=== PATIENT | male | born 1955 | race African-American/Black ===

== ENCOUNTER 2020-07-01 10:30 | Emergency (ER) | payer OTHER ==
--- OUTSIDE RECORDS SUMMARY | 2020-07-01 10:32 | XMS REPORT | Continuity of Care Document ---
:1955 Author Organization [employer] [place] Care Team Providers Name Role Phone [facility] Information [employer] Unavailable Un available Problems Problem Status Onset Classification Date Comments Sourc e Date Reported CHRONIC Active [facility] MYELOID 0 [place] LEUKEMIA CHRONIC Active [facility] MYELOID [place] LEUKEMIA, BCR/ABL-POSI TI Medications Medication Details Route Status Patient Ordering Order Source Instructions Provider Date ramipril 10 mg 10 mg = 1 Active [facility] oral capsule cap, PO, 020 [facility] BID, 0 Refill(s) Metformin 1,000 mg = Active [facility] hydrochloride 1 tab, PO, 020 [place] d 1000 MG Oral BID-Meals, Tablet # 30 tab, 0 Refill(s) 3 ML Insulin 70 units, Active [facility] Glargine 100 SUB-Q, 020 [facility] UNT/ML Pen Daily, 0 Injector Refill(s) [Basaglar] Allergies, Adverse Reactions, Alerts No Known Medication Allergies Immunizations No Data Provided for This Section Results Order Name Results Value Reference Date Interpretation Comments L[facility] HEMATOLOGY Retic Auto 2.4 0.5 - 1.5 05/22 [facility] HEMATOLOGY WBC 335.7 3.7 - 10.4 05/22 Result Comment: [facility] Critical Result(s) called to bre emmanuel at 0 11:17 by gp_. Read back OK. HEMATOLOGY RBC 2.80 4.70 - 05/22 [facility] 6.10 [facility] HEMATOLOGY Hgb 8.2 14.0 - 05/22 MH 18.0 [facility] HEMATOLOGY Hct 26.5 42.0 - 05/22 MH 54.0 [facility] HEMATOLOGY MCV 94.8 80.0 - 05/22 MH 94.0 [facility] HEMATOLOGY MCH 29.2 27.0 - 05/22 MH 31.0 [facility] HEMATOLOGY MCHC 30.8 32.0 - 05/22 MH 36.0 [facility] HEMATOLOGY RDW 15.6 11.5 - 05/22 MH 14.5 [facility] HEMATOLOGY Platelet 162 133 - 450 05/22 [facility] HEMATOLOGY MPV 11.6 7.4 - 10.4 05/22 [facility] HEMATOLOGY Neutrophils # 221.6 1.5 - 8.1 05/22 [facility] HEMATOLOGY Lymphocytes # 10.1 1.0 - 5.5 05/22 [facility] HEMATOLOGY Monocytes # 33.6 0.0 - 0.8 05/22 [facility] HEMATOLOGY Eosinophils # 13.4 0.0 - 0.5 05/22 [facility] HEMATOLOGY Basophils # 6.7 0.0 - 0.2 05/22 [facility] HEMATOLOGY Segs 52.0 45.0 - 05/22 MH 75.0 [facility] HEMATOLOGY Bands 14.0 0.0 - 11.0 05/22 [facility] HEMATOLOGY Lymphocytes 3.0 20.0 - 05/22 MH 40.0 [facility] HEMATOLOGY Monocytes 10.0 2.0 - 12.0 05/22 [facility] HEMATOLOGY Eosinophils 4.0 0.0 - 4.0 05/22 [facility] HEMATOLOGY Basophils 2.0 0.0 - 1.0 05/22 [facility] HEMATOLOGY Metamyelocytes 7.0 0.0 - 1.0 05/22 [facility] HEMATOLOGY Myelocytes 7.0 <=0.0 % 05/22 [facility] HEMATOLOGY Blasts 1.0 <=0.0 % 05/22 [facility] HEMATOLOGY Atypical Lymphs 0.0 <=0.0 % 05/22 [facility] HEMATOLOGY RBC Morph Normal Normal 05/22 (05/22/20 10:52 AM) [facility] HEMATOLOGY Plt Morph Normal Normal 05/22 (05/22/20 10:52 AM) [facility] IMMUNOLOGY Coronavirus Not Detected Not 05/22 (COVID-19) ROBBIE (05/22/20 9:08 AM) [facility] Pathology Reports No Data Provided for This Section Diagnostic Reports Report Value Date Source Bone Marrow Bio/Aspr PROCEDURE INFORMATION: 05/22/2020 Marciano KENDALL Exam: IR Diagnostic Bone Marrow Biopsies And Asp irations Exam date and time: 05/22/2020 12:38 PM Age: 64 years old Clinical indication: Chronic myeloid leukemia, b cr/abl-positive, in relapse; Additional info: /cml TECHNIQUE: Imaging protocol: Diagnostic bone marrow biopsie s and aspirations. The interpreting physician was present and supervise d the procedure. CT guidance was provided. Radiation optimization: All CT scans at this facility use at least one of these dose optimization techniques: automated exposure control; mA and/or kV adjustment per patient size (includes targeted e xams where dose is matched to clinical indication); or iterative reconstructio n. Guidance contrast: CT contrast route: Intra-veno us; COMPARISON: No relevant prior studies available. RADIATION DOSE METRICS: Total DLP (mGy-cm): 192.80 FINDINGS: Advanced practice providers: None CONSENT AND SEDATION INFO: Consent: The procedure, risks, benefits and alternatives of the procedure were discussed. Informed consent was obtained. Time out: Timeout was performed prior to the pro cedure. Level of sedation: I administered modera te sedation throughout this procedure. The patient was monitored and observed by a hosp ital nurse, an independent trained observer. The nurse pushed medications a t my direction and monitored the patient's level of consciousness and physiol ogical status throughout. Moderate sedation record is permanently stored i n the hospital information system. Medications for sedation: 3 mg of IV Versed and 200 mcg of IV Fentanyl. Total intra-service sedation time (minutes): 27 minutes. Procedure summary: The patient was placed in the prone position. 1% lidocaine was used for local anesthesia. Using CT guidance, 11-gauge needle was advanced into the posterior left and right iliac bones. CT imaging confirmed proper positioning of the needle with the tip in the medullary bon e. No liquid marrow could be aspirated from the left iliac bone. Packed marrow suspecte d. Left iliac of marrow space core bone biopsy specimen was however obtained. Again with CT guidance the 1 1 gauge needle was advanced into the contralateral, right posterior iliac crest marrow space. Only s cant liquid bone marrow could be aspirated. Initially a approximately 1 cc was aspirated and given to histotechnologist supervisor who confirmed good spicul es. Only 3-4 cc of additional liquid marrow could be aspir ated , and was given to pathology. 1 cm core biopsy sample of bone marrow was obtained utili zing the guide needle. The core biopsy sample was placed in formali n container and appeared grossly adequate. Pressure was applied at the puncture site with adequate h emostasis. Procedural imaging: CT guidance for procedure, as described above. Complications: No immediate complications. Patient tolerated th e procedure well. IMPRESSION: Unsuccessful aspiration of liquid ma rrow from the left iliac bone marrow space. Likely secondary to packed marrow state. Successful bone marrow aspiration from right elida ac bone marrow space, however only small volume 4 cc of liquid marrow could be recovered. Successful core bone biopsy. Teo Skaggs MD On 05/22/2020 14:03:01; [id number] Consultation Notes No Data Provided for This Section Discharge Summaries No Data Provided for This Section History and Physicals No Data Provided for This Section Vital Signs Vital Sign Value Date Comments Source Height 170.18 cm 05/22/2020 [facility] Weight 66.818 05/22/2020 [facility] BMI Calculated 23.07 05/22/2020 [facility] Height 170.18 cm 05/22/2020 [facility] Weight 66.364 05/22/2020 [facility] BMI Calculated 22.91 05/22/2020 [facility] Encounters Location Location Encounter Encounter Reason Attending ADM NH Stat us Source Details Type Number For Provider Date Date Visit [facility] [id number] Ratna 05/22 [facility] Procedures No Data Provided for This Section Assessment and Plan No Data Provided for This Section Plan of Care No Data Provided for This Section Social History Social History Date Source Social History TypeResponse 05/22/2020 [facility] Smoking Status Never smoker; Exposure to Tobacco Smoke None; Cigarette Smoking Last 365 Days No; Reg Smoking Cessation Counseling Yes entered on: 05/22/20 Family History No Data Provided for This Section Advance Directives No Data Provided for This Section Functional Status No Data Provided for This Section
--- OUTSIDE RECORDS SUMMARY | 2020-07-01 10:32 | XMS REPORT | Summary of Care ---
:1955 Author Organization [facility] spital Address [id number] [place] [id number]- Encounter HQ Kinjal(VIJAY) [id number] Date(s): 05/22/20 [facility] [address] [place] [phone] Attending Physician: Ratna Trevino MD Referring Physician: Ratna Trevino MD Vital Signs Most recent to oldest [Reference Range]: 1 2 Height 170.18 cm 170.18 cm (05/22/20 10:49 AM) (05/22/20 9:19 AM) Weight 66.818 kg 66.364 kg (05/22/20 10:49 AM) (05/22/20 9:19 AM) Body Mass Index 23.07 m2 22.91 m2 (05/22/20 10:49 AM) (05/22/20 9:19 AM) Problem List No data available for this section Allergies, Adverse Reactions, Alerts No Known Allergies Medications Basaglar KwikPen 100 units/mL subcutaneous solution 70 units, SUB-Q, Daily, 0 Refill(s) Start Date: 05/22/20 Status: OrderedmetFORMIN 1000 mg oral tablet 1,000 mg = 1 tab, PO, BID-Meals, # 30 tab, 0 Refill(s) Start Date: 05/22/20 Status: Orderedramipril 10 mg oral capsule 10 mg = 1 cap, PO, BID, 0 Refill(s) Start Date: 05/22/20 Status: Ordered Results Most recent to oldest [Reference Range]: 1 Neutrophils # [1.5-8.1 K/CMM] 221.6 K/CMM *HI* (05/22/20 10:52 AM) Lymphocytes # [1.0-5.5 K/CMM] 10.1 K/CMM *HI* (05/22/20 10:52 AM) Monocytes # [0.0-0.8 K/CMM] 33.6 K/CMM *HI* (05/22/20 10:52 AM) Eosinophils # [0.0-0.5 K/CMM] 13.4 K/CMM *HI* (05/22/20 10:52 AM) Basophils # [0.0-0.2 K/CMM] 6.7 K/CMM *HI* (05/22/20 10:52 AM) Plt Morph [Normal] Normal (05/22/20 10:52 AM) Bands [0.0-11.0 %] 14.0 % *HI* (05/22/20 10:52 AM) Basophils [0.0-1.0 %] 2.0 % *HI* (05/22/20 10:52 AM) Blasts [<=0.0 %] 1.0 % *HI* (05/22/20 10:52 AM) Eosinophils [0.0-4.0 %] 4.0 % (05/22/20 10:52 AM) Hct [42.0-54.0 %] 26.5 % *LOW* (05/22/20 10:52 AM) Hgb [14.0-18.0 g/dL] 8.2 g/dL *LOW* (05/22/20 10:52 AM) Atypical Lymphs [<=0.0 %] 0.0 % (05/22/20 10:52 AM) Lymphocytes [20.0-40.0 %] 3.0 % *LOW* (05/22/20 10:52 AM) MCH [27.0-31.0 pg] 29.2 pg (05/22/20 10:52 AM) MCHC [32.0-36.0 g/dL] 30.8 g/dL *LOW* (05/22/20 10:52 AM) MCV [80.0-94.0 fL] 94.8 fL *HI* (05/22/20 10:52 AM) Metamyelocytes [0.0-1.0 %] 7.0 % *HI* (05/22/20 10:52 AM) Monocytes [2.0-12.0 %] 10.0 % (05/22/20 10:52 AM) MPV [7.4-10.4 fL] 11.6 fL *HI* (05/22/20 10:52 AM) Myelocytes [<=0.0 %] 7.0 % *HI* (05/22/20 10:52 AM) Platelet [133-450 K/CMM] 162 K/CMM (05/22/20 10:52 AM) Segs [45.0-75.0 %] 52.0 % (05/22/20 10:52 AM) Coronavirus (COVID-19) ROBBIE [Not Detected] Not Detected (05/22/20 9:08 AM) RBC [4.70-6.10 M/CMM] 2.80 M/CMM *LOW* (05/22/20 10:52 AM) RBC Morph [Normal] Normal (05/22/20 10:52 AM) RDW [11.5-14.5 %] 15.6 % *HI* (05/22/20 10:52 AM) Retic Auto [0.5-1.5 %] 2.4 % *HI* (05/22/20 10:52 AM) WBC [3.7-10.4 K/CMM] 335.7 K/CMM 1 *CRIT* (05/22/20 10:52 AM) 1Result Comment: Critical Result(s) called to bre emmanuel at 05/22/2020 11:17 by gp_. Read back OK. Immunizations No data available for this section Procedures No data available for this section Social History Social History Type Response Smoking Status Never smoker; Exposure to To bacco Smoke None; Cigarette Smoking Last 365 Days No; Reg Smoking Cessation Counseling Yes entered on: 05/22/20 Assessment and Plan No data available for this section
--- OUTSIDE RECORDS SUMMARY | 2020-07-01 10:35 | XMS REPORT | Continuity of Care Document ---
:1955 Author Organization [facility] t Address [address] [place] [address] Care Team Providers Name Role Phone Jessica Trevino Attending Clinician Payers Payer Name Policy Type Policy Number Effective Date Expiration Date S ource Problems Condition Condition Condition Status Onset Resolution Last Treating Co mments Source Name Details Category Date Date Treatment Clinician Date CHRONIC Diagnosis Active 2019-052020-06-20 Me moria MYELOID -28 07:50:00 l LEUKEMIA CHRONIC 00:00: Radha nn MYELOID 00 LEUKEMIA Active 05/21/2020 [facility] CHRONIC Diagnosis Active 2020-06-20 Me moria MYELOID 07:50:00 l LEUKEMIA, CHRONIC Herm jessie BCR/ABL-PO MYELOID SITI LEUKEMIA, BCR/ABL-PO SITI Active [facility] Allergies, Adverse Reactions, Alerts Allergy Allergy Status Severity Reaction(s) Onset Inactive Treating Comm ents Source Name Type Date Date Clinician No Known DA Active [facility] [place] [facility] Social History Smoking Status Start Date Stop Date Source Social History [facility] Medications Ordered Filled Start Stop Current Ordering Indication Dosage Frequency Signature Comments Components Source Medication Medication Date Date Medication? Clinician (SIG) Name Name ramipril 10 2019-05 Yes 10 mg = 1 M emoria mg oral 2-29 cap, PO, l capsule 17:13: BID, 0 [address] 00 Refill(s) Metformin 2019-05 Yes 1,000 mg = Me moria hydrochlori 1 tab, PO, l de 1000 MG 17:13: BID-Meals, H ermann Oral Tablet 00 # 30 tab, 0 Refill(s) 3 ML 2019-05 Yes 70 units, Memoria Insulin SUB-Q, l Glargine 17:13: Daily, 0 Radha nn 100 UNT/ML 00 Refill(s) Pen Injector [Basaglar] Vital Signs Vital Name Observation Time Observation Value Comments Source Height 2020-05-22 16:49:00 170.18 cm [facility] Weight 2020-05-22 16:49:00 [facility] BMI Calculated 2020-05-22 16:49:00 Katherine al [place] Height 2020-05-22 15:19:00 170.18 cm [facility] Weight 2020-05-22 15:19:00 [facility] BMI Calculated 2020-05-22 15:19:00 Katherine grossman [address] Procedures This patient has no known procedures. Encounters Start End Encounter Admission Attending Care Care Encounter Source Date/Time Date/Time Type Type Clinicians Facility Department ID 2020-05-22 2020-05-22 Outpatient Pant, [facility] [id number] 275 10:00:00 10:00:00 Ratna 00 Jessica 2020-05-22 2020-05-22 Outpatient [facility] 09:01:00 09:01:00 Results Test Description Test Time Test Comments Results Result Comments Source GLUCOSE BEDSIDE TESTING 2020-06-28 12:11:00 Test Item Value Reference Range Interpretation Comme nts GLUCOSE BEDSIDE TESTING (test code = GLUBED) 214 MG/DL 70-119 H GLUCOSE BEDSIDE [id number] 21:49:00 Test Item Value Reference Range Interpretation Comments GLUCOSE BEDSIDE TESTING (test code 195 MG/DL 70-119 H = GLUBED) GLUCOSE BEDSIDE [id number] 15:38:00 Test Item Value Reference Range Interpretation Comments GLUCOSE BEDSIDE TESTING (test code 251 MG/DL 70-119 H = GLUBED) GLUCOSE BEDSIDE [id number] 11:48:00 Test Item Value Reference Range Interpretation Comments GLUCOSE BEDSIDE TESTING (test code 212 MG/DL 70-119 H = GLUBED) GLUCOSE BEDSIDE [id number] 06:03:00 Test Item Value Reference Range Interpretation Comments GLUCOSE BEDSIDE TESTING (test code 139 MG/DL 70-119 H = GLUBED) CBC W/MANUAL [id number] 23:26:00 Test Item Value Reference Range Interpretation Comments WHITE BLOOD CELL 259.8 K/mm3 4.1-12.1 HH Critical va lues (test code = WBC) after the first occurrence are excluded fromca ll documentation requirements fo r this analyte du e to thepatient diagnosis or therapy protoco ls. RED BLOOD CELL 2.56 M/mm3 3.8-5.5 L (test code = RBC) HEMOGLOBIN (test 8.2 G/DL 10.6-15.8 L code = HGB) HEMATOCRIT (test 25.4 % 31.8-47.4 L code = HCT) MEAN CELL VOLUME 99.2 fL 80.1-101.1 N (test code = MCV) MEAN CELL HGB (test 32.0 pg 25.3-35.3 N code = MCH) MEAN CELL HGB 32.3 G/DL 32.7-35.1 L CONCETRATION (test code = MCHC) RED CELL 16.0 % 12.2-16.4 N DISTRIBUTION WIDTH (test code = RDW) RED CELL 58.0 fL 35.1-43.9 H DISTRIBUTION WIDTH (test code = RDW-SD) PLATELET COUNT 183 K/mm3 155-337 N (test code = PLT) MEAN PLATELET TEST NOT 7.6-10.4 Value unavaila ble VOLUME (test code = PERFORMED fL due to MPV) interference. GRANULOCYTE % (test 69.6 % 37.8-82.6 N code = GR%) IMMATURE 22.2 % 0.0-2.0 H GRANULOCYTE % (test code = IG%) LYMPHOCYTE % (test 1.9 % 14.1-45.4 L code = LY%) MONOCYTE % (test 3.7 % 2.5-11.7 N code = MO%) EOSINOPHIL % (test 0.6 % 0.0-6.2 N code = EO%) BASOPHIL % (test 2.0 % 0.0-2.6 N code = BA%) NUCLEATED RBC % 0.1 /100WBC% 0.0-1.0 N (test code = NRBC%) GRANULOCYTE # (test 180.84 k/mm3 2.0-13.7 H code = GR#) IMMATURE 57.75 K/mm3 0.00-0.03 H GRANULOCYTE # (test code = IG#) LYMPHOCYTE # (test 4.87 K/mm3 0.6-3.8 H code = LY#) MONOCYTE # (test 9.74 K/mm3 0.11-0.59 H code = MO#) EOSINOPHIL # (test 1.47 K/mm3 0.0-0.4 H code = EO#) BASOPHIL # (test 5.17 K/mm3 0.0-0.1 H code = BA#) NUCLEATED RBC # 0.20 K/mm3 0.00-0.05 H (test code = NRBC#) MANUAL DIFF MAN DIFF CRITERIA REQUIRED (test code INDICATED = MDIFF) DIFF/SCN WBC [id number] 23:26:00 Test Item Value Reference Range Interpretation Comments TOTAL CELLS COUNTED (test 100 #CELLS >100 code = TCC) SEGMENTED NEUTROPHILS (test 83 % 40-75 H code = SEG) LYMPHOCYTE (test code = 1 % 12.6-43.5 L LYMPH) MONOCYTE (test code = MON) 4 % 4.2-12.7 L METAMYELOCYTE (test code = 3 % 0-2 H META) MYELOCYTE (test code = 9 % 0-1 H MYELO) HYPOCHROMIA (test code = SLIGHT ON SCAN NONE HYPO) PLATELET ESTIMATE (test ADEQ ON SCAN ADEQUATE code = PLTEST) PLATELET MORPHOLOGY (test LARGE MOD ON SCAN NORMAL PLTS A code = PLTMORPH) PLATELET MORPHOLOGY (test GIANT FEW ON SCAN NORMAL PLTS code = [id number]) COMPREHENSIVE METABOLIC [id number] 22:28:00 Test Item Value Reference Range Interpretation Comments SODIUM (test code = 132.0 mmol/L 133-144 L NA) POTASSIUM (test code 4.0 mmol/L 3.5-5.1 N = K) CHLORIDE (test code 100 mmol/L 95-105 N = CL) CARBON DIOXIDE (test 24 mmol/L 21-32 N code = CO2) ANION GAP (test code 8.0 GAP calc 4.0-15.0 N = GAP) GLUCOSE (test code = 346 MG/DL 70-110 H GLU) BLOOD UREA NITROGEN 49 MG/DL 7-18 H (test code = BUN) GLOMERULAR 45 estGFR >60 L The estimated FILTRATION RATE glomerular (test code = GFR) filtration rate is computed usingpatient ra ce, age, sex, and s justine creatinine. If any of theneeded da ta elements are mi ssing the Laboratory can notcompute an estimation of t he glomerular filtration rate .The GFR value units = ml/min/1.73 met er squared. EstimatedGFR va lues above 60 should be interpreted as >60, not anexact number.--- DRUG DOSAGE ALERT -- - Drug dosage adjustments uti lize different calculationpara meter s. CREATININE (test 1.57 MG/DL 0.55-1.30 H Results may be code = CREAT) depressed if p atient is takingN-Acetylc ystei ne (NAC) and Metamizole (Dipyrone). TOTAL PROTEIN (test 7.3 G/DL 6.4-8.2 N code = PROT) ALBUMIN (test code = 3.1 G/DL 3.4-5.0 L ALB) ALBUMIN/GLOBULIN 0.7 RATIO 1.2-2.2 L RATIO (test code = A/G) CALCIUM (test code = 9.2 MG/DL 8.5-10.1 N CA) BILIRUBIN TOTAL 0.68 MG/DL 0.00-1.00 N (test code = BILT) BILIRUBIN DIRECT 0.43 MG/DL 0.00-0.30 H (test code = BILD) BILIRUBIN INDIRECT 0.25 MG/DL 0.2-1.3 N (test code = BILIND) SGOT/AST (test code 22 Unit/L 15-37 N = AST) SGPT/ALT (test code 66 Unit/L 12-78 N = ALT) ALKALINE PHOSPHATASE 248 Unit/L 45-117 H TOTAL (test code = ALKP) INDEX HEMOLYSIS 1 NORMAL <10 1 NORMAL (test code = MG Index/DL HEMINDEX) INDEX ICTERIC (test 1 NORMAL <2 MG 1 NORMAL code = ICTINDEX) Index/DL INDEX LIPEMIA (test 1 NORMAL <50 1 NORMAL code = LIPINDEX) MG Index/DL [id number] 22:28:00 Test Item Value Reference Range Interpretation Comments PHOSPHOROUS (test code = PHOS) 3.7 MG/DL 2.5-4.9 N URIC [id number] 22:28:00 Test Item Value Reference Range Interpretation Comments URIC ACID (test code 8.7 MG/DL 3.5-7.2 H Results maybe depressed = URIC) if patient is t aking Metamizole(Dipy josé miguel). LACTIC DEHYDROGENASE(LDH)2020-06-26 22:28:00 Test Item Value Reference Range Interpretation Comments LACTIC DEHYDROGENASE(LDH) (test 669 Unit/L 84-246 H code = LDH) [id number] 22:28:00 Test Item Value Reference Range Interpretation Comments MAGNESIUM (test code = MAG) 2.8 MG/DL 1.6-2.6 H CBC W/MANUAL [id number] 22:06:00 Test Item Value Reference Range Interpretation Comments WHITE BLOOD CELL 259.8 K/mm3 4.1-12.1 HH Critical va lues (test code = WBC) after the first occurrence are excluded fromca ll documentation requirements fo r this analyte du e to thepatient diagnosis or therapy protoco ls. RED BLOOD CELL 2.56 M/mm3 3.8-5.5 L (test code = RBC) HEMOGLOBIN (test 8.2 G/DL 10.6-15.8 L code = HGB) HEMATOCRIT (test 25.4 % 31.8-47.4 L code = HCT) MEAN CELL VOLUME 99.2 fL 80.1-101.1 N (test code = MCV) MEAN CELL HGB (test 32.0 pg 25.3-35.3 N code = MCH) MEAN CELL HGB 32.3 G/DL 32.7-35.1 L CONCETRATION (test code = MCHC) RED CELL 16.0 % 12.2-16.4 N DISTRIBUTION WIDTH (test code = RDW) RED CELL 58.0 fL 35.1-43.9 H DISTRIBUTION WIDTH (test code = RDW-SD) PLATELET COUNT 183 K/mm3 155-337 N (test code = PLT) MEAN PLATELET TEST NOT 7.6-10.4 Value unavaila ble VOLUME (test code = PERFORMED fL due to MPV) interference. GRANULOCYTE % (test 69.6 % 37.8-82.6 N code = GR%) IMMATURE 22.2 % 0.0-2.0 H GRANULOCYTE % (test code = IG%) LYMPHOCYTE % (test 1.9 % 14.1-45.4 L code = LY%) MONOCYTE % (test 3.7 % 2.5-11.7 N code = MO%) EOSINOPHIL % (test 0.6 % 0.0-6.2 N code = EO%) BASOPHIL % (test 2.0 % 0.0-2.6 N code = BA%) NUCLEATED RBC % 0.1 /100WBC% 0.0-1.0 N (test code = NRBC%) GRANULOCYTE # (test 180.84 k/mm3 2.0-13.7 H code = GR#) IMMATURE 57.75 K/mm3 0.00-0.03 H GRANULOCYTE # (test code = IG#) LYMPHOCYTE # (test 4.87 K/mm3 0.6-3.8 H code = LY#) MONOCYTE # (test 9.74 K/mm3 0.11-0.59 H code = MO#) EOSINOPHIL # (test 1.47 K/mm3 0.0-0.4 H code = EO#) BASOPHIL # (test 5.17 K/mm3 0.0-0.1 H code = BA#) NUCLEATED RBC # 0.20 K/mm3 0.00-0.05 H (test code = NRBC#) MANUAL DIFF MAN DIFF CRITERIA REQUIRED (test code INDICATED = MDIFF) DIFF/SCN WBC [id number] 22:06:00 Test Item Value Reference Range Interpretation Comments TOTAL CELLS COUNTED (test code = #CELLS >100 TCC) SEGMENTED NEUTROPHILS (test code = % 40-75 SEG) LYMPHOCYTE (test code = LYMPH) % 12.6-43.5 MORPHOLOGY COMMENT (test code = MOC) ON SCAN NORMAL RBCS PLATELET ESTIMATE (test code = ON SCAN ADEQUATE PLTEST) CBC W/MANUAL [id number] 22:06:00 Test Item Value Reference Range Interpretation Comments WHITE BLOOD CELL 259.8 K/mm3 4.1-12.1 HH Critical va lues (test code = WBC) after the first occurrence are excluded fromca ll documentation requirements fo r this analyte du e to thepatient diagnosis or therapy protoco ls. RED BLOOD CELL 2.56 M/mm3 3.8-5.5 L (test code = RBC) HEMOGLOBIN (test 8.2 G/DL 10.6-15.8 L code = HGB) HEMATOCRIT (test 25.4 % 31.8-47.4 L code = HCT) MEAN CELL VOLUME 99.2 fL 80.1-101.1 N (test code = MCV) MEAN CELL HGB (test 32.0 pg 25.3-35.3 N code = MCH) MEAN CELL HGB 32.3 G/DL 32.7-35.1 L CONCETRATION (test code = MCHC) RED CELL 16.0 % 12.2-16.4 N DISTRIBUTION WIDTH (test code = RDW) RED CELL 58.0 fL 35.1-43.9 H DISTRIBUTION WIDTH (test code = RDW-SD) PLATELET COUNT 183 K/mm3 155-337 N (test code = PLT) MEAN PLATELET TEST NOT 7.6-10.4 Value unavaila ble VOLUME (test code = PERFORMED fL due to MPV) interference. GRANULOCYTE % (test 69.6 % 37.8-82.6 N code = GR%) IMMATURE 22.2 % 0.0-2.0 H GRANULOCYTE % (test code = IG%) LYMPHOCYTE % (test 1.9 % 14.1-45.4 L code = LY%) MONOCYTE % (test 3.7 % 2.5-11.7 N code = MO%) EOSINOPHIL % (test 0.6 % 0.0-6.2 N code = EO%) BASOPHIL % (test 2.0 % 0.0-2.6 N code = BA%) NUCLEATED RBC % 0.1 /100WBC% 0.0-1.0 N (test code = NRBC%) GRANULOCYTE # (test 180.84 k/mm3 2.0-13.7 H code = GR#) IMMATURE 57.75 K/mm3 0.00-0.03 H GRANULOCYTE # (test code = IG#) LYMPHOCYTE # (test 4.87 K/mm3 0.6-3.8 H code = LY#) MONOCYTE # (test 9.74 K/mm3 0.11-0.59 H code = MO#) EOSINOPHIL # (test 1.47 K/mm3 0.0-0.4 H code = EO#) BASOPHIL # (test 5.17 K/mm3 0.0-0.1 H code = BA#) NUCLEATED RBC # 0.20 K/mm3 0.00-0.05 H (test code = NRBC#) MANUAL DIFF MAN DIFF CRITERIA REQUIRED (test code INDICATED = MDIFF) DIFF/SCN WBC [id number] 22:06:00 Test Item Value Reference Range Interpretation Comments TOTAL CELLS COUNTED (test code = #CELLS >100 TCC) SEGMENTED NEUTROPHILS (test code = % 40-75 SEG) LYMPHOCYTE (test code = LYMPH) % 12.6-43.5 MORPHOLOGY COMMENT (test code = MOC) ON SCAN NORMAL RBCS PLATELET ESTIMATE (test code = ON SCAN ADEQUATE PLTEST) GLUCOSE BEDSIDE [id number] 21:21:00 Test Item Value Reference Range Interpretation Comments GLUCOSE BEDSIDE TESTING (test code 353 MG/DL 70-119 H = GLUBED) GLUCOSE BEDSIDE [id number] 16:54:00 Test Item Value Reference Range Interpretation Comments GLUCOSE BEDSIDE TESTING (test code 294 MG/DL 70-119 H = GLUBED) GLUCOSE BEDSIDE [id number] 12:27:00 Test Item Value Reference Range Interpretation Comments GLUCOSE BEDSIDE TESTING (test code 324 MG/DL 70-119 H = GLUBED) - XR CHEST 1 [id number] 07:53:00 [facility] SCOTT [facility] : 1955 Sex: M FAX: Jake Sanchez MD [phone] [place]: C St: [facility] FAX: Jose Duong NP [phone] FAX: Forrest Wu MD [phone] Patient Name: SCOTTTRENTON Unit No: [id number] EXAMS: CPT CODE: [id number] XR CHEST 1 V 40819 INDICATION: COVID LOCATION: T18 COMPARISON STUDY: Chest radiograph dated June 22, 2020. FINDINGS: Single view of the chest. Decreased lung volumes . Similar bilateral interstitialopacities. There is no pneumothorax or pleural fluid. The heart size is enlarged. There is similar mild pulmonary vasculature engorgement. Osseous structures are stable. IMPR ESSION: 1. Cardiomegaly with similar mild pulmonary vascular engorgement suggestive of CHF/volume overload. 2. Similar bilateral interstitial opacities which may represent atelectasis/pulmonary edema or pneumonia. at 0753 Reported and signed by: Ascencion Grigsby MD CC: Jake Escobar MD; Jose Carrillo QUALITY ASSURANCE MONITOR; Forrest Gomezated Date/Time: 06/26/2020 (0753)Technologist: Kendall Gutierrez Transcribed Date/Time: 06/26/2020 (0753) By: [email or web address] Orig Print D/T: S: 06/26/2020(0756) [facility] NAME[facility] PHYS: LISA - Jose Carrillo NP [address] [place] [address] BLVD : 1955 AGE: 64 SEX: AFSHAN FUNES [id number] LOC: B.340 W PHONE #: [phone] EXAM DATE: 06/26/2020 STATUS: ADM IN FAX #: [phone] RAD NO: DC Dt: PAGE 1 Signed ReportCBC W/MANUAL [id number] 06:38:00 Test Item Value Reference Range Interpretation Comments WHITE BLOOD CELL 267.5 K/mm3 4.1-12.1 HH Critical va lues are (test code = WBC) excluded f rom call documentation d ue tothe patient diagnosis or therapy protoco ls. RED BLOOD CELL 2.54 M/mm3 3.8-5.5 L (test code = RBC) HEMOGLOBIN (test 8.0 G/DL 10.6-15.8 L code = HGB) HEMATOCRIT (test 25.1 % 31.8-47.4 L code = HCT) MEAN CELL VOLUME 98.8 fL 80.1-101.1 N (test code = MCV) MEAN CELL HGB (test 31.5 pg 25.3-35.3 N code = MCH) MEAN CELL HGB 31.9 G/DL 32.7-35.1 L CONCETRATION (test code = MCHC) RED CELL 16.3 % 12.2-16.4 N DISTRIBUTION WIDTH (test code = RDW) RED CELL 56.9 fL 35.1-43.9 H DISTRIBUTION WIDTH (test code = RDW-SD) PLATELET COUNT 174 K/mm3 155-337 N (test code = PLT) MEAN PLATELET TEST NOT 7.6-10.4 VOLUME (test code = PERFORMED fL MPV) GRANULOCYTE % (test 67.2 % 37.8-82.6 N code = GR%) IMMATURE 23.5 % 0.0-2.0 H GRANULOCYTE % (test code = IG%) LYMPHOCYTE % (test 2.4 % 14.1-45.4 L code = LY%) MONOCYTE % (test 4.1 % 2.5-11.7 N code = MO%) EOSINOPHIL % (test 0.9 % 0.0-6.2 N code = EO%) BASOPHIL % (test 1.9 % 0.0-2.6 N code = BA%) NUCLEATED RBC % 0.1 /100WBC% 0.0-1.0 N (test code = NRBC%) GRANULOCYTE # (test 179.70 k/mm3 2.0-13.7 H code = GR#) IMMATURE 62.88 K/mm3 0.00-0.03 H GRANULOCYTE # (test code = IG#) LYMPHOCYTE # (test 6.47 K/mm3 0.6-3.8 H code = LY#) MONOCYTE # (test 10.94 K/mm3 0.11-0.59 H code = MO#) EOSINOPHIL # (test 2.47 K/mm3 0.0-0.4 H code = EO#) BASOPHIL # (test 5.01 K/mm3 0.0-0.1 H code = BA#) NUCLEATED RBC # 0.16 K/mm3 0.00-0.05 H (test code = NRBC#) MANUAL DIFF MAN DIFF CRITERIA REQUIRED (test code INDICATED = MDIFF) DIFF/SCN WBC [id number] 06:38:00 Test Item Value Reference Range Interpretation Comments TOTAL CELLS COUNTED (test 100 #CELLS >100 code = TCC) SEGMENTED NEUTROPHILS (test 88 % 40-75 H code = SEG) LYMPHOCYTE (test code = 2 % 12.6-43.5 L LYMPH) MONOCYTE (test code = MON) 3 % 4.2-12.7 L BASOPHIL (test code = BASO) 3 % 0-2.6 H MYELOCYTE (test code = 4 % 0-1 H MYELO) HYPOCHROMIA (test code = SLIGHT ON SCAN NONE HYPO) PLATELET ESTIMATE (test ADEQ ON SCAN ADEQUATE code = PLTEST) PLATELET MORPHOLOGY (test LARGE FEW ON SCAN NORMAL PLTS code = PLTMORPH) CBC W/MANUAL [id number] 06:16:00 Test Item Value Reference Range Interpretation Comments WHITE BLOOD CELL 267.5 K/mm3 4.1-12.1 HH Critical va lues are (test code = WBC) excluded f rom call documentation d ue tothe patient diagnosis or therapy protoco ls. RED BLOOD CELL 2.54 M/mm3 3.8-5.5 L (test code = RBC) HEMOGLOBIN (test 8.0 G/DL 10.6-15.8 L code = HGB) HEMATOCRIT (test 25.1 % 31.8-47.4 L code = HCT) MEAN CELL VOLUME 98.8 fL 80.1-101.1 N (test code = MCV) MEAN CELL HGB (test 31.5 pg 25.3-35.3 N code = MCH) MEAN CELL HGB 31.9 G/DL 32.7-35.1 L CONCETRATION (test code = MCHC) RED CELL 16.3 % 12.2-16.4 N DISTRIBUTION WIDTH (test code = RDW) RED CELL 56.9 fL 35.1-43.9 H DISTRIBUTION WIDTH (test code = RDW-SD) PLATELET COUNT 174 K/mm3 155-337 N (test code = PLT) MEAN PLATELET TEST NOT 7.6-10.4 VOLUME (test code = PERFORMED fL MPV) GRANULOCYTE % (test 67.2 % 37.8-82.6 N code = GR%) IMMATURE 23.5 % 0.0-2.0 H GRANULOCYTE % (test code = IG%) LYMPHOCYTE % (test 2.4 % 14.1-45.4 L code = LY%) MONOCYTE % (test 4.1 % 2.5-11.7 N code = MO%) EOSINOPHIL % (test 0.9 % 0.0-6.2 N code = EO%) BASOPHIL % (test 1.9 % 0.0-2.6 N code = BA%) NUCLEATED RBC % 0.1 /100WBC% 0.0-1.0 N (test code = NRBC%) GRANULOCYTE # (test 179.70 k/mm3 2.0-13.7 H code = GR#) IMMATURE 62.88 K/mm3 0.00-0.03 H GRANULOCYTE # (test code = IG#) LYMPHOCYTE # (test 6.47 K/mm3 0.6-3.8 H code = LY#) MONOCYTE # (test 10.94 K/mm3 0.11-0.59 H code = MO#) EOSINOPHIL # (test 2.47 K/mm3 0.0-0.4 H code = EO#) BASOPHIL # (test 5.01 K/mm3 0.0-0.1 H code = BA#) NUCLEATED RBC # 0.16 K/mm3 0.00-0.05 H (test code = NRBC#) MANUAL DIFF MAN DIFF CRITERIA REQUIRED (test code INDICATED = MDIFF) DIFF/SCN WBC [id number] 06:16:00 Test Item Value Reference Range Interpretation Comments TOTAL CELLS COUNTED (test 100 #CELLS >100 code = TCC) SEGMENTED NEUTROPHILS (test 88 % 40-75 H code = SEG) LYMPHOCYTE (test code = 2 % 12.6-43.5 L LYMPH) MONOCYTE (test code = MON) 3 % 4.2-12.7 L BASOPHIL (test code = BASO) 3 % 0-2.6 H MYELOCYTE (test code = 4 % 0-1 H MYELO) HYPOCHROMIA (test code = SLIGHT ON SCAN NONE HYPO) PLATELET ESTIMATE (test ON SCAN ADEQUATE code = PLTEST) PLATELET MORPHOLOGY (test LARGE FEW ON SCAN NORMAL PLTS code = PLTMORPH) GLUCOSE BEDSIDE [id number] 06:09:00 Test Item Value Reference Range Interpretation Comments GLUCOSE BEDSIDE TESTING (test code 146 MG/DL 70-119 H = GLUBED) COMPREHENSIVE METABOLIC [id number] 05:58:00 Test Item Value Reference Range Interpretation Comments SODIUM (test code = 134.0 mmol/L 133-144 N NA) POTASSIUM (test code 3.8 mmol/L 3.5-5.1 N = K) CHLORIDE (test code 104 mmol/L 95-105 N = CL) CARBON DIOXIDE (test 26 mmol/L 21-32 N code = CO2) ANION GAP (test code 4.0 GAP calc 4.0-15.0 N = GAP) GLUCOSE (test code = 140 MG/DL 70-110 H GLU) BLOOD UREA NITROGEN 49 MG/DL 7-18 H (test code = BUN) GLOMERULAR 45 estGFR >60 L The estimated FILTRATION RATE glomerular (test code = GFR) filtration rate is computed usingpatient ra ce, age, sex, and s justine creatinine. If any of theneeded da ta elements are mi ssing the Laboratory can notcompute an estimation of t he glomerular filtration rate .The GFR value units = ml/min/1.73 met er squared. EstimatedGFR va lues above 60 should be interpreted as >60, not anexact number.--- DRUG DOSAGE ALERT -- - Drug dosage adjustments uti lize different calculationpara meter s. CREATININE (test 1.55 MG/DL 0.55-1.30 H Results may be code = CREAT) depressed if p atient is takingN-Acetylc ystei ne (NAC) and Metamizole (Dipyrone). TOTAL PROTEIN (test 7.7 G/DL 6.4-8.2 N code = PROT) ALBUMIN (test code = 3.1 G/DL 3.4-5.0 L ALB) ALBUMIN/GLOBULIN 0.7 RATIO 1.2-2.2 L RATIO (test code = A/G) CALCIUM (test code = 8.7 MG/DL 8.5-10.1 N CA) BILIRUBIN TOTAL 0.76 MG/DL 0.00-1.00 N (test code = BILT) BILIRUBIN DIRECT 0.57 MG/DL 0.00-0.30 H (test code = BILD) BILIRUBIN INDIRECT 0.19 MG/DL 0.2-1.3 L (test code = BILIND) SGOT/AST (test code 40 Unit/L 15-37 H = AST) SGPT/ALT (test code 77 Unit/L 12-78 N = ALT) ALKALINE PHOSPHATASE 258 Unit/L 45-117 H TOTAL (test code = ALKP) INDEX HEMOLYSIS 1 NORMAL <10 1 NORMAL (test code = MG Index/DL HEMINDEX) INDEX ICTERIC (test 1 NORMAL <2 MG 1 NORMAL code = ICTINDEX) Index/DL INDEX LIPEMIA (test 1 NORMAL <50 1 NORMAL code = LIPINDEX) MG Index/DL CBC W/MANUAL [id number] 05:01:00 Test Item Value Reference Range Interpretation Comments WHITE BLOOD CELL 267.5 K/mm3 4.1-12.1 HH Critical va lues are (test code = WBC) excluded f rom call documentation d ue tothe patient diagnosis or therapy protoco ls. RED BLOOD CELL 2.54 M/mm3 3.8-5.5 L (test code = RBC) HEMOGLOBIN (test 8.0 G/DL 10.6-15.8 L code = HGB) HEMATOCRIT (test 25.1 % 31.8-47.4 L code = HCT) MEAN CELL VOLUME 98.8 fL 80.1-101.1 N (test code = MCV) MEAN CELL HGB (test 31.5 pg 25.3-35.3 N code = MCH) MEAN CELL HGB 31.9 G/DL 32.7-35.1 L CONCETRATION (test code = MCHC) RED CELL 16.3 % 12.2-16.4 N DISTRIBUTION WIDTH (test code = RDW) RED CELL 56.9 fL 35.1-43.9 H DISTRIBUTION WIDTH (test code = RDW-SD) PLATELET COUNT 174 K/mm3 155-337 N (test code = PLT) MEAN PLATELET TEST NOT 7.6-10.4 VOLUME (test code = PERFORMED fL MPV) GRANULOCYTE % (test 67.2 % 37.8-82.6 N code = GR%) IMMATURE 23.5 % 0.0-2.0 H GRANULOCYTE % (test code = IG%) LYMPHOCYTE % (test 2.4 % 14.1-45.4 L code = LY%) MONOCYTE % (test 4.1 % 2.5-11.7 N code = MO%) EOSINOPHIL % (test 0.9 % 0.0-6.2 N code = EO%) BASOPHIL % (test 1.9 % 0.0-2.6 N code = BA%) NUCLEATED RBC % 0.1 /100WBC% 0.0-1.0 N (test code = NRBC%) GRANULOCYTE # (test 179.70 k/mm3 2.0-13.7 H code = GR#) IMMATURE 62.88 K/mm3 0.00-0.03 H GRANULOCYTE # (test code = IG#) LYMPHOCYTE # (test 6.47 K/mm3 0.6-3.8 H code = LY#) MONOCYTE # (test 10.94 K/mm3 0.11-0.59 H code = MO#) EOSINOPHIL # (test 2.47 K/mm3 0.0-0.4 H code = EO#) BASOPHIL # (test 5.01 K/mm3 0.0-0.1 H code = BA#) NUCLEATED RBC # 0.16 K/mm3 0.00-0.05 H (test code = NRBC#) MANUAL DIFF MAN DIFF CRITERIA REQUIRED (test code INDICATED = MDIFF) DIFF/SCN WBC [id number] 05:01:00 Test Item Value Reference Range Interpretation Comments TOTAL CELLS COUNTED (test code = #CELLS >100 TCC) SEGMENTED NEUTROPHILS (test code = % 40-75 SEG) LYMPHOCYTE (test code = LYMPH) % 12.6-43.5 MORPHOLOGY COMMENT (test code = MOC) ON SCAN NORMAL RBCS PLATELET ESTIMATE (test code = ON SCAN ADEQUATE PLTEST) CBC W/MANUAL [id number] 05:01:00 Test Item Value Reference Range Interpretation Comments WHITE BLOOD CELL 267.5 K/mm3 4.1-12.1 HH Critical va lues are (test code = WBC) excluded f rom call documentation d ue tothe patient diagnosis or therapy protoco ls. RED BLOOD CELL 2.54 M/mm3 3.8-5.5 L (test code = RBC) HEMOGLOBIN (test 8.0 G/DL 10.6-15.8 L code = HGB) HEMATOCRIT (test 25.1 % 31.8-47.4 L code = HCT) MEAN CELL VOLUME 98.8 fL 80.1-101.1 N (test code = MCV) MEAN CELL HGB (test 31.5 pg 25.3-35.3 N code = MCH) MEAN CELL HGB 31.9 G/DL 32.7-35.1 L CONCETRATION (test code = MCHC) RED CELL 16.3 % 12.2-16.4 N DISTRIBUTION WIDTH (test code = RDW) RED CELL 56.9 fL 35.1-43.9 H DISTRIBUTION WIDTH (test code = RDW-SD) PLATELET COUNT 174 K/mm3 155-337 N (test code = PLT) MEAN PLATELET TEST NOT 7.6-10.4 VOLUME (test code = PERFORMED fL MPV) GRANULOCYTE % (test 67.2 % 37.8-82.6 N code = GR%) IMMATURE 23.5 % 0.0-2.0 H GRANULOCYTE % (test code = IG%) LYMPHOCYTE % (test 2.4 % 14.1-45.4 L code = LY%) MONOCYTE % (test 4.1 % 2.5-11.7 N code = MO%) EOSINOPHIL % (test 0.9 % 0.0-6.2 N code = EO%) BASOPHIL % (test 1.9 % 0.0-2.6 N code = BA%) NUCLEATED RBC % 0.1 /100WBC% 0.0-1.0 N (test code = NRBC%) GRANULOCYTE # (test 179.70 k/mm3 2.0-13.7 H code = GR#) IMMATURE 62.88 K/mm3 0.00-0.03 H GRANULOCYTE # (test code = IG#) LYMPHOCYTE # (test 6.47 K/mm3 0.6-3.8 H code = LY#) MONOCYTE # (test 10.94 K/mm3 0.11-0.59 H code = MO#) EOSINOPHIL # (test 2.47 K/mm3 0.0-0.4 H code = EO#) BASOPHIL # (test 5.01 K/mm3 0.0-0.1 H code = BA#) NUCLEATED RBC # 0.16 K/mm3 0.00-0.05 H (test code = NRBC#) MANUAL DIFF MAN DIFF CRITERIA REQUIRED (test code INDICATED = MDIFF) DIFF/SCN WBC [id number] 05:01:00 Test Item Value Reference Range Interpretation Comments TOTAL CELLS COUNTED (test code = #CELLS >100 TCC) SEGMENTED NEUTROPHILS (test code = % 40-75 SEG) LYMPHOCYTE (test code = LYMPH) % 12.6-43.5 MORPHOLOGY COMMENT (test code = MOC) ON SCAN NORMAL RBCS PLATELET ESTIMATE (test code = ON SCAN ADEQUATE PLTEST) GLUCOSE BEDSIDE [id number] 21:09:00 Test Item Value Reference Range Interpretation Comments GLUCOSE BEDSIDE TESTING (test code 256 MG/DL 70-119 H = GLUBED) GLUCOSE BEDSIDE [id number] 17:21:00 Test Item Value Reference Range Interpretation Comments GLUCOSE BEDSIDE TESTING (test code 196 MG/DL 70-119 H = GLUBED) GLUCOSE BEDSIDE [id number] 12:58:00 Test Item Value Reference Range Interpretation Comments GLUCOSE BEDSIDE TESTING (test code 165 MG/DL 70-119 H = GLUBED) CBC W/MANUAL [id number] 08:27:00 Test Item Value Reference Range Interpretation Comments WHITE BLOOD CELL 366.2 K/mm3 4.1-12.1 HH ON 06/23/20 AT (test code = WBC) 0031, B.AYANA WatersMEB CALLED TO JAZ NAGEL. The report was confirmed by re ad back protocols Y,N: N. RED BLOOD CELL (test 2.43 M/mm3 3.8-5.5 L code = RBC) HEMOGLOBIN (test 8.1 G/DL 10.6-15.8 L code = HGB) HEMATOCRIT (test 23.8 % 31.8-47.4 L code = HCT) MEAN CELL VOLUME 97.9 fL 80.1-101.1 N (test code = MCV) MEAN CELL HGB (test 33.3 pg 25.3-35.3 N code = MCH) MEAN CELL HGB 34.0 G/DL 32.7-35.1 N CONCETRATION (test code = MCHC) RED CELL 16.0 % 12.2-16.4 N DISTRIBUTION WIDTH (test code = RDW) RED CELL 56.3 fL 35.1-43.9 H DISTRIBUTION WIDTH (test code = RDW-SD) PLATELET COUNT (test 175 K/mm3 155-337 N code = PLT) MEAN PLATELET VOLUME TEST NOT 7.6-10.4 Value u navailable (test code = MPV) PERFORMED fL due to interference. GRANULOCYTE % (test 57.0 % 37.8-82.6 N code = GR%) IMMATURE GRANULOCYTE 32.5 % 0.0-2.0 H % (test code = IG%) LYMPHOCYTE % (test 2.6 % 14.1-45.4 L code = LY%) MONOCYTE % (test 5.4 % 2.5-11.7 N code = MO%) EOSINOPHIL % (test 0.4 % 0.0-6.2 N code = EO%) BASOPHIL % (test 2.1 % 0.0-2.6 N code = BA%) NUCLEATED RBC % 0.5 /100WBC% 0.0-1.0 N (test code = NRBC%) GRANULOCYTE # (test 209.17 k/mm3 2.0-13.7 H code = GR#) IMMATURE GRANULOCYTE 118.85 K/mm3 0.00-0.03 H # (test code = IG#) LYMPHOCYTE # (test 9.59 K/mm3 0.6-3.8 H code = LY#) MONOCYTE # (test 19.69 K/mm3 0.11-0.59 H code = MO#) EOSINOPHIL # (test 1.41 K/mm3 0.0-0.4 H code = EO#) BASOPHIL # (test 7.51 K/mm3 0.0-0.1 H code = BA#) NUCLEATED RBC # 1.80 K/mm3 0.00-0.05 H (test code = NRBC#) MANUAL DIFF REQUIRED MAN DIFF CRITERIA (test code = MDIFF) INDICATED DIFF/SCN PATHOLOGIST'S [id number] 08:27:00 Test Item Value Reference Range Interpretation Comments PATHOLOGIST'S SEE COMMENT COMMENTS COMMENTS:LEUKO CYTOSIS FINDINGS (test EXTERNAL WITH NEUTROPH ILS IN code = PATH) ALL STAGES OFMATURATION AN D EOSINOPHILIA AN D BASOPHILIA, CON SISTENT WITHPERSISTENT CHRONIC MYELOGENOUS LEUKEMIA(CML)DEMETRIUS RAMIREZ ST: YAN ARTHUR MDEntered by: ANDREA, on 06/25/20826. WBC [id number] 08:27:00 Test Item Value Reference Range Interpretation Comments TOTAL CELLS COUNTED (test 100 #CELLS >100 code = TCC) SEGMENTED NEUTROPHILS (test 67 % 40-75 N code = SEG) LYMPHOCYTE (test code = 1 % 12.6-43.5 L LYMPH) ATYPICAL LYMPH (test code = 3 % 0-0 H ALYMPH) MONOCYTE (test code = MON) 3 % 4.2-12.7 L BASOPHIL (test code = BASO) 2 % 0-2.6 N METAMYELOCYTE (test code = 7 % 0-2 H META) MYELOCYTE (test code = 17 % 0-1 H MYELO) NUCLEATED RED BLOOD CELL 1.00 #/100WBC 0-0.5 H (test code = NRBC) POLYCHROMASIA (test code = SLIGHT ON SCAN NONE POLC) ANISOCYTOSIS (test code = SLIGHT ON SCAN NONE ANISO) PLATELET ESTIMATE (test ADEQ ON SCAN ADEQUATE code = PLTEST) PLATELET MORPHOLOGY (test LARGE FEW ON SCAN NORMAL PLTS code = PLTMORPH) PLATELET MORPHOLOGY (test GIANT FEW ON SCAN NORMAL PLTS code = [id number]) CBC W/MANUAL [id number] 07:23:00 Test Item Value Reference Range Interpretation Comments WHITE BLOOD CELL 271.8 K/mm3 4.1-12.1 HH Critical va lues (test code = WBC) after the first occurrence are excluded fromca ll documentation requirements fo r this analyte du e to thepatient diagnosis or therapy protoco ls. RED BLOOD CELL 2.45 M/mm3 3.8-5.5 L (test code = RBC) HEMOGLOBIN (test 7.8 G/DL 10.6-15.8 L code = HGB) HEMATOCRIT (test 24.9 % 31.8-47.4 L code = HCT) MEAN CELL VOLUME 101.6 fL 80.1-101.1 H (test code = MCV) MEAN CELL HGB (test 31.8 pg 25.3-35.3 N code = MCH) MEAN CELL HGB 31.3 G/DL 32.7-35.1 L CONCETRATION (test code = MCHC) RED CELL 16.1 % 12.2-16.4 N DISTRIBUTION WIDTH (test code = RDW) RED CELL 57.9 fL 35.1-43.9 H DISTRIBUTION WIDTH (test code = RDW-SD) PLATELET COUNT 162 K/mm3 155-337 N (test code = PLT) MEAN PLATELET TEST NOT 7.6-10.4 Value unavaila ble VOLUME (test code = PERFORMED fL due to MPV) interference. GRANULOCYTE % (test 62.2 % 37.8-82.6 N code = GR%) IMMATURE 27.6 % 0.0-2.0 H GRANULOCYTE % (test code = IG%) LYMPHOCYTE % (test 2.1 % 14.1-45.4 L code = LY%) MONOCYTE % (test 5.3 % 2.5-11.7 N code = MO%) EOSINOPHIL % (test 1.0 % 0.0-6.2 N code = EO%) BASOPHIL % (test 1.8 % 0.0-2.6 N code = BA%) NUCLEATED RBC % 0.1 /100WBC% 0.0-1.0 N (test code = NRBC%) GRANULOCYTE # (test 169.17 k/mm3 2.0-13.7 H code = GR#) IMMATURE 74.99 K/mm3 0.00-0.03 H GRANULOCYTE # (test code = IG#) LYMPHOCYTE # (test 5.82 K/mm3 0.6-3.8 H code = LY#) MONOCYTE # (test 14.33 K/mm3 0.11-0.59 H code = MO#) EOSINOPHIL # (test 2.67 K/mm3 0.0-0.4 H code = EO#) BASOPHIL # (test 4.82 K/mm3 0.0-0.1 H code = BA#) NUCLEATED RBC # 0.40 K/mm3 0.00-0.05 H (test code = NRBC#) MANUAL DIFF MAN DIFF CRITERIA REQUIRED (test code INDICATED = MDIFF) DIFF/SCN WBC [id number] 07:23:00 Test Item Value Reference Range Interpretation Comments TOTAL CELLS COUNTED (test 100 #CELLS >100 code = TCC) SEGMENTED NEUTROPHILS (test 68 % 40-75 N code = SEG) LYMPHOCYTE (test code = 3 % 12.6-43.5 L LYMPH) ATYPICAL LYMPH (test code = 2 % 0-0 H ALYMPH) MONOCYTE (test code = MON) 5 % 4.2-12.7 N BASOPHIL (test code = BASO) 1 % 0-2.6 N METAMYELOCYTE (test code = 7 % 0-2 H META) MYELOCYTE (test code = 14 % 0-1 H MYELO) POLYCHROMASIA (test code = SLIGHT ON SCAN NONE POLC) HYPOCHROMIA (test code = SLIGHT ON SCAN NONE HYPO) ANISOCYTOSIS (test code = SLIGHT ON SCAN NONE ANISO) PLATELET ESTIMATE (test ADEQ ON SCAN ADEQUATE code = PLTEST) PLATELET MORPHOLOGY (test LARGE FEW ON SCAN NORMAL PLTS code = PLTMORPH) PLATELET MORPHOLOGY (test GIANT FEW ON SCAN NORMAL PLTS code = [id number]) GLUCOSE BEDSIDE [id number] 06:28:00 Test Item Value Reference Range Interpretation Comments GLUCOSE BEDSIDE TESTING (test code = 71 MG/DL 70-119 N GLUBED) COMPREHENSIVE METABOLIC [id number] 06:20:00 Test Item Value Reference Range Interpretation Comments SODIUM (test code = 138.0 mmol/L 133-144 N NA) POTASSIUM (test code 4.1 mmol/L 3.5-5.1 N = K) CHLORIDE (test code 106 mmol/L 95-105 H = CL) CARBON DIOXIDE (test 24 mmol/L 21-32 N code = CO2) ANION GAP (test code 8.0 GAP calc 4.0-15.0 N = GAP) GLUCOSE (test code = 62 MG/DL 70-110 L GLU) BLOOD UREA NITROGEN 51 MG/DL 7-18 H (test code = BUN) GLOMERULAR 44 estGFR >60 L The estimated FILTRATION RATE glomerular (test code = GFR) filtration rate is computed usingpatient ra ce, age, sex, and s justine creatinine. If any of theneeded da ta elements are mi ssing the Laboratory can notcompute an estimation of t he glomerular filtration rate .The GFR value units = ml/min/1.73 met er squared. EstimatedGFR va lues above 60 should be interpreted as >60, not anexact number.--- DRUG DOSAGE ALERT -- - Drug dosage adjustments uti lize different calculationpara meter s. CREATININE (test 1.60 MG/DL 0.55-1.30 H Results may be code = CREAT) depressed if p atient is takingN-Acetylc ystei ne (NAC) and Metamizole (Dipyrone). TOTAL PROTEIN (test 6.8 G/DL 6.4-8.2 N code = PROT) ALBUMIN (test code = 2.9 G/DL 3.4-5.0 L ALB) ALBUMIN/GLOBULIN 0.7 RATIO 1.2-2.2 L RATIO (test code = A/G) CALCIUM (test code = 8.9 MG/DL 8.5-10.1 N CA) BILIRUBIN TOTAL 0.68 MG/DL 0.00-1.00 N (test code = BILT) BILIRUBIN DIRECT 0.49 MG/DL 0.00-0.30 H (test code = BILD) BILIRUBIN INDIRECT 0.19 MG/DL 0.2-1.3 L (test code = BILIND) SGOT/AST (test code 47 Unit/L 15-37 H = AST) SGPT/ALT (test code 85 Unit/L 12-78 H = ALT) ALKALINE PHOSPHATASE 255 Unit/L 45-117 H TOTAL (test code = ALKP) INDEX HEMOLYSIS 1 NORMAL <10 1 NORMAL (test code = MG Index/DL HEMINDEX) INDEX ICTERIC (test 1 NORMAL <2 MG 1 NORMAL code = ICTINDEX) Index/DL INDEX LIPEMIA (test 1 NORMAL <50 1 NORMAL code = LIPINDEX) MG Index/DL COMPREHENSIVE METABOLIC [id number] 06:16:00 Test Item Value Reference Range Interpretation Comments SODIUM (test code = NA) 138.0 mmol/L 133-144 N POTASSIUM (test code = K) 4.1 mmol/L 3.5-5.1 N CHLORIDE (test code = CL) 106 mmol/L 95-105 H CARBON DIOXIDE (test code 24 mmol/L 21-32 N = CO2) ANION GAP (test code = 8.0 GAP calc 4.0-15.0 N GAP) GLUCOSE (test code = GLU) 62 MG/DL 70-110 L BLOOD UREA NITROGEN (test MG/DL 7-18 code = BUN) CREATININE (test code = MG/DL 0.55-1.30 CREAT) TOTAL PROTEIN (test code G/DL 6.4-8.2 = PROT) ALBUMIN (test code = ALB) G/DL 3.4-5.0 ALBUMIN/GLOBULIN RATIO RATIO 1.2-2.2 (test code = A/G) CALCIUM (test code = CA) MG/DL 8.5-10.1 BILIRUBIN TOTAL (test MG/DL 0.00-1.00 code = BILT) BILIRUBIN DIRECT (test MG/DL 0.00-0.30 code = BILD) BILIRUBIN INDIRECT (test MG/DL 0.2-1.3 code = BILIND) SGOT/AST (test code = Unit/L 15-37 AST) SGPT/ALT (test code = Unit/L 12-78 ALT) ALKALINE PHOSPHATASE Unit/L 45-117 TOTAL (test code = ALKP) INDEX HEMOLYSIS (test 1 NORMAL <10 MG 1 NORMAL code = HEMINDEX) Index/DL INDEX ICTERIC (test code 1 NORMAL <2 MG 1 NORMAL = ICTINDEX) Index/DL INDEX LIPEMIA (test code 1 NORMAL <50 MG 1 NORMAL = LIPINDEX) Index/DL CBC W/MANUAL [id number] 06:08:00 Test Item Value Reference Range Interpretation Comments WHITE BLOOD CELL 271.8 K/mm3 4.1-12.1 HH Critical va lues (test code = WBC) after the first occurrence are excluded fromca ll documentation requirements fo r this analyte du e to thepatient diagnosis or therapy protoco ls. RED BLOOD CELL 2.45 M/mm3 3.8-5.5 L (test code = RBC) HEMOGLOBIN (test 7.8 G/DL 10.6-15.8 L code = HGB) HEMATOCRIT (test 24.9 % 31.8-47.4 L code = HCT) MEAN CELL VOLUME 101.6 fL 80.1-101.1 H (test code = MCV) MEAN CELL HGB (test 31.8 pg 25.3-35.3 N code = MCH) MEAN CELL HGB 31.3 G/DL 32.7-35.1 L CONCETRATION (test code = MCHC) RED CELL 16.1 % 12.2-16.4 N DISTRIBUTION WIDTH (test code = RDW) RED CELL 57.9 fL 35.1-43.9 H DISTRIBUTION WIDTH (test code = RDW-SD) PLATELET COUNT 162 K/mm3 155-337 N (test code = PLT) MEAN PLATELET TEST NOT 7.6-10.4 Value unavaila ble VOLUME (test code = PERFORMED fL due to MPV) interference. GRANULOCYTE % (test 62.2 % 37.8-82.6 N code = GR%) IMMATURE 27.6 % 0.0-2.0 H GRANULOCYTE % (test code = IG%) LYMPHOCYTE % (test 2.1 % 14.1-45.4 L code = LY%) MONOCYTE % (test 5.3 % 2.5-11.7 N code = MO%) EOSINOPHIL % (test 1.0 % 0.0-6.2 N code = EO%) BASOPHIL % (test 1.8 % 0.0-2.6 N code = BA%) NUCLEATED RBC % 0.1 /100WBC% 0.0-1.0 N (test code = NRBC%) GRANULOCYTE # (test 169.17 k/mm3 2.0-13.7 H code = GR#) IMMATURE 74.99 K/mm3 0.00-0.03 H GRANULOCYTE # (test code = IG#) LYMPHOCYTE # (test 5.82 K/mm3 0.6-3.8 H code = LY#) MONOCYTE # (test 14.33 K/mm3 0.11-0.59 H code = MO#) EOSINOPHIL # (test 2.67 K/mm3 0.0-0.4 H code = EO#) BASOPHIL # (test 4.82 K/mm3 0.0-0.1 H code = BA#) NUCLEATED RBC # 0.40 K/mm3 0.00-0.05 H (test code = NRBC#) MANUAL DIFF MAN DIFF CRITERIA REQUIRED (test code INDICATED = MDIFF) DIFF/SCN WBC [id number] 06:08:00 Test Item Value Reference Range Interpretation Comments TOTAL CELLS COUNTED (test code = #CELLS >100 TCC) SEGMENTED NEUTROPHILS (test code = % 40-75 SEG) LYMPHOCYTE (test code = LYMPH) % 12.6-43.5 MORPHOLOGY COMMENT (test code = MOC) ON SCAN NORMAL RBCS PLATELET ESTIMATE (test code = ON SCAN ADEQUATE PLTEST) CBC W/MANUAL [id number] 06:08:00 Test Item Value Reference Range Interpretation Comments WHITE BLOOD CELL 271.8 K/mm3 4.1-12.1 HH Critical va lues (test code = WBC) after the first occurrence are excluded fromca ll documentation requirements fo r this analyte du e to thepatient diagnosis or therapy protoco ls. RED BLOOD CELL 2.45 M/mm3 3.8-5.5 L (test code = RBC) HEMOGLOBIN (test 7.8 G/DL 10.6-15.8 L code = HGB) HEMATOCRIT (test 24.9 % 31.8-47.4 L code = HCT) MEAN CELL VOLUME 101.6 fL 80.1-101.1 H (test code = MCV) MEAN CELL HGB (test 31.8 pg 25.3-35.3 N code = MCH) MEAN CELL HGB 31.3 G/DL 32.7-35.1 L CONCETRATION (test code = MCHC) RED CELL 16.1 % 12.2-16.4 N DISTRIBUTION WIDTH (test code = RDW) RED CELL 57.9 fL 35.1-43.9 H DISTRIBUTION WIDTH (test code = RDW-SD) PLATELET COUNT 162 K/mm3 155-337 N (test code = PLT) MEAN PLATELET TEST NOT 7.6-10.4 Value unavaila ble VOLUME (test code = PERFORMED fL due to MPV) interference. GRANULOCYTE % (test 62.2 % 37.8-82.6 N code = GR%) IMMATURE 27.6 % 0.0-2.0 H GRANULOCYTE % (test code = IG%) LYMPHOCYTE % (test 2.1 % 14.1-45.4 L code = LY%) MONOCYTE % (test 5.3 % 2.5-11.7 N code = MO%) EOSINOPHIL % (test 1.0 % 0.0-6.2 N code = EO%) BASOPHIL % (test 1.8 % 0.0-2.6 N code = BA%) NUCLEATED RBC % 0.1 /100WBC% 0.0-1.0 N (test code = NRBC%) GRANULOCYTE # (test 169.17 k/mm3 2.0-13.7 H code = GR#) IMMATURE 74.99 K/mm3 0.00-0.03 H GRANULOCYTE # (test code = IG#) LYMPHOCYTE # (test 5.82 K/mm3 0.6-3.8 H code = LY#) MONOCYTE # (test 14.33 K/mm3 0.11-0.59 H code = MO#) EOSINOPHIL # (test 2.67 K/mm3 0.0-0.4 H code = EO#) BASOPHIL # (test 4.82 K/mm3 0.0-0.1 H code = BA#) NUCLEATED RBC # 0.40 K/mm3 0.00-0.05 H (test code = NRBC#) MANUAL DIFF MAN DIFF CRITERIA REQUIRED (test code INDICATED = MDIFF) DIFF/SCN WBC [id number] 06:08:00 Test Item Value Reference Range Interpretation Comments TOTAL CELLS COUNTED (test code = #CELLS >100 TCC) SEGMENTED NEUTROPHILS (test code = % 40-75 SEG) LYMPHOCYTE (test code = LYMPH) % 12.6-43.5 MORPHOLOGY COMMENT (test code = MOC) ON SCAN NORMAL RBCS PLATELET ESTIMATE (test code = ON SCAN ADEQUATE PLTEST) GLUCOSE BEDSIDE [id number] 21:32:00 Test Item Value Reference Range Interpretation Comments GLUCOSE BEDSIDE TESTING (test code 206 MG/DL 70-119 H = GLUBED) GLUCOSE BEDSIDE [id number] 16:57:00 Test Item Value Reference Range Interpretation Comments GLUCOSE BEDSIDE TESTING (test code 140 MG/DL 70-119 H = GLUBED) Covid 19 InHouse [id number] 13:44:00 Test Item Value Reference Range Interpretation Comments Covid 19 Negative Negative A negative resu lt does not InHouse NTX preclude the SA RS-COV-2 (test code = viralinfection and should not be [id number]) used as the so le basis forpatient angel gement decisions. Negative result s must becombined with clinical o bservations, patient history , andepidemiologi wayne information. Viral levels in clinicalsamples below the detec tion limit of the assay could jarrett d tonegative results. This t est was performed using the [employer] SmartTM COVID-19 PCRassay. This test was developed and i ts performancechar acteristics were determined by [facility]. Thi s test has notbeen FDA deuce ared or approved. This test is au thorized by theFDA under Em ergency Use Authorization(E UA). The EUA willremain in e ffect unless it is terminated o r revoked by FDA . Testing humberto eters have not been validated for screeningasympt omatic patients. This test was v alidated according to e FDA's guidancedocumen t "Policy for Diagnostics vilma ting in LaboratoriesCer tified to Perform High Complexity Testing under CLIA". First test? NoEmployed in Healthcare? NoSymptomatic as defined by CDC? YesDate of Symptom Onset: [id number] due to COVID? NoIn ICU due to COVID? NoResident in a congregate care setting? No? NoAge at collection: Y GLUCOSE BEDSIDE [id number] 12:11:00 Test Item Value Reference Range Interpretation Comments GLUCOSE BEDSIDE TESTING (test code 268 MG/DL 70-119 H = GLUBED) URIC [id number] 11:26:00 Test Item Value Reference Range Interpretation Comments URIC ACID (test 11.6 MG/DL 3.5-7.2 H Results mayb e depressed code = URIC) if patient is t aking Metamizole(Dipy josé miguel). LACTIC DEHYDROGENASE(LDH)2020-06-24 11:26:00 Test Item Value Reference Range Interpretation Comments LACTIC DEHYDROGENASE(LDH) (test 802 Unit/L 84-246 H code = LDH) URIC [id number] 11:25:00 Test Item Value Reference Range Interpretation Comments URIC ACID (test code = URIC) MG/DL 3.5-7.2 LACTIC DEHYDROGENASE(LDH)2020-06-24 11:25:00 Test Item Value Reference Range Interpretation Comments LACTIC DEHYDROGENASE(LDH) (test 802 Unit/L 84-246 H code = LDH) CBC W/MANUAL [id number] 10:10:00 Test Item Value Reference Range Interpretation Comments WHITE BLOOD CELL 319.1 K/mm3 4.1-12.1 HH Critical va lues (test code = WBC) after the first occurrence are excluded fromca ll documentation requirements fo r this analyte du e to thepatient diagnosis or therapy protoco ls. RED BLOOD CELL 2.34 M/mm3 3.8-5.5 L (test code = RBC) HEMOGLOBIN (test 7.7 G/DL 10.6-15.8 L code = HGB) HEMATOCRIT (test 23.1 % 31.8-47.4 L code = HCT) MEAN CELL VOLUME 98.7 fL 80.1-101.1 N (test code = MCV) MEAN CELL HGB (test 32.9 pg 25.3-35.3 N code = MCH) MEAN CELL HGB 33.3 G/DL 32.7-35.1 N CONCETRATION (test code = MCHC) RED CELL 16.0 % 12.2-16.4 N DISTRIBUTION WIDTH (test code = RDW) RED CELL 55.8 fL 35.1-43.9 H DISTRIBUTION WIDTH (test code = RDW-SD) PLATELET COUNT 174 K/mm3 155-337 N (test code = PLT) MEAN PLATELET TEST NOT 7.6-10.4 Value unavaila ble VOLUME (test code = PERFORMED fL due to MPV) interference. GRANULOCYTE % (test 61.7 % 37.8-82.6 N code = GR%) IMMATURE 29.2 % 0.0-2.0 H GRANULOCYTE % (test code = IG%) LYMPHOCYTE % (test 1.8 % 14.1-45.4 L code = LY%) MONOCYTE % (test 5.0 % 2.5-11.7 N code = MO%) EOSINOPHIL % (test 0.4 % 0.0-6.2 N code = EO%) BASOPHIL % (test 1.9 % 0.0-2.6 N code = BA%) NUCLEATED RBC % 0.2 /100WBC% 0.0-1.0 N (test code = NRBC%) GRANULOCYTE # (test 196.83 k/mm3 2.0-13.7 H code = GR#) IMMATURE 93.30 K/mm3 0.00-0.03 H GRANULOCYTE # (test code = IG#) LYMPHOCYTE # (test 5.60 K/mm3 0.6-3.8 H code = LY#) MONOCYTE # (test 16.02 K/mm3 0.11-0.59 H code = MO#) EOSINOPHIL # (test 1.41 K/mm3 0.0-0.4 H code = EO#) BASOPHIL # (test 5.98 K/mm3 0.0-0.1 H code = BA#) NUCLEATED RBC # 0.50 K/mm3 0.00-0.05 H (test code = NRBC#) MANUAL DIFF MAN DIFF CRITERIA REQUIRED (test code INDICATED = MDIFF) DIFF/SCN WBC [id number] 10:10:00 Test Item Value Reference Range Interpretation Comments TOTAL CELLS COUNTED (test 100 #CELLS >100 code = TCC) SEGMENTED NEUTROPHILS 62 % 40-75 N (test code = SEG) LYMPHOCYTE (test code = 3 % 12.6-43.5 L LYMPH) ATYPICAL LYMPH (test code 3 % 0-0 H = ALYMPH) MONOCYTE (test code = MON) 3 % 4.2-12.7 L EOSINOPHIL (test code = 2 % 0.0-5.2 N EOS) BASOPHIL (test code = 2 % 0-2.6 N BASO) METAMYELOCYTE (test code = 9 % 0-2 H META) MYELOCYTE (test code = 16 % 0-1 H MYELO) OTHER CELL TYPE (test code IMMAT.MONONUCs FEW WBC/DIF COM = OCT) ON SCAN OTHER CELL TYPE (test code COUNTED WBC/DIF COM = OCT48) ATYP.LYMP ON SCAN POLYCHROMASIA (test code = SLIGHT ON SCAN NONE POLC) ANISOCYTOSIS (test code = SLIGHT ON SCAN NONE ANISO) PLATELET ESTIMATE (test ADEQ ON SCAN ADEQUATE code = PLTEST) PLATELET MORPHOLOGY (test GIANT RARE ON SCAN NORMAL PLTS code = PLTMORPH) PLATELET MORPHOLOGY (test LARGE FEW ON SCAN NORMAL PLTS code = [id number]) BASIC METABOLIC [id number] 07:31:00 Test Item Value Reference Range Interpretation Comments SODIUM (test code = 136.0 mmol/L 133-144 N NA) POTASSIUM (test code 4.1 mmol/L 3.5-5.1 N = K) CHLORIDE (test code 105 mmol/L 95-105 N = CL) CARBON DIOXIDE (test 25 mmol/L 21-32 N code = CO2) ANION GAP (test code 6.0 GAP calc 4.0-15.0 N = GAP) GLUCOSE (test code = 207 MG/DL 70-110 H GLU) BLOOD UREA NITROGEN 44 MG/DL 7-18 H (test code = BUN) CREATININE (test 1.55 MG/DL 0.55-1.30 H Results may be code = CREAT) depressed if patient is takingN-Acetylc yste ine (NAC) and Metamizole (Dipyrone). CALCIUM (test code = 9.1 MG/DL 8.5-10.1 N CA) INDEX HEMOLYSIS 1 NORMAL <10 MG 1 NORMAL (test code = Index/DL HEMINDEX) INDEX ICTERIC (test 1 NORMAL <2 MG 1 NORMAL code = ICTINDEX) Index/DL INDEX LIPEMIA (test 1 NORMAL <50 MG 1 NORMAL code = LIPINDEX) Index/DL [id number] 07:31:00 Test Item Value Reference Range Interpretation Comments PHOSPHOROUS (test code = PHOS) 4.7 MG/DL 2.5-4.9 N [id number] 07:31:00 Test Item Value Reference Range Interpretation Comments MAGNESIUM (test code = MAG) 2.9 MG/DL 1.6-2.6 H COMPREHENSIVE METABOLIC [id number] 07:03:00 Test Item Value Reference Range Interpretation Comments SODIUM (test code = 137.0 mmol/L 133-144 N NA) POTASSIUM (test code 4.1 mmol/L 3.5-5.1 N = K) CHLORIDE (test code 106 mmol/L 95-105 H = CL) CARBON DIOXIDE (test 24 mmol/L 21-32 N code = CO2) ANION GAP (test code 7.0 GAP calc 4.0-15.0 N = GAP) GLUCOSE (test code = 207 MG/DL 70-110 H GLU) BLOOD UREA NITROGEN 44 MG/DL 7-18 H (test code = BUN) GLOMERULAR 45 estGFR >60 L The estimated FILTRATION RATE glomerular (test code = GFR) filtration rate is computed usingpatient ra ce, age, sex, and s justine creatinine. If any of theneeded da ta elements are mi ssing the Laboratory can notcompute an estimation of t he glomerular filtration rate .The GFR value units = ml/min/1.73 met er squared. EstimatedGFR va lues above 60 should be interpreted as >60, not anexact number.--- DRUG DOSAGE ALERT -- - Drug dosage adjustments uti lize different calculationpara meter s. CREATININE (test 1.57 MG/DL 0.55-1.30 H Results may be code = CREAT) depressed if p atient is takingN-Acetylc ystei ne (NAC) and Metamizole (Dipyrone). TOTAL PROTEIN (test 6.7 G/DL 6.4-8.2 N code = PROT) ALBUMIN (test code = 2.9 G/DL 3.4-5.0 L ALB) ALBUMIN/GLOBULIN 0.8 RATIO 1.2-2.2 L RATIO (test code = A/G) CALCIUM (test code = 8.9 MG/DL 8.5-10.1 N CA) BILIRUBIN TOTAL 1.00 MG/DL 0.00-1.00 N (test code = BILT) BILIRUBIN DIRECT 0.67 MG/DL 0.00-0.30 H (test code = BILD) BILIRUBIN INDIRECT 0.33 MG/DL 0.2-1.3 N (test code = BILIND) SGOT/AST (test code 58 Unit/L 15-37 H = AST) SGPT/ALT (test code 91 Unit/L 12-78 H = ALT) ALKALINE PHOSPHATASE 253 Unit/L 45-117 H TOTAL (test code = ALKP) INDEX HEMOLYSIS 1 NORMAL <10 1 NORMAL (test code = MG Index/DL HEMINDEX) INDEX ICTERIC (test 1 NORMAL <2 MG 1 NORMAL code = ICTINDEX) Index/DL INDEX LIPEMIA (test 1 NORMAL <50 1 NORMAL code = LIPINDEX) MG Index/DL CBC W/MANUAL [id number] 06:57:00 Test Item Value Reference Range Interpretation Comments WHITE BLOOD CELL 319.1 K/mm3 4.1-12.1 HH Critical va lues (test code = WBC) after the first occurrence are excluded fromca ll documentation requirements fo r this analyte du e to thepatient diagnosis or therapy protoco ls. RED BLOOD CELL 2.34 M/mm3 3.8-5.5 L (test code = RBC) HEMOGLOBIN (test 7.7 G/DL 10.6-15.8 L code = HGB) HEMATOCRIT (test 23.1 % 31.8-47.4 L code = HCT) MEAN CELL VOLUME 98.7 fL 80.1-101.1 N (test code = MCV) MEAN CELL HGB (test 32.9 pg 25.3-35.3 N code = MCH) MEAN CELL HGB 33.3 G/DL 32.7-35.1 N CONCETRATION (test code = MCHC) RED CELL 16.0 % 12.2-16.4 N DISTRIBUTION WIDTH (test code = RDW) RED CELL 55.8 fL 35.1-43.9 H DISTRIBUTION WIDTH (test code = RDW-SD) PLATELET COUNT 174 K/mm3 155-337 N (test code = PLT) MEAN PLATELET TEST NOT 7.6-10.4 Value unavaila ble VOLUME (test code = PERFORMED fL due to MPV) interference. GRANULOCYTE % (test 61.7 % 37.8-82.6 N code = GR%) IMMATURE 29.2 % 0.0-2.0 H GRANULOCYTE % (test code = IG%) LYMPHOCYTE % (test 1.8 % 14.1-45.4 L code = LY%) MONOCYTE % (test 5.0 % 2.5-11.7 N code = MO%) EOSINOPHIL % (test 0.4 % 0.0-6.2 N code = EO%) BASOPHIL % (test 1.9 % 0.0-2.6 N code = BA%) NUCLEATED RBC % 0.2 /100WBC% 0.0-1.0 N (test code = NRBC%) GRANULOCYTE # (test 196.83 k/mm3 2.0-13.7 H code = GR#) IMMATURE 93.30 K/mm3 0.00-0.03 H GRANULOCYTE # (test code = IG#) LYMPHOCYTE # (test 5.60 K/mm3 0.6-3.8 H code = LY#) MONOCYTE # (test 16.02 K/mm3 0.11-0.59 H code = MO#) EOSINOPHIL # (test 1.41 K/mm3 0.0-0.4 H code = EO#) BASOPHIL # (test 5.98 K/mm3 0.0-0.1 H code = BA#) NUCLEATED RBC # 0.50 K/mm3 0.00-0.05 H (test code = NRBC#) MANUAL DIFF MAN DIFF CRITERIA REQUIRED (test code INDICATED = MDIFF) DIFF/SCN WBC [id number] 06:57:00 Test Item Value Reference Range Interpretation Comments TOTAL CELLS COUNTED (test code = #CELLS >100 TCC) SEGMENTED NEUTROPHILS (test code = % 40-75 SEG) LYMPHOCYTE (test code = LYMPH) % 12.6-43.5 MORPHOLOGY COMMENT (test code = MOC) ON SCAN NORMAL RBCS PLATELET ESTIMATE (test code = ON SCAN ADEQUATE PLTEST) CBC W/MANUAL [id number] 06:57:00 Test Item Value Reference Range Interpretation Comments WHITE BLOOD CELL 319.1 K/mm3 4.1-12.1 HH Critical va lues (test code = WBC) after the first occurrence are excluded fromca ll documentation requirements fo r this analyte du e to thepatient diagnosis or therapy protoco ls. RED BLOOD CELL 2.34 M/mm3 3.8-5.5 L (test code = RBC) HEMOGLOBIN (test 7.7 G/DL 10.6-15.8 L code = HGB) HEMATOCRIT (test 23.1 % 31.8-47.4 L code = HCT) MEAN CELL VOLUME 98.7 fL 80.1-101.1 N (test code = MCV) MEAN CELL HGB (test 32.9 pg 25.3-35.3 N code = MCH) MEAN CELL HGB 33.3 G/DL 32.7-35.1 N CONCETRATION (test code = MCHC) RED CELL 16.0 % 12.2-16.4 N DISTRIBUTION WIDTH (test code = RDW) RED CELL 55.8 fL 35.1-43.9 H DISTRIBUTION WIDTH (test code = RDW-SD) PLATELET COUNT 174 K/mm3 155-337 N (test code = PLT) MEAN PLATELET TEST NOT 7.6-10.4 Value unavaila ble VOLUME (test code = PERFORMED fL due to MPV) interference. GRANULOCYTE % (test 61.7 % 37.8-82.6 N code = GR%) IMMATURE 29.2 % 0.0-2.0 H GRANULOCYTE % (test code = IG%) LYMPHOCYTE % (test 1.8 % 14.1-45.4 L code = LY%) MONOCYTE % (test 5.0 % 2.5-11.7 N code = MO%) EOSINOPHIL % (test 0.4 % 0.0-6.2 N code = EO%) BASOPHIL % (test 1.9 % 0.0-2.6 N code = BA%) NUCLEATED RBC % 0.2 /100WBC% 0.0-1.0 N (test code = NRBC%) GRANULOCYTE # (test 196.83 k/mm3 2.0-13.7 H code = GR#) IMMATURE 93.30 K/mm3 0.00-0.03 H GRANULOCYTE # (test code = IG#) LYMPHOCYTE # (test 5.60 K/mm3 0.6-3.8 H code = LY#) MONOCYTE # (test 16.02 K/mm3 0.11-0.59 H code = MO#) EOSINOPHIL # (test 1.41 K/mm3 0.0-0.4 H code = EO#) BASOPHIL # (test 5.98 K/mm3 0.0-0.1 H code = BA#) NUCLEATED RBC # 0.50 K/mm3 0.00-0.05 H (test code = NRBC#) MANUAL DIFF MAN DIFF CRITERIA REQUIRED (test code INDICATED = MDIFF) DIFF/SCN WBC [id number] 06:57:00 Test Item Value Reference Range Interpretation Comments TOTAL CELLS COUNTED (test code = #CELLS >100 TCC) SEGMENTED NEUTROPHILS (test code = % 40-75 SEG) LYMPHOCYTE (test code = LYMPH) % 12.6-43.5 MORPHOLOGY COMMENT (test code = MOC) ON SCAN NORMAL RBCS PLATELET ESTIMATE (test code = ON SCAN ADEQUATE PLTEST) COMPREHENSIVE METABOLIC [id number] 06:56:00 Test Item Value Reference Range Interpretation Comments SODIUM (test code = NA) 137.0 mmol/L 133-144 N POTASSIUM (test code = K) 4.1 mmol/L 3.5-5.1 N CHLORIDE (test code = CL) 106 mmol/L 95-105 H CARBON DIOXIDE (test code mmol/L 21-32 = CO2) ANION GAP (test code = GAP calc 4.0-15.0 GAP) GLUCOSE (test code = GLU) MG/DL 70-110 BLOOD UREA NITROGEN (test MG/DL 7-18 code = BUN) CREATININE (test code = MG/DL 0.55-1.30 CREAT) TOTAL PROTEIN (test code G/DL 6.4-8.2 = PROT) ALBUMIN (test code = ALB) G/DL 3.4-5.0 ALBUMIN/GLOBULIN RATIO RATIO 1.2-2.2 (test code = A/G) CALCIUM (test code = CA) MG/DL 8.5-10.1 BILIRUBIN TOTAL (test MG/DL 0.00-1.00 code = BILT) BILIRUBIN DIRECT (test MG/DL 0.00-0.30 code = BILD) BILIRUBIN INDIRECT (test MG/DL 0.2-1.3 code = BILIND) SGOT/AST (test code = Unit/L 15-37 AST) SGPT/ALT (test code = Unit/L 12-78 ALT) ALKALINE PHOSPHATASE Unit/L 45-117 TOTAL (test code = ALKP) INDEX HEMOLYSIS (test 1 NORMAL <10 MG 1 NORMAL code = HEMINDEX) Index/DL INDEX ICTERIC (test code 1 NORMAL <2 MG 1 NORMAL = ICTINDEX) Index/DL INDEX LIPEMIA (test code 1 NORMAL <50 MG 1 NORMAL = LIPINDEX) Index/DL GLUCOSE BEDSIDE [id number] 21:50:00 Test Item Value Reference Range Interpretation Comments GLUCOSE BEDSIDE TESTING (test code 254 MG/DL 70-119 H = GLUBED) CBC W/MANUAL [id number] 20:59:00 Test Item Value Reference Range Interpretation Comments WHITE BLOOD CELL 323.5 K/mm3 4.1-12.1 HH Critical va lues (test code = WBC) after the first occurrence are excluded fromca ll documentation requirements fo r this analyte du e to thepatient diagnosis or therapy protoco ls. RED BLOOD CELL 2.36 M/mm3 3.8-5.5 L (test code = RBC) HEMOGLOBIN (test 7.7 G/DL 10.6-15.8 L code = HGB) HEMATOCRIT (test 23.3 % 31.8-47.4 L code = HCT) MEAN CELL VOLUME 98.7 fL 80.1-101.1 N (test code = MCV) MEAN CELL HGB (test 32.6 pg 25.3-35.3 N code = MCH) MEAN CELL HGB 33.0 G/DL 32.7-35.1 N CONCETRATION (test code = MCHC) RED CELL 16.1 % 12.2-16.4 N DISTRIBUTION WIDTH (test code = RDW) RED CELL 56.8 fL 35.1-43.9 H DISTRIBUTION WIDTH (test code = RDW-SD) PLATELET COUNT 172 K/mm3 155-337 N (test code = PLT) GRANULOCYTE % (test 60.9 % 37.8-82.6 N code = GR%) IMMATURE 29.8 % 0.0-2.0 H GRANULOCYTE % (test code = IG%) LYMPHOCYTE % (test 1.9 % 14.1-45.4 L code = LY%) MONOCYTE % (test 5.1 % 2.5-11.7 N code = MO%) EOSINOPHIL % (test 0.5 % 0.0-6.2 N code = EO%) BASOPHIL % (test 1.8 % 0.0-2.6 N code = BA%) NUCLEATED RBC % 0.4 /100WBC% 0.0-1.0 N (test code = NRBC%) GRANULOCYTE # (test 197.58 k/mm3 2.0-13.7 H code = GR#) IMMATURE 96.26 K/mm3 0.00-0.03 H GRANULOCYTE # (test code = IG#) LYMPHOCYTE # (test 6.18 K/mm3 0.6-3.8 H code = LY#) MONOCYTE # (test 16.35 K/mm3 0.11-0.59 H code = MO#) EOSINOPHIL # (test 1.49 K/mm3 0.0-0.4 H code = EO#) BASOPHIL # (test 5.68 K/mm3 0.0-0.1 H code = BA#) NUCLEATED RBC # 1.15 K/mm3 0.00-0.05 H (test code = NRBC#) MANUAL DIFF MAN DIFF CRITERIA REQUIRED (test code INDICATED = MDIFF) DIFF/SCN WBC [id number] 20:59:00 Test Item Value Reference Range Interpretation Comments TOTAL CELLS COUNTED (test 100 #CELLS >100 code = TCC) SEGMENTED NEUTROPHILS 64 % 40-75 N (test code = SEG) LYMPHOCYTE (test code = 4 % 12.6-43.5 L LYMPH) ATYPICAL LYMPH (test code 1 % 0-0 H = ALYMPH) MONOCYTE (test code = MON) 1 % 4.2-12.7 L EOSINOPHIL (test code = 1 % 0.0-5.2 N EOS) BASOPHIL (test code = 2 % 0-2.6 N BASO) METAMYELOCYTE (test code = 6 % 0-2 H META) MYELOCYTE (test code = 21 % 0-1 H MYELO) NUCLEATED RED BLOOD CELL 1.00 #/100WBC 0-0.5 H (test code = NRBC) POLYCHROMASIA (test code = SLIGHT ON SCAN NONE POLC) ANISOCYTOSIS (test code = SLIGHT ON SCAN NONE ANISO) PLATELET ESTIMATE (test ADEQ ON SCAN ADEQUATE code = PLTEST) PLATELET MORPHOLOGY (test LARGE FEW ON SCAN NORMAL PLTS code = PLTMORPH) PLATELET MORPHOLOGY (test GIANT RARE ON SCAN NORMAL PLTS code = [id number]) BASIC METABOLIC [id number] 20:48:00 Test Item Value Reference Range Interpretation Comments SODIUM (test code = 136.0 mmol/L 133-144 N NA) POTASSIUM (test code 4.0 mmol/L 3.5-5.1 N = K) CHLORIDE (test code 103 mmol/L 95-105 N = CL) CARBON DIOXIDE (test 28 mmol/L 21-32 code = CO2) ANION GAP (test code 5.0 GAP calc 4.0-15.0 N = GAP) GLUCOSE (test code = 230 MG/DL 70-110 H GLU) BLOOD UREA NITROGEN 47 MG/DL 7-18 H (test code = BUN) CREATININE (test 2.00 MG/DL 0.55-1.30 H Results may be code = CREAT) depressed if patient is takingN-Acetylc yste ine (NAC) and Metamizole (Dipyrone). CALCIUM (test code = 8.7 MG/DL 8.5-10.1 N CA) INDEX HEMOLYSIS 1 NORMAL <10 MG 1 NORMAL (test code = Index/DL HEMINDEX) INDEX ICTERIC (test 1 NORMAL <2 MG 1 NORMAL code = ICTINDEX) Index/DL INDEX LIPEMIA (test 1 NORMAL <50 MG 1 NORMAL code = LIPINDEX) Index/DL [id number] 20:48:00 Test Item Value Reference Range Interpretation Comments MAGNESIUM (test code = MAG) 2.8 MG/DL 1.6-2.6 H CBC W/MANUAL [id number] 20:38:00 Test Item Value Reference Range Interpretation Comments WHITE BLOOD CELL 323.5 K/mm3 4.1-12.1 HH Critical va lues (test code = WBC) after the first occurrence are excluded fromca ll documentation requirements fo r this analyte du e to thepatient diagnosis or therapy protoco ls. RED BLOOD CELL 2.36 M/mm3 3.8-5.5 L (test code = RBC) HEMOGLOBIN (test 7.7 G/DL 10.6-15.8 L code = HGB) HEMATOCRIT (test 23.3 % 31.8-47.4 L code = HCT) MEAN CELL VOLUME 98.7 fL 80.1-101.1 N (test code = MCV) MEAN CELL HGB (test 32.6 pg 25.3-35.3 N code = MCH) MEAN CELL HGB 33.0 G/DL 32.7-35.1 N CONCETRATION (test code = MCHC) RED CELL 16.1 % 12.2-16.4 N DISTRIBUTION WIDTH (test code = RDW) RED CELL 56.8 fL 35.1-43.9 H DISTRIBUTION WIDTH (test code = RDW-SD) PLATELET COUNT 172 K/mm3 155-337 N (test code = PLT) GRANULOCYTE % (test 60.9 % 37.8-82.6 N code = GR%) IMMATURE 29.8 % 0.0-2.0 H GRANULOCYTE % (test code = IG%) LYMPHOCYTE % (test 1.9 % 14.1-45.4 L code = LY%) MONOCYTE % (test 5.1 % 2.5-11.7 N code = MO%) EOSINOPHIL % (test 0.5 % 0.0-6.2 N code = EO%) BASOPHIL % (test 1.8 % 0.0-2.6 N code = BA%) NUCLEATED RBC % 0.4 /100WBC% 0.0-1.0 N (test code = NRBC%) GRANULOCYTE # (test 197.58 k/mm3 2.0-13.7 H code = GR#) IMMATURE 96.26 K/mm3 0.00-0.03 H GRANULOCYTE # (test code = IG#) LYMPHOCYTE # (test 6.18 K/mm3 0.6-3.8 H code = LY#) MONOCYTE # (test 16.35 K/mm3 0.11-0.59 H code = MO#) EOSINOPHIL # (test 1.49 K/mm3 0.0-0.4 H code = EO#) BASOPHIL # (test 5.68 K/mm3 0.0-0.1 H code = BA#) NUCLEATED RBC # 1.15 K/mm3 0.00-0.05 H (test code = NRBC#) MANUAL DIFF MAN DIFF CRITERIA REQUIRED (test code INDICATED = MDIFF) DIFF/SCN WBC [id number] 20:38:00 Test Item Value Reference Range Interpretation Comments TOTAL CELLS COUNTED (test code = #CELLS >100 TCC) SEGMENTED NEUTROPHILS (test code = % 40-75 SEG) LYMPHOCYTE (test code = LYMPH) % 12.6-43.5 MORPHOLOGY COMMENT (test code = MOC) ON SCAN NORMAL RBCS PLATELET ESTIMATE (test code = ON SCAN ADEQUATE PLTEST) CBC W/MANUAL [id number] 20:38:00 Test Item Value Reference Range Interpretation Comments WHITE BLOOD CELL 323.5 K/mm3 4.1-12.1 HH Critical va lues (test code = WBC) after the first occurrence are excluded fromca ll documentation requirements fo r this analyte du e to thepatient diagnosis or therapy protoco ls. RED BLOOD CELL 2.36 M/mm3 3.8-5.5 L (test code = RBC) HEMOGLOBIN (test 7.7 G/DL 10.6-15.8 L code = HGB) HEMATOCRIT (test 23.3 % 31.8-47.4 L code = HCT) MEAN CELL VOLUME 98.7 fL 80.1-101.1 N (test code = MCV) MEAN CELL HGB (test 32.6 pg 25.3-35.3 N code = MCH) MEAN CELL HGB 33.0 G/DL 32.7-35.1 N CONCETRATION (test code = MCHC) RED CELL 16.1 % 12.2-16.4 N DISTRIBUTION WIDTH (test code = RDW) RED CELL 56.8 fL 35.1-43.9 H DISTRIBUTION WIDTH (test code = RDW-SD) PLATELET COUNT 172 K/mm3 155-337 N (test code = PLT) GRANULOCYTE % (test 60.9 % 37.8-82.6 N code = GR%) IMMATURE 29.8 % 0.0-2.0 H GRANULOCYTE % (test code = IG%) LYMPHOCYTE % (test 1.9 % 14.1-45.4 L code = LY%) MONOCYTE % (test 5.1 % 2.5-11.7 N code = MO%) EOSINOPHIL % (test 0.5 % 0.0-6.2 N code = EO%) BASOPHIL % (test 1.8 % 0.0-2.6 N code = BA%) NUCLEATED RBC % 0.4 /100WBC% 0.0-1.0 N (test code = NRBC%) GRANULOCYTE # (test 197.58 k/mm3 2.0-13.7 H code = GR#) IMMATURE 96.26 K/mm3 0.00-0.03 H GRANULOCYTE # (test code = IG#) LYMPHOCYTE # (test 6.18 K/mm3 0.6-3.8 H code = LY#) MONOCYTE # (test 16.35 K/mm3 0.11-0.59 H code = MO#) EOSINOPHIL # (test 1.49 K/mm3 0.0-0.4 H code = EO#) BASOPHIL # (test 5.68 K/mm3 0.0-0.1 H code = BA#) NUCLEATED RBC # 1.15 K/mm3 0.00-0.05 H (test code = NRBC#) MANUAL DIFF MAN DIFF CRITERIA REQUIRED (test code INDICATED = MDIFF) DIFF/SCN WBC [id number] 20:38:00 Test Item Value Reference Range Interpretation Comments TOTAL CELLS COUNTED (test code = #CELLS >100 TCC) SEGMENTED NEUTROPHILS (test code = % 40-75 SEG) LYMPHOCYTE (test code = LYMPH) % 12.6-43.5 MORPHOLOGY COMMENT (test code = MOC) ON SCAN NORMAL RBCS PLATELET ESTIMATE (test code = ON SCAN ADEQUATE PLTEST) GLUCOSE BEDSIDE [id number] 17:02:00 Test Item Value Reference Range Interpretation Comments GLUCOSE BEDSIDE TESTING (test code 111 MG/DL 70-119 N = GLUBED) GLUCOSE BEDSIDE [id number] 10:42:00 Test Item Value Reference Range Interpretation Comments GLUCOSE BEDSIDE TESTING (test code = 80 MG/DL 70-119 N GLUBED) [id number] 08:53:00 Test Item Value Reference Range Interpretation Comments CKMB (test code = < 1.0 NG/ML 1.0-3.6 N MONOCLONAL CKMB CKMBT) METHODOLOGY. [id number] 08:53:00 Test Item Value Reference Range Interpretation Comments TROPONIN-I 0.029 NG/ML 0.000-0.045 INTERPRET WITH CAUTION, THIS (test code = VALUE EXCEEDS T HE LOWER TROPI) LIMITOF LINEARI TY VERIFICATION ES TABLISHED BY THE LABORATORY. An elevated troponin value alone is not sufficient todi agnose a myocardial infa rction. Rather, the pat ient'sclinical presentation (h istory, physical exam) and ECGshould be used in conj unction with troponin in the diagnostic evaluation of s uspected myocardial infa rction. Aserial samplin g protocol is recommended to facilitate theidentificati on of temporal changes in trop onin levelscharacter istic of [place]. GLYCOSYLATED HEMOGLOBIN (HA1C)2020-06-23 08:37:00 Test Item Value Reference Range Interpretation Comments GLYCOSYLATED HEMOGLOBIN (HA1C) <4.5 % A1C 4.2-6.3 N (test code = GLYHGB) ESTIMATED AVERAGE [id number] 08:37:00 Test Item Value Reference Range Interpretation Comments ESTIMATED AVERAGE GLUCOSE (test 82 MG/DLest code = EAG) LIPID PROFILE (CORONARY RISK)2020-06-23 07:19:00 Test Item Value Reference Interpretation Comments Range TRIGLYCERIDES (test 158 MG/DL 0-150 H BORDERLI NE HIGH RISK code = TRIG) TRIGLYCERIDE 15 0-199 MG/DLReference intervals provided by The National CholesterolEduc ation Program Adult T reatment Panel III (NCEP -ATP III).Results ma y be depressed if demetrius tejada is takingN-Acetylc ysteine (NAC) and Metam izole (Dipyrone). CHOLESTEROL (test 109 MG/DL 133-200 L code = CHOL) CHOLESTEROL/HDL 7.78 RATIO >0 REFERENCE R SARAH: RATIO (test code = MALE FEMALE CHOLHDL) 1/2 AVG RISK 3.43 3.27 AVG RISK 4.9 7 4.44 2X AV G RISK 9.55 7.05 3X AVG RISK 23.39 11.04 HDL CHOLESTEROL 14 MG/DL 40-59 L Results mayb e depressed (test code = HDL) if patient is taking Metamizole(Dipy josé miguel). NON-HDL CHOLESTEROL 95 mg/dL <130 Patients with CHD or CHD (test code = NHDL) risk LD L: <70 mg/dL nonHDL: <100 mg/dLPatients w ith 2+ risk factors LDL: <130 mg/dL no nHDL: <160 mg/dLPatie nts with 0-1 risk factor s LDL: <160 mg/dL nonHDL: <190 mg/dL LIPOPROTEIN LDL 63 MG/DL 0-129 N (test code = LDL) LDL/HDL (test code 4.50 Ratio 1.48-3.22 Avg H LDL/HDL RISK = LDL/HDL) ASSESSMENT1.47 One-half averag e3.22 Average5.03 Two times average6. [address] rage INDEX HEMOLYSIS 3 SMALL 1 NORMAL (test code = 25-50 MG HEMINDEX) Index/DL INDEX ICTERIC (test 1 NORMAL <2 1 NORMAL code = ICTINDEX) MG Index/DL INDEX LIPEMIA (test 1 NORMAL <50 1 NORMAL code = LIPINDEX) MG Index/DL [id number] 07:17:00 Test Item Value Reference Range Interpretation Comments MAGNESIUM (test code = MAG) 2.9 MG/DL 1.6-2.6 H THYROID STIMULATING [id number] 07:17:00 Test Item Value Reference Range Interpretation Comments THYROID STIMULATING HORMONE 2.150 mc IU/ML 0.340-4.820 N (test code = TSH) LIPID PROFILE (CORONARY RISK)2020-06-23 07:17:00 Test Item Value Reference Interpretation Comments Range TRIGLYCERIDES (test 158 MG/DL 0-150 H BORDERLI NE HIGH RISK code = TRIG) TRIGLYCERIDE 15 0-199 MG/DLReference intervals provided by The National CholesterolEduc ation Program Adult T reatment Panel III (NCEP -ATP III).Results ma y be depressed if demetrius tejada is takingN-Acetylc ysteine (NAC) and Metam izole (Dipyrone). CHOLESTEROL (test MG/DL 133-200 code = CHOL) CHOLESTEROL/HDL RATIO >0 RATIO (test code = CHOLHDL) HDL CHOLESTEROL MG/DL 40-59 (test code = HDL) NON-HDL CHOLESTEROL mg/dL <130 (test code = NHDL) LIPOPROTEIN LDL MG/DL 0-129 (test code = LDL) LDL/HDL (test code Ratio 1.48-3.22 Avg = LDL/HDL) INDEX HEMOLYSIS 3 SMALL 1 NORMAL (test code = 25-50 MG HEMINDEX) Index/DL INDEX ICTERIC (test 1 NORMAL <2 1 NORMAL code = ICTINDEX) MG Index/DL INDEX LIPEMIA (test 1 NORMAL <50 1 NORMAL code = LIPINDEX) MG Index/DL [id number] 07:11:00 Test Item Value Reference Range Interpretation Comments MAGNESIUM (test code = MAG) 2.9 MG/DL 1.6-2.6 H THYROID STIMULATING [id number] 07:11:00 Test Item Value Reference Range Interpretation Comments THYROID STIMULATING HORMONE (test mc IU/ML 0.340-4.820 code = TSH) [id number] 07:03:00 Test Item Value Reference Range Interpretation Comments CKMB (test code = CKMBT) NG/ML 1.0-3.6 [id number] 07:03:00 Test Item Value Reference Range Interpretation Comments TROPONIN-I 0.029 NG/ML 0.000-0.045 INTERPRET WITH CAUTION, THIS (test code = VALUE EXCEEDS T HE LOWER TROPI) LIMITOF LINEARI TY VERIFICATION ES TABLISHED BY THE LABORATORY. An elevated troponin value alone is not sufficient todi agnose a myocardial infa rction. Rather, the pat ient'sclinical presentation (h istory, physical exam) and ECGshould be used in conj unction with troponin in the diagnostic evaluation of s uspected myocardial infa rction. Aserial samplin g protocol is recommended to facilitate theidentificati on of temporal changes in trop onin levelscharacter istic of [place]. CBC W/MANUAL [id number] 03:10:00 Test Item Value Reference Range Interpretation Comments WHITE BLOOD CELL 366.2 K/mm3 4.1-12.1 HH ON 06/23/20 AT (test code = WBC) 0031, B.LA B.MEB CALLED TO JAZ NAGEL. The report was confirmed by re ad back protocols Y,N: N. RED BLOOD CELL (test 2.43 M/mm3 3.8-5.5 L code = RBC) HEMOGLOBIN (test 8.1 G/DL 10.6-15.8 L code = HGB) HEMATOCRIT (test 23.8 % 31.8-47.4 L code = HCT) MEAN CELL VOLUME 97.9 fL 80.1-101.1 N (test code = MCV) MEAN CELL HGB (test 33.3 pg 25.3-35.3 N code = MCH) MEAN CELL HGB 34.0 G/DL 32.7-35.1 N CONCETRATION (test code = MCHC) RED CELL 16.0 % 12.2-16.4 N DISTRIBUTION WIDTH (test code = RDW) RED CELL 56.3 fL 35.1-43.9 H DISTRIBUTION WIDTH (test code = RDW-SD) PLATELET COUNT (test 175 K/mm3 155-337 N code = PLT) MEAN PLATELET VOLUME TEST NOT 7.6-10.4 Value u navailable (test code = MPV) PERFORMED fL due to interference. GRANULOCYTE % (test 57.0 % 37.8-82.6 N code = GR%) IMMATURE GRANULOCYTE 32.5 % 0.0-2.0 H % (test code = IG%) LYMPHOCYTE % (test 2.6 % 14.1-45.4 L code = LY%) MONOCYTE % (test 5.4 % 2.5-11.7 N code = MO%) EOSINOPHIL % (test 0.4 % 0.0-6.2 N code = EO%) BASOPHIL % (test 2.1 % 0.0-2.6 N code = BA%) NUCLEATED RBC % 0.5 /100WBC% 0.0-1.0 N (test code = NRBC%) GRANULOCYTE # (test 209.17 k/mm3 2.0-13.7 H code = GR#) IMMATURE GRANULOCYTE 118.85 K/mm3 0.00-0.03 H # (test code = IG#) LYMPHOCYTE # (test 9.59 K/mm3 0.6-3.8 H code = LY#) MONOCYTE # (test 19.69 K/mm3 0.11-0.59 H code = MO#) EOSINOPHIL # (test 1.41 K/mm3 0.0-0.4 H code = EO#) BASOPHIL # (test 7.51 K/mm3 0.0-0.1 H code = BA#) NUCLEATED RBC # 1.80 K/mm3 0.00-0.05 H (test code = NRBC#) MANUAL DIFF REQUIRED MAN DIFF CRITERIA (test code = MDIFF) INDICATED DIFF/SCN PATHOLOGIST'S [id number] 03:10:00 Test Item Value Reference Range Interpretation Comments PATHOLOGIST'S FINDINGS (test code = EXTERNAL COMMENTS PATH) WBC [id number] 03:10:00 Test Item Value Reference Range Interpretation Comments TOTAL CELLS COUNTED (test 100 #CELLS >100 code = TCC) SEGMENTED NEUTROPHILS (test 67 % 40-75 N code = SEG) LYMPHOCYTE (test code = 1 % 12.6-43.5 L LYMPH) ATYPICAL LYMPH (test code = 3 % 0-0 H ALYMPH) MONOCYTE (test code = MON) 3 % 4.2-12.7 L BASOPHIL (test code = BASO) 2 % 0-2.6 N METAMYELOCYTE (test code = 7 % 0-2 H META) MYELOCYTE (test code = 17 % 0-1 H MYELO) NUCLEATED RED BLOOD CELL 1.00 #/100WBC 0-0.5 H (test code = NRBC) POLYCHROMASIA (test code = SLIGHT ON SCAN NONE POLC) ANISOCYTOSIS (test code = SLIGHT ON SCAN NONE ANISO) PLATELET ESTIMATE (test ADEQ ON SCAN ADEQUATE code = PLTEST) PLATELET MORPHOLOGY (test LARGE FEW ON SCAN NORMAL PLTS code = PLTMORPH) PLATELET MORPHOLOGY (test GIANT FEW ON SCAN NORMAL PLTS code = [id number]) [id number] 02:47:00 Test Item Value Reference Range Interpretation Comments CKMB (test code = < 1.0 NG/ML 1.0-3.6 N MONOCLONAL CKMB CKMBT) METHODOLOGY. [id number] 02:47:00 Test Item Value Reference Range Interpretation Comments TROPONIN-I 0.039 NG/ML 0.000-0.045 N INTERPRET WITH CAUTION, THIS (test code = VALUE EXCEEDS T HE LOWER TROPI) LIMITOF LINEARI TY VERIFICATION ES TABLISHED BY THE LABORATORY. An elevated troponin value alone is not sufficient todi agnose a myocardial infa rction. Rather, the pat ient'sclinical presentation (h istory, physical exam) and ECGshould be used in conj unction with troponin in the diagnostic evaluation of s uspected myocardial infa rction. Aserial samplin g protocol is recommended to facilitate theidentificati on of temporal changes in trop onin levelscharacter istic of [place]. [id number] 02:34:00 Test Item Value Reference Range Interpretation Comments CKMB (test code = CKMBT) NG/ML 1.0-3.6 [id number] 02:34:00 Test Item Value Reference Range Interpretation Comments TROPONIN-I 0.039 NG/ML 0.000-0.045 N INTERPRET WITH CAUTION, THIS (test code = VALUE EXCEEDS T HE LOWER TROPI) LIMITOF LINEARI TY VERIFICATION ES TABLISHED BY THE LABORATORY. An elevated troponin value alone is not sufficient todi agnose a myocardial infa rction. Rather, the pat ient'sclinical presentation (h istory, physical exam) and ECGshould be used in conj unction with troponin in the diagnostic evaluation of s uspected myocardial infa rction. Aserial samplin g protocol is recommended to facilitate theidentificati on of temporal changes in trop onin levelscharacter istic of [place]. - CTA CHEST FOR [id number] 01:10:00 [facility] : 1955 Sex: M Patient Name: TRENTON CHAVEZ Unit No: [id number] EXAMS: CPT CODE: [id number] [place] [id number] Location: H3 Chest CTA , 06/23/20 TECHNIQUE: Chest CTA with and without contrast was performed on a helical scanner. 2D Coronal and sagittal images acquired on the CT workstation system by the angio technologist. Volumetric imaging acquired utilizing maximum intensity protocol. Axial scanning performed from thoracic inlet through diaphragms. 100 mL of Isovue 370 was administered for contrast. Vascular protocol performed . Scanning conducted in the axial plane with 2.5mm contiguous slice thickness. The examination was performed on a updated helical CT scanner utilizing low-dose radiation technique. Automatic exposure time was utilized to reduce radiation dose. CLINICAL HISTORY: Shortness of breath, elevated d-dimer. Comparison exam: Chestx- ray exam of 06/22/20 FINDINGS: No PE or acute aortic syndrome is seen. There is presence of bilateral pleural effusions of small size at least with pulmonary venous engorgement and hazy interstitial density felt to be likely indicative of CHF/fluid overload. Probable mild atelectatic changes in the left lower lobe. Fluid is seen tracking along the major fissures. Patchy groundglass infiltrate in the lingula and in the right lower lobe. Cannot entirely exclude pneumonia accounting for this. No pathological mediastinal or hilar adenopathy is seen. Heart size is prominent to the left atrium. There is presence of coronary artery vascular calcifications. No pericardial effusion.. There is enlargement of the spleen which measures approximately 14.2 cm in AP dimension. Hepatomegaly also noted without definite mass in the liver or spleen. IMPRESSION: No PE CHF with bilateral pleural effusions ofat least small size and with accompanied interstitial edema Hepatosplenomegaly Patchy infiltrates of concern for possible pneumonia. Groundglass [facility] NAME: TRENTON CHAVEZ [address] [place] [address] PHYS: Jake Gallagher [place], [place] [address] : 1955 AGE: [age] SEX: M LOC: ALICE PHONE #:[phone] EXAM DATE: 06/23/2020 STATUS: REG ER FAX #: [phone] RAD #: D/C DT PAGE 1 Signed Report (CONTINUED) Patient Name: TRENTON CHAVEZ Unit No: [id number] EXAMS: CPT CODE: [id number] [place] [id number] <Continued> opacification noted in the right lower lobe and lingula. at 0110 Reported and signed by: Sharifa Lebron M.D. CC: Jake Escobar MD Dictated Date/Time: 06/23/2020 (0110) Technologist: Carleen Wadsworth CTDI: 11.74 DLP: 207.09 Trnscrpt: 06/23/2020 (011) MandeepDAS6 EDUARDO Gallegos NAME: [address] PHYS: [place] [address] : 1955 AGE: 64 SEX: M LOC: B.ERS PHONE #: [phone] EXAM DATE: 06/23/2020 STATUS: REG ER FAX #: [phone] RAD #: D/C DT PAGE 2 Signed Report [facility] Unit No: [id number] EXAMS: CPT CODE: [id number] [place] [address] <Continued> Orig Print D/T: S: 06/23/2020 (0113) EDUARDO Meloroe NAME: [address] PHYS: Jake Golden [place] [address] : 1955 AGE: 64 SEX: M LOC: B.ERS PHONE #: [phone] EXAM DATE: 06/23/2020 STATUS: REG ER FAX #: [phone] RAD #:D/C DT PAGE 3 Signed ReportB-TYPE NATRIURETIC [id number] 01:06:00 Test Item Value Reference Range Interpretation Comments B-TYPE NATRIURETIC PEPTIDE (test 756.05 PG/ML 0.00-100.00 H code = BNP) Coronavirus 2019 nCoV [id number] 01:00:00 Test Item Value Reference Range Interpretation Comments Coronavirus 2019 nCoV Bedside (test Negative Neg code = [id number]) COMPREHENSIVE METABOLIC [id number] 00:55:00 Test Item Value Reference Range Interpretation Comments SODIUM (test code = 134.0 mmol/L 133-144 N NA) POTASSIUM (test code 3.9 mmol/L 3.5-5.1 N = K) CHLORIDE (test code 105 mmol/L 95-105 N = CL) CARBON DIOXIDE (test 23 mmol/L 21-32 N code = CO2) ANION GAP (test code 6.0 GAP calc 4.0-15.0 N = GAP) GLUCOSE (test code = 126 MG/DL 70-110 H GLU) BLOOD UREA NITROGEN 41 MG/DL 7-18 H (test code = BUN) GLOMERULAR 44 estGFR >60 L The estimated FILTRATION RATE glomerular (test code = GFR) filtration rate is computed usingpatient ra ce, age, sex, and s justine creatinine. If any of theneeded da ta elements are mi ssing the Laboratory can notcompute an estimation of t he glomerular filtration rate .The GFR value units = ml/min/1.73 met er squared. EstimatedGFR va lues above 60 should be interpreted as >60, not anexact number.--- DRUG DOSAGE ALERT -- - Drug dosage adjustments uti lize different calculationpara meter s. CREATININE (test 1.59 MG/DL 0.55-1.30 H Results may be code = CREAT) depressed if p atient is takingN-Acetylc ystei ne (NAC) and Metamizole (Dipyrone). TOTAL PROTEIN (test 7.9 G/DL 6.4-8.2 N code = PROT) ALBUMIN (test code = 3.3 G/DL 3.4-5.0 L ALB) ALBUMIN/GLOBULIN 0.7 RATIO 1.2-2.2 L RATIO (test code = A/G) CALCIUM (test code = 8.8 MG/DL 8.5-10.1 N CA) BILIRUBIN TOTAL 1.41 MG/DL 0.00-1.00 H (test code = BILT) BILIRUBIN DIRECT 1.14 MG/DL 0.00-0.30 H (test code = BILD) BILIRUBIN INDIRECT 0.27 MG/DL 0.2-1.3 N (test code = BILIND) SGOT/AST (test code 58 Unit/L 15-37 H = AST) SGPT/ALT (test code 75 Unit/L 12-78 N = ALT) ALKALINE PHOSPHATASE 256 Unit/L 45-117 H TOTAL (test code = ALKP) INDEX HEMOLYSIS 1 NORMAL <10 1 NORMAL (test code = MG Index/DL HEMINDEX) INDEX ICTERIC (test 1 NORMAL <2 MG 1 NORMAL code = ICTINDEX) Index/DL INDEX LIPEMIA (test 1 NORMAL <50 1 NORMAL code = LIPINDEX) MG Index/DL [id number] 00:55:00 Test Item Value Reference Range Interpretation Comments CKMB (test code = < 1.0 NG/ML 1.0-3.6 N MONOCLONAL CKMB CKMBT) METHODOLOGY. [id number] 00:55:00 Test Item Value Reference Range Interpretation Comments TROPONIN-I 0.039 NG/ML 0.000-0.045 N INTERPRET WITH CAUTION, THIS (test code = VALUE EXCEEDS T HE LOWER TROPI) LIMITOF LINEARI TY VERIFICATION ES TABLISHED BY THE LABORATORY. An elevated troponin value alone is not sufficient todi agnose a myocardial infa rction. Rather, the pat ient'sclinical presentation (h istory, physical exam) and ECGshould be used in conj unction with troponin in the diagnostic evaluation of s uspected myocardial infa rction. Aserial samplin g protocol is recommended to facilitate theidentificati on of temporal changes in trop onin levelscharacter istic of [place]. COMPREHENSIVE METABOLIC [id number] 00:42:00 Test Item Value Reference Range Interpretation Comments SODIUM (test code = 134.0 mmol/L 133-144 N NA) POTASSIUM (test code 3.9 mmol/L 3.5-5.1 N = K) CHLORIDE (test code 105 mmol/L 95-105 N = CL) CARBON DIOXIDE (test 23 mmol/L 21-32 N code = CO2) ANION GAP (test code 6.0 GAP calc 4.0-15.0 N = GAP) GLUCOSE (test code = 126 MG/DL 70-110 H GLU) BLOOD UREA NITROGEN 41 MG/DL 7-18 H (test code = BUN) GLOMERULAR 44 estGFR >60 L The estimated FILTRATION RATE glomerular (test code = GFR) filtration rate is computed usingpatient ra ce, age, sex, and s justine creatinine. If any of theneeded da ta elements are mi ssing the Laboratory can notcompute an estimation of t he glomerular filtration rate .The GFR value units = ml/min/1.73 met er squared. EstimatedGFR va lues above 60 should be interpreted as >60, not anexact number.--- DRUG DOSAGE ALERT -- - Drug dosage adjustments uti lize different calculationpara meter s. CREATININE (test 1.59 MG/DL 0.55-1.30 H Results may be code = CREAT) depressed if p atient is takingN-Acetylc ystei ne (NAC) and Metamizole (Dipyrone). TOTAL PROTEIN (test 7.9 G/DL 6.4-8.2 N code = PROT) ALBUMIN (test code = 3.3 G/DL 3.4-5.0 L ALB) ALBUMIN/GLOBULIN 0.7 RATIO 1.2-2.2 L RATIO (test code = A/G) CALCIUM (test code = 8.8 MG/DL 8.5-10.1 N CA) BILIRUBIN TOTAL 1.41 MG/DL 0.00-1.00 H (test code = BILT) BILIRUBIN DIRECT 1.14 MG/DL 0.00-0.30 H (test code = BILD) BILIRUBIN INDIRECT 0.27 MG/DL 0.2-1.3 N (test code = BILIND) SGOT/AST (test code 58 Unit/L 15-37 H = AST) SGPT/ALT (test code 75 Unit/L 12-78 N = ALT) ALKALINE PHOSPHATASE 256 Unit/L 45-117 H TOTAL (test code = ALKP) INDEX HEMOLYSIS 1 NORMAL <10 1 NORMAL (test code = MG Index/DL HEMINDEX) INDEX ICTERIC (test 1 NORMAL <2 MG 1 NORMAL code = ICTINDEX) Index/DL INDEX LIPEMIA (test 1 NORMAL <50 1 NORMAL code = LIPINDEX) MG Index/DL [id number] 00:42:00 Test Item Value Reference Range Interpretation Comments CKMB (test code = CKMBT) NG/ML 1.0-3.6 [id number] 00:42:00 Test Item Value Reference Range Interpretation Comments TROPONIN-I 0.039 NG/ML 0.000-0.045 N INTERPRET WITH CAUTION, THIS (test code = VALUE EXCEEDS T HE LOWER TROPI) LIMITOF LINEARI TY VERIFICATION ES TABLISHED BY THE LABORATORY. An elevated troponin value alone is not sufficient todi agnose a myocardial infa rction. Rather, the pat ient'sclinical presentation (h istory, physical exam) and ECGshould be used in conj unction with troponin in the diagnostic evaluation of s uspected myocardial infa rction. Aserial samplin g protocol is recommended to facilitate theidentificati on of temporal changes in trop onin levelscharacter istic of [place]. LACTIC [id number] 00:42:00 Test Item Value Reference Range Interpretation Comments LACTIC ACID (test code = LACT) 1.1 mmol/L 0.4-2.0 N COMPREHENSIVE METABOLIC [id number] 00:38:00 Test Item Value Reference Range Interpretation Comments SODIUM (test code = 134.0 mmol/L 133-144 N NA) POTASSIUM (test code 3.9 mmol/L 3.5-5.1 N = K) CHLORIDE (test code 105 mmol/L 95-105 N = CL) CARBON DIOXIDE (test 23 mmol/L 21-32 N code = CO2) ANION GAP (test code 6.0 GAP calc 4.0-15.0 N = GAP) GLUCOSE (test code = 126 MG/DL 70-110 H GLU) BLOOD UREA NITROGEN 41 MG/DL 7-18 H (test code = BUN) GLOMERULAR 44 estGFR >60 L The estimated FILTRATION RATE glomerular (test code = GFR) filtration rate is computed usingpatient ra ce, age, sex, and s justine creatinine. If any of theneeded da ta elements are mi ssing the Laboratory can notcompute an estimation of t he glomerular filtration rate .The GFR value units = ml/min/1.73 met er squared. EstimatedGFR va lues above 60 should be interpreted as >60, not anexact number.--- DRUG DOSAGE ALERT -- - Drug dosage adjustments uti lize different calculationpara meter s. CREATININE (test 1.59 MG/DL 0.55-1.30 H Results may be code = CREAT) depressed if p atient is takingN-Acetylc ystei ne (NAC) and Metamizole (Dipyrone). TOTAL PROTEIN (test G/DL 6.4-8.2 code = PROT) ALBUMIN (test code = 3.3 G/DL 3.4-5.0 L ALB) ALBUMIN/GLOBULIN RATIO 1.2-2.2 RATIO (test code = A/G) CALCIUM (test code = 8.8 MG/DL 8.5-10.1 N CA) BILIRUBIN TOTAL MG/DL 0.00-1.00 (test code = BILT) BILIRUBIN DIRECT 1.14 MG/DL 0.00-0.30 H (test code = BILD) BILIRUBIN INDIRECT MG/DL 0.2-1.3 (test code = BILIND) SGOT/AST (test code 58 Unit/L 15-37 H = AST) SGPT/ALT (test code 75 Unit/L 12-78 N = ALT) ALKALINE PHOSPHATASE Unit/L 45-117 TOTAL (test code = ALKP) INDEX HEMOLYSIS 1 NORMAL <10 1 NORMAL (test code = MG Index/DL HEMINDEX) INDEX ICTERIC (test 1 NORMAL <2 MG 1 NORMAL code = ICTINDEX) Index/DL INDEX LIPEMIA (test 1 NORMAL <50 1 NORMAL code = LIPINDEX) MG Index/DL [id number] 00:38:00 Test Item Value Reference Range Interpretation Comments TROPONIN-I (test code = TROPI) NG/ML 0.000-0.045 CBC W/MANUAL [id number] 00:32:00 Test Item Value Reference Range Interpretation Comments WHITE BLOOD CELL 366.2 K/mm3 4.1-12.1 HH ON 06/23/20 AT (test code = WBC) 0031, BSHERIE WatersMEB CALLED TO JAZ NAGEL. The report was confirmed by re ad back protocols Y,N: N. RED BLOOD CELL (test 2.43 M/mm3 3.8-5.5 L code = RBC) HEMOGLOBIN (test 8.1 G/DL 10.6-15.8 L code = HGB) HEMATOCRIT (test 23.8 % 31.8-47.4 L code = HCT) MEAN CELL VOLUME 97.9 fL 80.1-101.1 N (test code = MCV) MEAN CELL HGB (test 33.3 pg 25.3-35.3 N code = MCH) MEAN CELL HGB 34.0 G/DL 32.7-35.1 N CONCETRATION (test code = MCHC) RED CELL 16.0 % 12.2-16.4 N DISTRIBUTION WIDTH (test code = RDW) RED CELL 56.3 fL 35.1-43.9 H DISTRIBUTION WIDTH (test code = RDW-SD) PLATELET COUNT (test 175 K/mm3 155-337 N code = PLT) MEAN PLATELET VOLUME TEST NOT 7.6-10.4 Value u navailable (test code = MPV) PERFORMED fL due to interference. GRANULOCYTE % (test 57.0 % 37.8-82.6 N code = GR%) IMMATURE GRANULOCYTE 32.5 % 0.0-2.0 H % (test code = IG%) LYMPHOCYTE % (test 2.6 % 14.1-45.4 L code = LY%) MONOCYTE % (test 5.4 % 2.5-11.7 N code = MO%) EOSINOPHIL % (test 0.4 % 0.0-6.2 N code = EO%) BASOPHIL % (test 2.1 % 0.0-2.6 N code = BA%) NUCLEATED RBC % 0.5 /100WBC% 0.0-1.0 N (test code = NRBC%) GRANULOCYTE # (test 209.17 k/mm3 2.0-13.7 H code = GR#) IMMATURE GRANULOCYTE 118.85 K/mm3 0.00-0.03 H # (test code = IG#) LYMPHOCYTE # (test 9.59 K/mm3 0.6-3.8 H code = LY#) MONOCYTE # (test 19.69 K/mm3 0.11-0.59 H code = MO#) EOSINOPHIL # (test 1.41 K/mm3 0.0-0.4 H code = EO#) BASOPHIL # (test 7.51 K/mm3 0.0-0.1 H code = BA#) NUCLEATED RBC # 1.80 K/mm3 0.00-0.05 H (test code = NRBC#) MANUAL DIFF REQUIRED MAN DIFF CRITERIA (test code = MDIFF) INDICATED DIFF/SCN PATHOLOGIST'S [id number] 00:32:00 Test Item Value Reference Range Interpretation Comments PATHOLOGIST'S FINDINGS (test code = EXTERNAL COMMENTS PATH) WBC [id number] 00:32:00 Test Item Value Reference Range Interpretation Comments TOTAL CELLS COUNTED (test code = #CELLS >100 TCC) SEGMENTED NEUTROPHILS (test code = % 40-75 SEG) LYMPHOCYTE (test code = LYMPH) % 12.6-43.5 MORPHOLOGY COMMENT (test code = MOC) ON SCAN NORMAL RBCS PLATELET ESTIMATE (test code = ON SCAN ADEQUATE PLTEST) CBC W/MANUAL [id number] 00:32:00 Test Item Value Reference Range Interpretation Comments WHITE BLOOD CELL 366.2 K/mm3 4.1-12.1 HH ON 06/23/20 AT (test code = WBC) 0031, BSHERIE WatersARRajnider CALLED TO JAZ NAGEL. The report was confirmed by re ad back protocols Y,N: N. RED BLOOD CELL (test 2.43 M/mm3 3.8-5.5 L code = RBC) HEMOGLOBIN (test 8.1 G/DL 10.6-15.8 L code = HGB) HEMATOCRIT (test 23.8 % 31.8-47.4 L code = HCT) MEAN CELL VOLUME 97.9 fL 80.1-101.1 N (test code = MCV) MEAN CELL HGB (test 33.3 pg 25.3-35.3 N code = MCH) MEAN CELL HGB 34.0 G/DL 32.7-35.1 N CONCETRATION (test code = MCHC) RED CELL 16.0 % 12.2-16.4 N DISTRIBUTION WIDTH (test code = RDW) RED CELL 56.3 fL 35.1-43.9 H DISTRIBUTION WIDTH (test code = RDW-SD) PLATELET COUNT (test 175 K/mm3 155-337 N code = PLT) MEAN PLATELET VOLUME TEST NOT 7.6-10.4 Value u navailable (test code = MPV) PERFORMED fL due to interference. GRANULOCYTE % (test 57.0 % 37.8-82.6 N code = GR%) IMMATURE GRANULOCYTE 32.5 % 0.0-2.0 H % (test code = IG%) LYMPHOCYTE % (test 2.6 % 14.1-45.4 L code = LY%) MONOCYTE % (test 5.4 % 2.5-11.7 N code = MO%) EOSINOPHIL % (test 0.4 % 0.0-6.2 N code = EO%) BASOPHIL % (test 2.1 % 0.0-2.6 N code = BA%) NUCLEATED RBC % 0.5 /100WBC% 0.0-1.0 N (test code = NRBC%) GRANULOCYTE # (test 209.17 k/mm3 2.0-13.7 H code = GR#) IMMATURE GRANULOCYTE 118.85 K/mm3 0.00-0.03 H # (test code = IG#) LYMPHOCYTE # (test 9.59 K/mm3 0.6-3.8 H code = LY#) MONOCYTE # (test 19.69 K/mm3 0.11-0.59 H code = MO#) EOSINOPHIL # (test 1.41 K/mm3 0.0-0.4 H code = EO#) BASOPHIL # (test 7.51 K/mm3 0.0-0.1 H code = BA#) NUCLEATED RBC # 1.80 K/mm3 0.00-0.05 H (test code = NRBC#) MANUAL DIFF REQUIRED MAN DIFF CRITERIA (test code = MDIFF) INDICATED DIFF/SCN WBC [id number] 00:32:00 Test Item Value Reference Range Interpretation Comments TOTAL CELLS COUNTED (test code = #CELLS >100 TCC) SEGMENTED NEUTROPHILS (test code = % 40-75 SEG) LYMPHOCYTE (test code = LYMPH) % 12.6-43.5 MORPHOLOGY COMMENT (test code = MOC) ON SCAN NORMAL RBCS PLATELET ESTIMATE (test code = ON SCAN ADEQUATE PLTEST) [id number] 16:52:002.4[facility] [id number] 16:52:00 335.7[facility] [id number] 16:52:002.80[facility] 2020-05-22 16:52:008.2[facility] [id number] 16:52:0026.5[facility] YfmzhgrEBWEYPJHOO0315-21-24 16:52:0094.8[facility] [id number] 16:52:00 Test Item Value Reference Range Interpretation Comments MCH (test code = MCH) 29.2 pg 27.0-31.0 [facility] [id number] 16:52:0030.8[facility]ann[facility]MATOLOG[facility] 2020-05-22 16:52:0015.6[facility] [id number] 16:52:98989Gmfxxjzr EolsxmjVLCHWVXAER0021-31-03 16:52:0011.[facility] YalhgwqLYKRTPVCWH2454-13-21 16:52:34007.[facility] BdirolwEBPNYQUSPZ9767-12-13 16:52:0010.1[facility] [place] ABGDLHSEED0412-68-29 16:52:0033.6[facility] NhrntgaKYPDVADDHA0622-87-68 16:52:00 13.4[facility] AlizoarZXHVTYVTND7768-11-26 16:52:006.7[facility]ann[facility]MATOLOG[facility] 2020-05-22 16:52:0052.0[facility] [id number] 16:52:0014.0[facility] ZbizgrcKIRKZDNIIV8689-04-46 16:52:003.0[facility] MmgiurySBVTWVMXTQ7436-34-80 16:52:0010.0[facility] UopslzyMKZJRPZYXG4587-51-31 16:52:004.0[facility] XVMNRAKEPU4218-14-24 16:52:002.0[facility] PnxvzvcGAEFVITOGE1254-94-97 16:52:007.0 [facility] YnbykagFQLJJOSZOG7266-37-88 16:52:007.0[facility]ann[facility]MAT[facility] 2020-05-22 16:52:001.0[facility] MkdkcrzLMKPERDHBG5144-03-45 16:52:000.0[facility] LbmerxzNMPUZXHAIK0205-63-69 16:52:00Normal (05/22/20 10:52 AM)[facility] [id number] 16:52:00Normal (05/22/20 10:52 AM)[facility] [id number] 15:08:00Not Detected (05/22/20 9:08 AM)[facility]
--- NOTE | 2020-07-01 11:07 | EDPHYS ---
Physician Documentation [facility] Name: Mac Hurtado Sr Age: 64 yrs Sex: Male : 1955 Arrival Date: 07/01/2020 Time: 10:33 Bed 4 Private MD: Steve Montes ED Physician Kel Olson HPI: 07/01 10:57 This 64 yrs old Black Male presents to ER via Ambulatory with complaints of Eye rn Swelling, Redness of Eye. 11:01 The patient is experiencing redness, tearing, The patient sustained None. to the right rn eye, caused by an unknown mechanism. 11:01 Onset: The symptoms/episode began/occurred 1 week(s) ago. Duration: the symptoms are rn continuous. Aggravated by rubbing, Alleviated by nothing. Patient does not utilize any form of vision correction. Severity of symptoms: At their worst the symptoms were moderate in the emergency department the symptoms are unchanged. The patient has not experienced similar symptoms in the past. The patient has been recently seen by a physician:. Reports recently admitted at OSH, had eye problems during hospitalization, sent home on cipro eye drops, doesn't seem to be helping, + right eye with clear drainage, mild pain, + swelling around eye. Denies significant change in visual acuity, reports always a little blurred 2/2 cataract. Has also required multiple intraocular injections in past due to diabetic retinopathy and vitreous bleeding. No trauma. No splash or foreign object. . Historical: - Allergies: 10:57 No Known Allergies; iw - Home Meds: 10:57 allopurinol 300 mg Oral tab 1 tab once daily [Active]; aspirin 81 mg Oral TbEC 1 tab iw once daily [Active]; basaglar 75 unit daily [Active]; Bosulif oral 400 mg oral once daily [Active]; carvedilol 6.25 mg oral tab 1 tab 2 times per day [Active]; Ciprofloxacin Opht [Active]; furosemide 40 mg Oral tab 1 tab once daily [Active]; Hydroxyurea 2000 mg Oral once daily [Active]; metformin 1,000 mg Oral tab 1 tab 2 times per day [Active]; ramipril 10 mg Oral cap 1 cap 2 times per day [Active]; - PMHx: 10:57 Diabetes - IDDM; Hypertension; iw - Immunization history:: Adult Immunizations unknown. - Family history:: not pertinent. - Social history:: Smoking status: unknown. - Hospitalizations: : No recent hospitalization is reported. ROS: 11:01 Constitutional: Negative for fever, chills, and weight loss, Eyes: + right eye swelling rn and pain with clear tearing. ENT: Negative for injury, pain, and discharge, Neuro: Negative for headache, weakness, numbness, tingling, and seizure. Exam: 11:01 Constitutional: This is a well developed, well nourished patient who is awake, alert, rn and in no acute distress. Head/Face: Normocephalic, atraumatic. Eyes: + right eye with scleral injection, clear drainage, cornea without lesions or purulence in anterior chamber, no hyphema, + swelling and chemosis of sclera and conjunctiva with injection. Able to move eye in all directions without pain. + mild swelling of lids, no tenderness or erythema around eye/on face. Vital Signs: 10:45 BP 182 / 70; Pulse 64; Resp 17; Pulse Ox 96% ; jl7 10:49 Temp 98.3; iw 11:05 BP 173 / 68; Pulse 57; Resp 15; Pulse Ox 96% ; jl7 MDM: 10:39 Patient medically screened. rn 11:01 Differential diagnosis: scleritis, chemosis, conjunctivitis. Data reviewed: vital rn signs, nurses notes, and as a result, I will discharge patient. Counseling: I had a detailed discussion with the patient and/or guardian regarding: the historical points, exam findings, and any diagnostic results supporting the discharge/admit diagnosis, the need for outpatient follow up, to return to the emergency department if symptoms worsen or persist or if there are any questions or concerns that arise at home. Special discussion: I discussed with the patient/guardian in detail that at this point there is no indication for admission to the hospital. It is understood, however, that if the symptoms persist or worsen the patient needs to return immediately for re-evaluation. Based on the history and exam findings, there is no indication for further emergent testing or inpatient evaluation. I discussed with the patient/guardian the need to see the opthamologist for further evaluation of the symptoms. ED course: Will place on oral abx and vigamox, urged to f/u with his mba intern Dr. Landry tomorrow. Return precautions given and understood.. Administered Medications: No medications were administered Disposition: 07/01/20 11:07 Discharged to Home. Impression: Conjunctivitis, Ocular chemosis. - Condition is Stable. - Discharge Instructions: Chemical Conjunctivitis, Adult, Bacterial Conjunctivitis, Viral Conjunctivitis. - Prescriptions for Keflex 500 mg Oral Capsule - take 1 capsule by ORAL route every 12 hours for 10 days; 20 capsule. Vigamox 0.5 % Ophthalmic Drops - instill 1 drop by OPHTHALMIC route every 8 hours for 7 days; 5 milliliter. Bactrim DS 800- 160 mg Oral Tablet - take 1 tablet by ORAL route every 12 hours for 10 days; 20 tablet. - Medication Reconciliation Form, Thank You Letter, Antibiotic Education, Prescription Opioid Use form. - Follow up: Queta Landry MD; When: Tomorrow; Reason: Recheck today's complaints, Re-evaluation by your physician. - Problem is an ongoing problem. - Symptoms have worsened. Signatures: Annmarie Dimas RN RN iw Nieto, Roman, MD MD rn Leal, Jahala, RN RN jl7 Corrections: (The following items were deleted from the chart) 11:03 11:01 Constitutional: Negative for fever, chills, and weight loss, Eyes: + right eye rn swelling and pain with clear tearing. ENT: Negative for injury, pain, and discharge, rn 11:14 11:07 07/01/2020 11:07 Discharged to Home. Impression: Conjunctivitis; Ocular chemosis. jl7 Condition is Stable. Forms are Medication Reconciliation Form, Thank You Letter, Antibiotic Education, Prescription Opioid Use. Follow up: Queta Landry; When: Tomorrow; Reason: Recheck today's complaints, Re-evaluation by your physician. Problem is an ongoing problem. Symptoms have worsened. rn
--- NOTE | 2020-07-01 11:07 | ER ---
Nurse's Notes [facility] Name: Mac Hurtado Sr Age: 64 yrs Sex: Male : 1955 Arrival Date: 07/01/2020 Time: 10:33 Bed 4 Private MD: Steve Montes Diagnosis: Conjunctivitis;Ocular chemosis Presentation: 07/01 10:49 Chief complaint: Spouse and/or significant other states: was d/c from [facility] on 2-4 iw for fluid in his lungs, started having pain in his right eye while he was there and they put him on cipro eye drops, has had increasing pain and swelling in that eye since then, also has hx of cataract that needed surgery in right eye. Coronavirus screen: At this time, the client does not indicate any symptoms associated with coronavirus-19. Ebola Screen: Patient negative for fever greater than or equal to 101.5 degrees Fahrenheit, and additional compatible Ebola Virus Disease symptoms Patient denies exposure to infectious person. Patient denies travel to an Ebola-affected area in the 21 days before illness onset. No symptoms or risks identified at this time. Initial Sepsis Screen: Does the patient meet any 2 criteria? No. Patient's initial sepsis screen is negative. Does the patient have a suspected source of infection? No. Patient's initial sepsis screen is negative. Risk Assessment: Do you want to hurt yourself or someone else? Patient reports no desire to harm self or others. Onset of symptoms was June 28, 2020. 10:49 Method Of Arrival: Ambulatory iw 10:49 Acuity: ROBERTO 3 iw Historical: - Allergies: 10:57 No Known Allergies; iw - Home Meds: 10:57 allopurinol 300 mg Oral tab 1 tab once daily [Active]; aspirin 81 mg Oral TbEC 1 tab iw once daily [Active]; basaglar 75 unit daily [Active]; Bosulif oral 400 mg oral once daily [Active]; carvedilol 6.25 mg oral tab 1 tab 2 times per day [Active]; Ciprofloxacin Opht [Active]; furosemide 40 mg Oral tab 1 tab once daily [Active]; Hydroxyurea 2000 mg Oral once daily [Active]; metformin 1,000 mg Oral tab 1 tab 2 times per day [Active]; ramipril 10 mg Oral cap 1 cap 2 times per day [Active]; - PMHx: 10:57 Diabetes - IDDM; Hypertension; iw - Immunization history:: Adult Immunizations unknown. - Family history:: not pertinent. - Social history:: Smoking status: unknown. - Hospitalizations: : No recent hospitalization is reported. Screenin:45 Abuse screen: Denies threats or abuse. Denies injuries from another. Nutritional jl7 screening: No deficits noted. Tuberculosis screening: No symptoms or risk factors identified. Fall Risk None identified. Assessment: 10:45 General: Appears in no apparent distress. uncomfortable, Behavior is calm, cooperative, jl7 appropriate for age. Pain: Complains of pain in right eye. Neuro: Level of Consciousness is awake, alert, obeys commands. Cardiovascular: Patient's skin is warm and dry. Respiratory: Airway is patent Respiratory effort is even, unlabored, Respiratory pattern is regular, symmetrical. EENT: Eyes are tearing on right eye Sclera/Cornea are reddened in right eye Lid(s) drooping on right eye. Derm: Skin is pink, warm \T\ dry. Vital Signs: 10:45 BP 182 / 70; Pulse 64; Resp 17; Pulse Ox 96% ; jl7 10:49 Temp 98.3; iw 11:05 BP 173 / 68; Pulse 57; Resp 15; Pulse Ox 96% ; jl7 ED Course: 10:33 Patient arrived in ED. ag5 10:39 Kel Olson MD is Attending Physician. rn 10:41 Steve Montes MD is Private Physician. ag5 10:45 Neyda Danielle, LESIA is Primary Nurse. jl7 10:45 Patient has correct armband on for positive identification. Bed in low position. Call jl7 light in reach. Side rails up X 1. Pulse ox on. NIBP on. 10:51 Triage completed. iw 10:57 Arm band placed on. iw 11:06 Queta Landry MD is Referral Physician. rn 11:13 No provider procedures requiring assistance completed. Patient did not have IV access jl7 during this emergency room visit. Administered Medications: No medications were administered Outcome: 11:07 Discharge ordered by MD. rn 11:13 Discharged to home ambulatory. jl7 11:13 Condition: stable 11:13 Discharge instructions given to patient, Instructed on discharge instructions, follow up and referral plans. medication usage, Demonstrated understanding of instructions, follow-up care, medications, Prescriptions given X 3. 11:14 Patient left the ED. jl7 Signatures: Annmarie Dimas, RN Kel Nicole MD MD rn Leal, Jahala, RN RN [email or web address] Alo Morel5 Corrections: (The following items were deleted from the chart) 11:05 11:04 BP 182 / 70; Pulse 64bpm; Resp 17bpm; Pulse Ox 96%; jose garcia
[2020-07-01 11:23] VITALS: O2SAT 96
[2020-07-01 11:24] VITALS: TEMP 98.3
[2020-07-01 11:25] VITALS: BP 173/68
== END 2020-07-01 11:14 | disposition home or self-care (01) ==
LOC: ER 10:30
DX: H10.9 Unspecified conjunctivitis (principal); H11.421 Conjunctival edema, right eye; I10 Essential (primary) hypertension; E11.9 Type 2 diabetes mellitus without complications; Z79.82 Long term (current) use of aspirin
CPT/HCPCS: 99283

== ENCOUNTER 2020-12-10 10:04 | Emergency (ER) | payer OTHER ==
--- OUTSIDE RECORDS SUMMARY | 2020-12-10 10:10 | XMS REPORT | Continuity of Care Document ---
:1955 Author Organization [facility] t Address [address] [place] [address] Care Team Providers Name Role Phone Jessica Trevino Attending Clinician Payers Payer Name Policy Type Policy Number Effective Date Expiration Date S ource Problems Condition Condition Condition Status Onset Resolution Last Treating Co mments Source Name Details Category Date Date Treatment Clinician Date CHRONIC Diagnosis Active 2019-052020-06-20 Me moria MYELOID 2-28 07:50:00 l LEUKEMIA CHRONIC 00:00: Radha nn MYELOID 00 LEUKEMIA Active 05/21/2020 [facility] CHRONIC Diagnosis Active 2020-06-20 Me moria MYELOID 07:50:00 l LEUKEMIA, CHRONIC Herm jessie BCR/ABL-PO MYELOID SITI LEUKEMIA, BCR/ABL-PO SITI Active [facility] Allergies, Adverse Reactions, Alerts Allergy Allergy Status Severity Reaction(s) Onset Inactive Treating Comm ents Source Name Type Date Date Clinician No Known DA Active [facility]22 [facility] Social History Smoking Status Start Date Stop Date Source Social History [facility] Medications Ordered Filled Start Stop Current Ordering Indication Dosage Frequency Signature Comments Components Source Medication Medication Date Date Medication? Clinician (SIG) Name Name ramipril 10 2019-05 Yes 10 mg = 1 M emoria mg oral 2-29 cap, PO, l capsule 17:13: BID, 0 [address] 00 Refill(s) Metformin 2019-05 Yes 1,000 mg = Me moria hydrochlori 2-29 1 tab, PO, l de 1000 MG 17:13: BID-Meals, H ermann Oral Tablet 00 # 30 tab, 0 Refill(s) 3 ML 2019-05 Yes 70 units, Memoria Insulin SUB-Q, l Glargine 17:13: Daily, 0 Radha nn 100 UNT/ML 00 Refill(s) Pen Injector [Basaglar] Vital Signs Vital Name Observation Time Observation Value Comments Source Height 2020-05-22 16:49:00 170.18 cm [facility] Weight 2020-05-22 16:49:00 [facility] BMI Calculated 2020-05-22 16:49:00 [facility] Height 2020-05-22 15:19:00 170.18 cm [facility] Weight 2020-05-22 15:19:00 [facility] BMI Calculated 2020-05-22 15:19:00 Katherine grossman [place] Procedures This patient has no known procedures. Encounters Start End Encounter Admission Attending Care Care Encounter Source Date/Time Date/Time Type Type Clinicians Facility Department ID 2020-05-22 2020-05-22 Outpatient NERIS TrevinoPL [id number] 10:00:00 10:00:00 Ratna 00 Jessica 2020-05-22 2020-05-22 Outpatient [facility] [address] 09:01:00 09:01:00 Results Test Description Test Time Test Comments Results Result Comments Source GLUCOSE BEDSIDE TESTING 2020-06-28 12:11:00 Test Item Value Reference Range Interpretation Comme nts GLUCOSE BEDSIDE TESTING (test code = GLUBED) 214 MG/DL 70-119 H GLUCOSE BEDSIDE [id number] 21:49:00 Test Item Value Reference Range Interpretation Comments GLUCOSE BEDSIDE TESTING (test code 195 MG/DL 70-119 H = GLUBED) GLUCOSE BEDSIDE [id number] 15:38:00 Test Item Value Reference Range Interpretation Comments GLUCOSE BEDSIDE TESTING (test code 251 MG/DL 70-119 H = GLUBED) GLUCOSE BEDSIDE [id number] 11:48:00 Test Item Value Reference Range Interpretation Comments GLUCOSE BEDSIDE TESTING (test code 212 MG/DL 70-119 H = GLUBED) GLUCOSE BEDSIDE [id number] 06:03:00 Test Item Value Reference Range Interpretation Comments GLUCOSE BEDSIDE TESTING (test code 139 MG/DL 70-119 H = GLUBED) CBC W/MANUAL [id number] 23:26:00 Test Item Value Reference Range Interpretation [...] (test code INDICATED = MDIFF) DIFF/SCN WBC [id number] 23:26:00 Test Item Value Reference Range Interpretation [...] FEW ON SCAN NORMAL PLTS code = [id number]) COMPREHENSIVE METABOLIC [id number] 22:28:00 Test Item Value Reference Range Interpretation [...] 1 NORMAL code = LIPINDEX) MG Index/DL [id number] 22:28:00 Test Item Value Reference Range Interpretation Comments PHOSPHOROUS (test code = PHOS) 3.7 MG/DL 2.5-4.9 N URIC [id number] 22:28:00 Test Item Value Reference Range Interpretation Comments URIC ACID (test code 8.7 MG/DL 3.5-7.2 H Results maybe depressed = URIC) if patient is t aking Metamizole(Dipy josé miguel). LACTIC DEHYDROGENASE(LDH)2020-06-26 22:28:00 Test Item Value Reference Range Interpretation Comments LACTIC DEHYDROGENASE(LDH) (test 669 Unit/L 84-246 H code = LDH) [id number] 22:28:00 Test Item Value Reference Range Interpretation Comments MAGNESIUM (test code = MAG) 2.8 MG/DL 1.6-2.6 H CBC W/MANUAL [id number] 22:06:00 Test Item Value Reference Range Interpretation [...] (test code INDICATED = MDIFF) DIFF/SCN WBC [id number] 22:06:00 Test Item Value Reference Range Interpretation Comments TOTAL CELLS COUNTED (test code = #CELLS >100 TCC) SEGMENTED NEUTROPHILS (test code = % 40-75 SEG) LYMPHOCYTE (test code = LYMPH) % 12.6-43.5 MORPHOLOGY COMMENT (test code = MOC) ON SCAN NORMAL RBCS PLATELET ESTIMATE (test code = ON SCAN ADEQUATE PLTEST) CBC W/MANUAL [id number] 22:06:00 Test Item Value Reference Range Interpretation [...] (test code INDICATED = MDIFF) DIFF/SCN WBC [id number] 22:06:00 Test Item Value Reference Range Interpretation Comments TOTAL CELLS COUNTED (test code = #CELLS >100 TCC) SEGMENTED NEUTROPHILS (test code = % 40-75 SEG) LYMPHOCYTE (test code = LYMPH) % 12.6-43.5 MORPHOLOGY COMMENT (test code = MOC) ON SCAN NORMAL RBCS PLATELET ESTIMATE (test code = ON SCAN ADEQUATE PLTEST) GLUCOSE BEDSIDE [id number] 21:21:00 Test Item Value Reference Range Interpretation Comments GLUCOSE BEDSIDE TESTING (test code 353 MG/DL 70-119 H = GLUBED) GLUCOSE BEDSIDE [id number] 16:54:00 Test Item Value Reference Range Interpretation Comments GLUCOSE BEDSIDE TESTING (test code 294 MG/DL 70-119 H = GLUBED) GLUCOSE BEDSIDE [id number] 12:27:00 Test Item Value Reference Range Interpretation Comments GLUCOSE BEDSIDE TESTING (test code 324 MG/DL 70-119 H = GLUBED) - XR CHEST 1 [id number] 07:53:00 [facility] : 1955 Sex: M FAX: Jake Sanchez MD [phone] [place]: St: [facility] FAX: Jose Duong NP [phone] FAX: Forrest Wu MD [phone] Patient Name: TRENTON CHAVEZ Unit No: [id number] EXAMS: CPT CODE: [id number] XR CHEST 1 V 48515 INDICATION: COVID LOCATION: T18 COMPARISON STUDY: Chest [...] MD CC: Jake Escobar MD; Jose Carrillo DEVELOPMENTAL SERVICES WORKER; Forrest Gomezated Date/Time: 06/26/2020 (0753)Technologist: Kendall Gutierrez Transcribed Date/Time: 06/26/2020 (0753) By: [email or web address] Orig Print D/T: S: 06/26/2020(0756) [facility] [place] [facility] PHYS: SHERLEY.Yuval - Jose Carrillo NP [address] [place] [address] BLVD : 1955 AGE: 64 SEX: Doni LAM, AF[place] [address] LOC: B.340 W PHONE #: [phone] EXAM DATE: 06/26/2020 STATUS: ADM IN FAX #: [phone] RAD NO: DC Dt: PAGE 1 Signed ReportCBC W/MANUAL [id number] 06:38:00 Test Item Value Reference Range Interpretation [...] (test code INDICATED = MDIFF) DIFF/SCN WBC [id number] 06:38:00 Test Item Value Reference Range Interpretation [...] NORMAL PLTS code = PLTMORPH) CBC W/MANUAL [id number] 06:16:00 Test Item Value Reference Range Interpretation [...] (test code INDICATED = MDIFF) DIFF/SCN WBC [id number] 06:16:00 Test Item Value Reference Range Interpretation [...] NORMAL PLTS code = PLTMORPH) GLUCOSE BEDSIDE [id number] 06:09:00 Test Item Value Reference Range Interpretation Comments GLUCOSE BEDSIDE TESTING (test code 146 MG/DL 70-119 H = GLUBED) COMPREHENSIVE METABOLIC [id number] 05:58:00 Test Item Value Reference Range Interpretation [...] code = LIPINDEX) MG Index/DL CBC W/MANUAL [id number] 05:01:00 Test Item Value Reference Range Interpretation [...] (test code INDICATED = MDIFF) DIFF/SCN WBC [id number] 05:01:00 Test Item Value Reference Range Interpretation Comments TOTAL CELLS COUNTED (test code = #CELLS >100 TCC) SEGMENTED NEUTROPHILS (test code = % 40-75 SEG) LYMPHOCYTE (test code = LYMPH) % 12.6-43.5 MORPHOLOGY COMMENT (test code = MOC) ON SCAN NORMAL RBCS PLATELET ESTIMATE (test code = ON SCAN ADEQUATE PLTEST) CBC W/MANUAL [id number] 05:01:00 Test Item Value Reference Range Interpretation [...] (test code INDICATED = MDIFF) DIFF/SCN WBC [id number] 05:01:00 Test Item Value Reference Range Interpretation Comments TOTAL CELLS COUNTED (test code = #CELLS >100 TCC) SEGMENTED NEUTROPHILS (test code = % 40-75 SEG) LYMPHOCYTE (test code = LYMPH) % 12.6-43.5 MORPHOLOGY COMMENT (test code = MOC) ON SCAN NORMAL RBCS PLATELET ESTIMATE (test code = ON SCAN ADEQUATE PLTEST) GLUCOSE BEDSIDE [id number] 21:09:00 Test Item Value Reference Range Interpretation Comments GLUCOSE BEDSIDE TESTING (test code 256 MG/DL 70-119 H = GLUBED) GLUCOSE BEDSIDE [id number] 17:21:00 Test Item Value Reference Range Interpretation Comments GLUCOSE BEDSIDE TESTING (test code 196 MG/DL 70-119 H = GLUBED) GLUCOSE BEDSIDE [id number] 12:58:00 Test Item Value Reference Range Interpretation Comments GLUCOSE BEDSIDE TESTING (test code 165 MG/DL 70-119 H = GLUBED) CBC W/MANUAL [id number] 08:27:00 Test Item Value Reference Range Interpretation [...] (test code = MDIFF) INDICATED DIFF/SCN PATHOLOGIST'S [id number] 08:27:00 Test Item Value Reference Range Interpretation Comments PATHOLOGIST'S SEE COMMENT COMMENTS COMMENTS:LEUKO CYTOSIS FINDINGS (test EXTERNAL WITH NEUTROPH ILS IN code = PATH) ALL STAGES OFMATURATION AN D EOSINOPHILIA AN D BASOPHILIA, CON SISTENT WITHPERSISTENT CHRONIC MYELOGENOUS LEUKEMIA(CML)DEMETRIUS RAMIREZ ST: YAN ARTHUR MDEntered by: ANDREA, on 06/25/20826. WBC [id number] 08:27:00 Test Item Value Reference Range Interpretation [...] FEW ON SCAN NORMAL PLTS code = [id number]) CBC W/MANUAL [id number] 07:23:00 Test Item Value Reference Range Interpretation [...] (test code INDICATED = MDIFF) DIFF/SCN WBC [id number] 07:23:00 Test Item Value Reference Range Interpretation [...] FEW ON SCAN NORMAL PLTS code = [id number]) GLUCOSE BEDSIDE [id number] 06:28:00 Test Item Value Reference Range Interpretation Comments GLUCOSE BEDSIDE TESTING (test code = 71 MG/DL 70-119 N GLUBED) COMPREHENSIVE METABOLIC [id number] 06:20:00 Test Item Value Reference Range Interpretation [...] code = LIPINDEX) MG Index/DL COMPREHENSIVE METABOLIC [id number] 06:16:00 Test Item Value Reference Range Interpretation [...] 1 NORMAL = LIPINDEX) Index/DL CBC W/MANUAL [id number] 06:08:00 Test Item Value Reference Range Interpretation [...] (test code INDICATED = MDIFF) DIFF/SCN WBC [id number] 06:08:00 Test Item Value Reference Range Interpretation Comments TOTAL CELLS COUNTED (test code = #CELLS >100 TCC) SEGMENTED NEUTROPHILS (test code = % 40-75 SEG) LYMPHOCYTE (test code = LYMPH) % 12.6-43.5 MORPHOLOGY COMMENT (test code = MOC) ON SCAN NORMAL RBCS PLATELET ESTIMATE (test code = ON SCAN ADEQUATE PLTEST) CBC W/MANUAL [id number] 06:08:00 Test Item Value Reference Range Interpretation [...] (test code INDICATED = MDIFF) DIFF/SCN WBC [id number] 06:08:00 Test Item Value Reference Range Interpretation Comments TOTAL CELLS COUNTED (test code = #CELLS >100 TCC) SEGMENTED NEUTROPHILS (test code = % 40-75 SEG) LYMPHOCYTE (test code = LYMPH) % 12.6-43.5 MORPHOLOGY COMMENT (test code = MOC) ON SCAN NORMAL RBCS PLATELET ESTIMATE (test code = ON SCAN ADEQUATE PLTEST) GLUCOSE BEDSIDE [id number] 21:32:00 Test Item Value Reference Range Interpretation Comments GLUCOSE BEDSIDE TESTING (test code 206 MG/DL 70-119 H = GLUBED) GLUCOSE BEDSIDE [id number] 16:57:00 Test Item Value Reference Range Interpretation Comments GLUCOSE BEDSIDE TESTING (test code 140 MG/DL 70-119 H = GLUBED) Covid 19 InHouse [id number] 13:44:00 Test Item Value Reference Range Interpretation Comments Covid 19 Negative Negative A negative resu lt does not InHouse NTX preclude the SA RS-COV-2 (test code = viralinfection and should not be [id number]) used as the so le basis forpatient angel gement decisions. Negative result s must becombined with clinical o bservations, patient history , andepidemiologi wayne information. Viral levels in clinicalsamples below the detec tion limit of the assay could jarrett d tonegative results. This t est was performed using the beModel SmartTM COVID-19 PCRassay. This test was developed and i ts performancechar acteristics were determined by [facility]. Thi s test has notbeen FDA deuce ared or approved. This test is au thorized by theFDA under Em ergency Use Authorization(E UA). The EUA willremain in e ffect unless it is terminated o r revoked by FDA . Testing humberto eters have not been validated for screeningasympt omatic patients. This test was v alidated according to th e FDA's guidancedocumen t "Policy for Diagnostics vilma ting in LaboratoriesCer tified to Perform High Complexity Testing under CLIA". First test? NoEmployed in Healthcare? NoSymptomatic as defined by CDC? YesDate of Symptom Onset: [id number] due to COVID? NoIn ICU due to COVID? NoResident in a congregate care setting? No? NoAge at collection: Y GLUCOSE BEDSIDE [id number] 12:11:00 Test Item Value Reference Range Interpretation Comments GLUCOSE BEDSIDE TESTING (test code 268 MG/DL 70-119 H = GLUBED) URIC [id number] 11:26:00 Test Item Value Reference Range Interpretation Comments URIC ACID (test 11.6 MG/DL 3.5-7.2 H Results mayb e depressed code = URIC) if patient is t aking Metamizole(Dipy josé miguel). LACTIC DEHYDROGENASE(LDH)2020-06-24 11:26:00 Test Item Value Reference Range Interpretation Comments LACTIC DEHYDROGENASE(LDH) (test 802 Unit/L 84-246 H code = LDH) URIC [id number] 11:25:00 Test Item Value Reference Range Interpretation Comments URIC ACID (test code = URIC) MG/DL 3.5-7.2 LACTIC DEHYDROGENASE(LDH)2020-06-24 11:25:00 Test Item Value Reference Range Interpretation Comments LACTIC DEHYDROGENASE(LDH) (test 802 Unit/L 84-246 H code = LDH) CBC W/MANUAL [id number] 10:10:00 Test Item Value Reference Range Interpretation [...] (test code INDICATED = MDIFF) DIFF/SCN WBC [id number] 10:10:00 Test Item Value Reference Range Interpretation [...] FEW ON SCAN NORMAL PLTS code = [id number]) BASIC METABOLIC [id number] 07:31:00 Test Item Value Reference Range Interpretation [...] MG 1 NORMAL code = LIPINDEX) Index/DL [id number] 07:31:00 Test Item Value Reference Range Interpretation Comments PHOSPHOROUS (test code = PHOS) 4.7 MG/DL 2.5-4.9 N [id number] 07:31:00 Test Item Value Reference Range Interpretation Comments MAGNESIUM (test code = MAG) 2.9 MG/DL 1.6-2.6 H COMPREHENSIVE METABOLIC [id number] 07:03:00 Test Item Value Reference Range Interpretation [...] code = LIPINDEX) MG Index/DL CBC W/MANUAL [id number] 06:57:00 Test Item Value Reference Range Interpretation [...] (test code INDICATED = MDIFF) DIFF/SCN WBC [id number] 06:57:00 Test Item Value Reference Range Interpretation Comments TOTAL CELLS COUNTED (test code = #CELLS >100 TCC) SEGMENTED NEUTROPHILS (test code = % 40-75 SEG) LYMPHOCYTE (test code = LYMPH) % 12.6-43.5 MORPHOLOGY COMMENT (test code = MOC) ON SCAN NORMAL RBCS PLATELET ESTIMATE (test code = ON SCAN ADEQUATE PLTEST) CBC W/MANUAL [id number] 06:57:00 Test Item Value Reference Range Interpretation [...] (test code INDICATED = MDIFF) DIFF/SCN WBC [id number] 06:57:00 Test Item Value Reference Range Interpretation Comments TOTAL CELLS COUNTED (test code = #CELLS >100 TCC) SEGMENTED NEUTROPHILS (test code = % 40-75 SEG) LYMPHOCYTE (test code = LYMPH) % 12.6-43.5 MORPHOLOGY COMMENT (test code = MOC) ON SCAN NORMAL RBCS PLATELET ESTIMATE (test code = ON SCAN ADEQUATE PLTEST) COMPREHENSIVE METABOLIC [id number] 06:56:00 Test Item Value Reference Range Interpretation [...] 1 NORMAL = LIPINDEX) Index/DL GLUCOSE BEDSIDE [id number] 21:50:00 Test Item Value Reference Range Interpretation Comments GLUCOSE BEDSIDE TESTING (test code 254 MG/DL 70-119 H = GLUBED) CBC W/MANUAL [id number] 20:59:00 Test Item Value Reference Range Interpretation [...] (test code INDICATED = MDIFF) DIFF/SCN WBC [id number] 20:59:00 Test Item Value Reference Range Interpretation [...] RARE ON SCAN NORMAL PLTS code = [id number]) BASIC METABOLIC [id number] 20:48:00 Test Item Value Reference Range Interpretation [...] MG 1 NORMAL code = LIPINDEX) Index/DL [id number] 20:48:00 Test Item Value Reference Range Interpretation Comments MAGNESIUM (test code = MAG) 2.8 MG/DL 1.6-2.6 H CBC W/MANUAL [id number] 20:38:00 Test Item Value Reference Range Interpretation [...] (test code INDICATED = MDIFF) DIFF/SCN WBC [id number] 20:38:00 Test Item Value Reference Range Interpretation Comments TOTAL CELLS COUNTED (test code = #CELLS >100 TCC) SEGMENTED NEUTROPHILS (test code = % 40-75 SEG) LYMPHOCYTE (test code = LYMPH) % 12.6-43.5 MORPHOLOGY COMMENT (test code = MOC) ON SCAN NORMAL RBCS PLATELET ESTIMATE (test code = ON SCAN ADEQUATE PLTEST) CBC W/MANUAL [id number] 20:38:00 Test Item Value Reference Range Interpretation [...] (test code INDICATED = MDIFF) DIFF/SCN WBC [id number] 20:38:00 Test Item Value Reference Range Interpretation Comments TOTAL CELLS COUNTED (test code = #CELLS >100 TCC) SEGMENTED NEUTROPHILS (test code = % 40-75 SEG) LYMPHOCYTE (test code = LYMPH) % 12.6-43.5 MORPHOLOGY COMMENT (test code = MOC) ON SCAN NORMAL RBCS PLATELET ESTIMATE (test code = ON SCAN ADEQUATE PLTEST) GLUCOSE BEDSIDE [id number] 17:02:00 Test Item Value Reference Range Interpretation Comments GLUCOSE BEDSIDE TESTING (test code 111 MG/DL 70-119 N = GLUBED) GLUCOSE BEDSIDE [id number] 10:42:00 Test Item Value Reference Range Interpretation Comments GLUCOSE BEDSIDE TESTING (test code = 80 MG/DL 70-119 N GLUBED) [id number] 08:53:00 Test Item Value Reference Range Interpretation Comments CKMB (test code = < 1.0 NG/ML 1.0-3.6 N MONOCLONAL CKMB CKMBT) METHODOLOGY. [id number] 08:53:00 Test Item Value Reference Range Interpretation [...] changes in trop onin levelscharacter istic of AR. GLYCOSYLATED HEMOGLOBIN (HA1C)2020-06-23 08:37:00 Test Item Value Reference Range Interpretation Comments GLYCOSYLATED HEMOGLOBIN (HA1C) <4.5 % A1C 4.2-6.3 N (test code = GLYHGB) ESTIMATED AVERAGE [id number] 08:37:00 Test Item Value Reference Range Interpretation [...] 1 NORMAL code = LIPINDEX) MG Index/DL [id number] 07:17:00 Test Item Value Reference Range Interpretation Comments MAGNESIUM (test code = MAG) 2.9 MG/DL 1.6-2.6 H THYROID STIMULATING [id number] 07:17:00 Test Item Value Reference Range Interpretation [...] 1 NORMAL code = LIPINDEX) MG Index/DL [id number] 07:11:00 Test Item Value Reference Range Interpretation Comments MAGNESIUM (test code = MAG) 2.9 MG/DL 1.6-2.6 H THYROID STIMULATING [id number] 07:11:00 Test Item Value Reference Range Interpretation Comments THYROID STIMULATING HORMONE (test mc IU/ML 0.340-4.820 code = TSH) [id number] 07:03:00 Test Item Value Reference Range Interpretation Comments CKMB (test code = CKMBT) NG/ML 1.0-3.6 [id number] 07:03:00 Test Item Value Reference Range Interpretation [...] changes in trop onin levelscharacter istic of AR. CBC W/MANUAL [id number] 03:10:00 Test Item Value Reference Range Interpretation [...] (test code = MDIFF) INDICATED DIFF/SCN PATHOLOGIST'S [id number] 03:10:00 Test Item Value Reference Range Interpretation Comments PATHOLOGIST'S FINDINGS (test code = EXTERNAL COMMENTS PATH) WBC [id number] 03:10:00 Test Item Value Reference Range Interpretation [...] FEW ON SCAN NORMAL PLTS code = [id number]) [id number] 02:47:00 Test Item Value Reference Range Interpretation Comments CKMB (test code = < 1.0 NG/ML 1.0-3.6 N MONOCLONAL CKMB CKMBT) METHODOLOGY. [id number] 02:47:00 Test Item Value Reference Range Interpretation [...] changes in trop onin levelscharacter istic of AR. [id number] 02:34:00 Test Item Value Reference Range Interpretation Comments CKMB (test code = CKMBT) NG/ML 1.0-3.6 [id number] 02:34:00 Test Item Value Reference Range Interpretation [...] changes in trop onin levelscharacter istic of AR. - CTA CHEST FOR [id number] 01:10:00 [facility] : 1955 Sex: M Patient Name: TRENTON CHAVEZ Unit No: [id number] EXAMS: CPT CODE: [id number] [place] [id number] Location: H3 Chest CTA , 06/23/20 TECHNIQUE: Chest CTA with and without contrast was performed on a helical scanner. 2D Coronal and sagittal images acquired on the CT workstation system by the medical technologist chief. Volumetric imaging acquired utilizing maximum intensity protocol. [...] infiltrates of concern for possible pneumonia. [facility] NAME: TRENTON CHAVEZ [address] [place] [address] PHYS: Jake Gallagher [place] [address] : 1955 AGE: [age] SEX: M LOC: ALICE PHONE #:[phone] EXAM DATE: 06/23/2020 STATUS: REG ER FAX #: [phone] RAD #: D/C DT PAGE 1 Signed Report (CONTINUED) Patient Name: TRENTON CHAVEZ Unit No: [id number] EXAMS: CPT CODE: [id number] [place] [id number] <Continued> opacification noted in the right lower lobe and lingula. at 0110 Reported and signed by: Sharifa Lebron M.D. CC: Jake Escobar MD Dictated Date/Time: 06/23/2020 (0110) Technologist: Carleen Wadsworth CTDI: 11.74 DLP: 207.09 Trnscrpt: 06/23/2020 (0110) [email or web address] EDUARDO Lam NAME: [address] PHYS: [place] [address] : 1955 AGE: 64 SEX: M LOC: B.ERS PHONE #: [phone] EXAM DATE: 06/23/2020 STATUS: REG ER FAX #: [phone] RAD #: D/C DT PAGE 2 Signed Report [facility] Unit No: [id number] EXAMS: CPT CODE: [id number] [place] [id number] <Continued> Orig Print D/T: S: 06/23/2020 (0113) EDUARDO Lam NAME: [address] PHYS: [place] [address] : 1955 AGE: 64 SEX: M LOC: B.ERS PHONE #: [phone] EXAM DATE: 06/23/2020 STATUS: REG ER FAX #: [phone] RAD #:D/C DT PAGE 3 Signed ReportB-TYPE NATRIURETIC [id number] 01:06:00 Test Item Value Reference Range Interpretation Comments B-TYPE NATRIURETIC PEPTIDE (test 756.05 PG/ML 0.00-100.00 H code = BNP) Coronavirus 2019 nCoV [id number] 01:00:00 Test Item Value Reference Range Interpretation Comments Coronavirus 2019 nCoV Bedside (test Negative Neg code = [id number]) COMPREHENSIVE METABOLIC [id number] 00:55:00 Test Item Value Reference Range Interpretation [...] 1 NORMAL code = LIPINDEX) MG Index/DL [id number] 00:55:00 Test Item Value Reference Range Interpretation Comments CKMB (test code = < 1.0 NG/ML 1.0-3.6 N MONOCLONAL CKMB CKMBT) METHODOLOGY. [id number] 00:55:00 Test Item Value Reference Range Interpretation [...] changes in trop onin levelscharacter istic of AR. COMPREHENSIVE METABOLIC [id number] 00:42:00 Test Item Value Reference Range Interpretation [...] 1 NORMAL code = LIPINDEX) MG Index/DL [id number] 00:42:00 Test Item Value Reference Range Interpretation Comments CKMB (test code = CKMBT) NG/ML 1.0-3.6 [id number] 00:42:00 Test Item Value Reference Range Interpretation [...] changes in trop onin levelscharacter istic of AR. LACTIC [id number] 00:42:00 Test Item Value Reference Range Interpretation Comments LACTIC ACID (test code = LACT) 1.1 mmol/L 0.4-2.0 N COMPREHENSIVE METABOLIC [id number] 00:38:00 Test Item Value Reference Range Interpretation [...] 1 NORMAL code = LIPINDEX) MG Index/DL [id number] 00:38:00 Test Item Value Reference Range Interpretation Comments TROPONIN-I (test code = TROPI) NG/ML 0.000-0.045 CBC W/MANUAL [id number] 00:32:00 Test Item Value Reference Range Interpretation [...] (test code = MDIFF) INDICATED DIFF/SCN PATHOLOGIST'S [id number] 00:32:00 Test Item Value Reference Range Interpretation Comments PATHOLOGIST'S FINDINGS (test code = EXTERNAL COMMENTS PATH) WBC [id number] 00:32:00 Test Item Value Reference Range Interpretation Comments TOTAL CELLS COUNTED (test code = #CELLS >100 TCC) SEGMENTED NEUTROPHILS (test code = % 40-75 SEG) LYMPHOCYTE (test code = LYMPH) % 12.6-43.5 MORPHOLOGY COMMENT (test code = MOC) ON SCAN NORMAL RBCS PLATELET ESTIMATE (test code = ON SCAN ADEQUATE PLTEST) CBC W/MANUAL [id number] 00:32:00 Test Item Value Reference Range Interpretation Comments WHITE BLOOD CELL 366.2 K/mm3 4.1-12.1 HH ON 06/23/20 AT (test code = WBC) 0031, CATIE SANTACRUZ CALLED TO JAZ NAGEL. The report was [...] (test code = MDIFF) INDICATED DIFF/SCN WBC [id number] 00:32:00 Test Item Value Reference Range Interpretation Comments TOTAL CELLS COUNTED (test code = #CELLS >100 TCC) SEGMENTED NEUTROPHILS (test code = % 40-75 SEG) LYMPHOCYTE (test code = LYMPH) % 12.6-43.5 MORPHOLOGY COMMENT (test code = MOC) ON SCAN NORMAL RBCS PLATELET ESTIMATE (test code = ON SCAN ADEQUATE PLTEST) [id number] 16:52:04699.7[facility] [id number] 16:52:00 2.80[facility] FasbsbiZMRKTSYSPC1931-17-24 16:52:008.2[facility] 2020-05-22 16:52:0026.5[facility] HtalfajPEZVAGQUOZ4575-53-04 16:52:0094.8[facility] [id number] 16:52:00 Test Item Value Reference Range Interpretation Comments MCH (test code = MCH) 29.2 pg 27.0-31.0 [facility] [id number] 16:52:0030.8[facility] 2020-05-22 16:52:0015.6[facility] XrnfjonQRFENXDWXJ3354-40-35 16:52:31234Ohsltkpf DgrmkmwQPHUIDRQXG9741-92-12 16:52:0011.[facility] JuzsinqSPVLBONFPG5294-23-37 16:52:02324.[facility] RxzgrmtYOTABZNKSM3476-82-99 16:52:0010.1[facility] MQELBOIWYR8336-27-49 16:52:0033.[facility] ZmboztiQXWNHJMECH0829-80-87 16:52:00 13.4[facility] QelmbiuKFQLQRGOFW8348-08-07 16:52:006.7[facility] 2020-05-22 16:52:0052.0[facility] [id number] 16:52:0014.0[facility] OxdrzbaQGTOQUDIEG7688-02-58 16:52:003.0[facility] WkjonibXQXJXWHIHW1274-15-17 16:52:0010.0[facility] UhmwlymBFCIRVAEBK5956-60-53 16:52:004.0[facility] [id number] 16:52:002.0[facility] WnbcyrgVWUBRJVBUB6817-90-92 16:52:007.0 [facility] QshnameFYNXCOPZKW3969-17-52 16:52:007.0[facility] 2020-05-22 16:52:001.0[facility] RdawqvuLBYBLVJEUI6608-97-57 16:52:000.0[facility] IwcbjxvFGEFKVFHGL3696-68-30 16:52:00Normal (05/22/20 10:52 AM)[facility] [id number] 16:52:00Normal (05/22/20 10:52 AM)[facility] JBSIWJSUFK9462-15-70 16:52:002.4[facility] VccdiowEDRZOLGOSG7686-05-98 15:08:00Not Detected (05/22/20 9:08 AM)[facility]
[2020-12-10 11:50] LABS: Absolute Lymphocytes (CBC) 1.4 K/uL (0.7-4.9); Basophils % 0.1 % (0-1.3); Hematocrit 31.5 % (39.6-49.0); Lymphocytes % 19.3 % (15.3-44.8); MPV 11.2 fL (7.6-11.3); Protime INR 1.08; RBC Red Blood Cell Count 3.09 M/uL (4.33-5.43)
[2020-12-10] MEDS ORDERED: FUROSEMIDE 40 MG TABLET ONE (11:53)
[2020-12-10] MEDS ORDERED: LORAZEPAM 0.5 MG TABLET ONE (11:53)
--- NOTE | 2020-12-10 12:08 | RAD REPORT ---
EXAM DESCRIPTION: RAD - Chest Single View - 12/10/2020 11:32 am CLINICAL HISTORY: SOB COMPARISON: Chest Pa And Lat (2 Views) dated 07/13/2020 FINDINGS: No evidence of edema or pneumonia. Cardiomegaly.No acute osseous abnormality. No significa nt pleural effusions or pneumothorax. IMPRESSION: No acute cardiopulmonary disease.
[2020-12-10 12:09] LABS: ALT/SGPT 51 U/L (12-78); AST/SGOT 25 U/L (15-37); Albumin 3.8 g/dL (3.4-5.0); Alkaline Phosphatase 108 U/L (45-117); BUN Blood Urea Nitrogen 22 mg/dL (7-18); Bicarbonate 29 mmol/L (21-32); Bilirubin Direct 0.3 mg/dL (0-0.2); Bilirubin Total 0.8 mg/dL (0.2-1.0); Glucose Level 108 mg/dL (74-106); Magnesium 2.5 mg/dL (1.8-2.4); NT PRO-BNP 1459 pg/mL (<125); Potassium 3.9 mmol/L (3.5-5.1); Protein, Total 7.2 g/dL (6.4-8.2); Sodium Level 143 mmol/L (136-145); Troponin (Emerg Dept Use Only) < 0.02 ng/mL (0.0-0.045)
[2020-12-10 12:47] LABS: Platelet Estimate DECR
[2020-12-10 12:48] LABS: Anisocytosis 1+; Blood Morphology Comment NOTED (NOT SEEN); Macrocytosis 1+
[2020-12-10] MEDS ORDERED: cloNIDine HCL 0.1 MG TAB ONE (13:11)
--- NOTE | 2020-12-10 16:13 | EDPHYS ---
Physician Documentation [facility] Name: Mac Hurtado Sr Age: 65 yrs Sex: Male : 1955 Arrival Date: 12/10/2020 Time: 10:05 Bed 15 Private MD: Steve Montes ED Physician Clay George HPI: 12/10 17:55 This 65 yrs old Black Male presents to ER via Ambulatory with complaints of High Blood pm1 Pressure. 17:55 The patient has elevated blood pressure and discovered this at a physician's office, pm1 and sent to the emergency department for evaluation. Onset: The symptoms/episode began/occurred today. Modifying factors: The symptoms are aggravated by possibly not taking his lasix today. Associated signs and symptoms: The patient has no apparent associated signs or symptoms, Pertinent negatives: chest pain, dizziness, dyspnea, headache, nausea, visual changes, vomiting, weakness. Severity of symptoms: in the emergency department the blood pressure is unchanged. The patient has been recently seen by a physician: Dr. Rothman. Patient saw Dr. Landry today for contract surgery. However his blood pressure was elevated and he was sent to ER for further management and treatment. Cataract surgery was not performed. Patient was instructed to hold all medication except for ramipril and coreg. Historical: - Allergies: 10:31 No Known Allergies; aa5 - Home Meds: 10:31 allopurinol 300 mg Oral tab 1 tab once daily [Active]; Bosulif 400 mg Oral once daily aa5 [Active]; furosemide 40 mg Oral tab 1 tab once daily [Active]; aspirin 81 mg Oral TbEC 1 tab once daily [Active]; carvedilol 6.25 mg oral tab 2 times per day [Active]; ramipril 10 mg Oral cap 1 cap 2 times per day [Active]; metformin 1,000 mg Oral tab 1 tab 2 times per day [Active]; basaglar 75 unit daily [Active]; - PMHx: 10:31 Diabetes - IDDM; Hypertension; CHF; aa5 - Immunization history:: Client reports receiving the 2nd dose of the Covid vaccine. - Social history:: Smoking status: Patient/guardian denies using tobacco. ROS: 17:55 Constitutional: Negative for fever, chills, and weight loss, Eyes: Negative for injury, pm1 pain, redness, and discharge, ENT: Negative for injury, pain, and discharge, Neck: Negative for injury, pain, and swelling, Cardiovascular: Negative for chest pain, palpitations, and edema, Respiratory: Negative for shortness of breath, cough, wheezing, and pleuritic chest pain, Abdomen/GI: Negative for abdominal pain, nausea, vomiting, diarrhea, and constipation, Back: Negative for injury and pain, MS/Extremity: Negative for injury and deformity, Skin: Negative for injury, rash, and discoloration, Neuro: Negative for headache, weakness, numbness, tingling, and seizure. Exam: 17:55 Constitutional: This is a well developed, well nourished patient who is awake, alert, pm1 and in no acute distress. Head/Face: Normocephalic, atraumatic. 17:55 Back: No spinal tenderness. No costovertebral tenderness. Full range of motion. Skin: Warm, dry with normal turgor. Normal color with no rashes, no lesions, and no evidence of cellulitis. MS/ Extremity: Pulses equal, no cyanosis. Neurovascular intact. Full, normal range of motion. 17:55 Eyes: Exam is negative for acute changes, Extraocular movements: no acute changes, Conjunctiva: no acute changes, no injection. 17:55 ENT: Exam is negative for Mouth: Lips: normal, Oral mucosa: normal, pink and intact, moist. 17:55 Cardiovascular: Exam negative for acute changes, Rate: normal, Rhythm: regular, Pulses: no pulse deficits are appreciated, Heart sounds: normal, normal S1and S2, Edema: is not appreciated. 17:55 Respiratory: Exam negative for acute changes, respiratory distress, shortness of breath, Breath sounds: are clear throughout. 17:55 Abdomen/GI: Inspection: abdomen appears normal, Palpation: abdomen is soft and non-tender, in all quadrants. 17:55 Neuro: Exam negative for acute changes, Orientation: is normal, Mentation: is normal, Motor: moves all fours. Vital Signs: 10:28 BP 234 / 88; Pulse 56; Resp 18 S; Temp 98.1(O); Pulse Ox 97% on R/A; Weight 65.77 kg aa5 (R); Height 5 ft. 7 in. (170.18 cm) (R); Pain 0/10; 11:18 BP 224 / 76; Pulse 75; Resp 18; Pulse Ox 100% on R/A; tr6 12:00 BP 226 / 68; Pulse 70; Resp 18; Pulse Ox 100% on R/A; tr6 12:21 BP 232 / 90; tr6 13:00 BP 210 / 74; tr6 14:00 BP 131 / 51; Pulse Ox 99% on R/A; tr6 15:48 BP 149 / 64 Supine; Pulse 50; Resp 19; Pulse Ox 100% on R/A; tr6 15:48 BP 147 / 66 Sitting; Pulse 50; Resp 18; Pulse Ox 100% on R/A; tr6 15:48 BP 161 / 62 Standing; Pulse 50; Resp 18; Pulse Ox 100% on R/A; tr6 10:28 Body Mass Index 22.71 (65.77 kg, 170.18 cm) aa5 MDM: 10:53 Patient medically screened. pm1 16:11 Data reviewed: vital signs. Data interpreted: Pulse oximetry: on room air is 100 %. pm1 Interpretation: normal. Counseling: I had a detailed discussion with the patient and/or guardian regarding: the historical points, exam findings, and any diagnostic results supporting the discharge/admit diagnosis, lab results, radiology results, the need for outpatient follow up, a family practitioner, to return to the emergency department if symptoms worsen or persist or if there are any questions or concerns that arise at home. 16:11 Special discussion: I have referred the patient to see his PCP for further evaluation pm1 of high blood pressure. 16:26 Physician consultation: Steve Montes MD regarding patient's condition, and will see pm1 patient in the office on or Thursday for further management of blood pressure with blood pressure log. Clonidine 0.1 mg PO BID with administration parameters. 12/10 11:21 Order name: Basic Metabolic Panel; Complete Time: 12:10 pm1 12/10 11:21 Order name: CBC with Diff; Complete Time: 12:56 pm1 12/10 11:21 Order name: LFT's; Complete Time: 12:10 pm1 12/10 11:21 Order name: Magnesium; Complete Time: 12:10 pm1 12/10 11:21 Order name: NT PRO-BNP; Complete Time: 12:10 pm12/10 11:21 Order name: PT-INR; Complete Time: 12:10 pm1 12/10 11:21 Order name: Troponin (emerg Dept Use Only); Complete Time: 12:10 pm1 12/10 11:21 Order name: XRAY Chest (1 view); Complete Time: 12:10 pm1 12/10 11:21 Order name: EKG; Complete Time: 11:22 pm1 12/10 11:21 Order name: Cardiac monitoring; Complete Time: 12:07 pm1 12/10 12:47 Order name: Manual Differential; Complete Time: 12:56 EDMS 12/10 11:21 Order name: EKG - Nurse/Tech; Complete Time: 12:07 pm1 12/10 11:21 Order name: IV Saline Lock; Complete Time: 11:37 pm1 12/10 11:21 Order name: Labs collected and sent; Complete Time: 11:37 pm1 12/10 11:21 Order name: O2 Per Protocol; Complete Time: 11:22 pm1 12/10 11:21 Order name: O2 Sat Monitoring; Complete Time: 11:22 pm1 12/10 14:37 Order name: Orthostatic Blood Pressure; Complete Time: 15:48 pm1 Administered Medications: 11:37 Drug: LaSIX (furosemide) 40 mg Route: PO; tr6 12:06 Follow up: Response: No adverse reaction tr6 11:37 Drug: Ativan (LORazepam) 0.5 mg Route: PO; tr6 12:06 Follow up: Response: No adverse reaction tr6 12:55 Drug: cloNIDine 0.2 mg Route: PO; tr6 14:19 Follow up: Response: Blood pressure is lowered; Other; Order confirmed prior to giving tr6 to pt. Disposition: 18:34 Co-signature as Attending Physician, Clay George MD I agree with the assessment and kdr plan of care. Disposition Summary: 12/10/20 16:12 Discharge Ordered Location: Home pm1 Problem: new pm1 Symptoms: have improved pm1 Condition: Stable pm1 Diagnosis - Essential (primary) hypertension pm1 Followup: pm1 - With: Emergency Department - When: As needed - Reason: Worsening of condition Followup: pm1 - With: Steve Montes MD - When: 2 - 3 days - Reason: Recheck today's complaints, Continuance of care, Re-evaluation by your physician Discharge Instructions: - Discharge Summary Sheet pm1 - Hypertension, Adult pm1 - How to Take Your Blood Pressure, Ghzl-eb-Tdhn pm1 - DASH Eating Plan pm1 - Managing Your Hypertension pm1 Forms: - Medication Reconciliation Form pm1 - Thank You Letter pm1 - Antibiotic Education pm1 - Prescription Opioid Use pm1 Prescriptions: - clonidine HCl 0.1 mg Oral tablet - take 1 tablet by ORAL route every 12 hours PRN systolic pressure greater than pm1 180; 20 tablet; Refills: 0, Product Selection Permitted Signatures: Dispatcher [employer] Clay Rod MD MD [facility] Helen Powers RN RN aa5 Edwin Benton NP JAR FILLER pm1 Nora Tanner RN RN tr6
--- NOTE | 2020-12-10 16:13 | ER ---
Nurse's Notes [facility] Name: Mac Hurtado Sr Age: 65 yrs Sex: Male : 1955 Arrival Date: 12/10/2020 Time: 10:05 Bed 15 Private MD: Steve Montes Diagnosis: Essential (primary) hypertension Presentation: 12/10 10:28 Chief complaint: Pt's states "we were at the [facility] for cataract aa5 surgery but when they checked his blood pressure they said it was really high and to bring him here, it was over 200 (systolic)". Pt denies headache and dizziness. Pt states "also my blood sugar was 70 this morning because I wasn't supposed to eat because of the surgery". Coronavirus screen: At this time, the client does not indicate any symptoms associated with coronavirus-19. Ebola Screen: Patient negative for fever greater than or equal to 101.5 degrees Fahrenheit, and additional compatible Ebola Virus Disease symptoms. Initial Sepsis Screen: Does the patient meet any 2 criteria? No. Patient's initial sepsis screen is negative. Does the patient have a suspected source of infection? No. Patient's initial sepsis screen is negative. Risk Assessment: Do you want to hurt yourself or someone else? Patient reports no desire to harm self or others. Onset of symptoms was November 2020. 10:28 Acuity: ROBERTO 2 aa5 10:28 Method Of Arrival: Ambulatory aa5 Historical: - Allergies: 10:31 No Known Allergies; aa5 - Home Meds: 10:31 allopurinol 300 mg Oral tab 1 tab once daily [Active]; Bosulif 400 mg Oral once daily aa5 [Active]; furosemide 40 mg Oral tab 1 tab once daily [Active]; aspirin 81 mg Oral TbEC 1 tab once daily [Active]; carvedilol 6.25 mg oral tab 2 times per day [Active]; ramipril 10 mg Oral cap 1 cap 2 times per day [Active]; metformin 1,000 mg Oral tab 1 tab 2 times per day [Active]; basaglar 75 unit daily [Active]; - PMHx: 10:31 Diabetes - IDDM; Hypertension; CHF; aa5 - Immunization history:: Client reports receiving the 2nd dose of the Covid vaccine. - Social history:: Smoking status: Patient/guardian denies using tobacco. Screenin:18 Abuse screen: Denies threats or abuse. Denies injuries from another. Nutritional tr6 screening: No deficits noted. Tuberculosis screening: No symptoms or risk factors identified. Fall Risk None identified. Assessment: 10:30 General: Appears Behavior is calm, cooperative, appropriate for age. Pain: Denies pain. tr6 Neuro: No deficits noted. Cardiovascular: No deficits noted. Cardiovascular: Reports since elevated BP. Respiratory: No deficits noted. Vital Signs: 10:28 BP 234 / 88; Pulse 56; Resp 18 S; Temp 98.1(O); Pulse Ox 97% on R/A; Weight 65.77 kg aa5 (R); Height 5 ft. 7 in. (170.18 cm) (R); Pain 0/10; 11:18 BP 224 / 76; Pulse 75; Resp 18; Pulse Ox 100% on R/A; tr6 12:00 BP 226 / 68; Pulse 70; Resp 18; Pulse Ox 100% on R/A; tr6 12:21 BP 232 / 90; tr6 13:00 BP 210 / 74; tr6 14:00 BP 131 / 51; Pulse Ox 99% on R/A; tr6 15:48 BP 149 / 64 Supine; Pulse 50; Resp 19; Pulse Ox 100% on R/A; tr6 15:48 BP 147 / 66 Sitting; Pulse 50; Resp 18; Pulse Ox 100% on R/A; tr6 15:48 BP 161 / 62 Standing; Pulse 50; Resp 18; Pulse Ox 100% on R/A; tr6 10:28 Body Mass Index 22.71 (65.77 kg, 170.18 cm) aa5 ED Course: 10:05 Patient arrived in ED. am2 10:05 Steve Montes MD is Private Physician. am2 10:28 Arm band placed on. aa5 10:31 Triage completed. aa5 10:43 Edwin Benton NP is PHCP. pm1 10:43 Clay George MD is Attending Physician. pm1 11:17 Nora Tanner, LESIA is Primary Nurse. tr6 11:18 Patient has correct armband on for positive identification. Bed in low position. Call tr6 light in reach. Side rails up X 1. Pulse ox on. NIBP on. Door closed. Noise minimized. Visitors limited. Lights dimmed. Moved to private room. 11:18 No provider procedures requiring assistance completed. tr6 11:32 XRAY Chest (1 view) In Process Unspecified. EDMS 11:37 Inserted saline lock: 18 gauge in right antecubital area, using aseptic technique. tr6 Blood collected. 16:12 Steve Montes MD is Referral Physician. pm1 16:44 IV discontinued, intact, bleeding controlled, No redness/swelling at site. ld1 Administered Medications: 11:37 Drug: LaSIX (furosemide) 40 mg Route: PO; tr6 12:06 Follow up: Response: No adverse reaction tr6 11:37 Drug: Ativan (LORazepam) 0.5 mg Route: PO; tr6 12:06 Follow up: Response: No adverse reaction tr6 12:55 Drug: cloNIDine 0.2 mg Route: PO; tr6 14:19 Follow up: Response: Blood pressure is lowered; Other; Order confirmed prior to giving tr6 to pt. Outcome: 16:12 Discharge ordered by . pm1 16:44 Discharged to home ambulatory. ld1 16:44 Condition: stable 16:44 Discharge instructions given to patient, family, Instructed on discharge instructions, follow up and referral plans. medication usage, Demonstrated understanding of instructions, follow-up care, medications. 16:44 Patient left the ED. ld1 Signatures: Dispatcher [employer] [facility] Helen Powers RN RN aa5 Edwin Benton, [employer] pm1 Wanda Quezada am2 Carine Medeiros RN RN ld1 Nora Tanner RN RN tr6
[2020-12-10 17:21] VITALS: TEMP 98.1
[2020-12-10 18:02] VITALS: BP 161/62; O2SAT 100
== END 2020-12-10 16:44 | disposition home or self-care (01) ==
LOC: ER 10:04
DX: I10 Essential (primary) hypertension (principal); E11.9 Type 2 diabetes mellitus without complications; I50.9 Heart failure, unspecified; Z79.82 Long term (current) use of aspirin; Z79.4 Long term (current) use of insulin
CPT/HCPCS: 36415; 71045; 80048; 80076; 83735; 83880; 84484; 85025; 85610; 93005; 99284

== ENCOUNTER 2021-10-16 00:55 | Inpatient (IN) | payer OTHER ==
--- OUTSIDE RECORDS SUMMARY | 2021-10-16 01:00 | XMS REPORT | Continuity of Care Document ---
:1955 Author Organization [facility] t Address [address] [place] [address] Care Team Providers Name Role Phone Aspen Coley Attending Clinician Unavailable ELISE CASSIDY Attending Clinician Unavailable Aspen Coley Admitting Clinician Unavailable Payers Payer Name Policy Type Policy Number Effective Date Expiration Date S ource Problems This patient has no known problems. Allergies, Adverse Reactions, Alerts Allergy Allergy Status Severity Reaction(s) Onset Inactive Treating Comm ents Source Name Type Date Date Clinician No Known DA Active [facility] 00:00: [address] No Known DA Active U [facility] 06-22 [facility] 00:00: [address] Medications This patient has no known medications. Procedures This patient has no known procedures. Encounters Start End Encounter Admission Attending Care Care Encounter Source Date/Time Date/Time Type Type Clinicians Facility Department ID 2020-06-23 Inpatient EUGENIA Holliday [id number] [facility] 01:20:00 Forrest [id number] [facility] 2020-06-22 Inpatient HCAKYLE ADELE [id number] [facility] 23:40:00 [id number] [facility] 2020-05-22 2020-05-22 Outpatient JOHN CASSIDY [address] 09:01:00 23:59:00 MADHURI Results Test Description Test Time Test Comments Results Result Comments Source GLUCOSE BEDSIDE TESTING 2020-06-28 12:11:00 Test Item Value Reference Range Interpretation Comme nts GLUCOSE BEDSIDE TESTING (test code = GLUBED) 214 MG/DL 70-119 H GLUCOSE BEDSIDE [id number] 21:49:00 Test Item Value Reference Range Interpretation Comments GLUCOSE BEDSIDE TESTING (test code 195 MG/DL 70-119 H = GLUBED) GLUCOSE BEDSIDE [id number] 15:38:00 Test Item Value Reference Range Interpretation Comments GLUCOSE BEDSIDE TESTING (test code 251 MG/DL 70-119 H = GLUBED) GLUCOSE BEDSIDE [id number] 11:48:00 Test Item Value Reference Range Interpretation Comments GLUCOSE BEDSIDE TESTING (test code 212 MG/DL 70-119 H = GLUBED) GLUCOSE BEDSIDE [id number] 06:03:00 Test Item Value Reference Range Interpretation Comments GLUCOSE BEDSIDE TESTING (test code 139 MG/DL 70-119 H = GLUBED) CBC W/MANUAL [id number] 23:26:00 Test Item Value Reference Range Interpretation [...] (test code INDICATED = MDIFF) DIFF/SCN WBC [id number] 23:26:00 Test Item Value Reference Range Interpretation [...] FEW ON SCAN NORMAL PLTS code = [id number]) COMPREHENSIVE METABOLIC [id number] 22:28:00 Test Item Value Reference Range Interpretation [...] 1 NORMAL code = LIPINDEX) MG Index/DL [id number] 22:28:00 Test Item Value Reference Range Interpretation Comments PHOSPHOROUS (test code = PHOS) 3.7 MG/DL 2.5-4.9 N URIC [id number] 22:28:00 Test Item Value Reference Range Interpretation Comments URIC ACID (test code 8.7 MG/DL 3.5-7.2 H Results maybe depressed = URIC) if patient is t aking Metamizole(Dipy josé miguel). LACTIC DEHYDROGENASE(LDH)2020-06-26 22:28:00 Test Item Value Reference Range Interpretation Comments LACTIC DEHYDROGENASE(LDH) (test 669 Unit/L 84-246 H code = LDH) [id number] 22:28:00 Test Item Value Reference Range Interpretation Comments MAGNESIUM (test code = MAG) 2.8 MG/DL 1.6-2.6 H CBC W/MANUAL [id number] 22:06:00 Test Item Value Reference Range Interpretation [...] (test code INDICATED = MDIFF) DIFF/SCN WBC [id number] 22:06:00 Test Item Value Reference Range Interpretation Comments TOTAL CELLS COUNTED (test code = #CELLS >100 TCC) SEGMENTED NEUTROPHILS (test code = % 40-75 SEG) LYMPHOCYTE (test code = LYMPH) % 12.6-43.5 MORPHOLOGY COMMENT (test code = MOC) ON SCAN NORMAL RBCS PLATELET ESTIMATE (test code = ON SCAN ADEQUATE PLTEST) CBC W/MANUAL [id number] 22:06:00 Test Item Value Reference Range Interpretation [...] (test code INDICATED = MDIFF) DIFF/SCN WBC [id number] 22:06:00 Test Item Value Reference Range Interpretation Comments TOTAL CELLS COUNTED (test code = #CELLS >100 TCC) SEGMENTED NEUTROPHILS (test code = % 40-75 SEG) LYMPHOCYTE (test code = LYMPH) % 12.6-43.5 MORPHOLOGY COMMENT (test code = MOC) ON SCAN NORMAL RBCS PLATELET ESTIMATE (test code = ON SCAN ADEQUATE PLTEST) GLUCOSE BEDSIDE [id number] 21:21:00 Test Item Value Reference Range Interpretation Comments GLUCOSE BEDSIDE TESTING (test code 353 MG/DL 70-119 H = GLUBED) GLUCOSE BEDSIDE [id number] 16:54:00 Test Item Value Reference Range Interpretation Comments GLUCOSE BEDSIDE TESTING (test code 294 MG/DL 70-119 H = GLUBED) GLUCOSE BEDSIDE [id number] 12:27:00 Test Item Value Reference Range Interpretation Comments GLUCOSE BEDSIDE TESTING (test code 324 MG/DL 70-119 H = GLUBED) - XR CHEST 1 [id number] 07:53:00 [facility] : 1955 Sex: M FAX: Jake Sanchez MD [phone] [place]: St: [facility] FAX: Jose Duong NP [phone] FAX: Forrest Wu MD [phone] Patient Name: TRENTON CHAVEZ Unit No: [id number] EXAMS: CPT CODE: [id number] XR CHEST 1 V 52990 INDICATION: COVID LOCATION: T18 COMPARISON STUDY: Chest radiograph dated June 22, 2020. FINDINGS: Single view of the chest. Decreased lung volumes . Similar bilateral interstitialopacities. There is no pneumothorax or pleural fluid. The heart size is enlarged. There is similar mild pulmonary vasculature engorgement. Osseous structures are stable. IMPRESSION: 1. Cardiomegaly with similar mild pulmonary vascular engorgement suggestive of CHF/volume overload. 2. Similar bilateral interstitial opacities which may represent atelectasis/pulmonary edema or pneumonia. at 0753 Reported and signed by: Ascencion Grigsby MD CC: Jake Escobar MD; Jose Carrillo NP; Forrest Gomezated Date/Time: 06/26/2020 (0753)Technologist: Kendall Gutierrez Transcribed Date/Time: 06/26/2020 (0753) By: [email or web address] Orig Print D/T: S: 06/26/2020(0756) EDUARDO Ransom NAME: TRENTON CHAVEZ [facility] PHYS: SHERLEY.Yuval - Jose Carrillo NP [address] [place] [address] : 1955 AGE: 64 SEX: AFSHAN FUNES [address] LOC: B.340 W PHONE #: [phone] EXAM DATE: 06/26/2020 STATUS: ADM IN FAX #: [phone] RAD NO: DC Dt: PAGE 1 Signed ReportCBC W/MANUAL [id number] 06:38:00 Test Item Value Reference Range Interpretation [...] (test code INDICATED = MDIFF) DIFF/SCN WBC [id number] 06:38:00 Test Item Value Reference Range Interpretation [...] NORMAL PLTS code = PLTMORPH) CBC W/MANUAL [id number] 06:16:00 Test Item Value Reference Range Interpretation Comments WHITE BLOOD CELL 267.5 K/mm3 4.1-12.1 Critical ok lues are (test code = WBC) excluded [...] (test code INDICATED = MDIFF) DIFF/SCN WBC [id number] 06:16:00 Test Item Value Reference Range Interpretation [...] NORMAL PLTS code = PLTMORPH) GLUCOSE BEDSIDE [id number] 06:09:00 Test Item Value Reference Range Interpretation Comments GLUCOSE BEDSIDE TESTING (test code 146 MG/DL 70-119 H = GLUBED) COMPREHENSIVE METABOLIC [id number] 05:58:00 Test Item Value Reference Range Interpretation [...] code = LIPINDEX) MG Index/DL CBC W/MANUAL [id number] 05:01:00 Test Item Value Reference Range Interpretation [...] (test code INDICATED = MDIFF) DIFF/SCN WBC [id number] 05:01:00 Test Item Value Reference Range Interpretation Comments TOTAL CELLS COUNTED (test code = #CELLS >100 TCC) SEGMENTED NEUTROPHILS (test code = % 40-75 SEG) LYMPHOCYTE (test code = LYMPH) % 12.6-43.5 MORPHOLOGY COMMENT (test code = MOC) ON SCAN NORMAL RBCS PLATELET ESTIMATE (test code = ON SCAN ADEQUATE PLTEST) CBC W/MANUAL [id number] 05:01:00 Test Item Value Reference Range Interpretation [...] (test code INDICATED = MDIFF) DIFF/SCN WBC [id number] 05:01:00 Test Item Value Reference Range Interpretation Comments TOTAL CELLS COUNTED (test code = #CELLS >100 TCC) SEGMENTED NEUTROPHILS (test code = % 40-75 SEG) LYMPHOCYTE (test code = LYMPH) % 12.6-43.5 MORPHOLOGY COMMENT (test code = MOC) ON SCAN NORMAL RBCS PLATELET ESTIMATE (test code = ON SCAN ADEQUATE PLTEST) GLUCOSE BEDSIDE [id number] 21:09:00 Test Item Value Reference Range Interpretation Comments GLUCOSE BEDSIDE TESTING (test code 256 MG/DL 70-119 H = GLUBED) GLUCOSE BEDSIDE [id number] 17:21:00 Test Item Value Reference Range Interpretation Comments GLUCOSE BEDSIDE TESTING (test code 196 MG/DL 70-119 H = GLUBED) GLUCOSE BEDSIDE [id number] 12:58:00 Test Item Value Reference Range Interpretation Comments GLUCOSE BEDSIDE TESTING (test code 165 MG/DL 70-119 H = GLUBED) CBC W/MANUAL [id number] 08:27:00 Test Item Value Reference Range Interpretation Comments WHITE BLOOD CELL 366.2 K/mm3 4.1-12.1 HH ON 06/23/20 AT (test code = WBC) 0031, B.LA EvelinNJRajinder CALLED TO JAZ NAGEL. 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 WBC [id number] 08:27:00 Test Item Value Reference Range Interpretation [...] FEW ON SCAN NORMAL PLTS code = [id number]) CBC W/MANUAL [id number] 07:23:00 Test Item Value Reference Range Interpretation [...] (test code INDICATED = MDIFF) DIFF/SCN WBC [id number] 07:23:00 Test Item Value Reference Range Interpretation [...] FEW ON SCAN NORMAL PLTS code = [id number]) GLUCOSE BEDSIDE [id number] 06:28:00 Test Item Value Reference Range Interpretation Comments GLUCOSE BEDSIDE TESTING (test code = 71 MG/DL 70-119 N GLUBED) COMPREHENSIVE METABOLIC [id number] 06:20:00 Test Item Value Reference Range Interpretation [...] code = LIPINDEX) MG Index/DL COMPREHENSIVE METABOLIC [id number] 06:16:00 Test Item Value Reference Range Interpretation [...] 1 NORMAL = LIPINDEX) Index/DL CBC W/MANUAL [id number] 06:08:00 Test Item Value Reference Range Interpretation [...] (test code INDICATED = MDIFF) DIFF/SCN WBC [id number] 06:08:00 Test Item Value Reference Range Interpretation Comments TOTAL CELLS COUNTED (test code = #CELLS >100 TCC) SEGMENTED NEUTROPHILS (test code = % 40-75 SEG) LYMPHOCYTE (test code = LYMPH) % 12.6-43.5 MORPHOLOGY COMMENT (test code = MOC) ON SCAN NORMAL RBCS PLATELET ESTIMATE (test code = ON SCAN ADEQUATE PLTEST) CBC W/MANUAL [id number] 06:08:00 Test Item Value Reference Range Interpretation [...] (test code INDICATED = MDIFF) DIFF/SCN WBC [id number] 06:08:00 Test Item Value Reference Range Interpretation Comments TOTAL CELLS COUNTED (test code = #CELLS >100 TCC) SEGMENTED NEUTROPHILS (test code = % 40-75 SEG) LYMPHOCYTE (test code = LYMPH) % 12.6-43.5 MORPHOLOGY COMMENT (test code = MOC) ON SCAN NORMAL RBCS PLATELET ESTIMATE (test code = ON SCAN ADEQUATE PLTEST) GLUCOSE BEDSIDE [id number] 21:32:00 Test Item Value Reference Range Interpretation Comments GLUCOSE BEDSIDE TESTING (test code 206 MG/DL 70-119 H = GLUBED) GLUCOSE BEDSIDE [id number] 16:57:00 Test Item Value Reference Range Interpretation Comments GLUCOSE BEDSIDE TESTING (test code 140 MG/DL 70-119 H = GLUBED) Covid 19 InHouse [id number] 13:44:00 Test Item Value Reference Range Interpretation Comments Covid 19 Negative Negative A negative resu lt does not InHouse NTX preclude the SA RS-COV-2 (test code = viralinfection and should not be LIHAB41FLLLO) used as the so le basis forpatient angel gement decisions. Negative result s must becombined with clinical o bservations, patient history , andepidemiologi wayne information. Viral levels in clinicalsamples below the detec tion limit of the assay could jarrett d tonegative results. This t est was performed using the [employer] SmartTM COVID-19 PCRassay. This test was developed and i ts performancechar acteristics were determined by Doni har[facility]. Thi s test has notbeen FDA deuce [...] defined by CDC? YesDate of Symptom Onset: [id number] due to COVID? NoIn ICU due to COVID? NoResident in a congregate care setting? No? NoAge at collection: Y GLUCOSE BEDSIDE [id number] 12:11:00 Test Item Value Reference Range Interpretation Comments GLUCOSE BEDSIDE TESTING (test code 268 MG/DL 70-119 H = GLUBED) URIC [id number] 11:26:00 Test Item Value Reference Range Interpretation Comments URIC ACID (test 11.6 MG/DL 3.5-7.2 H Results mayb e depressed code = URIC) if patient is t aking Metamizole(Dipy josé miguel). LACTIC DEHYDROGENASE(LDH)2020-06-24 11:26:00 Test Item Value Reference Range Interpretation Comments LACTIC DEHYDROGENASE(LDH) (test 802 Unit/L 84-246 H code = LDH) URIC [id number] 11:25:00 Test Item Value Reference Range Interpretation Comments URIC ACID (test code = URIC) MG/DL 3.5-7.2 LACTIC DEHYDROGENASE(LDH)2020-06-24 11:25:00 Test Item Value Reference Range Interpretation Comments LACTIC DEHYDROGENASE(LDH) (test 802 Unit/L 84-246 H code = LDH) CBC W/MANUAL [id number] 10:10:00 Test Item Value Reference Range Interpretation [...] (test code INDICATED = MDIFF) DIFF/SCN WBC [id number] 10:10:00 Test Item Value Reference Range Interpretation [...] FEW ON SCAN NORMAL PLTS code = [id number]) BASIC METABOLIC [id number] 07:31:00 Test Item Value Reference Range Interpretation [...] MG 1 NORMAL code = LIPINDEX) Index/DL [id number] 07:31:00 Test Item Value Reference Range Interpretation Comments PHOSPHOROUS (test code = PHOS) 4.7 MG/DL 2.5-4.9 N [id number] 07:31:00 Test Item Value Reference Range Interpretation Comments MAGNESIUM (test code = MAG) 2.9 MG/DL 1.6-2.6 H COMPREHENSIVE METABOLIC [id number] 07:03:00 Test Item Value Reference Range Interpretation [...] code = LIPINDEX) MG Index/DL CBC W/MANUAL [id number] 06:57:00 Test Item Value Reference Range Interpretation [...] (test code INDICATED = MDIFF) DIFF/SCN WBC [id number] 06:57:00 Test Item Value Reference Range Interpretation Comments TOTAL CELLS COUNTED (test code = #CELLS >100 TCC) SEGMENTED NEUTROPHILS (test code = % 40-75 SEG) LYMPHOCYTE (test code = LYMPH) % 12.6-43.5 MORPHOLOGY COMMENT (test code = MOC) ON SCAN NORMAL RBCS PLATELET ESTIMATE (test code = ON SCAN ADEQUATE PLTEST) CBC W/MANUAL [id number] 06:57:00 Test Item Value Reference Range Interpretation [...] (test code INDICATED = MDIFF) DIFF/SCN WBC [id number] 06:57:00 Test Item Value Reference Range Interpretation Comments TOTAL CELLS COUNTED (test code = #CELLS >100 TCC) SEGMENTED NEUTROPHILS (test code = % 40-75 SEG) LYMPHOCYTE (test code = LYMPH) % 12.6-43.5 MORPHOLOGY COMMENT (test code = MOC) ON SCAN NORMAL RBCS PLATELET ESTIMATE (test code = ON SCAN ADEQUATE PLTEST) COMPREHENSIVE METABOLIC [id number] 06:56:00 Test Item Value Reference Range Interpretation [...] 1 NORMAL = LIPINDEX) Index/DL GLUCOSE BEDSIDE [id number] 21:50:00 Test Item Value Reference Range Interpretation Comments GLUCOSE BEDSIDE TESTING (test code 254 MG/DL 70-119 H = GLUBED) CBC W/MANUAL [id number] 20:59:00 Test Item Value Reference Range Interpretation [...] (test code INDICATED = MDIFF) DIFF/SCN WBC [id number] 20:59:00 Test Item Value Reference Range Interpretation [...] RARE ON SCAN NORMAL PLTS code = [id number]) BASIC METABOLIC [id number] 20:48:00 Test Item Value Reference Range Interpretation [...] MG 1 NORMAL code = LIPINDEX) Index/DL [id number] 20:48:00 Test Item Value Reference Range Interpretation Comments MAGNESIUM (test code = MAG) 2.8 MG/DL 1.6-2.6 H CBC W/MANUAL [id number] 20:38:00 Test Item Value Reference Range Interpretation [...] (test code INDICATED = MDIFF) DIFF/SCN WBC [id number] 20:38:00 Test Item Value Reference Range Interpretation Comments TOTAL CELLS COUNTED (test code = #CELLS >100 TCC) SEGMENTED NEUTROPHILS (test code = % 40-75 SEG) LYMPHOCYTE (test code = LYMPH) % 12.6-43.5 MORPHOLOGY COMMENT (test code = MOC) ON SCAN NORMAL RBCS PLATELET ESTIMATE (test code = ON SCAN ADEQUATE PLTEST) CBC W/MANUAL [id number] 20:38:00 Test Item Value Reference Range Interpretation [...] (test code INDICATED = MDIFF) DIFF/SCN WBC [id number] 20:38:00 Test Item Value Reference Range Interpretation Comments TOTAL CELLS COUNTED (test code = #CELLS >100 TCC) SEGMENTED NEUTROPHILS (test code = % 40-75 SEG) LYMPHOCYTE (test code = LYMPH) % 12.6-43.5 MORPHOLOGY COMMENT (test code = MOC) ON SCAN NORMAL RBCS PLATELET ESTIMATE (test code = ON SCAN ADEQUATE PLTEST) GLUCOSE BEDSIDE [id number] 17:02:00 Test Item Value Reference Range Interpretation Comments GLUCOSE BEDSIDE TESTING (test code 111 MG/DL 70-119 N = GLUBED) GLUCOSE BEDSIDE [id number] 10:42:00 Test Item Value Reference Range Interpretation Comments GLUCOSE BEDSIDE TESTING (test code = 80 MG/DL 70-119 N GLUBED) [id number] 08:53:00 Test Item Value Reference Range Interpretation Comments CKMB (test code = < 1.0 NG/ML 1.0-3.6 N MONOCLONAL CKMB CKMBT) METHODOLOGY. [id number] 08:53:00 Test Item Value Reference Range Interpretation [...] changes in trop onin levelscharacter istic of [place]. GLYCOSYLATED HEMOGLOBIN (HA1C)2020-06-23 08:37:00 Test Item Value Reference Range Interpretation Comments GLYCOSYLATED HEMOGLOBIN (HA1C) <4.5 % A1C 4.2-6.3 N (test code = GLYHGB) ESTIMATED AVERAGE [id number] 08:37:00 Test Item Value Reference Range Interpretation [...] -ATP III).Results ma y be depressed if pa terrell is takingN-Acetylc ysteine (NAC) and Metam izole [...] 1 NORMAL code = LIPINDEX) MG Index/DL [id number] 07:17:00 Test Item Value Reference Range Interpretation Comments MAGNESIUM (test code = MAG) 2.9 MG/DL 1.6-2.6 H THYROID STIMULATING [id number] 07:17:00 Test Item Value Reference Range Interpretation [...] 1 NORMAL code = LIPINDEX) MG Index/DL [id number] 07:11:00 Test Item Value Reference Range Interpretation Comments MAGNESIUM (test code = MAG) 2.9 MG/DL 1.6-2.6 H THYROID STIMULATING [id number] 07:11:00 Test Item Value Reference Range Interpretation Comments THYROID STIMULATING HORMONE (test mc IU/ML 0.340-4.820 code = TSH) [id number] 07:03:00 Test Item Value Reference Range Interpretation Comments CKMB (test code = CKMBT) NG/ML 1.0-3.6 [id number] 07:03:00 Test Item Value Reference Range Interpretation [...] changes in trop onin levelscharacter istic of [place]. CBC W/MANUAL [id number] 03:10:00 Test Item Value Reference Range Interpretation [...] (test code = MDIFF) INDICATED DIFF/SCN PATHOLOGIST'S [id number] 03:10:00 Test Item Value Reference Range Interpretation Comments PATHOLOGIST'S FINDINGS (test code = EXTERNAL COMMENTS PATH) WBC [id number] 03:10:00 Test Item Value Reference Range Interpretation [...] FEW ON SCAN NORMAL PLTS code = [id number]) [id number] 02:47:00 Test Item Value Reference Range Interpretation Comments CKMB (test code = < 1.0 NG/ML 1.0-3.6 N MONOCLONAL CKMB CKMBT) METHODOLOGY. [id number] 02:47:00 Test Item Value Reference Range Interpretation [...] changes in trop onin levelscharacter istic of [place]. [id number] 02:34:00 Test Item Value Reference Range Interpretation Comments CKMB (test code = CKMBT) NG/ML 1.0-3.6 [id number] 02:34:00 Test Item Value Reference Range Interpretation [...] changes in trop onin levelscharacter istic of [place]. - CTA CHEST FOR [id number] 01:10:00 [facility] : 1955 Sex: M Patient Name: TRENTON CHAVEZ Unit No: [id number] EXAMS: CPT CODE: [id number] [place] [address] Location: Chest CTA , 06/23/20 TECHNIQUE: Chest CTA with and without contrast was performed on a helical scanner. 2D Coronal and sagittal images acquired on the CT workstation system by the wood technologist. Volumetric imaging acquired utilizing maximum intensity [...] infiltrates of concern for possible pneumonia. [facility] El NAME: TRENTON CHAVEZ [address] [place] [address] Blvd PHYS: Jake Gallagher MD, [place] [address] : 1955 AGE: [age] SEX: M LOC: B.ERS PHONE #:[phone] EXAM DATE: 06/23/2020 STATUS: REG ER FAX #: [phone] RAD #: D/C DT PAGE 1 Signed Report (CONTINUED) Patient Name: TRENTON CHAVEZ Unit No: [id number] EXAMS: CPT CODE: [id number] [place] [address] <Continued> opacification noted in the right lower lobe and lingula. at 0110 Reported and signed by: Sharifa Lebron M.D. CC: Jake Escobar MD Dictated Date/Time: 06/23/2020 (0110) Technologist: Carleen Wadsworth CTDI: 11.74 DLP: 207.09 Trnscrpt: 06/23/2020 (0110) [email or web address] EDUARDO Gallegos NAME: [address] PHYS: Jake Golden MD [place] [address] : 1955 AGE: 64 SEX: M LOC: B.ERS PHONE #: [phone] EXAM DATE: 06/23/2020 STATUS: REG ER FAX #: [phone] RAD #: D/C DT PAGE 2 Signed Report Patient Name: TRENTON CHAVEZ Unit No: [id number] EXAMS: CPT CODE: [id number] [place] [address] <Continued> Orig Print D/T: S: 06/23/2020 (0113) EDUARDO Gallegos NAME: SC[address] PHYS: [place] [address] : 1955 AGE: 64 SEX: M LOC: B.ERS PHONE #: [phone] EXAM DATE: 06/23/2020 STATUS: REG ER FAX #: [phone] RAD #:D/C DT PAGE 3 Signed ReportB-TYPE NATRIURETIC [id number] 01:06:00 Test Item Value Reference Range Interpretation Comments B-TYPE NATRIURETIC PEPTIDE (test 756.05 PG/ML 0.00-100.00 H code = BNP) Coronavirus 2018 nCoV [id number] 01:00:00 Test Item Value Reference Range Interpretation Comments Coronavirus 2019 nCoV Bedside (test Negative Neg code = [id number]) COMPREHENSIVE METABOLIC [id number] 00:55:00 Test Item Value Reference Range Interpretation [...] 1 NORMAL code = LIPINDEX) MG Index/DL [id number] 00:55:00 Test Item Value Reference Range Interpretation Comments CKMB (test code = < 1.0 NG/ML 1.0-3.6 N MONOCLONAL CKMB CKMBT) METHODOLOGY. [id number] 00:55:00 Test Item Value Reference Range Interpretation [...] changes in trop onin levelscharacter istic of [place]. COMPREHENSIVE METABOLIC [id number] 00:42:00 Test Item Value Reference Range Interpretation [...] 1 NORMAL code = LIPINDEX) MG Index/DL [id number] 00:42:00 Test Item Value Reference Range Interpretation Comments CKMB (test code = CKMBT) NG/ML 1.0-3.6 [id number] 00:42:00 Test Item Value Reference Range Interpretation [...] changes in trop onin levelscharacter istic of [place]. LACTIC [id number] 00:42:00 Test Item Value Reference Range Interpretation Comments LACTIC ACID (test code = LACT) 1.1 mmol/L 0.4-2.0 N COMPREHENSIVE METABOLIC [id number] 00:38:00 Test Item Value Reference Range Interpretation [...] 1 NORMAL code = LIPINDEX) MG Index/DL [id number] 00:38:00 Test Item Value Reference Range Interpretation Comments TROPONIN-I (test code = TROPI) NG/ML 0.000-0.045 CBC W/MANUAL [id number] 00:32:00 Test Item Value Reference Range Interpretation Comments WHITE BLOOD CELL 366.2 K/mm3 4.1-12.1 HH ON 06/23/20 AT (test code = WBC) 0031, BSHERIE SANTACRUZ CALLED TO JAZ NAGEL. The report [...] (test code = MDIFF) INDICATED DIFF/SCN PATHOLOGIST'S [id number] 00:32:00 Test Item Value Reference Range Interpretation Comments PATHOLOGIST'S FINDINGS (test code = EXTERNAL COMMENTS PATH) WBC [id number] 00:32:00 Test Item Value Reference Range Interpretation Comments TOTAL CELLS COUNTED (test code = #CELLS >100 TCC) SEGMENTED NEUTROPHILS (test code = % 40-75 SEG) LYMPHOCYTE (test code = LYMPH) % 12.6-43.5 MORPHOLOGY COMMENT (test code = MOC) ON SCAN NORMAL RBCS PLATELET ESTIMATE (test code = ON SCAN ADEQUATE PLTEST) CBC W/MANUAL [id number] 00:32:00 Test Item Value Reference Range Interpretation Comments WHITE BLOOD CELL 366.2 K/mm3 4.1-12.1 HH ON 06/23/20 AT (test code = WBC) 0031, B.LA EvelinNJRajinder CALLED TO JAZ NAGEL. The report was [...] (test code = MDIFF) INDICATED DIFF/SCN WBC [id number] 00:32:00 Test Item Value Reference Range Interpretation Comments TOTAL CELLS COUNTED (test code = #CELLS >100 TCC) SEGMENTED NEUTROPHILS (test code = % 40-75 SEG) LYMPHOCYTE (test code = LYMPH) % 12.6-43.5 MORPHOLOGY COMMENT (test code = MOC) ON SCAN NORMAL RBCS PLATELET ESTIMATE (test code = ON SCAN ADEQUATE PLTEST)
[2021-10-16 02:36] LABS: Absolute Lymphocytes (CBC) 0.8 K/uL (0.7-4.9); Hematocrit 32.6 % (39.6-49.0); Lymphocytes % 9.6 % (15.3-44.8); MPV 11.2 fL (7.6-11.3); RBC Red Blood Cell Count 3.34 M/uL (4.33-5.43)
[2021-10-16 02:46] LABS: Potassium 3.9 mmol/L (3.5-5.1); Troponin High Sensitivity 22.7 pg/mL (<58.9)
[2021-10-16 02:58] LABS: Blood Morphology Comment NOT SEEN (NOT SEEN); Platelet Estimate DECR; White Blood Cell Scan OK (OK)
[2021-10-16] MEDS ORDERED: NA CHLORIDE 0.9% 100 ML ONE (03:49)
[2021-10-16] MEDS ORDERED: AZITHROMYCIN 250 MG TAB ONE (03:49)
[2021-10-16] MEDS ORDERED: CEFTRIAXONE 1000 MG/VIAL ONE ×3 (03:49→20:12)
--- NOTE | 2021-10-16 03:56 | ER ---
Nurse's Notes [facility] Name: Mac Hurtado Age: 66 yrs Sex: Male : 1955 Arrival Date: 10/16/2021 Time: 00:58 Bed 18 Private MD: Diagnosis: Other pneumonia, unspecified organism Presentation: 10/16 01:02 Chief complaint: Patient states: "I'm real short of breath, I fell like I can't catch as6 my breath". Coronavirus screen: At this time, the client does not indicate any symptoms associated with coronavirus-19. Ebola Screen: No symptoms or risks identified at this time. Initial Sepsis Screen: Does the patient meet any 2 criteria? No. Patient's initial sepsis screen is negative. Does the patient have a suspected source of infection? No. Patient's initial sepsis screen is negative. Risk Assessment: Do you want to hurt yourself or someone else? Patient reports no desire to harm self or others. Onset of symptoms was October 15, 2021. 01:02 Method Of Arrival: Ambulatory as6 01:02 Acuity: ROBERTO 2 as6 Triage Assessment: 01:16 General: Appears uncomfortable, slender, Behavior is calm, cooperative. Pain: Complains as6 of pain in chest. Respiratory: Reports shortness of breath cough that is Respiratory effort is even, labored, with retractions, Respiratory pattern is regular, symmetrical, Onset: The symptoms/episode began/occurred this morning, the patient has moderate shortness of breath. Historical: - Allergies: 01:14 No Known Allergies; as6 - Home Meds: 01:14 Bosulif 400 mg Oral once daily [Active]; allopurinol 300 mg Oral tab 1 tab once daily as6 [Active]; furosemide 40 mg Oral tab 1 tab once daily [Active]; aspirin 81 mg Oral chew 1 tab once daily [Active]; carvedilol 6.25 mg Oral tab 2 times per day [Active]; - PMHx: 01:14 CHF; Diabetes - IDDM; Hypertension; Leukemia; as6 - PSHx: 01:14 Appendectomy; as6 - Immunization history:: Adult Immunizations up to date. - Social history:: Smoking status: Patient denies any tobacco usage or history of. Screenin:36 Abuse screen: Denies threats or abuse. Denies injuries from another. Nutritional bina screening: No deficits noted. Tuberculosis screening: No symptoms or risk factors identified. Fall Risk None identified. Assessment: 01:33 Reassessment: The pt is resting in the stretcher, with his family member at bedside. bina The pt was placed on 2L per NC and his O2 sat is now 97% or better. Pt states that his SOB began yesterday. 01:37 Respiratory: Airway is patent. bina 01:38 Respiratory: Breath sounds are clear bilaterally. Breath sounds are diminished in left bina lower lobe and right lower lobe. 02:18 Reassessment: I am waiting on the one EKG machine, so I may complete the orders. It is bina currently being used for another pt with CP. 03:28 Reassessment: is at bedside speaking with the pt and his family member. bina 06:46 Reassessment: The pt ambulated to the bathroom with a steady gait, with me, flanking bina him. When he returned to the bed, his O2 had dropped to 92% on RA, so he was placed on 1 L per NC. The pt is to be admitted to the hospital. All orders have been completed. Awaiting bed assignment. 22:26 Reassessment: I recv'd report on this pt and he will be documented on in [employer], not bina [employer], as he is an ER Hold. 10/17 07:37 Cardiovascular: Rhythm is regular. ll1 Vital Signs: 10/16 01:02 BP 243 / 91; Pulse 70; Resp 20 S; Temp 98.4(O); Pulse Ox 87% on R/A; Weight 68.04 kg as6 (R); Height 5 ft. 7 in. (170.18 cm) (R); Pain 8/10; 01:35 BP 195 / 71; Pulse 60; Resp 26; Temp 98.2; Pulse Ox 99% on 2 lpm NC; bina 01:02 Body Mass Index 23.49 (68.04 kg, 170.18 cm) as6 ED Course: 00:58 Patient arrived in ED. kz 01:14 Triage completed. as6 01:17 Arm band placed on. as6 01:17 Oxygen administration via nasal cannula \\T\\ 3L/min Response to oxygen therapy: symptoms as6 improved. 01:32 Clay George MD is Attending Physician. kdr 01:32 Mikaela Garrison, RN is Primary Nurse. bina 01:38 No provider procedures requiring assistance completed. bina 01:39 Patient has correct armband on for positive identification. Bed in low position. Call bina light in reach. Side rails up X2. Adult w/ patient. monitoring coordinator on. Pulse ox on. NIBP on. 01:56 XRAY Chest (1 view) In Process Unspecified. EDMS 02:17 Basic Metabolic Panel Sent. bina 02:18 CBC with Diff Sent. bina 02:18 Troponin HS Sent. bina 03:55 Steve Montes MD is Hospitalizing Provider. kdr 10/17 07:38 Patient admitted, IV remains in place. ll1 Administered Medications: 10/16 04:23 Drug: Rocephin - (cefTRIAXone) 1 grams Route: IVPB; Infused Over: 30 mins; Site: right bina antecubital; 10/17 07:38 Follow up: Response: No adverse reaction; IV Status: Completed infusion; IV Intake: [id number] 10/16 04:23 Drug: Zithromax (azithromycin) 500 mg Route: PO; bina 10/17 07:38 Follow up: Response: No adverse reaction ll1 Medication: 10/16 01:39 VIS not applicable for this client. bina Intake: 10/17 07:38 IV: 50ml; Total: 50ml. ll1 Outcome: 10/16 01:39 Condition: stable bina 03:55 Decision to Hospitalize by Provider. kdr 10/17 07:37 Admitted to Tele accompanied by tech, via wheelchair, room rm 210, with oxygen, with ll1 chart, Report called to Lori Garcia RN. Condition: stable Instructed on the need for admit. 07:52 Patient left the ED. ll1 Signatures: Dispatcher [employer] EDMS Clay George MD MD kdr Kamille Gramajo RN RN ll1 Joselito Torrez, LESIA RN as6 Mikaela Garrison, LESIA RN Ai Cade Corrections: (The following items were deleted from the chart) 10/16 04:24 04:23 COVID-19/FLU A+B+MOL.LAB.BRZ drawn and sent. bina EDMS
--- NOTE | 2021-10-16 03:56 | EDPHYS ---
Physician Documentation [facility] Name: Mac Hurtado Age: 66 yrs Sex: Male : 1955 Arrival Date: 10/16/2021 Time: 00:58 Bed 18 Private MD: ED Physician Clay George HPI: 10/16 07:50 This 66 yrs old Black Male presents to ER via Ambulatory with complaints of Shortness kdr Of Breath. 07:50 The patient has shortness of breath at rest, with light activity. Onset: The kdr symptoms/episode began/occurred gradually, 2 day(s) ago. Duration: The symptoms are continuous, and are steadily getting worse. The patient's shortness of breath is aggravated by coughing, exertion, light activity. Associated signs and symptoms: The patient has no apparent associated signs or symptoms. Severity of symptoms: At their worst the symptoms were mild in the emergency department the symptoms are unchanged. The patient has not experienced similar symptoms in the past. The patient has been recently seen by a physician: the patient's primary care provider. Historical: - Allergies: 01:14 No Known Allergies; as6 - Home Meds: 01:14 Bosulif 400 mg Oral once daily [Active]; allopurinol 300 mg Oral tab 1 tab once daily as6 [Active]; furosemide 40 mg Oral tab 1 tab once daily [Active]; aspirin 81 mg Oral chew 1 tab once daily [Active]; carvedilol 6.25 mg Oral tab 2 times per day [Active]; - PMHx: 01:14 CHF; Diabetes - IDDM; Hypertension; Leukemia; as6 - PSHx: 01:14 Appendectomy; as6 - Immunization history:: Adult Immunizations up to date. - Social history:: Smoking status: Patient denies any tobacco usage or history of. ROS: 07:53 Constitutional: Negative for fever, chills, and weight loss, Eyes: Negative for injury, kdr pain, redness, and discharge, Neck: Negative for injury, pain, and swelling, Cardiovascular: Negative for chest pain, palpitations, and edema, Abdomen/GI: Negative for abdominal pain, nausea, vomiting, diarrhea, and constipation, Back: Negative for injury and pain, : Negative for injury, bleeding, discharge, and swelling, MS/Extremity: Negative for injury and deformity, Skin: Negative for injury, rash, and discoloration, Neuro: Negative for headache, weakness, numbness, tingling, and seizure activity. Psych: Negative for depression, anxiety, suicide ideation, homicidal ideation, and hallucinations, Allergy/Immunology: Negative for hives, rash, and allergies, Endocrine: Negative for neck swelling, polydipsia, polyuria, polyphagia, and marked weight changes, Hematologic/Lymphatic: Negative for swollen nodes, abnormal bleeding, and unusual bruising. 07:53 Respiratory: Positive for cough, with no reported sputum, shortness of breath, on exertion. Negative for hemoptysis. Exam: 07:53 Constitutional: This is a well developed, well nourished patient who is awake, alert, kdr and in no acute distress. Head/Face: Normocephalic, atraumatic. Eyes: Pupils equal round and reactive to light, extra-ocular motions intact. Lids and lashes normal. Conjunctiva and sclera are non-icteric and not injected. Cornea within normal limits. Periorbital areas with no swelling, redness, or edema. Neck: Trachea midline, no thyromegaly or masses palpated, and no cervical lymphadenopathy. Supple, full range of motion without nuchal rigidity, or vertebral point tenderness. No Meningismus. Chest/axilla: Normal chest wall appearance and motion. Nontender with no deformity. No lesions are appreciated. Cardiovascular: Regular rate and rhythm with a normal S1 and S2. No gallops, murmurs, or rubs. Normal PMI, no JVD. No pulse deficits. Respiratory: Lungs have equal breath sounds bilaterally, clear to auscultation and percussion. No rales, rhonchi or wheezes noted. No increased work of breathing, no retractions or nasal flaring. Abdomen/GI: Soft, non-tender, with normal bowel sounds. No distension or tympany. No guarding or rebound. No evidence of tenderness throughout. Back: No spinal tenderness. No costovertebral tenderness. Full range of motion. Skin: Warm, dry with normal turgor. Normal color with no rashes, no lesions, and no evidence of cellulitis. MS/ Extremity: Pulses equal, no cyanosis. Neurovascular intact. Full, normal range of motion. Neuro: Awake and alert, GCS 15, oriented to person, place, time, and situation. Cranial nerves II-XII grossly intact. Motor strength 5/5 in all extremities. Sensory grossly intact. Cerebellar exam normal. Normal gait. Psych: Awake, alert, with orientation to person, place and time. Behavior, mood, and affect are within normal limits. Vital Signs: 01:02 BP 243 / 91; Pulse 70; Resp 20 S; Temp 98.4(O); Pulse Ox 87% on R/A; Weight 68.04 kg as6 (R); Height 5 ft. 7 in. (170.18 cm) (R); Pain 8/10; 01:35 BP 195 / 71; Pulse 60; Resp 26; Temp 98.2; Pulse Ox 99% on 2 lpm NC; bina 01:02 Body Mass Index 23.49 (68.04 kg, 170.18 cm) as6 MDM: 03:55 Patient medically screened. kdr 07:53 Data reviewed: vital signs, nurses notes, lab test result(s), radiologic studies. kdr Counseling: I had a detailed discussion with the patient and/or guardian regarding: the historical points, exam findings, and any diagnostic results supporting the discharge/admit diagnosis, lab results, radiology results, the need for further work-up and treatment in the hospital. 10/16 01:32 Order name: Basic Metabolic Panel; Complete Time: 03:21 kdr 10/16 01:32 Order name: CBC with Diff; Complete Time: 03:21 [facility] 10/16 01:32 Order name: Troponin HS; Complete Time: 03:21 kdr 10/16 02:39 Order name: CBC Smear Scan; Complete Time: 03:21 [facility] 10/16 02:56 Order name: NT PRO-BNP; Complete Time: 03:06 [facility] 10/16 04:24 Order name: SARS-COV-2 RT PCR; Complete Time: 07:46 [facility] 10/16 04:24 Order name: Influenza Screen (A ; Complete Time: 07:46 [facility] 10/16 08:24 Order name: Basic Metabolic Panel [facility] 10/16 08:24 Order name: Basic Metabolic Panel [facility] 10/16 08:24 Order name: CBC with Automated Diff [facility] 10/16 08:24 Order name: CBC with Automated Diff [facility] 10/16 08:24 Order name: NT PRO-BNP [facility] 10/16 01:32 Order name: XRAY Chest (1 view) kdr 10/16 01:32 Order name: EKG; Complete Time: 01:33 [facility] 10/16 01:32 Order name: Cardiac monitoring; Complete Time: 02: [facility] 10/16 01:32 Order name: EKG - Nurse/Tech; Complete Time: 03:19 [facility] 10/16 01:32 Order name: IV Saline Lock; Complete Time: 02: [facility] 10/16 01:32 Order name: Labs collected and sent; Complete Time: 02: [facility] 10/16 01:32 Order name: O2 Per Protocol; Complete Time: 02: [facility] 10/16 01:32 Order name: O2 Sat Monitoring; Complete Time: 02:17 [facility] 10/16 08:24 Order name: Regular [facility] 10/16 08:24 Order name: NT PRO-BNP [facility] 10/16 08:24 Order name: Chest Single View [facility] 10/16 08:24 Order name: Chest Single View [facility] 10/16 15:08 Order name: Glucose, Ancillary Testing [facility] 10/16 20:44 Order name: Glucose, Ancillary Testing EDPR Administered Medications: 04:23 Drug: Rocephin - (cefTRIAXone) 1 grams Route: IVPB; Infused Over: 30 mins; Site: right bina antecubital; 10/17 07:38 Follow up: Response: No adverse reaction; IV Status: Completed infusion; IV Intake: [id number] 10/16 04:23 Drug: Zithromax (azithromycin) 500 mg Route: PO; bina 10/17 07:38 Follow up: Response: No adverse reaction ll1 Disposition Summary: 10/16/21 03:55 Hospitalization Ordered Hospitalization Status: Inpatient Admission kdr Provider: Steve Montes kdr Condition: Fair kdr Problem: new kdr Symptoms: have improved kdr Bed/Room Type: Standard kdr Location: Telemetry/MedSurg (Inpatient)(10/17/21 07:17) iw Room Assignment: 210(10/17/21 07:17) iw Diagnosis - Other pneumonia, unspecified organism kdr Forms: - Medication Reconciliation Form kdr - SBAR form kdr Signatures: Dispatcher [employer] EDMS Amanda Timmons RN RN mw Rittger, Kevin, MD MD kdr Annmarie Dimas RN RN iw Philip Cannon, TRANSPORTATION COORDINATOR-C TRANSPORTATION COORDINATOR-ClaJoselito Carvajal RN RN as6 Mikaela Garrison, Kamille Cleaning RN, RN ll1 Corrections: (The following items were deleted from the chart) 10/16 02:56 02:40 PROBNP+C.LAB.BRZ ordered. EDMS EDMS 04:24 03:38 COVID-19/FLU A+B+MOL.LAB.BRZ ordered. EDMS EDMS : 03:55 Telemetry/MedSurg (Inpatient) kdr : 03:55 kdr 10/17 07:17 10/16 05:28 [facility] ER HOLD [facility] 10/17 07:17 10/16 05:28 ERHOLD- [facility]
[2021-10-16] MEDS ORDERED: ALBUTEROL 2.5 MG/3 ML NEB SOL NEB PRN (08:20)
[2021-10-16] MEDS ORDERED: IPRATROPIUM BROM 0.5MG/2.5ML NEB PRN (08:20)
[2021-10-16] MEDS ORDERED: ONDANSETRON 4 MG/2 ML VIAL IV PRN (08:20)
[2021-10-16] MEDS ORDERED: ACETAMINOPHEN 500 MG TAB PO PRN (08:20)
[2021-10-16] MEDS ORDERED: AZITHROMYCIN IV 250 MG in NA CHLORIDE 0.9% 250 ML IVPB SCH (09:00)
[2021-10-16 10:28] VITALS: BMI 23.3
--- NOTE | 2021-10-16 12:32 | EKG ---
Test Date: 2021-10-16 Test Time: 03:02:53 [employer] Inspection Machine Tender: GENIA MEASUREMENT RESULTS: Intervals: Rate: 58 ID: [id number] QRSD: 90 QT: 472 QTc: 463 [place]: P: 41 ID: [id number] QRS: 26 T: 21 INTERPRETIVE STATEMENTS: Sinus bradycardia Possible Left atrial enlargement Cannot rule out Anterior infarct, age undetermined Abnormal ECG Compared to ECG 10/16/2021 03:01:40 No significant changes Electronically Signed On 10-16-21 12:31:30 CDT by Davi Mcnair
[2021-10-16] MEDS ORDERED: IPRATROPIUM BROM 0.5MG/2.5ML ONE (16:51)
[2021-10-16] MEDS ORDERED: ALBUTEROL 2.5 MG/3 ML NEB SOL ONE (16:51)
--- NOTE | 2021-10-16 17:54 | RAD REPORT ---
EXAM DESCRIPTION: RAD - Chest Single View - 10/16/2021 1:54 am CLINICAL HISTORY: DYSPNEA COMPARISON: None. TECHNIQUE: XR CHEST 1 VIEW 10/16/2021 1:32 AM CDT FINDINGS: The heart is enlarged. There is a right basilar consolidation. There may be small pleural effusions. There is no pneumothorax. There are no acute osseous findings. IMPRESSION: Right basilar pneumonia. Electronically signed by: Gallo Lopez MD 10/16/2021 2:39 AM CDT Due to temporary technical issues with the PACS/Fluency reporting system, reports are being signed by the in house radiologists without review as a courtesy to insure prompt reporting. The interpreting radiologist is fully responsible for the content of the report.
[2021-10-16] MEDS ORDERED: carvediloL 6.25 MG TAB ONE (20:12)
[2021-10-16] MEDS ORDERED: NA CHLORIDE 0.9% 50 ML ONE (20:12)
[2021-10-16] MEDS ORDERED: cloNIDine HCL 0.1 MG TAB ONE (20:12)
[2021-10-16] MEDS: cloNIDine HCL 0.1 MG TAB PO SCH (20:20)
[2021-10-16] MEDS: CEFTRIAXONE 1,000 MG in NA CHLORIDE 0.9% 50 ML IVPB SCH (20:21)
[2021-10-16] MEDS: carvediloL 12.5 MG TAB PO SCH (20:21)
[2021-10-17 03:28] LABS: Absolute Lymphocytes (CBC) 0.9 K/uL (0.7-4.9); Hematocrit 29.3 % (39.6-49.0); Lymphocytes % 14.2 % (15.3-44.8); MPV 11.9 fL (7.6-11.3); RBC Red Blood Cell Count 2.95 M/uL (4.33-5.43)
[2021-10-17 03:42] LABS: Potassium 3.7 mmol/L (3.5-5.1)
[2021-10-17] MEDS ORDERED: carvediloL 6.25 MG TAB ONE (07:20)
[2021-10-17] MEDS ORDERED: cloNIDine HCL 0.1 MG TAB ONE (07:20)
[2021-10-17] MEDS ORDERED: FUROSEMIDE 40 MG TABLET ONE (07:21)
[2021-10-17] MEDS ORDERED: AMLODIPINE 5 MG TAB ONE (07:21)
[2021-10-17] MEDS ORDERED: CEFTRIAXONE 1000 MG/VIAL ONE (07:21)
[2021-10-17] MEDS ORDERED: NA CHLORIDE 0.9% 50 ML ONE (07:21)
[2021-10-17] MEDS: CEFTRIAXONE 1,000 MG in NA CHLORIDE 0.9% 50 ML IVPB SCH ×2 (08:51→21:11)
[2021-10-17] MEDS: allopurinoL 300 MG TAB PO SCH (08:52)
[2021-10-17] MEDS: AMLODIPINE 5 MG TAB PO SCH (08:52)
[2021-10-17] MEDS: cloNIDine HCL 0.1 MG TAB PO SCH ×3 (08:52→21:12)
[2021-10-17] MEDS: FUROSEMIDE 40 MG TABLET PO SCH (08:53)
[2021-10-17] MEDS: carvediloL 12.5 MG TAB PO SCH ×2 (08:54→21:12)
[2021-10-17] MEDS: ramipriL 5 MG CAP PO SCH (08:55)
[2021-10-17] MEDS: BOSUTINIB 500 MG PO SCH (08:55)
[2021-10-17] MEDS ORDERED: AZITHROMYCIN 250 MG TAB PO SCH (09:00)
[2021-10-17] MEDS: HOME MED 1 EA UNK (Insulin Glargine,Hum.Rec.Anlog [Basaglar Kwikpen U-100] 100 UNIT/ML Ins SQ SCH (09:00)
--- NOTE | 2021-10-17 09:31 | RAD REPORT ---
EXAM DESCRIPTION: RAD - Chest Pa And Lat (2 Views) - 10/17/2021 9:24 am CLINICAL HISTORY: pneumonia Chest pain. COMPARISON: Chest Single View dated 10/16/2021; Chest Single View dated 12/10/2020; Chest Pa And Lat ( 2 Views) dated 07/13/2020 FINDINGS: Moderate improvement is seen in the right lung base infiltrate since yesterday's study. Sm all right pleural effusion persists. The heart is mildly to moderately enlarged. No displaced fractur es. IMPRESSION: Moderate improvement in right lung base pneumonia.
[2021-10-17] MEDS ORDERED: IPRATROPIUM BROM 0.5MG/2.5ML NEB PRN (10:00)
[2021-10-17] MEDS ORDERED: ALBUTEROL 2.5 MG/3 ML NEB SOL NEB PRN (10:00)
[2021-10-17] MEDS ORDERED: GLUCAGON 1 MG/VIAL IM PRN (12:18)
[2021-10-17] MEDS ORDERED: D10W 250 ML BAG IV PRN (12:33)
[2021-10-17] MEDS: INSULIN GLARGINE 100 UNIT/ML SQ SCH (12:37)
[2021-10-17] MEDS: IPRATROPIUM BROM 0.5MG/2.5ML NEB SCH ×2 (14:07→20:00)
[2021-10-17] MEDS: ALBUTEROL 2.5 MG/3 ML NEB SOL NEB SCH ×2 (14:07→20:00)
[2021-10-17] MEDS: INSULIN -REGULAR HUMAN 50 UNIT/0.5 ML ML SQ SCH ×2 (17:30→21:00)
[2021-10-18] MEDS: ALBUTEROL 2.5 MG/3 ML NEB SOL NEB SCH ×4 (01:40→19:45)
[2021-10-18] MEDS: IPRATROPIUM BROM 0.5MG/2.5ML NEB SCH ×4 (01:40→19:45)
[2021-10-18] MEDS: INSULIN -REGULAR HUMAN 50 UNIT/0.5 ML ML SQ SCH ×4 (07:30→20:48)
[2021-10-18] MEDS: HOME MED 1 EA UNK (Insulin Glargine,Hum.Rec.Anlog [Basaglar Kwikpen U-100] 100 UNIT/ML Ins SQ SCH (09:00)
[2021-10-18] MEDS: INSULIN GLARGINE 100 UNIT/ML SQ SCH (09:00)
[2021-10-18] MEDS: BOSUTINIB 500 MG PO SCH (09:00)
--- NOTE | 2021-10-18 09:11 | RAD REPORT ---
EXAM DESCRIPTION: CT - Abdomen Pelvis Wo Contrast - 10/18/2021 8:52 am CLINICAL HISTORY: Abdominal pain COMPARISON: None TECHNIQUE: Computed axial tomography from the diaphragm to the iliac crest was obtained. Oral contra st was given. IV contrast was not requested. All CT scans are performed using dose optimization technique as appropriate and may include automated exposure control or mA/KV adjustment according to patient size. FINDINGS: The evaluation of solid organs and vessels is limited secondary to the lack of IV contrast administration. Moderate right and small left pleural effusions with basilar atelectasis. Small to moderate pericardial effusion Small gallstones. No gallbladder wall thickening. The liver, adrenals, pancreas and kidneys appear grossly normal. Splenic granulomata The prostate gland is moderately enlarged. No evidence of diverticulitis/colitis. Small umbilical hernia IMPRESSION: Moderate right and small left pleural effusions with basilar atelectasis Cholelithiasis without evidence of cholecystitis
[2021-10-18] MEDS: CEFTRIAXONE 1,000 MG in NA CHLORIDE 0.9% 50 ML IVPB SCH ×2 (09:43→20:44)
[2021-10-18] MEDS: AMLODIPINE 5 MG TAB PO SCH (09:43)
[2021-10-18] MEDS: allopurinoL 300 MG TAB PO SCH (09:43)
[2021-10-18] MEDS: FUROSEMIDE 40 MG TABLET PO SCH (09:44)
[2021-10-18] MEDS: ramipriL 5 MG CAP PO SCH (09:44)
[2021-10-18] MEDS: cloNIDine HCL 0.1 MG TAB PO SCH ×3 (09:45→20:43)
[2021-10-18] MEDS: carvediloL 12.5 MG TAB PO SCH ×2 (09:45→20:44)
[2021-10-18] MEDS: cloNIDine HCL 0.1 MG TAB PO PRN (16:30)
--- NOTE | 2021-10-18 22:10 | CON ---
Date of Consultation: 10/18/2021 Reason For Consultation: Shortness of breath. History Of Present Illness: A 66-year-old male who has history of congestive heart failure, diabetes , hypertension, dyslipidemia, presented with shortness of breath, productive cough, low-grade fever, have been going on for some time, found to have pneumonia and is admitted to the hospital. He follow s up with Dr. Mcnair and had a recent echocardiogram done in the office. The patient does not know his ejection fraction. He denies having any orthopnea or lower extremities edema, but he does have s ome chest pain, it feels like he has an elephant sitting on his chest, especially when he gets, gets hard to breathe. Past Medical History: As outlined above in the HPI. Medications: Refer reconciliation sheet for detailed list. Allergies: NO KNOWN DRUG ALLERGIES. Family History: No premature coronary artery disease or cancer. Social History: Does not smoke or drink. Does not use any drugs. Review of Systems: All systems reviewed and they were negative except as mentioned in the HPI. Physical Examination: Vital Signs: Reviewed. His blood pressure is 181/82, heart rate 65, breathing at 16, satting 95% on room air, and temperature is 97.6. General: Pleasant, elderly male, in no apparent distress. Head and Neck: Pupils are equal and reactive to light. Intact eye movements. No JVD. No cervical lymphadenopathy. Neck is supple. Thyroid is not enlarged. Lungs: Clear. There are rhonchi on the both sides of the lungs. No accessory muscle use or muscle retraction. Heart: Regular rate and rhythm. No extra sounds. Abdomen: Soft, nontender. Bowel sounds positive. No organomegaly. No masses or hernia. No rigidi ty or rebound. Extremities: No clubbing or cyanosis. Intact pulses. Skin: No rash. Neurologic: Alert, awake, oriented x3. No acute focal deficits appreciated. Lymph Nodes: No cervical lymphadenopathy. Investigations: Hemoglobin is 10.0, white blood cell count is 6.3, and platelets are 80. His tropon in was negative. NT-proBNP was 1324. Assessment And Recommendations: 1.Shortness of breath and chest pain, definitely impart due to the pneumonia. However, heart failur e is a possibility, but at this point, I recommend treatment with antibiotics and re-evaluate with a chest x-ray in about 1 week. I will review the patient's record in the office and to evaluate his re cent ejection fraction. Also please trend his troponin for 2 more sets and I will follow the patient with you. 2.Chest pain. Do 2 more sets of cardiac enzymes and we will reassess. Thank you for the consult. /JOHNY Voice ID: [id number] Report ID: [id number]
[2021-10-19] MEDS: IPRATROPIUM BROM 0.5MG/2.5ML NEB SCH ×4 (01:30→19:55)
[2021-10-19] MEDS: ALBUTEROL 2.5 MG/3 ML NEB SOL NEB SCH ×4 (01:30→19:55)
--- NOTE | 2021-10-19 02:01 | PN ---
Date of Progress Note: 10/17/2021 Subjective: The patient states he feels somewhat better today. He still requires oxygen, however, h as had period of time when he can breathe without it. States his sputum has become somewhat more pro ductive and feels much better after taking the breathing treatments. Chest x-ray showed marked impro vement. Still some problems in stabilizing his blood sugar. We will cut back on his basal insulin a nd incorporate his sliding scale into the regimen. HR/MODL Voice ID: [id number] Report ID: [id number]
--- NOTE | 2021-10-19 02:07 | PN ---
Date of Progress Note: 10/18/2021 The patient states he noted that he does feel somewhat better, however his productive sputum is no ov er an issue, but his blood sugar obviously was not dropped to the 37 range. We will therefore hold h is basal insulin and institute the sliding scale regimen until the morning. His CT scan did show suzan ateral pleural fusions moderate, compatible with CHF. He is afebrile. He still requires some oxygen , especially with exertion. In view of this, we will consult Cardiology and continue the IV and oral antibiotics for the pneumonitis. HR/MODL Voice ID: [id number] Report ID: [id number]
--- NOTE | 2021-10-19 02:22 | HP ---
Date of Admission: 10/16/2021 Chief Complaint: Shortness of breath. History Of Present Illness: The patient states that for the past few days, he has noticed increased dyspnea, more significant with exertion to the point he had trouble catching his breath and then he p resented to the emergency room. He states the cough is nonproductive for the most part, but occasion ally there will be some yellow-tinged sputum produced. Past Medical History: The patient has no known history of pneumonia. Has had an episode of CHF a co uple of years ago when he was hospitalized in [place] and has seen Cardiology here and states he had an echo couple of months ago, which he was told was okay. Also has a history of IDDM. He has some d ifficulty in controlling over the past few weeks with hypoglycemic episodes intermixed with some hype rglycemia. He has changed his basal insulin doses from 75 down to 70 and then 65 depending on his a. m. readings. He said his appetite has been good and he has been urinating okay. He has a history of hypertension as well and he has had some difficulty in controlling this with various medications inc luding the use of Klonopin on the sliding scale bases. 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 Family History: Noncontributory. Social History: Nonsmoker nondrinker. Physical Examination: General: Patient is an elderly male who is slightly dyspneic with stable vital signs. Head and Neck: Normocephalic. Pupils equal and reactive to light and accommodation. Fundi negative . Trachea midline. Thyroid not palpable. ENT: Negative. Chest: Occasional basilar rales bilaterally. Adequate air entry and movement bilaterally. Cardiovascular: PMI in midclavicular line. Heart: Sounds normal. Peripheral pulses and equal bilaterally. Abdomen: No organomegaly. Bowel sounds present. Extremities: Good tone and movement bilaterally. Reflexes physiologic, hydrated. Normal. Rectal: Deferred. Impression: Dyspnea secondary to pneumonia, coronary artery disease by history, insulin dependent di abetes mellitus with fair control, hypertension with fair control, chronic myelogenous leukemia gene nelson. Plan: Patient will be admitted, placed on IV antibiotics. Breathing treatments and to continue on h is medication for hypertension. Diabetes medication will be controlled according to his blood sugar readings. HR/MODL Voice ID: [id number]
[2021-10-19 05:43] LABS: Hematocrit 26.8 % (39.6-49.0); Lymphocytes % 17.1 % (15.3-44.8); MPV 10.7 fL (7.6-11.3); RBC Red Blood Cell Count 2.69 M/uL (4.33-5.43)
[2021-10-19 05:50] LABS: Potassium 3.7 mmol/L (3.5-5.1)
[2021-10-19] MEDS: INSULIN -REGULAR HUMAN 50 UNIT/0.5 ML ML SQ SCH ×4 (07:30→20:55)
[2021-10-19] MEDS: BOSUTINIB 500 MG PO SCH (09:00)
[2021-10-19] MEDS: HOME MED 1 EA UNK (Insulin Glargine,Hum.Rec.Anlog [Basaglar Kwikpen U-100] 100 UNIT/ML Ins SQ SCH (09:00)
[2021-10-19] MEDS: CEFTRIAXONE 1,000 MG in NA CHLORIDE 0.9% 50 ML IVPB SCH ×2 (10:28→20:55)
[2021-10-19] MEDS: ramipriL 5 MG CAP PO SCH (10:29)
[2021-10-19] MEDS: FUROSEMIDE 40 MG TABLET PO SCH (10:29)
[2021-10-19] MEDS: cloNIDine HCL 0.1 MG TAB PO SCH ×3 (10:29→20:55)
[2021-10-19] MEDS: allopurinoL 300 MG TAB PO SCH (10:29)
[2021-10-19] MEDS: carvediloL 12.5 MG TAB PO SCH ×2 (10:29→20:54)
[2021-10-19] MEDS: AMLODIPINE 5 MG TAB PO SCH (10:29)
--- NOTE | 2021-10-19 12:38 | PN ---
Date of Progress Note: 10/19/2021 Subjective: Seen by bedside. He is doing clinically the better. Still with mild shortness of breat h on exertion. No cough. Has some lower extremity edema. Review of Systems: No chest pain. Minimal shortness of breath and cough. No nausea, vomiting, diarrhea. No abdominal pain. No history of urinary urgency. No skin rash. All other systems reviewed and are negative. Physical Examination: Vital Signs: Reviewed. Head and Neck: Pupils are equal, reactive to light. Intact eye movements. No JVD. No cervical lym phadenopathy. Neck: Supple. Thyroid is not enlarged. Lungs: Clear to auscultation bilaterally. No rhonchi, rales, or crackles. Heart: Regular rate and rhythm. No extra sounds. Abdomen: Soft, nontender. Bowel sounds positive. No organomegaly. No masses or hernia. No rigidi ty or rebound. Extremities: No edema, clubbing, or cyanosis. Intact pulses. Skin: No rash noted. Neurologic: Alert, awake. No acute focal deficits appreciated. Investigations: Labs reviewed. Assessment And Recommendations: 1.Shortness of breath, which is due to pneumonia. He is doing gradually better. Continue current a ntibiotics. 2.Congestive heart failure, appears to be stable and euvolemic. He is on Lasix. Creatinine is slig htly elevated. Re-evaluate with another basic metabolic panel tomorrow morning and adjust the diuretics accordingly. Low-salt diet i s advised. SR/MODL Voice ID: [id number] Report ID: [id number]
[2021-10-19] MEDS ORDERED: FUROSEMIDE 40 MG/4 ML VIAL IV ONE (15:04)
--- NOTE | 2021-10-19 15:32 | PN ---
Date of Progress Note: 10/19/2021 The patient states he feels somewhat better today; however, his oxygen level dropped rather precipito usly yesterday after minimal mobilization. He was seen by Cardiology, felt the continuation of his t reatment would be appropriate both with his pneumonia and CHF. We will reevaluate his oxygen require ment and if above 88, he could be discharged later in the day on oral antibiotics; however, his insul in requirements re-dropped considering a drop down into the 30s with 20 units, which he wa s on a number of years ago and monitor him. At home if in fact his oxygen level drops and difficulty of getting him home O2, he should remain in the hospital at least for another 24 hours. His overall condition has improved considerably as far as the symptoms are concerned with a minimal nonproductiv e cough and some noticeable dyspnea, but not as significant as his admitting scenario. HR/MODL Voice ID: [id number] Report ID: [id number]
--- NOTE | 2021-10-19 16:14 | PN ---
Addendum: Post respiratory treatment, the patient apparently became more than usual dyspneic with mi nimal amount of exertion. On examination at this time, his chest was different and has been with bran e high-pitched rhonchi and few rales bilaterally, although with adequate movement. His oxygen satura tions at rest remained well above normal. In view of the changed clinical and oxygen requirement and it did drop down to mid 80s and was minimal as mentioned above exertion and physical exam, we decide d to give him some Lasix IV watching his creatinine levels as they were slightly elevated. EKG and chest x-ray also were performed and did not change from his admission. The EKG and rapid t roponin will be done. We will discuss the case further with Cardiology once these results are in; ho wever, obviously he will need to stay for another day or so until this has resolved. I think the pro bability of pneumonia was possibly viral sitting off a chain reaction cardiological with CHF has resu lted in his present status. HR/MODL Voice ID: [id number] Report ID: [id number]
--- NOTE | 2021-10-19 16:33 | RAD REPORT ---
EXAM DESCRIPTION: Velma Single View10/19/2021 3:59 pm CLINICAL HISTORY: sob COMPARISON: October 17, 2021 FINDINGS: Moderate right pleural effusion. Progression in right lung opacities. Left lung appears clear of acute infiltrate. Heart remains enlarged. Small left pleural effusion IMPRESSION: Progression in right lung opacities may represent pneumonia Moderate right pleural effusion
[2021-10-19] MEDS: AZITHROMYCIN IV 500 MG in NA CHLORIDE 0.9% 250 ML IVPB SCH (18:18)
[2021-10-19] MEDS ORDERED: ENOXAPARIN 30 MG/0.3 ML SQ ONE (21:00)
[2021-10-20] MEDS: ALBUTEROL 2.5 MG/3 ML NEB SOL NEB SCH ×4 (01:50→19:30)
[2021-10-20] MEDS: IPRATROPIUM BROM 0.5MG/2.5ML NEB SCH ×4 (01:50→19:30)
[2021-10-20] MEDS: INSULIN -REGULAR HUMAN 50 UNIT/0.5 ML ML SQ SCH ×4 (07:30→20:31)
[2021-10-20 08:00] LABS: Absolute Lymphocytes (CBC) 1.1 K/uL (0.7-4.9); Hematocrit 31.9 % (39.6-49.0); Lymphocytes % 16.8 % (15.3-44.8); MPV 10.6 fL (7.6-11.3); RBC Red Blood Cell Count 3.19 M/uL (4.33-5.43)
[2021-10-20 08:10] LABS: Potassium 3.7 mmol/L (3.5-5.1)
[2021-10-20] MEDS: CEFTRIAXONE 1,000 MG in NA CHLORIDE 0.9% 50 ML IVPB SCH ×2 (08:23→20:31)
[2021-10-20] MEDS: AZITHROMYCIN IV 500 MG in NA CHLORIDE 0.9% 250 ML IVPB SCH (08:23)
[2021-10-20] MEDS: allopurinoL 300 MG TAB PO SCH (08:24)
[2021-10-20] MEDS: carvediloL 12.5 MG TAB PO SCH ×2 (08:24→20:30)
[2021-10-20] MEDS: cloNIDine HCL 0.1 MG TAB PO SCH ×3 (08:24→20:30)
[2021-10-20] MEDS: AMLODIPINE 5 MG TAB PO SCH (08:25)
[2021-10-20] MEDS: ramipriL 5 MG CAP PO SCH (08:25)
[2021-10-20] MEDS: BOSUTINIB 500 MG PO SCH (08:26)
[2021-10-20] MEDS: HOME MED 1 EA UNK (Insulin Glargine,Hum.Rec.Anlog [Basaglar Kwikpen U-100] 100 UNIT/ML Ins SQ SCH (08:26)
[2021-10-20] MEDS ORDERED: ENOXAPARIN 30 MG/0.3 ML SQ SCH (09:00)
[2021-10-20] MEDS ORDERED: FUROSEMIDE 40 MG TABLET PO SCH (09:00)
[2021-10-20] MEDS: cloNIDine HCL 0.1 MG TAB PO PRN (13:16)
--- NOTE | 2021-10-20 17:26 | PN ---
Date of Progress Note: 10/20/2021 Subjective: Seen by bedside. He is doing much better after doubling the Lasix, breathing better, an d the lower extremity edema is almost resolved. Review of Systems: No chest pain. Has shortness of breath on exertion. No nausea, vomiting, diarrhea. No abdominal pa in. No dysuria, polyuria, or urgency. All other systems reviewed are negative. Physical Examination: Vital Signs: Reviewed. Head and Neck: Pupils are equal, reactive to light. Intact eye movements. No JVD. No cervical lym phadenopathy. Neck is supple. Thyroid is not enlarged. Lungs: Crackles in both bases. No accessory muscle use or muscle retraction. Heart: Irregular. No extra sounds. Abdomen: Soft, nontender. Bowel sounds positive. No organomegaly. No masses or hernia. No rigidi ty or rebound. Extremities: No edema, clubbing, or cyanosis. Intact pulses. Skin: No rash noted. Neurologic: Alert, awake, oriented x3. No acute focal deficits appreciated. Investigations: Hemoglobin 10.9. Creatinine is 1.35 with a BUN of 32. Assessment And Recommendation: 1.Acute congestive heart failure exacerbation. I recommend to switch the Lasix to IV for 24 hours a nd carefully monitoring the BUN, creatinine, and electrolytes. 2.Pneumonia. On proper antibiotics. SR/MODL Voice ID: [id number] Report ID: [id number]
--- NOTE | 2021-10-20 17:34 | P.PN ---
Date of Service: 10/20/21 Subjective: slight improvement in respirations still requiring O2 ROS: 10 point ROS as noted above, otherwise negative Physical exam GEN: Alert, oriented, NAD HEENT: Normal conjunctiva, sclera anicteric CV: Regular rate and rhythm, 1-2+ pitting edema up to thighs bilaterally Pulm: Nonlabored respirations on 2L NC ABD: Soft, nontender, nondistended Neuro: Normal speech, normal affect Problem List pneumonia acute on chronic CHF, unknown EF CAD IDDM2 HTN CML continue antibiotics change PO lasix to IV patient with significant edema bilaterally respirations improved, but still requiring oxygen blood pressure remains significantly elevated add spironolactone cardiology following patient states he only takes carvedilol twice daily, all other medications only once daily, which is not consistent with his document med rec states he chronically runs 180s/100s Time Spent Managing Pts Care (In Minutes): 35
[2021-10-20] MEDS: SPIRONOLACTONE 25 MG TABLET PO SCH (17:37)
[2021-10-20] MEDS: FUROSEMIDE 40 MG/4 ML VIAL IV SCH (17:38)
[2021-10-21] MEDS: ALBUTEROL 2.5 MG/3 ML NEB SOL NEB SCH ×4 (01:05→20:20)
[2021-10-21] MEDS: IPRATROPIUM BROM 0.5MG/2.5ML NEB SCH ×4 (01:05→20:20)
[2021-10-21] MEDS: cloNIDine HCL 0.1 MG TAB PO PRN (01:24)
[2021-10-21 04:22] LABS: Hematocrit 27.5 % (39.6-49.0)
[2021-10-21 04:36] LABS: Magnesium 2.3 mg/dL (1.8-2.4); Potassium 4.1 mmol/L (3.5-5.1)
--- NOTE | 2021-10-21 06:24 | P.PN ---
Date of Service: 10/21/21 Subjective: UOP increasing feels only slightly improved still dyspneic ROS: 10 point ROS as noted above, otherwise negative Physical exam GEN: Alert, oriented, NAD HEENT: Normal conjunctiva, sclera anicteric CV: Regular rate and rhythm, 1-2+ pitting edema up to thighs bilaterally Pulm: Nonlabored respirations on 2L NC ABD: Soft, nontender, nondistended Neuro: Normal speech, normal affect Problem List pneumonia acute on chronic CHF, unknown EF Uncontrolled/malignant hypertension CAD IDDM2 CML continue antibiotics change PO lasix to IV on 10/20; UOP improved, edema improved respirations improved, but still requiring oxygen blood pressure remains significantly elevated; added spironolactone 10/20 10/21, increase Norvasc, increase clonidine cardiology following patient states he only takes carvedilol twice daily, all other medications only once daily, which is not consistent with his document med rec states he chronically runs 180s/100s suspect CHF / pulm edema secondary to uncontrolled / malignant hypertension Dispo: home in ~1-2 days may need home O2 needs further diuresis, monitor renal function Time Spent Managing Pts Care (In Minutes): 35
[2021-10-21] MEDS: INSULIN -REGULAR HUMAN 50 UNIT/0.5 ML ML SQ SCH ×4 (07:30→21:16)
--- NOTE | 2021-10-21 07:56 | RAD REPORT ---
EXAM DESCRIPTION: RAD - Chest Single View - 10/21/2021 6:43 am CLINICAL HISTORY: hypoxia, chf, f/u opacities/effusion COMPARISON: Chest Single View dated 10/19/2021; Chest Pa And Lat (2 Views) dated 10/17/2021; Chest Sin gle View dated 10/16/2021; Chest Single View dated 12/10/2020; Abdomen Pelvis Wo Contrast dated 2021 FINDINGS: Lines: None. Lungs: Right perihilar masslike opacity. Diffuse prominence of the pulmonary interstitium. Pleural: Right-sided pleural effusion again identified. Cardiac: Cardiomegaly. Bones: No acute fractures. Other: IMPRESSION: Edema with pleural effusions noted. Increased prominence at the right hilum. While this could represent pneumonia or trapped pleural fluid, consider further evaluation with chest CT to excl ude adenopathy or mass.
[2021-10-21] MEDS: CEFTRIAXONE 1,000 MG in NA CHLORIDE 0.9% 50 ML IVPB SCH ×2 (08:34→21:17)
[2021-10-21] MEDS: AZITHROMYCIN IV 500 MG in NA CHLORIDE 0.9% 250 ML IVPB SCH (08:35)
[2021-10-21] MEDS: SPIRONOLACTONE 25 MG TABLET PO SCH (08:36)
[2021-10-21] MEDS: ramipriL 5 MG CAP PO SCH (08:36)
[2021-10-21] MEDS: AMLODIPINE 5 MG TAB PO SCH (08:37)
[2021-10-21] MEDS: FUROSEMIDE 40 MG/4 ML VIAL IV SCH ×2 (08:37→17:00)
[2021-10-21] MEDS: cloNIDine HCL 0.1 MG TAB PO SCH ×3 (08:37→21:17)
[2021-10-21] MEDS: carvediloL 12.5 MG TAB PO SCH ×2 (08:37→21:16)
[2021-10-21] MEDS: allopurinoL 300 MG TAB PO SCH (08:37)
[2021-10-21] MEDS: BOSUTINIB 500 MG PO SCH (08:38)
[2021-10-21] MEDS: HOME MED 1 EA UNK (Insulin Glargine,Hum.Rec.Anlog [Basaglar Kwikpen U-100] 100 UNIT/ML Ins SQ SCH (08:38)
--- NOTE | 2021-10-21 19:38 | PN ---
Date of Progress Note: 10/21/2021 Subjective: Seen by bedside. He is doing significantly better. No orthopnea and lower extremity ed abner resolved. Review of Systems: No chest pain or orthopnea or significant shortness of breath. No nausea, vomiting, diarrhea. No ab dominal pain. No dysuria, polyuria, or urgency. All other systems reviewed are negative. Physical Examination: Vital Signs: Reviewed. Head and Neck: Pupils are equal, reactive to light. Intact eye movements. No JVD. No cervical lym phadenopathy. Neck: Supple. Thyroid is not enlarged. Lungs: Clear to auscultation bilaterally. No rhonchi, rales, or crackles. No accessory muscle use. Heart: Irregular. No extra sounds. Abdomen: Soft, nontender. Bowel sounds positive. No organomegaly. No masses or hernia. No rigidi ty or rebound. Extremities: No clubbing, cyanosis. Intact pulses. Skin: No rash noted. Neurologic: Alert, awake, oriented x3. No acute focal deficits appreciated. Investigations: BUN is 36, creatinine 1.47. Assessment And Recommendation: 1.Acute on chronic diastolic heart failure exacerbation, doing clinically better. BUN and creatinin e started climbing up. We will hold this evening dose of Lasix and put him on 40 mg by mouth once da steve, and from cardiology standpoint, this patient can be released and follow up as an outpatient. 2.Pneumonia, appears to be under control. There is no fever, and white count is normal. Continue c urrent management. 3.Hypertension. Blood pressure is significantly better after aggressive diuresis. SR/MODL Voice ID: [id number] Report ID: [id number]
[2021-10-22] MEDS: IPRATROPIUM BROM 0.5MG/2.5ML NEB SCH ×4 (01:39→20:20)
[2021-10-22] MEDS: ALBUTEROL 2.5 MG/3 ML NEB SOL NEB SCH ×4 (01:40→20:20)
[2021-10-22 05:04] LABS: Magnesium 2.4 mg/dL (1.8-2.4); Potassium 3.8 mmol/L (3.5-5.1)
[2021-10-22] MEDS: INSULIN -REGULAR HUMAN 50 UNIT/0.5 ML ML SQ SCH ×4 (07:30→20:52)
[2021-10-22] MEDS: HOME MED 1 EA UNK (Insulin Glargine,Hum.Rec.Anlog [Basaglar Kwikpen U-100] 100 UNIT/ML Ins SQ SCH (09:00)
[2021-10-22] MEDS ORDERED: FUROSEMIDE 40 MG TABLET PO SCH (09:00)
[2021-10-22] MEDS: BOSUTINIB 500 MG PO SCH (09:00)
[2021-10-22] MEDS: ramipriL 5 MG CAP PO SCH (09:39)
[2021-10-22] MEDS: SPIRONOLACTONE 25 MG TABLET PO SCH (09:39)
[2021-10-22] MEDS: cloNIDine HCL 0.1 MG TAB PO SCH ×3 (09:40→20:53)
[2021-10-22] MEDS: AZITHROMYCIN IV 500 MG in NA CHLORIDE 0.9% 250 ML IVPB SCH (09:40)
[2021-10-22] MEDS: CEFTRIAXONE 1,000 MG in NA CHLORIDE 0.9% 50 ML IVPB SCH ×2 (09:40→20:37)
[2021-10-22] MEDS: AMLODIPINE 5 MG TAB PO SCH (09:41)
[2021-10-22] MEDS: carvediloL 12.5 MG TAB PO SCH ×2 (09:41→21:00)
[2021-10-22] MEDS: allopurinoL 300 MG TAB PO SCH (09:42)
--- NOTE | 2021-10-22 12:23 | EKG ---
Test Date: 2021-10-19 Test Time: 16:54:25 Lime Trimmer: MEASUREMENT RESULTS: Intervals: Rate: 65 CO: 140 QRSD: 94 QT: 438 QTc: 455 Kirksey: P: 64 CO: 140 QRS: 110 T: 4 INTERPRETIVE STATEMENTS: Normal sinus rhythm Left posterior fascicular block Cannot rule out Anterior infarct, age undetermined Abnormal ECG Compared to ECG 10/18/2021 16:12:28 Left posterior fascicular block now present Myocardial infarct finding still present Electronically Signed On 10-22-21 12:17:18 CDT by Davi Mcnair
--- NOTE | 2021-10-22 12:26 | EKG ---
Test Date: 2021-10-18 Test Time: 16:12:28 [employer]: MEASUREMENT RESULTS: Intervals: Rate: 61 KS: 140 QRSD: 98 QT: 456 QTc: 459 Marcellus: P: 44 KS: 140 QRS: 15 T: 24 INTERPRETIVE STATEMENTS: Normal sinus rhythm Possible Left atrial enlargement Possible Anterior infarct, age undetermined Abnormal ECG Compared to ECG 10/16/2021 03:02:53 Sinus bradycardia no longer present Myocardial infarct finding still present Electronically Signed On 10-22-21 12:17:46 CDT by Davi Mcnair
--- NOTE | 2021-10-22 13:37 | PN ---
Date of Progress Note: 10/22/2021 Mr. Hurtado is 66, was admitted by Dr. Olson. Has been followed by Dr. Marroquin. He is a patient of Dr. Montes. He has been treated with congestive heart failure, diabetes, hypertension, dyslipidemi a. He remains hypertensive. I think he needs to continue diuresis. I think we need to increase his Coreg to 25 mg b.i.d. for better blood pressure control. He is feeling much better with no rales, b ut continued to have some mild edema. It may be reasonable to keep him here for better blood pressur e control and slightly more diuresis and send him home in the next day or 2. I will continue to foll ow him. He does have an appointment with me in October 2021 and he needs to keep that. STACI/JOHNY Voice ID: [id number] Report ID: [id number]
--- NOTE | 2021-10-22 17:19 | RAD REPORT ---
EXAM DESCRIPTION: CT - Thorax Wo Con CLINICAL HISTORY: Chest pain Pleural effusion r/o mass COMPARISON: No comparisons FINDINGS: Mild atelectasis/ infiltrate is seen right lower lobe. Small left and moderate right pleur al effusion is present. No pneumothorax. No axillary, mediastinal or hilar adenopathy. No concerning bony finding. Cholelithiasis. All CT scans are performed using dose optimization technique as appropriate and may include automated exposure control or mA/KV adjustment according to patient size. IMPRESSION: Mild atelectasis/ infiltrate in the right lower lobe with moderate right pleural effusio n. Small left pleural effusion. Cholelithiasis.
[2021-10-22] MEDS: cloNIDine HCL 0.1 MG TAB PO PRN (17:35)
--- NOTE | 2021-10-22 17:57 | P.PN ---
Subjective Date of Service: 10/22/21 Patient reports feeling much better. He denies shortness of breath. He is noted to be hypoxic on room air. Physical Examination - Vital Signs Temperature: 97.3 F Blood Pressure: 186/90 Pulse: 52 Respirations: 20 Pulse Ox (%): 100 Assessment And Plan - Plan Physical exam GEN: Alert, oriented, NAD HEENT: Normal conjunctiva, sclera anicteric CV: Regular rate and rhythm, 1-2+ pitting lower extremity edema Pulm: Nonlabored respirations on 2L NC, mild bibasilar crackles. ABD: Soft, nontender, nondistended Neuro: Normal speech, normal affect Problem List pneumonia acute on chronic CHF, unknown EF Acute respiratory failure with hypoxia. Uncontrolled/malignant hypertension CAD IDDM2 CML Plan: continue antibiotics PO Lasix changed to IV respirations improved, but still requiring oxygen. Considering US guided thoracentesis. Continue Aldactone. Titrating Norvasc, clonidine for blood pressure control. Added hydralazine for refractory hypertension. cardiology following suspect CHF / pulm edema secondary to uncontrolled / malignant hypertension. He is currently hypoxic on room air. Continue to monitor SaO2 and wean oxygen as tolerated. He currently qualifies for home oxygen.
[2021-10-23] MEDS: ALBUTEROL 2.5 MG/3 ML NEB SOL NEB SCH ×2 (01:19→07:05)
[2021-10-23] MEDS: IPRATROPIUM BROM 0.5MG/2.5ML NEB SCH ×2 (01:19→07:05)
[2021-10-23] MEDS: INSULIN -REGULAR HUMAN 50 UNIT/0.5 ML ML SQ SCH (07:30)
[2021-10-23 08:45] VITALS: BP 196/79; TEMP 97.7
[2021-10-23] MEDS: HOME MED 1 EA UNK (Insulin Glargine,Hum.Rec.Anlog [Basaglar Kwikpen U-100] 100 UNIT/ML Ins SQ SCH (09:00)
[2021-10-23] MEDS: BOSUTINIB 500 MG PO SCH (09:00)
[2021-10-23] MEDS ORDERED: FUROSEMIDE 40 MG/4 ML VIAL IV SCH (09:00)
[2021-10-23] MEDS: AZITHROMYCIN IV 500 MG in NA CHLORIDE 0.9% 250 ML IVPB SCH (09:04)
[2021-10-23] MEDS: CEFTRIAXONE 1,000 MG in NA CHLORIDE 0.9% 50 ML IVPB SCH (09:04)
[2021-10-23] MEDS: SPIRONOLACTONE 25 MG TABLET PO SCH (09:05)
[2021-10-23] MEDS: carvediloL 12.5 MG TAB PO SCH (09:06)
[2021-10-23] MEDS: ramipriL 5 MG CAP PO SCH (09:06)
[2021-10-23] MEDS: cloNIDine HCL 0.1 MG TAB PO SCH (09:06)
[2021-10-23] MEDS: AMLODIPINE 5 MG TAB PO SCH (09:06)
[2021-10-23] MEDS: allopurinoL 300 MG TAB PO SCH (09:07)
[2021-10-23 12:17] VITALS: O2SAT 95
== END 2021-10-23 11:53 | disposition home or self-care (01) | DRG 193 ==
LOC: ER 00:55 → ERHOLD 08:22 → 2ND 10-17 07:38
PROVIDERS: ADMIT Family Medicine; ATTEND Family Medicine
DX: J18.9 Pneumonia, unspecified organism (principal); I50.33 Acute on chronic diastolic (congestive) heart failure; J96.01 Acute respiratory failure with hypoxia; C92.90 Myeloid leukemia, unspecified, not having achieved remission; E11.9 Type 2 diabetes mellitus without complications; I25.10 Atherosclerotic heart disease of native coronary artery without angina pectoris; I11.0 Hypertensive heart disease with heart failure; Z20.822 Contact with and (suspected) exposure to COVID-19
CPT/HCPCS: 36415; 71045; 71046; 71250; 74176; 80048; 82947; 83735; 83880; 84484; 85025; 85027; 87804; 93005; 94640; 94760; 96365; 96366; 99285; J0456; J1815; J1940; J7050; U0003

== ENCOUNTER 2021-11-12 08:26 | Inpatient (IN) | payer OTHER ==
--- OUTSIDE RECORDS SUMMARY | 2021-11-12 08:32 | XMS REPORT | Continuity of Care Document ---
:1955 Author Organization [facility] t Address [address] [place] [address] Care Team Providers Name Role Phone Aspen [...] Known DA Active [facility] [place] 00:00: [address] No Known DA Active U [facility] 06[facility]22 [place] 00:00: [address] Medications This patient has no known medications. Procedures This patient has no known procedures. Encounters Start End Encounter Admission Attending Care Care Encounter Source Date/Time Date/Time Type Type Clinicians Facility Department ID 2020-06-23 Inpatient EUGENIA Holliday [id number] [facility] 01:20:00 Forrest [id number] [facility] 2020-06-22 Inpatient HCAKYLE ADELE [id number] [facility] 23:40:00 [id number] [facility] 2020-05-22 2020-05-22 Outpatient JOHN [address]ID[id number] 09:01:00 23:59:00 MADHURI Results Test Description Test Time Test Comments Results Result Comments Source GLUCOSE BEDSIDE TESTING 2020-06-28 12:11:00 Test Item Value Reference Range Interpretation Comme nts GLUCOSE BEDSIDE TESTING (test code = GLUBED) 214 MG/DL 70-119 H GLUCOSE BEDSIDE [id number] 21:49:00 Test Item Value Reference Range Interpretation Comments GLUCOSE BEDSIDE TESTING (test code 195 MG/DL 70-119 H = GLUBED) GLUCOSE BEDSIDE [id number] 15:38:00 Test Item Value Reference Range Interpretation Comments GLUCOSE BEDSIDE TESTING (test code 251 MG/DL 70-119 H = GLUBED) GLUCOSE BEDSIDE [id number] 11:48:00 Test Item Value Reference Range Interpretation Comments GLUCOSE BEDSIDE TESTING (test code 212 MG/DL 70-119 H = GLUBED) GLUCOSE BEDSIDE [id number] 06:03:00 Test Item Value Reference Range Interpretation Comments GLUCOSE BEDSIDE TESTING (test code 139 MG/DL 70-119 H = GLUBED) CBC W/MANUAL [id number] 23:26:00 Test Item Value Reference Range Interpretation [...] (test code INDICATED = MDIFF) DIFF/SCN WBC [id number] 23:26:00 Test Item Value Reference Range Interpretation [...] FEW ON SCAN NORMAL PLTS code = [id number]) COMPREHENSIVE METABOLIC [id number] 22:28:00 Test Item Value Reference Range Interpretation [...] 1 NORMAL code = LIPINDEX) MG Index/DL [id number] 22:28:00 Test Item Value Reference Range Interpretation Comments PHOSPHOROUS (test code = PHOS) 3.7 MG/DL 2.5-4.9 N URIC [id number] 22:28:00 Test Item Value Reference Range Interpretation Comments URIC ACID (test code 8.7 MG/DL 3.5-7.2 H Results maybe depressed = URIC) if patient is t aking Metamizole(Dipy josé miguel). LACTIC DEHYDROGENASE(LDH)2020-06-26 22:28:00 Test Item Value Reference Range Interpretation Comments LACTIC DEHYDROGENASE(LDH) (test 669 Unit/L 84-246 H code = LDH) [id number] 22:28:00 Test Item Value Reference Range Interpretation Comments MAGNESIUM (test code = MAG) 2.8 MG/DL 1.6-2.6 H CBC W/MANUAL [id number] 22:06:00 Test Item Value Reference Range Interpretation [...] (test code INDICATED = MDIFF) DIFF/SCN WBC [id number] 22:06:00 Test Item Value Reference Range Interpretation Comments TOTAL CELLS COUNTED (test code = #CELLS >100 TCC) SEGMENTED NEUTROPHILS (test code = % 40-75 SEG) LYMPHOCYTE (test code = LYMPH) % 12.6-43.5 MORPHOLOGY COMMENT (test code = MOC) ON SCAN NORMAL RBCS PLATELET ESTIMATE (test code = ON SCAN ADEQUATE PLTEST) CBC W/MANUAL [id number] 22:06:00 Test Item Value Reference Range Interpretation [...] (test code INDICATED = MDIFF) DIFF/SCN WBC [id number] 22:06:00 Test Item Value Reference Range Interpretation Comments TOTAL CELLS COUNTED (test code = #CELLS >100 TCC) SEGMENTED NEUTROPHILS (test code = % 40-75 SEG) LYMPHOCYTE (test code = LYMPH) % 12.6-43.5 MORPHOLOGY COMMENT (test code = MOC) ON SCAN NORMAL RBCS PLATELET ESTIMATE (test code = ON SCAN ADEQUATE PLTEST) GLUCOSE BEDSIDE [id number] 21:21:00 Test Item Value Reference Range Interpretation Comments GLUCOSE BEDSIDE TESTING (test code 353 MG/DL 70-119 H = GLUBED) GLUCOSE BEDSIDE [id number] 16:54:00 Test Item Value Reference Range Interpretation Comments GLUCOSE BEDSIDE TESTING (test code 294 MG/DL 70-119 H = GLUBED) GLUCOSE BEDSIDE [id number] 12:27:00 Test Item Value Reference Range Interpretation Comments GLUCOSE BEDSIDE TESTING (test code 324 MG/DL 70-119 H = GLUBED) - XR CHEST 1 [id number] 07:53:00 [facility] : 1955 Sex: M FAX: Jake Sanchez MD [phone] [place]: St: [facility] FAX: Jose Duong NP [phone] FAX: Forrest Wu MD [phone] Patient Name: TRENTON CHAVEZ Unit No: [id number] EXAMS: CPT CODE: [id number] XR CHEST 1 V 04342 INDICATION: COVID LOCATION: T18 COMPARISON STUDY: Chest [...] MandeepRA31 Orig Print D/T: S: 06/26/2020(0756) EDUARDO [place] NAME: TRENTON CHAVEZ [facility] PHYS: SHERLEY.Yuval - Jose Carrillo NP [address] [place] [address] : 1955 AGE: 64 SEX: AFSHAN FUNES [address] LOC: B.340 W PHONE #: [phone] EXAM DATE: 06/26/2020 STATUS: ADM IN FAX #: [phone] RAD NO: DC Dt: PAGE 1 Signed ReportCBC W/MANUAL [id number] 06:38:00 Test Item Value Reference Range Interpretation [...] (test code INDICATED = MDIFF) DIFF/SCN WBC [id number] 06:38:00 Test Item Value Reference Range Interpretation [...] NORMAL PLTS code = PLTMORPH) CBC W/MANUAL [id number] 06:16:00 Test Item Value Reference Range Interpretation Comments WHITE BLOOD CELL 267.5 K/mm3 4.1-12.1 Critical nj lues are (test code = WBC) excluded [...] (test code INDICATED = MDIFF) DIFF/SCN WBC [id number] 06:16:00 Test Item Value Reference Range Interpretation [...] NORMAL PLTS code = PLTMORPH) GLUCOSE BEDSIDE [id number] 06:09:00 Test Item Value Reference Range Interpretation Comments GLUCOSE BEDSIDE TESTING (test code 146 MG/DL 70-119 H = GLUBED) COMPREHENSIVE METABOLIC [id number] 05:58:00 Test Item Value Reference Range Interpretation [...] code = LIPINDEX) MG Index/DL CBC W/MANUAL [id number] 05:01:00 Test Item Value Reference Range Interpretation [...] (test code INDICATED = MDIFF) DIFF/SCN WBC [id number] 05:01:00 Test Item Value Reference Range Interpretation Comments TOTAL CELLS COUNTED (test code = #CELLS >100 TCC) SEGMENTED NEUTROPHILS (test code = % 40-75 SEG) LYMPHOCYTE (test code = LYMPH) % 12.6-43.5 MORPHOLOGY COMMENT (test code = MOC) ON SCAN NORMAL RBCS PLATELET ESTIMATE (test code = ON SCAN ADEQUATE PLTEST) CBC W/MANUAL [id number] 05:01:00 Test Item Value Reference Range Interpretation [...] (test code INDICATED = MDIFF) DIFF/SCN WBC [id number] 05:01:00 Test Item Value Reference Range Interpretation Comments TOTAL CELLS COUNTED (test code = #CELLS >100 TCC) SEGMENTED NEUTROPHILS (test code = % 40-75 SEG) LYMPHOCYTE (test code = LYMPH) % 12.6-43.5 MORPHOLOGY COMMENT (test code = MOC) ON SCAN NORMAL RBCS PLATELET ESTIMATE (test code = ON SCAN ADEQUATE PLTEST) GLUCOSE BEDSIDE [id number] 21:09:00 Test Item Value Reference Range Interpretation Comments GLUCOSE BEDSIDE TESTING (test code 256 MG/DL 70-119 H = GLUBED) GLUCOSE BEDSIDE [id number] 17:21:00 Test Item Value Reference Range Interpretation Comments GLUCOSE BEDSIDE TESTING (test code 196 MG/DL 70-119 H = GLUBED) GLUCOSE BEDSIDE [id number] 12:58:00 Test Item Value Reference Range Interpretation Comments GLUCOSE BEDSIDE TESTING (test code 165 MG/DL 70-119 H = GLUBED) CBC W/MANUAL [id number] 08:27:00 Test Item Value Reference Range Interpretation Comments WHITE BLOOD CELL 366.2 K/mm3 4.1-12.1 HH ON 06/23/20 AT (test code = WBC) 0031, B.LA EvelinIDRajinder CALLED TO JAZ NAGEL. 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 WBC [id number] 08:27:00 Test Item Value Reference Range Interpretation [...] FEW ON SCAN NORMAL PLTS code = [id number]) CBC W/MANUAL [id number] 07:23:00 Test Item Value Reference Range Interpretation [...] (test code INDICATED = MDIFF) DIFF/SCN WBC [id number] 07:23:00 Test Item Value Reference Range Interpretation [...] FEW ON SCAN NORMAL PLTS code = [id number]) GLUCOSE BEDSIDE [id number] 06:28:00 Test Item Value Reference Range Interpretation Comments GLUCOSE BEDSIDE TESTING (test code = 71 MG/DL 70-119 N GLUBED) COMPREHENSIVE METABOLIC [id number] 06:20:00 Test Item Value Reference Range Interpretation [...] code = LIPINDEX) MG Index/DL COMPREHENSIVE METABOLIC [id number] 06:16:00 Test Item Value Reference Range Interpretation [...] 1 NORMAL = LIPINDEX) Index/DL CBC W/MANUAL [id number] 06:08:00 Test Item Value Reference Range Interpretation [...] (test code INDICATED = MDIFF) DIFF/SCN WBC [id number] 06:08:00 Test Item Value Reference Range Interpretation Comments TOTAL CELLS COUNTED (test code = #CELLS >100 TCC) SEGMENTED NEUTROPHILS (test code = % 40-75 SEG) LYMPHOCYTE (test code = LYMPH) % 12.6-43.5 MORPHOLOGY COMMENT (test code = MOC) ON SCAN NORMAL RBCS PLATELET ESTIMATE (test code = ON SCAN ADEQUATE PLTEST) CBC W/MANUAL [id number] 06:08:00 Test Item Value Reference Range Interpretation [...] (test code INDICATED = MDIFF) DIFF/SCN WBC [id number] 06:08:00 Test Item Value Reference Range Interpretation Comments TOTAL CELLS COUNTED (test code = #CELLS >100 TCC) SEGMENTED NEUTROPHILS (test code = % 40-75 SEG) LYMPHOCYTE (test code = LYMPH) % 12.6-43.5 MORPHOLOGY COMMENT (test code = MOC) ON SCAN NORMAL RBCS PLATELET ESTIMATE (test code = ON SCAN ADEQUATE PLTEST) GLUCOSE BEDSIDE [id number] 21:32:00 Test Item Value Reference Range Interpretation Comments GLUCOSE BEDSIDE TESTING (test code 206 MG/DL 70-119 H = GLUBED) GLUCOSE BEDSIDE [id number] 16:57:00 Test Item Value Reference Range Interpretation Comments GLUCOSE BEDSIDE TESTING (test code 140 MG/DL 70-119 H = GLUBED) Covid 19 InHouse [id number] 13:44:00 Test Item Value Reference Range Interpretation Comments Covid 19 Negative Negative A negative resu lt does not InHouse NTX preclude the SA RS-COV-2 (test code = viralinfection and should not be [id number]) used as the so le basis forpatient [...] performancechar acteristics were determined by Doni harp [facility]. Thi s test has notbeen [...] defined by CDC? YesDate of Symptom Onset: [id number] due to COVID? NoIn ICU due to COVID? NoResident in a congregate care setting? No? NoAge at collection: Y GLUCOSE BEDSIDE [id number] 12:11:00 Test Item Value Reference Range Interpretation Comments GLUCOSE BEDSIDE TESTING (test code 268 MG/DL 70-119 H = GLUBED) URIC [id number] 11:26:00 Test Item Value Reference Range Interpretation Comments URIC ACID (test 11.6 MG/DL 3.5-7.2 H Results mayb e depressed code = URIC) if patient is t aking Metamizole(Dipy josé miguel). LACTIC DEHYDROGENASE(LDH)2020-06-24 11:26:00 Test Item Value Reference Range Interpretation Comments LACTIC DEHYDROGENASE(LDH) (test 802 Unit/L 84-246 H code = LDH) URIC [id number] 11:25:00 Test Item Value Reference Range Interpretation Comments URIC ACID (test code = URIC) MG/DL 3.5-7.2 LACTIC DEHYDROGENASE(LDH)2020-06-24 11:25:00 Test Item Value Reference Range Interpretation Comments LACTIC DEHYDROGENASE(LDH) (test 802 Unit/L 84-246 H code = LDH) CBC W/MANUAL [id number] 10:10:00 Test Item Value Reference Range Interpretation [...] (test code INDICATED = MDIFF) DIFF/SCN WBC [id number] 10:10:00 Test Item Value Reference Range Interpretation [...] FEW ON SCAN NORMAL PLTS code = [id number]) BASIC METABOLIC [id number] 07:31:00 Test Item Value Reference Range Interpretation [...] MG 1 NORMAL code = LIPINDEX) Index/DL [id number] 07:31:00 Test Item Value Reference Range Interpretation Comments PHOSPHOROUS (test code = PHOS) 4.7 MG/DL 2.5-4.9 N [id number] 07:31:00 Test Item Value Reference Range Interpretation Comments MAGNESIUM (test code = MAG) 2.9 MG/DL 1.6-2.6 H COMPREHENSIVE METABOLIC [id number] 07:03:00 Test Item Value Reference Range Interpretation [...] code = LIPINDEX) MG Index/DL CBC W/MANUAL [id number] 06:57:00 Test Item Value Reference Range Interpretation [...] (test code INDICATED = MDIFF) DIFF/SCN WBC [id number] 06:57:00 Test Item Value Reference Range Interpretation Comments TOTAL CELLS COUNTED (test code = #CELLS >100 TCC) SEGMENTED NEUTROPHILS (test code = % 40-75 SEG) LYMPHOCYTE (test code = LYMPH) % 12.6-43.5 MORPHOLOGY COMMENT (test code = MOC) ON SCAN NORMAL RBCS PLATELET ESTIMATE (test code = ON SCAN ADEQUATE PLTEST) CBC W/MANUAL [id number] 06:57:00 Test Item Value Reference Range Interpretation [...] (test code INDICATED = MDIFF) DIFF/SCN WBC [id number] 06:57:00 Test Item Value Reference Range Interpretation Comments TOTAL CELLS COUNTED (test code = #CELLS >100 TCC) SEGMENTED NEUTROPHILS (test code = % 40-75 SEG) LYMPHOCYTE (test code = LYMPH) % 12.6-43.5 MORPHOLOGY COMMENT (test code = MOC) ON SCAN NORMAL RBCS PLATELET ESTIMATE (test code = ON SCAN ADEQUATE PLTEST) COMPREHENSIVE METABOLIC [id number] 06:56:00 Test Item Value Reference Range Interpretation [...] 1 NORMAL = LIPINDEX) Index/DL GLUCOSE BEDSIDE [id number] 21:50:00 Test Item Value Reference Range Interpretation Comments GLUCOSE BEDSIDE TESTING (test code 254 MG/DL 70-119 H = GLUBED) CBC W/MANUAL [id number] 20:59:00 Test Item Value Reference Range Interpretation [...] (test code INDICATED = MDIFF) DIFF/SCN WBC [id number] 20:59:00 Test Item Value Reference Range Interpretation [...] RARE ON SCAN NORMAL PLTS code = [id number]) BASIC METABOLIC [id number] 20:48:00 Test Item Value Reference Range Interpretation [...] MG 1 NORMAL code = LIPINDEX) Index/DL [id number] 20:48:00 Test Item Value Reference Range Interpretation Comments MAGNESIUM (test code = MAG) 2.8 MG/DL 1.6-2.6 H CBC W/MANUAL [id number] 20:38:00 Test Item Value Reference Range Interpretation [...] (test code INDICATED = MDIFF) DIFF/SCN WBC [id number] 20:38:00 Test Item Value Reference Range Interpretation Comments TOTAL CELLS COUNTED (test code = #CELLS >100 TCC) SEGMENTED NEUTROPHILS (test code = % 40-75 SEG) LYMPHOCYTE (test code = LYMPH) % 12.6-43.5 MORPHOLOGY COMMENT (test code = MOC) ON SCAN NORMAL RBCS PLATELET ESTIMATE (test code = ON SCAN ADEQUATE PLTEST) CBC W/MANUAL [id number] 20:38:00 Test Item Value Reference Range Interpretation [...] (test code INDICATED = MDIFF) DIFF/SCN WBC [id number] 20:38:00 Test Item Value Reference Range Interpretation Comments TOTAL CELLS COUNTED (test code = #CELLS >100 TCC) SEGMENTED NEUTROPHILS (test code = % 40-75 SEG) LYMPHOCYTE (test code = LYMPH) % 12.6-43.5 MORPHOLOGY COMMENT (test code = MOC) ON SCAN NORMAL RBCS PLATELET ESTIMATE (test code = ON SCAN ADEQUATE PLTEST) GLUCOSE BEDSIDE [id number] 17:02:00 Test Item Value Reference Range Interpretation Comments GLUCOSE BEDSIDE TESTING (test code 111 MG/DL 70-119 N = GLUBED) GLUCOSE BEDSIDE [id number] 10:42:00 Test Item Value Reference Range Interpretation Comments GLUCOSE BEDSIDE TESTING (test code = 80 MG/DL 70-119 N GLUBED) [id number] 08:53:00 Test Item Value Reference Range Interpretation Comments CKMB (test code = < 1.0 NG/ML 1.0-3.6 N MONOCLONAL CKMB CKMBT) METHODOLOGY. [id number] 08:53:00 Test Item Value Reference Range Interpretation [...] changes in trop onin levelscharacter istic of PA. GLYCOSYLATED HEMOGLOBIN (HA1C)2020-06-23 08:37:00 Test Item Value Reference Range Interpretation Comments GLYCOSYLATED HEMOGLOBIN (HA1C) <4.5 % A1C 4.2-6.3 N (test code = GLYHGB) ESTIMATED AVERAGE [id number] 08:37:00 Test Item Value Reference Range Interpretation [...] 1 NORMAL code = LIPINDEX) MG Index/DL [id number] 07:17:00 Test Item Value Reference Range Interpretation Comments MAGNESIUM (test code = MAG) 2.9 MG/DL 1.6-2.6 H THYROID STIMULATING [id number] 07:17:00 Test Item Value Reference Range Interpretation [...] 1 NORMAL code = LIPINDEX) MG Index/DL [id number] 07:11:00 Test Item Value Reference Range Interpretation Comments MAGNESIUM (test code = MAG) 2.9 MG/DL 1.6-2.6 H THYROID STIMULATING [id number] 07:11:00 Test Item Value Reference Range Interpretation Comments THYROID STIMULATING HORMONE (test mc IU/ML 0.340-4.820 code = TSH) [id number] 07:03:00 Test Item Value Reference Range Interpretation Comments CKMB (test code = CKMBT) NG/ML 1.0-3.6 [id number] 07:03:00 Test Item Value Reference Range Interpretation [...] changes in trop onin levelscharacter istic of PA. CBC W/MANUAL [id number] 03:10:00 Test Item Value Reference Range Interpretation [...] (test code = MDIFF) INDICATED DIFF/SCN PATHOLOGIST'S [id number] 03:10:00 Test Item Value Reference Range Interpretation Comments PATHOLOGIST'S FINDINGS (test code = EXTERNAL COMMENTS PATH) WBC [id number] 03:10:00 Test Item Value Reference Range Interpretation [...] FEW ON SCAN NORMAL PLTS code = [id number]) [id number] 02:47:00 Test Item Value Reference Range Interpretation Comments CKMB (test code = < 1.0 NG/ML 1.0-3.6 N MONOCLONAL CKMB CKMBT) METHODOLOGY. [id number] 02:47:00 Test Item Value Reference Range Interpretation [...] changes in trop onin levelscharacter istic of PA. [id number] 02:34:00 Test Item Value Reference Range Interpretation Comments CKMB (test code = CKMBT) NG/ML 1.0-3.6 [id number] 02:34:00 Test Item Value Reference Range Interpretation [...] changes in trop onin levelscharacter istic of PA. - CTA CHEST FOR [id number] 01:10:00 [facility] : 1955 Sex: M Patient Name: TRENTON CHAVEZ Unit No: [id number] EXAMS: CPT CODE: [id number] [place] [id number] Location: Chest CTA , 06/23/20 TECHNIQUE: Chest CTA with and without contrast was performed on a helical scanner. 2D Coronal and sagittal images acquired on the CT workstation system by the electromechanical technologist. Volumetric imaging acquired utilizing maximum intensity [...] infiltrates of concern for possible pneumonia. [facility] El NAME: TRENTON CHAVEZ [address] [place] [address] Blvd PHYS: Jake Gallagher MD, [place] [address] : 1955 AGE: [age] SEX: M LOC: B.ERS PHONE #:[phone] EXAM DATE: 06/23/2020 STATUS: REG ER FAX #: [phone] RAD #: D/C DT PAGE 1 Signed Report (CONTINUED) Patient Name: TRENTON CHAVEZ Unit No: [id number] EXAMS: CPT CODE: [id number] [place] [id number] <Continued> opacification noted in the right lower lobe and lingula. at 0110 Reported and signed by: Sharifa Lebron M.D. CC: Jake Escobar MD Dictated Date/Time: 06/23/2020 (0110) Technologist: Carleen Wadsworth CTDI: 11.74 DLP: 207.09 Trnscrpt: 06/23/2020 (0110) MandeepDAS6 EDUARDO Gallegos NAME: [address] PHYS: Jake Golden MD [place] [address] : 1955 AGE: 64 SEX: M LOC: B.ERS PHONE #: [phone] EXAM DATE: 06/23/2020 STATUS: REG ER FAX #: [phone] RAD #: D/C DT PAGE 2 Signed Report Patient Name: TRENTON CHAVEZ Unit No: [id number] EXAMS: CPT CODE: [id number] [place] [id number] <Continued> Orig Print D/T: S: 06/23/2020 (0113) EDUARDO Gallegos NAME: SC[address] PHYS: Jake [place] [address] : 1955 AGE: 64 SEX: M LOC: B.ERS PHONE #: [phone] EXAM DATE: 06/23/2020 STATUS: REG ER FAX #: [phone] RAD #:D/C DT PAGE 3 Signed ReportB-TYPE NATRIURETIC [id number] 01:06:00 Test Item Value Reference Range Interpretation Comments B-TYPE NATRIURETIC PEPTIDE (test 756.05 PG/ML 0.00-100.00 H code = BNP) Coronavirus 2018 nCoV [id number] 01:00:00 Test Item Value Reference Range Interpretation Comments Coronavirus 2019 nCoV Bedside (test Negative Neg code = [id number]) COMPREHENSIVE METABOLIC [id number] 00:55:00 Test Item Value Reference Range Interpretation [...] 1 NORMAL code = LIPINDEX) MG Index/DL [id number] 00:55:00 Test Item Value Reference Range Interpretation Comments CKMB (test code = < 1.0 NG/ML 1.0-3.6 N MONOCLONAL CKMB CKMBT) METHODOLOGY. [id number] 00:55:00 Test Item Value Reference Range Interpretation [...] changes in trop onin levelscharacter istic of PA. COMPREHENSIVE METABOLIC [id number] 00:42:00 Test Item Value Reference Range Interpretation [...] 1 NORMAL code = LIPINDEX) MG Index/DL [id number] 00:42:00 Test Item Value Reference Range Interpretation Comments CKMB (test code = CKMBT) NG/ML 1.0-3.6 [id number] 00:42:00 Test Item Value Reference Range Interpretation [...] changes in trop onin levelscharacter istic of PA. LACTIC [id number] 00:42:00 Test Item Value Reference Range Interpretation Comments LACTIC ACID (test code = LACT) 1.1 mmol/L 0.4-2.0 N COMPREHENSIVE METABOLIC [id number] 00:38:00 Test Item Value Reference Range Interpretation [...] 1 NORMAL code = LIPINDEX) MG Index/DL [id number] 00:38:00 Test Item Value Reference Range Interpretation Comments TROPONIN-I (test code = TROPI) NG/ML 0.000-0.045 CBC W/MANUAL [id number] 00:32:00 Test Item Value Reference Range Interpretation Comments WHITE BLOOD CELL 366.2 K/mm3 4.1-12.1 HH ON 06/23/20 AT (test code = WBC) 0031, BSHERIE SANTACRUZ CALLED TO AJZ NAGEL. The report was confirmed by re [...] (test code = MDIFF) INDICATED DIFF/SCN PATHOLOGIST'S [id number] 00:32:00 Test Item Value Reference Range Interpretation Comments PATHOLOGIST'S FINDINGS (test code = EXTERNAL COMMENTS PATH) WBC [id number] 00:32:00 Test Item Value Reference Range Interpretation Comments TOTAL CELLS COUNTED (test code = #CELLS >100 TCC) SEGMENTED NEUTROPHILS (test code = % 40-75 SEG) LYMPHOCYTE (test code = LYMPH) % 12.6-43.5 MORPHOLOGY COMMENT (test code = MOC) ON SCAN NORMAL RBCS PLATELET ESTIMATE (test code = ON SCAN ADEQUATE PLTEST) CBC W/MANUAL [id number] 00:32:00 Test Item Value Reference Range Interpretation Comments WHITE BLOOD CELL 366.2 K/mm3 4.1-12.1 HH ON 06/23/20 AT (test code = WBC) 0031, B.LA EvelinIDRajinder CALLED TO JAZ NAGEL. The report was [...] (test code = MDIFF) INDICATED DIFF/SCN WBC [id number] 00:32:00 Test Item Value Reference Range Interpretation Comments TOTAL CELLS COUNTED (test code = #CELLS >100 TCC) SEGMENTED NEUTROPHILS (test code = % 40-75 SEG) LYMPHOCYTE (test code = LYMPH) % 12.6-43.5 MORPHOLOGY COMMENT (test code = MOC) ON SCAN NORMAL RBCS PLATELET ESTIMATE (test code = ON SCAN ADEQUATE PLTEST)
[2021-11-12] MEDS ORDERED: ASPIRIN 81 MG CHEWABLE TABLET ONE (08:48)
[2021-11-12] MEDS ORDERED: LEVALBUTEROL 1.25 MG/3 ML NEB ONE (08:48)
[2021-11-12 09:12] LABS: Hematocrit 33.6 % (39.6-49.0); Lymphocytes % 13.6 % (15.3-44.8); MCV 98.4 fL (80-100); MPV 12.4 fL (7.6-11.3); RBC Red Blood Cell Count 3.41 M/uL (4.33-5.43)
[2021-11-12] MEDS ORDERED: cloNIDine HCL 0.1 MG TAB ONE ×2 (09:17→11:18)
[2021-11-12 09:18] LABS: Albumin 3.4 g/dL (3.4-5.0); Bilirubin Direct 0.2 mg/dL (0-0.2); Bilirubin Total 0.6 mg/dL (0.2-1.0); Magnesium 2.4 mg/dL (1.8-2.4); Potassium 4.1 mmol/L (3.5-5.1); Troponin High Sensitivity 16.6 pg/mL (<58.9)
--- NOTE | 2021-11-12 09:27 | RAD REPORT ---
EXAM DESCRIPTION: Velma Single View11/12/2021 9:14 am CLINICAL HISTORY: Shortness of breath COMPARISON: October 30, 2021 FINDINGS: Small to moderate right and small left pleural effusions are suspected with bibasilar atel ectasis. Mild to moderate additional bilateral interstitial lung opacities. Cardiomegaly IMPRESSION: These findings probably indicate CHF
--- NOTE | 2021-11-12 10:36 | ER ---
Nurse's Notes [facility] Name: Mac Hurtado Age: 66 yrs Sex: Male : 1955 Arrival Date: 11/12/2021 Time: 08:28 Bed 20 Private MD: Steve Montes Diagnosis: CHF Exacerbation Presentation: 11/12 08:35 Chief complaint: Patient states: Difficulty breathing began last night; pt is on O2 at vg1 home at 2L NC presenting with 86% in triage; pt c/o chest tightness. Coronavirus screen: Vaccine status: Patient reports receiving the 2nd dose of the covid vaccine. Client denies travel out of the [place] in the last 14 days. Ebola Screen: Patient denies exposure to infectious person. Patient denies travel to an Ebola-affected area in the 21 days before illness onset. Initial Sepsis Screen: Does the patient meet any 2 criteria? RR > 20 per min. Does the patient have a suspected source of infection? No. Patient's initial sepsis screen is negative. Risk Assessment: Do you want to hurt yourself or someone else? Patient reports no desire to harm self or others. Onset of symptoms was November 11, 2021. 08:35 Method Of Arrival: Wheelchair vg1 08:35 Acuity: ROBERTO 3 vg1 Triage Assessment: 08:37 General: Appears uncomfortable, Behavior is calm, cooperative. Pain: Complains of pain vg1 in chest tightness. Respiratory: Reports shortness of breath on exertion Airway is patent Respiratory effort is even, labored, Respiratory pattern is tachypnea Breath sounds are clear bilaterally. Onset: The symptoms/episode began/occurred yesterday, the patient has moderate shortness of breath. Historical: - Allergies: 08:37 No Known Allergies; vg1 - Home Meds: 08:39 allopurinol 300 mg Oral tab 1 tab once daily [Active]; aspirin 81 mg Oral chew 1 tab davis once daily [Active]; Bosulif 400 mg Oral once daily [Active]; carvedilol 6.25 mg Oral tab 2 times per day [Active]; furosemide 40 mg Oral tab 1 tab once daily [Active]; - PMHx: 08:37 CHF; Diabetes - IDDM; Hypertension; Leukemia; vg1 - PSHx: 08:37 Appendectomy; vg1 - Immunization history:: Client reports receiving the 2nd dose of the Covid vaccine. - Social history:: Smoking status: Patient denies any tobacco usage or history of. Screenin:38 Abuse screen: Denies threats or abuse. Denies injuries from another. Nutritional davis screening: No deficits noted. Tuberculosis screening: No symptoms or risk factors identified. Fall Risk IV access (20 points). Assessment: 08:38 Pain: Complains of pain in chest. Cardiovascular: Reports chest pain, fatigue, davis shortness of breath, Rhythm is regular. Respiratory: Airway is patent Respiratory effort is even, labored, Breath sounds are diminished bilaterally. Vital Signs: 08:35 BP 175 / 99; Pulse 76; Resp 28; Pulse Ox 96% 3 lpm ; Weight 72.57 kg; Height 5 ft. 7 vg1 in. (170.18 cm); Pain 0/10; 08:58 BP 206 / 71; Pulse 66; Resp 22; Pulse Ox 99% on Nebulizer Mask; davis 10:42 BP 179 / 66; Pulse 71; Resp 20; Pulse Ox 98% on 3 lpm NC; davis 11:52 BP 175 / 67; Pulse 54; Resp 19; Pulse Ox 97% on 3 lpm NC; davis 08:35 Body Mass Index 25.06 (72.57 kg, 170.18 cm) vg1 ED Course: 08:28 Patient arrived in ED. am2 08:28 Steve Montes MD is Private Physician. am2 08:30 Giana Lazar FNP is [facility]. jh7 08:30 Petey Mann MD is Attending Physician. jh7 08:37 Triage completed. vg1 08:37 Arm band placed on. vg1 08:38 Kathy Turner, RN is Primary Nurse. davis 08:38 Patient has correct armband on for positive identification. Bed in low position. davis 08:38 No provider procedures requiring assistance completed. davis 09:03 EKG done, by ED staff, reviewed by Giana ROMERO. em1 09:16 XRAY Chest (1 view) In Process Unspecified. EDMS 10:34 Steve Montes MD is Hospitalizing Provider. jh7 13:01 Patient admitted, IV remains in place. davis Administered Medications: 08:57 Drug: Xopenex (levalbuterol) (3) 1.25 mg Route: Inhalation; davis 08:58 Drug: Aspirin Chewable Tablet 324 mg Route: PO; davis 09:12 Drug: cloNIDine 0.1 mg Route: PO; davis 10:44 Follow up: Response: No adverse reaction davis 11:19 Drug: Lasix (furosemide) 20 mg Route: IVP; Site: right antecubital; davis 11:19 Follow up: Response: No adverse reaction davis 11:19 Drug: cloNIDine 0.1 mg Route: PO; davis 11:19 Follow up: Response: No adverse reaction davis Medication: 08:38 VIS not applicable for this client. davis Outcome: 10:35 Decision to Hospitalize by Provider. jh7 13:00 Admitted to Med/surg accompanied by tech, room 410. davis 13:01 Condition: good davis 13:01 Instructed on the need for admit. 13:01 Patient left the ED. davis Signatures: Dispatcher [employer] Papi Lcay em1 Wanda Quezada Victoria RN RN vg1 Kathy Turner RN RN davis Giana Lazar FNP BUILDING PERFORMANCE CONSULTANT 7
--- NOTE | 2021-11-12 10:36 | EDPHYS ---
Physician Documentation [facility] Name: Mac Hurtado Age: 66 yrs Sex: Male : 1955 Arrival Date: 11/12/2021 Time: 08:28 Bed 20 Private MD: Steve Montes ED Physician Petey Mann HPI: 11/12 08:38 This 66 yrs old Black Male presents to ER via Wheelchair with complaints of Breathing jh7 Difficulty. 08:38 The patient has shortness of breath at rest. Onset: The symptoms/episode began/occurred jh7 last night. Duration: The symptoms are continuous. Associated signs and symptoms: Pertinent positives: chest tightness. Patient presents with shortness of breath and chest tightness since last night. He was admitted 3 weeks ago for CHF exacerbation and pneumonia. States that he has recently been started on 2 L of oxygen at home. O2 sat currently 86% at 2 L.. Historical: - Allergies: 08:37 No Known Allergies; vg1 - Home Meds: 08:39 allopurinol 300 mg Oral tab 1 tab once daily [Active]; aspirin 81 mg Oral chew 1 tab davis once daily [Active]; Bosulif 400 mg Oral once daily [Active]; carvedilol 6.25 mg Oral tab 2 times per day [Active]; furosemide 40 mg Oral tab 1 tab once daily [Active]; - PMHx: 08:37 CHF; Diabetes - IDDM; Hypertension; Leukemia; vg1 - PSHx: 08:37 Appendectomy; vg1 - Immunization history:: Client reports receiving the 2nd dose of the Covid vaccine. - Social history:: Smoking status: Patient denies any tobacco usage or history of. ROS: 08:38 Constitutional: Negative for fever, chills, and weight loss, ENT: Negative for injury, jh7 pain, and discharge, Neck: Negative for injury, pain, and swelling, Abdomen/GI: Negative for abdominal pain, nausea, vomiting, diarrhea, and constipation, Skin: Negative for injury, rash, and discoloration, Neuro: Negative for headache, weakness, numbness, tingling, and seizure. 08:38 Cardiovascular: Positive for chest pain, orthopnea, Negative for palpitations. 08:38 Respiratory: Positive for shortness of breath, Negative for wheezing. 08:38 All other systems are negative. Exam: 08:38 Eyes: Pupils equal round and reactive to light, extra-ocular motions intact. Lids and jh7 lashes normal. Conjunctiva and sclera are non-icteric and not injected. Cornea within normal limits. Periorbital areas with no swelling, redness, or edema. ENT: Nares patent. No nasal discharge, no septal abnormalities noted. Oropharynx with no redness, swelling, or masses, exudates, or evidence of obstruction, uvula midline. Mucous membranes moist. Neck: Trachea midline, no thyromegaly or masses palpated, and no cervical lymphadenopathy. Supple, full range of motion without nuchal rigidity, or vertebral point tenderness. No Meningismus. Abdomen/GI: Soft, non-tender, with normal bowel sounds. No distension or tympany. No guarding or rebound. No evidence of tenderness throughout. Back: No spinal tenderness. No costovertebral tenderness. Full range of motion. Skin: Warm, dry with normal turgor. Normal color with no rashes, no lesions, and no evidence of cellulitis. Neuro: Awake and alert, GCS 15, oriented to person, place, time, and situation. Motor strength 5/5 in all extremities. Sensory grossly intact. Normal gait. 08:38 Constitutional: The patient appears alert, awake, restless. 08:38 Cardiovascular: Rate: normal, Rhythm: regular, Heart sounds: S1, normal, S2, normal. 08:38 Respiratory: moderate respiratory distress is noted, Respirations: labored breathing, that is moderate, asymmetrical chest movement, is not seen, accessory muscle usage, that is mild, tachypnea, Breath sounds: are clear throughout, Respiratory rate: 28 Vital Signs: 08:35 BP 175 / 99; Pulse 76; Resp 28; Pulse Ox 96% 3 lpm ; Weight 72.57 kg; Height 5 ft. 7 vg1 in. (170.18 cm); Pain 0/10; 08:58 BP 206 / 71; Pulse 66; Resp 22; Pulse Ox 99% on Nebulizer Mask; davis 10:42 BP 179 / 66; Pulse 71; Resp 20; Pulse Ox 98% on 3 lpm NC; davis 11:52 BP 175 / 67; Pulse 54; Resp 19; Pulse Ox 97% on 3 lpm NC; davis 08:35 Body Mass Index 25.06 (72.57 kg, 170.18 cm) vg1 MDM: 08:30 Patient medically screened. [facility] 10:51 Differential diagnosis: CHF exacerbation, pneumonia, Pulmonary Embolism. Data reviewed: [facility] vital signs, nurses notes, lab test result(s), EKG, radiologic studies, plain films. Data interpreted: Pulse oximetry: on 4L(s) per nasal canula, is 96 %. Test interpretation: by ED physician or midlevel provider: ECG, plain radiologic studies. Counseling: I had a detailed discussion with the patient and/or guardian regarding: the historical points, exam findings, and any diagnostic results supporting the discharge/admit diagnosis, the need for further work-up and treatment in the hospital. Physician consultation: Steve Montes MD was called at 10:30, was contacted at 10:30, regarding admission, patient's condition, and will see patient later today, would like consultation with . Cardiology consult, Dr. Mcnair, would like further tests performed, CTA to rule out PE. Dr. Montes aware of creatinine of 1.55, would like medications started, A second dose of clonidine 0.1 mg. Admission orders: after a detailed discussion of the patient's condition and case, the admit orders are written by me. ED course: The patient was admitted to Dr. Montes. He instructed to order a CTA to rule out PE. The patient will be admitted under inpatient status with Dr. Mcnair as a cardiology consult.. 11/12 08:36 Order name: Basic Metabolic Panel; Complete Time: 09:46 [facility] 11/12 08:36 Order name: CBC with Diff [facility] 11/12 08:36 Order name: D-Dimer; Complete Time: 09:46 [facility] 11/12 08:36 Order name: LFT's; Complete Time: 09:46 [facility] 11/12 08:36 Order name: Magnesium; Complete Time: :46 [facility] 11/12 08:36 Order name: NT PRO-BNP; Complete Time: :46 [facility] 11/12 08:36 Order name: PT-INR; Complete Time: :46 [facility] 11/12 08:36 Order name: Troponin HS; Complete Time: 09:46 [facility] 11/12 08:36 Order name: XRAY Chest (1 view); Complete Time: :46 [facility] 11/12 08:46 Order name: SARS-COV-2 RT PCR (Document "Date of Onset" if Symptomatic) [facility] 11/12 10:31 Order name: CT Chest For PE Angio [facility] 11/12 12:33 Order name: CBC Smear Scan [facility] 11/12 12:55 Order name: Glucose, Ancillary Testing [facility] 11/12 08:36 Order name: EKG; Complete Time: 08:36 [facility] 11/12 08:36 Order name: Cardiac monitoring; Complete Time: 10:18 [facility] 11/12 08:36 Order name: EKG - Nurse/Tech; Complete Time: 08:58 [facility] 11/12 08:36 Order name: IV Saline Lock; Complete Time: 08:58 [facility] 11/12 08:36 Order name: Labs collected and sent; Complete Time: 08:58 [facility] 11/12 08:36 Order name: O2 Per Protocol; Complete Time: 08:58 [facility] 11/12 08:36 Order name: O2 Sat Monitoring; Complete Time: 08:58 [facility] 11/12 11:23 Order name: CT EDMS EC:02 Rate is 65 beats/min. Rhythm is regular. [place] interval is normal. QRS interval is normal. [facility] QT interval is normal. No ST changes noted. Clinical impression: No evidence of ischemia. Administered Medications: 08:57 Drug: Xopenex (levalbuterol) (3) 1.25 mg Route: Inhalation; davis 08:58 Drug: Aspirin Chewable Tablet 324 mg Route: PO; davis 09:12 Drug: cloNIDine 0.1 mg Route: PO; davis 10:44 Follow up: Response: No adverse reaction davis 11:19 Drug: Lasix (furosemide) 20 mg Route: IVP; Site: right antecubital; davis 11:19 Follow up: Response: No adverse reaction davis 11:19 Drug: cloNIDine 0.1 mg Route: PO; davis 11:19 Follow up: Response: No adverse reaction davis Disposition Summary: 11/12/21 10:35 Hospitalization Ordered Hospitalization Status: Inpatient Admission [facility] Provider: Steve Montes [facility] Location: Telemetry/MedSurg (Inpatient) [facility] Condition: Stable [facility] Problem: new [facility] Symptoms: have improved [facility] Bed/Room Type: Standard [facility] Room Assignment: [facility](11/12/21 12:09) Diagnosis - CHF Exacerbation [facility] Forms: - Medication Reconciliation Form [facility] - SBAR form jh7 Addendum: 12/08/2021 14:10 Co-signature as Attending Physician, Petey Mann MD I agree with the assessment and c davis plan of care. Signatures: Dispatcher [employer] Sarita Mcneal, RN Petey Garces MD MD cha Garcia, Victoria, RN RN vg1 Juan JoseStageKathy díaz RN RN ha Hadash, Jennifer, FNP [place] [phone] Corrections: (The following items were deleted from the chart) 11/12 12:09 10:35 [facility]
[2021-11-12] MEDS ORDERED: D50W 25 GM/50 ML SYRINGE IV PRN (10:47)
[2021-11-12] MEDS ORDERED: GLUCAGON 1 MG/VIAL IM PRN (10:47)
[2021-11-12] MEDS ORDERED: D10W 125 ML IV PRN (10:51)
[2021-11-12] MEDS ORDERED: FUROSEMIDE 20 MG/ 2ML VIAL ONE (11:18)
--- NOTE | 2021-11-12 11:22 | RAD REPORT ---
EXAM DESCRIPTION: CT - Chest For Pe Angio - 11/12/2021 11:03 am CLINICAL HISTORY: Chest pain COMPARISON: September 2021 TECHNIQUE: Dynamically enhanced axial 3 mm thick images of the chest were obtained during administra tion of <100> mL Isovue 370 IV contrast. Coronal and oblique reconstruction images were generated and reviewed. Exam utilizes a protocol for optimal evaluation of pulmonary arterial tree. Maximum intensity projections 3D imaging was utilized All CT scans are performed using dose optimization technique as appropriate and may include automated exposure control or mA/KV adjustment according to patient size. FINDINGS: A pulmonary embolus is not seen. A thoracic aortic aneurysm is not noted. Moderate pericardial effusion. Moderate right and small to moderate left pleural effusions Mild bilateral interstitial lung opacities. Bibasilar atelectasis IMPRESSION: Negative for a pulmonary embolism. CHF Moderate pericardial effusion Moderate right and small to moderate left pleural effusions
[2021-11-12] MEDS: INSULIN -REGULAR HUMAN 50 UNIT/0.5 ML ML SQ SCH ×3 (11:30→20:36)
[2021-11-12 12:32] LABS: Blood Morphology Comment NOT SEEN (NOT SEEN); Platelet Estimate DECR; White Blood Cell Scan OK (OK)
[2021-11-12 14:56] VITALS: BMI 27.3
[2021-11-12] MEDS ORDERED: cloNIDine HCL 0.1 MG TAB PO ONE (15:30)
[2021-11-12] MEDS ORDERED: SPIRONOLACTONE 25 MG TABLET PO ONE (15:30)
[2021-11-12] MEDS ORDERED: carvediloL 12.5 MG TAB PO ONE (15:30)
[2021-11-12] MEDS: carvediloL 12.5 MG TAB PO SCH (18:00)
[2021-11-12] MEDS ORDERED: HYDRALAZINE HCL 20 MG/ML VIAL IV PRN (19:23)
[2021-11-12] MEDS: AMLODIPINE 5 MG TAB PO SCH (20:33)
[2021-11-12] MEDS: cloNIDine HCL 0.1 MG TAB PO SCH (20:33)
[2021-11-12] MEDS: ramipriL 5 MG CAP PO SCH (20:33)
[2021-11-13 03:48] LABS: Absolute Lymphocytes (CBC) 1.2 K/uL (0.7-4.9); Lymphocytes % 17.4 % (15.3-44.8); MCV 97.9 fL (80-100); MPV 11.5 fL (7.6-11.3); RBC Red Blood Cell Count 3.06 M/uL (4.33-5.43)
[2021-11-13 04:01] LABS: Potassium 4.1 mmol/L (3.5-5.1)
[2021-11-13] MEDS ORDERED: FUROSEMIDE 40 MG/4 ML VIAL IV ONE (06:26)
--- NOTE | 2021-11-13 07:22 | EKG ---
Test Date: 2021-11-12 Test Time: 08:55:58 Coding Team Lead: JAKE MEASUREMENT RESULTS: Intervals: Rate: 65 DE: 146 QRSD: 86 QT: 426 QTc: 443 [place]: P: 62 DE: 146 QRS: 91 T: 53 INTERPRETIVE STATEMENTS: Normal sinus rhythm Possible Left atrial enlargement Rightward axis Anterior infarct, age undetermined Abnormal ECG Compared to ECG 10/19/2021 16:54:25 Right-axis deviation now present Left posterior fascicular block no longer present Myocardial infarct finding still present Electronically Signed On 11-13-21 07:17:49 CDT by Davi Mcnair
[2021-11-13] MEDS: INSULIN -REGULAR HUMAN 50 UNIT/0.5 ML ML SQ SCH ×4 (07:30→20:37)
[2021-11-13] MEDS: BOSUTINIB 500 MG PO SCH (09:00)
[2021-11-13] MEDS: SPIRONOLACTONE 25 MG TABLET PO SCH (09:27)
[2021-11-13] MEDS: ramipriL 5 MG CAP PO SCH ×2 (09:27→20:38)
[2021-11-13] MEDS: cloNIDine HCL 0.1 MG TAB PO SCH ×3 (09:27→20:38)
[2021-11-13] MEDS: AMLODIPINE 5 MG TAB PO SCH (09:28)
[2021-11-13] MEDS: carvediloL 12.5 MG TAB PO SCH ×2 (09:28→17:29)
[2021-11-13] MEDS: allopurinoL 300 MG TAB PO SCH (10:36)
[2021-11-13] MEDS: FUROSEMIDE 20 MG/ 2ML VIAL IV SCH ×2 (14:38→17:29)
--- NOTE | 2021-11-13 17:15 | PN ---
Date of Progress Note: 11/13/2021 The patient states he feels okay as long as he is resting. He gets exertional dyspnea with minimal a mount of stress. He is still hypertensive despite extensive medications, especially his systolic. I will discuss the patient further with Cardiology and continue to monitor his blood pressure and elizabeth t accordingly. He is back on his usual regimen with the addition of present and Lasix has been given in IV stage. HR/MODL Voice ID: [id number] Report ID: [id number]
--- NOTE | 2021-11-13 19:06 | RAD REPORT ---
EXAM DESCRIPTION: RAD - Chest Lateral Decubitus - 11/13/2021 6:54 pm CLINICAL HISTORY: pulmonary HTN COMPARISON: Chest For Pe Angio dated 11/12/2021 FINDINGS: Bilateral layering pleural effusions are present. The right-sided effusion is larger. Enla rged cardiopericardial silhouette. . IMPRESSION: Bilateral layering pleural effusions.
[2021-11-13] MEDS: NIFEDIPINE XL 60 MG TABLET PO SCH (20:39)
[2021-11-14] MEDS: INSULIN -REGULAR HUMAN 50 UNIT/0.5 ML ML SQ SCH ×4 (07:30→20:45)
--- NOTE | 2021-11-14 08:37 | P.CNS ---
Date of Consult: 11/14/21 Reason for Consult: Pulmonary hypertension CHF Chief Complaint: Shortness of breath History of Present Illness: Patient is 66 years of age with a history of congestive heart failure was admitted discharged came back again complaining of progressive dyspnea orthopnea lower extremity edema he is feeling a little better apparently has pulmonary hypertension bilateral pleural effusion uncontrolled blood pressure patient is on spironolactone and Lasix at home Allergies No Known Allergies Allergy (Unverified 09/06/11 18:45) Home Medications: Allopurinol 300 mg PO DAILY 10/16/21 Amlodipine [Norvasc*] 5 mg PO BID 10/16/21 Bosutinib [Bosulif] 500 mg PO DAILY 10/16/21 Carvedilol [Coreg] 12.5 mg PO BID 10/16/21 Insulin Glargine,Hum.rec.anlog [Basaglar Kwikpen U-100] 100 ml SQ DAILY 10/16/21 Ramipril [Altace] 5 mg PO BID 10/16/21 cloNIDine HCL [Clonidine HCl] 0.1 mg PO TID 10/16/21 Furosemide [Lasix] 40 mg PO BIDL #60 tab 10/23/21 Spironolactone [Aldactone*] 25 mg PO DAILY #30 tab 10/23/21 - Past Medical/Surgical History Diabetic: Yes -: DM -: CHF -: HTN -: Leukemia -: appendectomy -: L cataract - Social History Smoking Status: Unknown if ever smoked Alcohol use: No CD- Drugs: No Caffeine use: No Place of Residence: Home Review of Systems General: Weakness Respiratory: Shortness of Breath Physical Examination Temp Pulse Resp BP Pulse Ox 97.9 F 70 19 152/64 H 91 11/14/21 04:00 11/14/21 04:00 11/14/21 04:00 11/14/21 04:00 11/14/21 04:00 General: Alert, In no apparent distress, Oriented x3 Neck: Supple, JVD distended Cardiovascular: No edema, Regular rate/rhythm, Normal S1 S2 - Problems (1) Congestive heart failure Current Visit: Yes Status: Acute Plan: Age 66 readmitted with shortness of breath he has a small pericardial effusion moderate right-sided pleural effusion no evidence of pulmonary embolism echocardiogram has been ordered mild renal insufficiency treated for leukemia most likely has secondary pulmonary hypertension otherwise no change in therapy for now Daily room air pulse ox Qualifiers: Heart failure chronicity: acute on chronic
[2021-11-14] MEDS: ramipriL 5 MG CAP PO SCH ×2 (08:53→20:44)
[2021-11-14] MEDS: SPIRONOLACTONE 25 MG TABLET PO SCH (08:54)
[2021-11-14] MEDS: cloNIDine HCL 0.1 MG TAB PO SCH ×3 (08:54→20:45)
[2021-11-14] MEDS: NIFEDIPINE XL 60 MG TABLET PO SCH (08:54)
[2021-11-14] MEDS: carvediloL 12.5 MG TAB PO SCH ×2 (08:54→17:24)
[2021-11-14] MEDS: FUROSEMIDE 40 MG TABLET PO SCH ×3 (08:55→17:24)
[2021-11-14] MEDS: BOSUTINIB 500 MG PO SCH (08:55)
[2021-11-14] MEDS: allopurinoL 300 MG TAB PO SCH (08:56)
[2021-11-14] MEDS ORDERED: ONDANSETRON 4 MG/2 ML VIAL IV PRN (11:37)
--- NOTE | 2021-11-14 13:11 | CON ---
Date of Consultation: 11/13/2021 Reason For Consultation: Congestive heart failure exacerbation and severe pulmonary hypertension. History Of Present Illness: Mr. Hurtado had just left the hospital for the same diagnosis. He has an extensive past medical history namely he has a history of acute on chronic diastolic congestive h eart failure. He has a history of severe pulmonary hypertension. He has a history of hypertension, diabetes, pleural effusions, and chronic myeloid leukemia. He is followed by Dr. Trevino in that regard . He came in with shortness of breath, chest tightness, has recently had a pneumonia. His O2 satura tion when he came into the emergency room was 86% on 2 L. He denied chest pain, nausea, vomiting, di aphoresis. Denied palpitations or syncope. Denied any fever or chills. Mostly, he had shortness of breath, PND, orthopnea, and pedal edema. His last echocardiogram showed severe pulmonary hypertensi on with a normal ejection fraction. He does have a known bilateral pleural effusions. Past Medical History: As stated above. Allergies: NONE. Review of Systems: Negative. Social History: Negative. Family History: Negative. Medications: At home include aspirin, allopurinol, carvedilol, Lasix 40 mg daily. He also takes Javier ulif 400 mg once a day for pulmonary hypertension. Physical Examination: Vital Signs: When I saw him; his blood pressure was 190/78, pulse was 65, respiratory rate 22, his t emperature was 97.6. He was afebrile. His glucose was 245. O2 saturation was 96% on nasal cannula. HEENT: Negative. Neck: Supple with no bruit. Chest: Revealed decreased breath sounds bilaterally. Cardiac: Revealed regular rhythm and rate with a tricuspid regurgitation murmur. No gallops or rubs . Abdomen: Benign. Extremities: Revealed no clubbing or cyanosis. He had 1+ edema. Skin: Dry and intact. Neurologic: He was nonfocal. Pulses are present distally bilaterally. Diagnostic Data: His creatinine was 1.5. Hemoglobin was 10.5. His white count was normal. His glu cose was 245. His troponin was negative. BNP was 828. Chest x-ray showed bilateral pleural effusio ns, right greater than the left. EKG showed normal sinus rhythm, left atrial enlargement. Impression And Plan: 1.Acute on chronic diastolic congestive heart failure. 2.Severe pulmonary hypertension. 3.Hypertension. 4.Diabetes. 5.Pleural effusion. 6.Chronic leukemia. He is presently on amlodipine, furosemide, hydralazine, insulin, nifedipine, sp ironolactone, carvedilol, clonidine, and ramipril. I think we need to continue his present regimen. I think we need to continue his pulmonary hypertension medication. I think we need to get a Pulmono logy consultation and I think we need to get a chest x-ray with decubitus film to see if his effusion layered. He may be a candidate for thoracentesis. The case was discussed with Dr. Montes. STACI/JOHNY Voice ID: [id number] Report ID: [id number]
--- NOTE | 2021-11-14 16:00 | PN ---
Date of Progress Note: 11/14/2021 Mr. Hurtado was seen for pulmonary hypertension, [id number] diastolic congestive heart failur e. He is on appropriate therapy. O2 saturation is adequate, although I think he needs oxygen at [facility]. Pulmonology consultation has been obtained. Chest x-ray showed layering of pleural effusion. I am not so sure if this is enough for thoracentesis, but I will leave that up to Dr. Montes and Dr. Emerald martínez to decide. From a cardiac standpoint, he is on the medication. He is on amlodipin e. He is on Bosulif, carvedilol, insulin, ramipril, clonidine, Lasix, spironolactone. He may benefi t from a higher dose of carvedilol. If his pressure becomes more of an issue, we can definitely castro ge the amlodipine to Procardia XL 60. We will continue to follow him. STACI/JOHNY Voice ID: [id number] Report ID: [id number]
[2021-11-15] MEDS: INSULIN -REGULAR HUMAN 50 UNIT/0.5 ML ML SQ SCH ×4 (08:47→20:49)
[2021-11-15] MEDS: ramipriL 5 MG CAP PO SCH ×2 (08:47→20:49)
[2021-11-15] MEDS: cloNIDine HCL 0.1 MG TAB PO SCH ×3 (08:48→20:49)
[2021-11-15] MEDS: NIFEDIPINE XL 60 MG TABLET PO SCH (08:48)
[2021-11-15] MEDS: SPIRONOLACTONE 25 MG TABLET PO SCH (08:48)
[2021-11-15] MEDS: carvediloL 12.5 MG TAB PO SCH ×2 (08:48→16:35)
[2021-11-15] MEDS: FUROSEMIDE 40 MG TABLET PO SCH ×2 (08:48→16:35)
[2021-11-15] MEDS: allopurinoL 300 MG TAB PO SCH (08:48)
[2021-11-15] MEDS: BOSUTINIB 500 MG PO SCH (08:49)
--- NOTE | 2021-11-15 19:12 | PN ---
Date of Progress Note: 11/15/2021 The patient states he feels considerably better today and he is breathing better. Still requires his O2 and he now lost a total of 9 pounds. However, the pulmonary hypertension is still somewhat of a question amara, although his blood pressure is improved since the change of medication as well. He wa s seen by Pulmonology who felt possibly the medication that he is on for his CLL may be contributing. However, it is a partial factor. It is to be discussed with server software engineer. He is to stay for anoth er day, perhaps ready to be discharged in the a.m. HR/MODL Voice ID: [id number] Report ID: [id number]
[2021-11-16 05:26] VITALS: O2SAT 94
[2021-11-16] MEDS: INSULIN -REGULAR HUMAN 50 UNIT/0.5 ML ML SQ SCH ×2 (07:30→13:10)
[2021-11-16 09:47] VITALS: BP 171/70; TEMP 98.5
[2021-11-16] MEDS: SPIRONOLACTONE 25 MG TABLET PO SCH (09:57)
[2021-11-16] MEDS: FUROSEMIDE 40 MG TABLET PO SCH (09:58)
[2021-11-16] MEDS: ramipriL 5 MG CAP PO SCH (09:58)
[2021-11-16] MEDS: NIFEDIPINE XL 60 MG TABLET PO SCH (09:58)
[2021-11-16] MEDS: allopurinoL 300 MG TAB PO SCH (09:59)
[2021-11-16] MEDS: cloNIDine HCL 0.1 MG TAB PO SCH ×2 (09:59→14:19)
[2021-11-16] MEDS: carvediloL 12.5 MG TAB PO SCH (09:59)
[2021-11-16] MEDS ORDERED: predniSONE 10 MG TAB PO SCH (11:00)
[2021-11-16 11:04] LABS: Potassium 4.1 mmol/L (3.5-5.1)
--- NOTE | 2021-11-16 12:05 | P.PN ---
Subjective Date of Service: 11/16/21 Chief Complaint: CHF Subjective: Improving (Doing much better no new complaints) Review of Systems Respiratory: Shortness of Breath Physical Examination - Vital Signs Temperature: 98.5 F Blood Pressure: 171/70 Pulse: 68 Respirations: 23 Pulse Ox (%): 98 - Physical Exam General: Alert, In no apparent distress, Oriented x3 HEENT: Atraumatic Neck: Supple, JVD not distended Respiratory: Clear to auscultation bilaterally Cardiovascular: No edema, Normal S1 S2 Assessment And Plan - Current Problems (Diagnosis) (1) Congestive heart failure Current Visit: Yes Status: Acute Plan: Doign much better/ Poss SE of Robertof, OCHOA Trevino hold Borsulif for now. REnal fucnction is worse. Echo not available/No Hx of CAD/Diastolic heart failure/ Pulmonary HTN. Hold lasix for now REsume if weight ain more than 2 pounds/ lost 6 pounds in weight/ Trial of pred 10 bid for 2 wks/ F/u with me next week Qualifiers: Heart failure chronicity: acute on chronic
[2021-11-16] MEDS ORDERED: AMLODIPINE 5 MG TAB PO SCH (14:00)
--- NOTE | 2021-11-16 17:46 | PN ---
Date of Progress Note: 11/16/2021 The patient continues to improve both symptomatically and clinically. There has been discussion [facility], Pulmonology, and Oncology as far as medication contributing to his problem with pulmo nary hypertension and decided to hold his cancer drug Bosulif at least for 2 weeks. The other issue has been the diuresis. He has lost another few pounds. His creatinine has gone from 1.55 to 2.02. He was therefore instructed to hold the Lasix unless he gains 2 pounds and to weight himself twice a day. Prednisone was also added to the regimen at 10 mg b.i.d. He was to continue on his diabetic re gimen at home consisting of long-acting insulin and sliding scale. Otherwise, he is to continue the usual medication of clonidine, Coreg, allopurinol, and Altace. The amlodipine, which was changed to Procardia a couple of days ago while I was in the hospital, I think we will go back to the [facility] be cause we got too many different possibilities going on same time and trying to delineate what the con tributing factors are. He was instructed to go back on his [facility]. He will be seen in followup niurka lloyd early in the week, by Dr. Melchor later in the week depending obviously, Dr. Uriel forman l be involved as well. HR/MODL Voice ID: [id number] Report ID: [id number]
[2021-11-17] MEDS ORDERED: AMLODIPINE 5 MG TAB PO SCH (09:00)
--- NOTE | 2021-11-18 07:24 | ECHO ---
HEIGHT: 5 ft 7 in WEIGHT: 162 lb 11.2 oz DATE OF STUDY: 11/15/[address]: Neo Stone MD 2-DIMENSIONAL: YES M.MODE: YES DOPPLER: YES COLOR FLOW: YES TDS: PORTABLE: YES DEFINITY: BUBBLE STUDY: DIAGNOSIS: PULMONARY HYPERTENSION/ CONGESTIVE HEART FAILURE CARDIAC HISTORY: CATHERIZATION: NO SURGERY: NO PROSTHETIC VALVE: NO PACEMAKER: NO MEASUREMENTS (cm) DIASTOLIC (NORMALS) SYSTOLIC (NORMALS) IVSd 1.2 (0.6-1.2) LA Diam 4.8 (1.9-4.0) LVEF 60-65% LVIDd 4.6 (3.5-5.7) LVIDs 2.6 (2.0-3.5) %FS 43% LVPWd 1.3 (0.6-1.2) Ao Diam 2.7 (2.0-3.7) 2 DIMENSIONAL ASSESSMENT: RIGHT ATRIUM: NORMAL LEFT ATRIUM: ENLARGED RIGHT VENTRICLE: NORMAL LEFT VENTRICLE: MILD LEFT VENTRICULAR HYPERTROPHY TRICUSPID VALVE: MODERATE TRICUSPID REGURGITATION MITRAL VALVE: MILD MITRAL REGURGITATION PULMONIC VALVE: NORMAL AORTIC VALVE: NORMAL PERICARDIAL EFFUSION: SMALL AORTIC ROOT: NORMAL LEFT VENTRICULAR WALL MOTION: NORMAL DOPPLER/COLOR FLOW: SEE BELOW COMMENTS: NORMAL LEFT VENTRICULAR EJECTION FRACTION 60-65% WITH NORMAL WALL MOTION. MODERATE TRICUSPID REGURGITATION AND MILD MITRAL REGURGITATION. MILD CONCENTRIC LEFT VENTRICULAR HYPERTENSION. SMALL CIRCUMFERENTIAL PERICARDIAL EFFUSION. LEFT ATRIAL ENLARGEMENT. MODERATE PULMONARY HYPERTENSION WITH RIGHT VENTRICULAR SYSTOLIC PRESSURE OF 55 mmHg. TECHNOLOGIST: MACARIO NICHOLE
== END 2021-11-16 14:35 | disposition home or self-care (01) | DRG 291 ==
LOC: ER 08:26 → ERHOLD 10:39 → 4TH 12:20
PROVIDERS: ADMIT Family Medicine; ATTEND Family Medicine
DX: I11.0 Hypertensive heart disease with heart failure (principal); I50.33 Acute on chronic diastolic (congestive) heart failure; C91.10 Chronic lymphocytic leukemia of B-cell type not having achieved remission; I27.20 Pulmonary hypertension, unspecified; E11.9 Type 2 diabetes mellitus without complications; N28.9 Disorder of kidney and ureter, unspecified; T45.1X5A Adverse effect of antineoplastic and immunosuppressive drugs, initial encounter; Z79.4 Long term (current) use of insulin; Z20.822 Contact with and (suspected) exposure to COVID-19
CPT/HCPCS: 36415; 71045; 71046; 71275; 80048; 80076; 82947; 83735; 83880; 84484; 85025; 85379; 85610; 93005; 93306; 96374; 99285; J0360; J1815; J1940; J7512; Q9967; U0003

== ENCOUNTER 2021-12-17 06:30 | Day surgery (SDC) | payer OTHER ==
[2021-12-16 09:19] LABS: Potassium 4.3 mmol/L (3.5-5.1)
[2021-12-16 09:20] LABS: Protime INR 1.04
[2021-12-16 09:25] LABS: SARS-CoV-2 Antigen Rapid Res Negative (Negative)
--- NOTE | 2021-12-16 09:25 | EKG ---
Test Date: 2021-12-16 Test Time: 08:50:24 Outreach And Education Social Worker: TANESHA MEASUREMENT RESULTS: Intervals: Rate: 49 KS: 162 QRSD: 88 QT: 460 QTc: 415 [place]: P: 17 KS: 162 QRS: 78 T: 40 INTERPRETIVE STATEMENTS: Marked sinus bradycardia Anterior infarct, age undetermined Abnormal ECG Compared to ECG 11/12/2021 08:55:58 Sinus rhythm no longer present Right-axis deviation no longer present Myocardial infarct finding still present Electronically Signed On 12-16-21 09:24:30 CDT by Davi Mcnair
[2021-12-16 09:27] LABS: Absolute Lymphocytes (CBC) 1.3 K/uL (0.7-4.9); Hematocrit 32.3 % (39.6-49.0); MCV 97.7 fL (80-100); MPV 10.1 fL (7.6-11.3); RBC Red Blood Cell Count 3.31 M/uL (4.33-5.43)
[2021-12-17] MEDS ORDERED: FENTANYL CITR 100 MCG/2 ML ONE (06:45)
[2021-12-17] MEDS ORDERED: HEPA 1000U/500MLS 1,000 UNIT/500 ML BAG IV ONE (06:45)
[2021-12-17] MEDS ORDERED: MIDAZOLAM HCL 2 MG/2 ML INJ ONE (06:46)
[2021-12-17] MEDS ORDERED: ATROPINE SULF 1 MG/10 ML SYR IV ONE (06:46)
[2021-12-17] MEDS ORDERED: NA CHLORIDE 0.9% 0 ML IV ONE (06:46)
[2021-12-17] MEDS ORDERED: NA CHLORIDE 0.9% 500 ML ONE (06:49)
[2021-12-17] MEDS ORDERED: LIDOCAINE 1% MPF 5 ML VIAL ONE (06:51)
[2021-12-17] MEDS ORDERED: NITROGLYCERIN 100 MCG/ML SYR (for cath lab use only) IV ONE (06:56)
[2021-12-17] MEDS ORDERED: HYDRALAZINE HCL 20 MG/ML VIAL ONE (07:21)
[2021-12-17 12:55] VITALS: BP 162/63; O2SAT 97
--- NOTE | 2021-12-17 16:29 | OP ---
Date of Procedure: 12/17/2021 Surgeon: Davi Mcnair MD [place] Operator: Ms. Lucía Pennington. Procedures: Left heart catheterization, selective coronary arteriogram, common femoral artery angiog diallo. Indication: Unstable angina, multiple admissions with congestive heart failure, pulmonary hypertensi on to the hospital. 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 He was admitted as an outpatient. He was given Versed and fentanyl for sedation. A 6-Maori stack th was introduced in the right common femoral artery. Angiography there showed an ostial stenosis of the SFA about 70%. We decided to hold manual pressure for hemostasis. Luis Fernando catheter left and ri ght cannulated the left main and right main respectively. He had diffuse plaquing of the circumflex and LAD. He had a 70% stenosis in the first diagonal. The JR4 cannulated the right main. He was ri ght dominant. About a 50% stenosis in the mid RCA. The patient tolerated the procedure well. There were no complications. Blood Loss: 5 mL. Anesthesia: Total conscious sedation was 30 minutes. Postoperative Diagnosis: Moderate coronary artery disease. Plan: Plan is for medical therapy. I am going to increase his carvedilol to 25 b.i.d., start him on statin 40 daily. He will continue his home medication. He will be at bedrest for 6 hours after the procedure and he can go home. I will see him in the office in 2 weeks. STACI/JOHNY Voice ID: [id number] Report ID: [id number]
== END 2021-12-17 13:38 | disposition home or self-care (01) ==
LOC: CCL 06:30
DX: I25.110 Atherosclerotic heart disease of native coronary artery with unstable angina pectoris (principal); I11.0 Hypertensive heart disease with heart failure; I50.33 Acute on chronic diastolic (congestive) heart failure; I27.21 Secondary pulmonary arterial hypertension; E11.9 Type 2 diabetes mellitus without complications; C92.10 Chronic myeloid leukemia, BCR/ABL-positive, not having achieved remission; Z79.899 Other long term (current) drug therapy; Z20.822 Contact with and (suspected) exposure to COVID-19
CPT/HCPCS: 93005; 85025; 80048; 36415; 85610; 82947 ×2; 85730; 93454; 87811; C1893; Q9966; J0360; J2250; J3010; J7040; J1644; J0583

== ENCOUNTER 2023-03-10 21:07 | Emergency (ER) | payer OTHER ==
--- OUTSIDE RECORDS SUMMARY | 2023-03-10 21:12 | XMS REPORT | Continuity of Care Document ---
:[address] [facility] t Address [address] [facility] [address] [place] [address] Care Team Providers Name Role Phone Forrest Coley Attending Clinician Unavailable RATNA CASSIDY Attending Clinician Unavailable Ratna Cassidy Attending Clinician Forrest Coley Admitting Clinician Unavailable Payers Payer Name Policy Type Policy Number Effective Date Expiration Date S ource Problems Condition Condition Condition Status Onset Resolution Last Treating Co mments Source Name Details Category Date Date Treatment Clinician Date CHRONIC CHRONIC Diagnosis Active 2019-052020-06-20 Memoria MYELOID MYELOID 2-28 07:50:00 l LEUKEMIA LEUKEMIA 00:00: Levon n Active 00 05/21/2020 [facility] CHRONIC CHRONIC Diagnosis Active 2020-06-20 Memoria MYELOID MYELOID 07:50:00 l LEUKEMIA, LEUKEMIA, Herm jessie BCR/ABL-PO BCR/ABL-PO SITI SITI Active [facility] Allergies, Adverse Reactions, Alerts Allergy Allergy Status Severity Reaction(s) Onset Inactive Treating Comm ents Source Name Type Date Date Clinician No Known DA Active [facility]22 [place] [facility] 00 [facility] No Known DA Active [facility] 06-22 [place] 00:[place]: [facility] Social History Smoking Status Start Date Stop Date Source Social History [facility] Medications Ordered Filled Start Stop Current Ordering [...] ML 2019-05 Yes 70 units, Memoria Insulin 2-29 SUB-Q, l Glargine 17:13: Daily, 0 Radha nn 100 UNT/ML 00 Refill(s) Pen Injector [Basaglar] ramipril 10 2019-05 Yes 10 mg = 1 M emoria mg oral 2-29 cap, PO, l capsule 17:13: BID, 0 Ruperto 00 Refill(s) Metformin 2019-05 Yes 1,000 mg = Me moria hydrochlori 2-29 1 tab, PO, l de 1000 MG 17:13: BID-Meals, H ermann Oral Tablet 00 # 30 tab, 0 Refill(s) 3 ML 2019-05 Yes 70 units, Memoria Insulin 2-29 SUB-Q, l Glargine 17:13: Daily, 0 Radha nn 100 UNT/ML 00 Refill(s) Pen Injector [Basaglar] Vital Signs Vital Name Observation Time Observation Value Comments Source Height 2020-05-22 16:49:00 170.18 cm [facility] Weight 2020-05-22 16:49:00 [facility] BMI Calculated 2020-05-22 16:49:00 Katherine grossman Thomson Height 2020-05-22 15:19:00 170.18 cm [facility] Weight 2020-05-22 15:19:00 [facility] BMI Calculated 2020-05-22 15:19:00 Katherine Jacome Procedures This patient has no known procedures. Encounters Start End Encounter Admission Attending Care Care Encounter Source Date/Time Date/Time Type Type Clinicians Facility Department ID 2020-06-23 Inpatient MARÍA Coley EUGENIA [facility] [id number] [facility] 01:20:[address] [place] [address] 2020-05-22 2020-05-22 Outpatient ANGE, MHBL MHBL [id number] MHBL 09:01:00 23:59:00 RATNA 2020-05-22 2020-05-22 PreReg [facility] [id number] Memoria 16:00:00 16:00:00 r Thomson 00 l [facility] 2020-05-22 2020-05-22 PreReg [facility]ly [facility] [id number] Memoria 16:00:00 16:00:00 r Ruperto 00 l [facility] 2020-05-22 2020-05-22 Outpatient Pant, MHPL [facility] [id number] 10:00:00 10:00:00 Ratna 00 Jessica Results Test Description Test Time Test Comments Results Result Comments Source GLUCOSE BEDSIDE TESTING 2020-06-28 12:11:00 Test Item Value Reference Range Interpretation Comme nts GLUCOSE BEDSIDE TESTING (test code = GLUBED) 214 MG/DL 70-119 H GLUCOSE BEDSIDE [id number] 21:49:00 Test Item Value Reference Range Interpretation Comments GLUCOSE BEDSIDE TESTING (test code 195 MG/DL 70-119 H = GLUBED) GLUCOSE BEDSIDE [id number] 15:38:00 Test Item Value Reference Range Interpretation Comments GLUCOSE BEDSIDE TESTING (test code 251 MG/DL 70-119 H = GLUBED) GLUCOSE BEDSIDE [id number] 11:48:00 Test Item Value Reference Range Interpretation Comments GLUCOSE BEDSIDE TESTING (test code 212 MG/DL 70-119 H = GLUBED) GLUCOSE BEDSIDE [id number] 06:03:00 Test Item Value Reference Range Interpretation Comments GLUCOSE BEDSIDE TESTING (test code 139 MG/DL 70-119 H = GLUBED) CBC W/MANUAL [id number] 23:26:00 Test Item Value Reference Range Interpretation [...] (test code INDICATED = MDIFF) DIFF/SCN WBC [id number] 23:26:00 Test Item Value Reference Range Interpretation [...] FEW ON SCAN NORMAL PLTS code = [id number]) COMPREHENSIVE METABOLIC [id number] 22:28:00 Test Item Value Reference Range Interpretation [...] 1 NORMAL code = LIPINDEX) MG Index/DL [id number] 22:28:00 Test Item Value Reference Range Interpretation Comments PHOSPHOROUS (test code = PHOS) 3.7 MG/DL 2.5-4.9 N URIC [id number] 22:28:00 Test Item Value Reference Range Interpretation Comments URIC ACID (test code 8.7 MG/DL 3.5-7.2 H Results maybe depressed = URIC) if patient is t aking Metamizole(Dipy josé miguel). LACTIC DEHYDROGENASE(LDH)2020-06-26 22:28:00 Test Item Value Reference Range Interpretation Comments LACTIC DEHYDROGENASE(LDH) (test 669 Unit/L 84-246 H code = LDH) [id number] 22:28:00 Test Item Value Reference Range Interpretation Comments MAGNESIUM (test code = MAG) 2.8 MG/DL 1.6-2.6 H CBC W/MANUAL [id number] 22:06:00 Test Item Value Reference Range Interpretation [...] (test code INDICATED = MDIFF) DIFF/SCN WBC [id number] 22:06:00 Test Item Value Reference Range Interpretation Comments TOTAL CELLS COUNTED (test code = #CELLS >100 TCC) SEGMENTED NEUTROPHILS (test code = % 40-75 SEG) LYMPHOCYTE (test code = LYMPH) % 12.6-43.5 MORPHOLOGY COMMENT (test code = MOC) ON SCAN NORMAL RBCS PLATELET ESTIMATE (test code = ON SCAN ADEQUATE PLTEST) CBC W/MANUAL [id number] 22:06:00 Test Item Value Reference Range Interpretation [...] (test code INDICATED = MDIFF) DIFF/SCN WBC [id number] 22:06:00 Test Item Value Reference Range Interpretation Comments TOTAL CELLS COUNTED (test code = #CELLS >100 TCC) SEGMENTED NEUTROPHILS (test code = % 40-75 SEG) LYMPHOCYTE (test code = LYMPH) % 12.6-43.5 MORPHOLOGY COMMENT (test code = MOC) ON SCAN NORMAL RBCS PLATELET ESTIMATE (test code = ON SCAN ADEQUATE PLTEST) GLUCOSE BEDSIDE [id number] 21:21:00 Test Item Value Reference Range Interpretation Comments GLUCOSE BEDSIDE TESTING (test code 353 MG/DL 70-119 H = GLUBED) GLUCOSE BEDSIDE [id number] 16:54:00 Test Item Value Reference Range Interpretation Comments GLUCOSE BEDSIDE TESTING (test code 294 MG/DL 70-119 H = GLUBED) GLUCOSE BEDSIDE [id number] 12:27:00 Test Item Value Reference Range Interpretation Comments GLUCOSE BEDSIDE TESTING (test code 324 MG/DL 70-119 H = GLUBED) - XR CHEST 1 [id number] 07:53:00 [facility] : 1955 Sex: M FAX: Jake Parry MD [phone] [place]: St: [facility] FAX: Jose uDong NP [phone] FAX: Forrest Wu MD [phone] Patient Name: TRENTON CHAVEZ Unit No: [id number] EXAMS: CPT CODE: [id number] XR CHEST 1 V 06153 INDICATION: COVID LOCATION: T18 COMPARISON STUDY: Chest radiograph dated June 22, 2020. FINDINGS:Single view of the chest. Decreased lung volumes . Similar bilateral interstitial opacities. There is no pneumothorax or pleural fluid. [...] Jake Escobar MD; Jose Carrillo NP; Forrest Coley Dictated Date/Time: 06/26/2020 (0753)Technologist: Kendall Gutierrez Transcribed Date/Time: 06/26/2020 (0753) By: [email or web address] Orig Print D/T: S: 06/2020 (0756) EDUARDO Lam NAME: TRENTON CHAVEZ [facility] PHYS: LISA - Jose Carrillo [address] : 1955 AGE: 64 SEX: Doni LAM, [place] [id number] LOC: B.340 W PHONE #: [phone] EXAM DATE: 06/26/2020 STATUS: ADM IN FAX #: [phone] RAD NO: DC Dt: PAGE 1 Signed ReportCBC W/MANUAL [id number] 06:38:00 Test Item Value Reference Range Interpretation Comments WHITE BLOOD CELL 267.5 K/mm3 4.1-12.1 Critical va lu are (test code = WBC) excluded f [...] (test code INDICATED = MDIFF) DIFF/SCN WBC [id number] 06:38:00 Test Item Value Reference Range Interpretation [...] NORMAL PLTS code = PLTMORPH) CBC W/MANUAL [id number] 06:16:00 Test Item Value Reference Range Interpretation Comments WHITE BLOOD CELL 267.5 K/mm3 4.1-12.1 HH Critical va lunichole are (test code = WBC) excluded f [...] (test code INDICATED = MDIFF) DIFF/SCN WBC [id number] 06:16:00 Test Item Value Reference Range Interpretation [...] NORMAL PLTS code = PLTMORPH) GLUCOSE BEDSIDE [id number] 06:09:00 Test Item Value Reference Range Interpretation Comments GLUCOSE BEDSIDE TESTING (test code 146 MG/DL 70-119 H = GLUBED) COMPREHENSIVE METABOLIC [id number] 05:58:00 Test Item Value Reference Range Interpretation [...] code = LIPINDEX) MG Index/DL CBC W/MANUAL [id number] 05:01:00 Test Item Value Reference Range Interpretation [...] (test code INDICATED = MDIFF) DIFF/SCN WBC [id number] 05:01:00 Test Item Value Reference Range Interpretation Comments TOTAL CELLS COUNTED (test code = #CELLS >100 TCC) SEGMENTED NEUTROPHILS (test code = % 40-75 SEG) LYMPHOCYTE (test code = LYMPH) % 12.6-43.5 MORPHOLOGY COMMENT (test code = MOC) ON SCAN NORMAL RBCS PLATELET ESTIMATE (test code = ON SCAN ADEQUATE PLTEST) CBC W/MANUAL [id number] 05:01:00 Test Item Value Reference Range Interpretation Comments WHITE BLOOD CELL 267.5 K/mm3 4.1-12.1 HH Critical mn lues are (test code = WBC) excluded [...] (test code INDICATED = MDIFF) DIFF/SCN WBC [id number] 05:01:00 Test Item Value Reference Range Interpretation Comments TOTAL CELLS COUNTED (test code = #CELLS >100 TCC) SEGMENTED NEUTROPHILS (test code = % 40-75 SEG) LYMPHOCYTE (test code = LYMPH) % 12.6-43.5 MORPHOLOGY COMMENT (test code = MOC) ON SCAN NORMAL RBCS PLATELET ESTIMATE (test code = ON SCAN ADEQUATE PLTEST) GLUCOSE BEDSIDE [id number] 21:09:00 Test Item Value Reference Range Interpretation Comments GLUCOSE BEDSIDE TESTING (test code 256 MG/DL 70-119 H = GLUBED) GLUCOSE BEDSIDE [id number] 17:21:00 Test Item Value Reference Range Interpretation Comments GLUCOSE BEDSIDE TESTING (test code 196 MG/DL 70-119 H = GLUBED) GLUCOSE BEDSIDE [id number] 12:58:00 Test Item Value Reference Range Interpretation Comments GLUCOSE BEDSIDE TESTING (test code 165 MG/DL 70-119 H = GLUBED) CBC W/MANUAL [id number] 08:27:00 Test Item Value Reference Range Interpretation Comments WHITE BLOOD CELL 366.2 K/mm3 4.1-12.1 HH ON 06/23/20 AT (test code = WBC) 0031, B.LA EvelinRIB CALLED TO JAZ NAGEL. The report was [...] (test code = MDIFF) INDICATED DIFF/SCN PATHOLOGIST'S [id number] 08:27:00 Test Item Value Reference Range Interpretation Comments PATHOLOGIST'S SEE COMMENT COMMENTS COMMENTS:LEUKO CYTOSIS FINDINGS (test EXTERNAL WITH NEUTROPH ILS IN code = PATH) ALL STAGES OFMATURATION AN D EOSINOPHILIA AN D BASOPHILIA, CON SISTENT WITHPERSISTENT CHRONIC MYELOGENOUS LEUKEMIA(CML)DEMETRIUS RAMIREZ ST: YAN ARTHUR MDEntered by: ANDREA, on 06/25/20826. WBC [id number] 08:27:00 Test Item Value Reference Range Interpretation [...] FEW ON SCAN NORMAL PLTS code = [id number]) CBC W/MANUAL [id number] 07:23:00 Test Item Value Reference Range Interpretation [...] (test code INDICATED = MDIFF) DIFF/SCN WBC [id number] 07:23:00 Test Item Value Reference Range Interpretation [...] FEW ON SCAN NORMAL PLTS code = [id number]) GLUCOSE BEDSIDE [id number] 06:28:00 Test Item Value Reference Range Interpretation Comments GLUCOSE BEDSIDE TESTING (test code = 71 MG/DL 70-119 N GLUBED) COMPREHENSIVE METABOLIC [id number] 06:20:00 Test Item Value Reference Range Interpretation [...] code = LIPINDEX) MG Index/DL COMPREHENSIVE METABOLIC [id number] 06:16:00 Test Item Value Reference Range Interpretation [...] 1 NORMAL = LIPINDEX) Index/DL CBC W/MANUAL [id number] 06:08:00 Test Item Value Reference Range Interpretation [...] (test code INDICATED = MDIFF) DIFF/SCN WBC [id number] 06:08:00 Test Item Value Reference Range Interpretation Comments TOTAL CELLS COUNTED (test code = #CELLS >100 TCC) SEGMENTED NEUTROPHILS (test code = % 40-75 SEG) LYMPHOCYTE (test code = LYMPH) % 12.6-43.5 MORPHOLOGY COMMENT (test code = MOC) ON SCAN NORMAL RBCS PLATELET ESTIMATE (test code = ON SCAN ADEQUATE PLTEST) CBC W/MANUAL [id number] 06:08:00 Test Item Value Reference Range Interpretation [...] (test code INDICATED = MDIFF) DIFF/SCN WBC [id number] 06:08:00 Test Item Value Reference Range Interpretation Comments TOTAL CELLS COUNTED (test code = #CELLS >100 TCC) SEGMENTED NEUTROPHILS (test code = % 40-75 SEG) LYMPHOCYTE (test code = LYMPH) % 12.6-43.5 MORPHOLOGY COMMENT (test code = MOC) ON SCAN NORMAL RBCS PLATELET ESTIMATE (test code = ON SCAN ADEQUATE PLTEST) GLUCOSE BEDSIDE [id number] 21:32:00 Test Item Value Reference Range Interpretation Comments GLUCOSE BEDSIDE TESTING (test code 206 MG/DL 70-119 H = GLUBED) GLUCOSE BEDSIDE [id number] 16:57:00 Test Item Value Reference Range Interpretation Comments GLUCOSE BEDSIDE TESTING (test code 140 MG/DL 70-119 H = GLUBED) Covid 19 InHouse [id number] 13:44:00 Test Item Value Reference Range Interpretation Comments Covid 19 Negative Negative A negative resu lt does not InHouse NTX preclude the SA RS-COV-2 (test code = viralinfection and should not be [id number]) used as the so le basis forpatient [...] performancechar acteristics were determined by Doni harp [facility]. Thi s test has notbeen FDA deuce [...] defined by CDC? YesDate of Symptom Onset: [id number] due to COVID? NoIn ICU due to COVID? NoResident in a congregate care setting? No? NoAge at collection: Y GLUCOSE BEDSIDE [id number] 12:11:00 Test Item Value Reference Range Interpretation Comments GLUCOSE BEDSIDE TESTING (test code 268 MG/DL 70-119 H = GLUBED) URIC [id number] 11:26:00 Test Item Value Reference Range Interpretation Comments URIC ACID (test 11.6 MG/DL 3.5-7.2 H Results mayb e depressed code = URIC) if patient is t aking Metamizole(Dipy josé miguel). LACTIC DEHYDROGENASE(LDH)2020-06-24 11:26:00 Test Item Value Reference Range Interpretation Comments LACTIC DEHYDROGENASE(LDH) (test 802 Unit/L 84-246 H code = LDH) URIC [id number] 11:25:00 Test Item Value Reference Range Interpretation Comments URIC ACID (test code = URIC) MG/DL 3.5-7.2 LACTIC DEHYDROGENASE(LDH)2020-06-24 11:25:00 Test Item Value Reference Range Interpretation Comments LACTIC DEHYDROGENASE(LDH) (test 802 Unit/L 84-246 H code = LDH) CBC W/MANUAL [id number] 10:10:00 Test Item Value Reference Range Interpretation [...] (test code INDICATED = MDIFF) DIFF/SCN WBC [id number] 10:10:00 Test Item Value Reference Range Interpretation [...] FEW ON SCAN NORMAL PLTS code = [id number]) BASIC METABOLIC [id number] 07:31:00 Test Item Value Reference Range Interpretation [...] MG 1 NORMAL code = LIPINDEX) Index/DL [id number] 07:31:00 Test Item Value Reference Range Interpretation Comments PHOSPHOROUS (test code = PHOS) 4.7 MG/DL 2.5-4.9 N [id number] 07:31:00 Test Item Value Reference Range Interpretation Comments MAGNESIUM (test code = MAG) 2.9 MG/DL 1.6-2.6 H COMPREHENSIVE METABOLIC [id number] 07:03:00 Test Item Value Reference Range Interpretation [...] code = LIPINDEX) MG Index/DL CBC W/MANUAL [id number] 06:57:00 Test Item Value Reference Range Interpretation [...] (test code INDICATED = MDIFF) DIFF/SCN WBC [id number] 06:57:00 Test Item Value Reference Range Interpretation Comments TOTAL CELLS COUNTED (test code = #CELLS >100 TCC) SEGMENTED NEUTROPHILS (test code = % 40-75 SEG) LYMPHOCYTE (test code = LYMPH) % 12.6-43.5 MORPHOLOGY COMMENT (test code = MOC) ON SCAN NORMAL RBCS PLATELET ESTIMATE (test code = ON SCAN ADEQUATE PLTEST) CBC W/MANUAL [id number] 06:57:00 Test Item Value Reference Range Interpretation [...] (test code INDICATED = MDIFF) DIFF/SCN WBC [id number] 06:57:00 Test Item Value Reference Range Interpretation Comments TOTAL CELLS COUNTED (test code = #CELLS >100 TCC) SEGMENTED NEUTROPHILS (test code = % 40-75 SEG) LYMPHOCYTE (test code = LYMPH) % 12.6-43.5 MORPHOLOGY COMMENT (test code = MOC) ON SCAN NORMAL RBCS PLATELET ESTIMATE (test code = ON SCAN ADEQUATE PLTEST) COMPREHENSIVE METABOLIC [id number] 06:56:00 Test Item Value Reference Range Interpretation [...] 1 NORMAL = LIPINDEX) Index/DL GLUCOSE BEDSIDE [id number] 21:50:00 Test Item Value Reference Range Interpretation Comments GLUCOSE BEDSIDE TESTING (test code 254 MG/DL 70-119 H = GLUBED) CBC W/MANUAL [id number] 20:59:00 Test Item Value Reference Range Interpretation [...] (test code INDICATED = MDIFF) DIFF/SCN WBC [id number] 20:59:00 Test Item Value Reference Range Interpretation [...] RARE ON SCAN NORMAL PLTS code = [id number]) BASIC METABOLIC [id number] 20:48:00 Test Item Value Reference Range Interpretation [...] MG 1 NORMAL code = LIPINDEX) Index/DL [id number] 20:48:00 Test Item Value Reference Range Interpretation Comments MAGNESIUM (test code = MAG) 2.8 MG/DL 1.6-2.6 H CBC W/MANUAL [id number] 20:38:00 Test Item Value Reference Range Interpretation [...] (test code INDICATED = MDIFF) DIFF/SCN WBC [id number] 20:38:00 Test Item Value Reference Range Interpretation Comments TOTAL CELLS COUNTED (test code = #CELLS >100 TCC) SEGMENTED NEUTROPHILS (test code = % 40-75 SEG) LYMPHOCYTE (test code = LYMPH) % 12.6-43.5 MORPHOLOGY COMMENT (test code = MOC) ON SCAN NORMAL RBCS PLATELET ESTIMATE (test code = ON SCAN ADEQUATE PLTEST) CBC W/MANUAL [id number] 20:38:00 Test Item Value Reference Range Interpretation [...] (test code INDICATED = MDIFF) DIFF/SCN WBC [id number] 20:38:00 Test Item Value Reference Range Interpretation Comments TOTAL CELLS COUNTED (test code = #CELLS >100 TCC) SEGMENTED NEUTROPHILS (test code = % 40-75 SEG) LYMPHOCYTE (test code = LYMPH) % 12.6-43.5 MORPHOLOGY COMMENT (test code = MOC) ON SCAN NORMAL RBCS PLATELET ESTIMATE (test code = ON SCAN ADEQUATE PLTEST) GLUCOSE BEDSIDE [id number] 17:02:00 Test Item Value Reference Range Interpretation Comments GLUCOSE BEDSIDE TESTING (test code 111 MG/DL 70-119 N = GLUBED) GLUCOSE BEDSIDE [id number] 10:42:00 Test Item Value Reference Range Interpretation Comments GLUCOSE BEDSIDE TESTING (test code = 80 MG/DL 70-119 N GLUBED) [id number] 08:53:00 Test Item Value Reference Range Interpretation Comments CKMB (test code = < 1.0 NG/ML 1.0-3.6 N MONOCLONAL CKMB CKMBT) METHODOLOGY. [id number] 08:53:00 Test Item Value Reference Range Interpretation [...] changes in trop onin levelscharacter istic of [place]. GLYCOSYLATED HEMOGLOBIN (HA1C)2020-06-23 08:37:00 Test Item Value Reference Range Interpretation Comments GLYCOSYLATED HEMOGLOBIN (HA1C) <4.5 % A1C 4.2-6.3 N (test code = GLYHGB) ESTIMATED AVERAGE [id number] 08:37:00 Test Item Value Reference Range Interpretation [...] CHOLESTEROL/HDL 7.78 RATIO >0 REFERENCE R SARAH: MALE RATIO (test code = FEMALE 1/ 2 AVG RISK 3.43 CHOLHDL) 3.27 AVG RISK 4 .97 4.44 2X AVG RISK 9.5 5 7.05 3X AVG RISK 23.39 11.04 HDL CHOLESTEROL 14 MG/DL 40-59 L Results mayb e depressed (test code = HDL) if patient is taking Metamizole(Dipy josé miguel). NON-HDL CHOLESTEROL 95 mg/dL <130 Patients with CHD or CHD (test code = NHDL) risk LDL: <70 mg/dL nonHDL: <100 mg/dLPatients w ith 2+ risk factors LD L: <130 mg/dL nonHDL: < 160 mg/dLPatients w ith 0-1 risk factors LD L: <160 mg/dL nonHDL: < 190 mg/dL LIPOPROTEIN LDL 63 MG/DL 0-129 N (test code = LDL) LDL/HDL (test code 4.50 Ratio 1.48-3.22 Avg H LDL/HDL RISK = LDL/HDL) ASSESSMENT1.47 One-half average3.22 Ave rage5[address]03 Two times avera ge6.[address] INDEX HEMOLYSIS 3 SMALL 1 NORMAL (test code = 25-50 MG HEMINDEX) Index/DL INDEX ICTERIC (test 1 NORMAL <2 1 NORMAL code = ICTINDEX) MG Index/DL INDEX LIPEMIA (test 1 NORMAL <50 1 NORMAL code = LIPINDEX) MG Index/DL [id number] 07:17:00 Test Item Value Reference Range Interpretation Comments MAGNESIUM (test code = MAG) 2.9 MG/DL 1.6-2.6 H THYROID STIMULATING [id number] 07:17:00 Test Item Value Reference Range Interpretation [...] 1 NORMAL code = LIPINDEX) MG Index/DL [id number] 07:11:00 Test Item Value Reference Range Interpretation Comments MAGNESIUM (test code = MAG) 2.9 MG/DL 1.6-2.6 H THYROID STIMULATING [id number] 07:11:00 Test Item Value Reference Range Interpretation Comments THYROID STIMULATING HORMONE (test mc IU/ML 0.340-4.820 code = TSH) [id number] 07:03:00 Test Item Value Reference Range Interpretation Comments CKMB (test code = CKMBT) NG/ML 1.0-3.6 [id number] 07:03:00 Test Item Value Reference Range Interpretation [...] changes in trop onin levelscharacter istic of [place]. CBC W/MANUAL [id number] 03:10:00 Test Item Value Reference Range Interpretation [...] (test code = MDIFF) INDICATED DIFF/SCN PATHOLOGIST'S [id number] 03:10:00 Test Item Value Reference Range Interpretation Comments PATHOLOGIST'S FINDINGS (test code = EXTERNAL COMMENTS PATH) WBC [id number] 03:10:00 Test Item Value Reference Range Interpretation [...] FEW ON SCAN NORMAL PLTS code = [id number]) [id number] 02:47:00 Test Item Value Reference Range Interpretation Comments CKMB (test code = < 1.0 NG/ML 1.0-3.6 N MONOCLONAL CKMB CKMBT) METHODOLOGY. [id number] 02:47:00 Test Item Value Reference Range Interpretation [...] changes in trop onin levelscharacter istic of [place]. [id number] 02:34:00 Test Item Value Reference Range Interpretation Comments CKMB (test code = CKMBT) NG/ML 1.0-3.6 [id number] 02:34:00 Test Item Value Reference Range Interpretation [...] changes in trop onin levelscharacter istic of [place]. - CTA CHEST FOR [id number] 01:10:00 [facility] : 1955 Sex: M Patient Name: TRENTON CHAEVZ Unit No: [id number] EXAMS: CPT CODE: [id number] [place] [id number] Location: Chest CTA , 06/23/20 TECHNIQUE: Chest CTA with and without contrast was performed on a helical scanner. 2D Coronal and sagittal images acquired on the CT workstation system by the senior technologist. Volumetric imaging acquired utilizing maximum intensity protocol. Axial scanning performed from th oracic inlet through diaphragms. 100 mL of Isovue 370 was administered for contrast. Vascular protocol performed . Scanning conducted in the axial plane with 2.5mm contiguous slice thickness. The examination was performed on a updated helical CT scanner utilizing low-dose radiation technique. Automatic exposure time was utilized to reduce radiation dose. CLINICAL HISTORY: Shortness of breath, elevated d-dimer. Comparison exam: Chest x-ray exam of 06/22/20 FINDINGS: No PE or acute aortic syndrome isseen. There is presence of bilateral pleural effusions [...] hilar adenopathy is seen. Heart size is pro minent to the left atrium. There is presence of coronary artery vascular calcifications. No pericardial effusion.. There is enlargement of the spleen which measures approximately 14.2 cm in AP dimension. Hepatomegaly also noted without definite mass in the liver or spleen. IMPRESSION: No PE CHF with bi lateral pleural effusions of at least small size and with accompanied interstitial edema Hepatosplenomegaly Patchy infiltrates of concern for possible pneumonia. [place] EDUARDO [place] NAME: [address] PHYS: Jake Golden [place] [address] : 1955 AGE: 64 SEX: M LOC: B.ERS PHONE #: [phone] EXAM DATE: 06/23/2020 STATUS: REG ER FAX #: [phone] RAD #: D/C DT PAGE 1 Signed Report (CONTINUED) [facility] Unit No: [id number] EXAMS: CPT CODE: [id number] [place] [address] (Continued) opacification noted in the right lower lobe and lingula. at 0110 Reported and signed by: Sharifa Lebron M.D. CC: Jake Escobar MD Dictated Date/Time: 06/23/2020 (0110) Technologist: Carleen Wadsworth CTDI: 11.74 DLP: 207.09 Trnscrpt: 06/23/2020 (0110) [email or web address] FRANCES [place] NAME: [address] PHYS: [place] [address] : 1955 AGE: 64 SEX: M LOC: B.ERS PHONE #: [phone] EXAM DATE: 06/23/2020 STATUS: REG ER FAX #: [phone] RAD #: D/C DT PAGE 2 Signed Report Patient Name: TRENTON CHAVEZ Unit No: [id number] EXAMS: CPT CODE: [id number] [place] [id number] (Continued) Orig Print D/T: S: 06/23/2020 (0113) EDUARDO Danielse NAME: TRENTON CHAVEZ [address] [place] [address] Blvd PHYS: Jake Golden MD, [place] [address] : 1955 AGE: 64 SEX: M LOC: B.ERS PHONE #: [phone] EXAM DATE: 06/23/2020 STATUS: REG ER FAX #: [phone] RAD #: D/C DT PAGE 3 Signed ReportB-TYPE NATRIURETIC PEPTIDE 2020-06-23 01:06:00 Test Item Value Reference Range Interpretation Comments B-TYPE NATRIURETIC PEPTIDE (test 756.05 PG/ML 0.00-100.00 H code = BNP) Coronavirus 2018 nCoV [id number] 01:00:00 Test Item Value Reference Range Interpretation Comments Coronavirus 2019 nCoV Bedside (test Negative Neg code = [id number]) COMPREHENSIVE METABOLIC [id number] 00:55:00 Test Item Value Reference Range Interpretation [...] 1 NORMAL code = LIPINDEX) MG Index/DL [id number] 00:55:00 Test Item Value Reference Range Interpretation Comments CKMB (test code = < 1.0 NG/ML 1.0-3.6 N MONOCLONAL CKMB CKMBT) METHODOLOGY. [id number] 00:55:00 Test Item Value Reference Range Interpretation [...] changes in trop onin levelscharacter istic of [place]. COMPREHENSIVE METABOLIC [id number] 00:42:00 Test Item Value Reference Range Interpretation [...] 1 NORMAL code = LIPINDEX) MG Index/DL [id number] 00:42:00 Test Item Value Reference Range Interpretation Comments CKMB (test code = CKMBT) NG/ML 1.0-3.6 [id number] 00:42:00 Test Item Value Reference Range Interpretation [...] changes in trop onin levelscharacter istic of [place]. LACTIC [id number] 00:42:00 Test Item Value Reference Range Interpretation Comments LACTIC ACID (test code = LACT) 1.1 mmol/L 0.4-2.0 N COMPREHENSIVE METABOLIC [id number] 00:38:00 Test Item Value Reference Range Interpretation [...] 1 NORMAL code = LIPINDEX) MG Index/DL [id number] 00:38:00 Test Item Value Reference Range Interpretation Comments TROPONIN-I (test code = TROPI) NG/ML 0.000-0.045 CBC W/MANUAL [id number] 00:32:00 Test Item Value Reference Range Interpretation Comments WHITE BLOOD CELL 366.2 K/mm3 4.1-12.1 HH ON 06/23/20 AT (test code = WBC) 0031, BSHERIE WatersRIB CALLED TO JAZ NAGEL. The report was [...] (test code = MDIFF) INDICATED DIFF/SCN PATHOLOGIST'S [id number] 00:32:00 Test Item Value Reference Range Interpretation Comments PATHOLOGIST'S FINDINGS (test code = EXTERNAL COMMENTS PATH) WBC [id number] 00:32:00 Test Item Value Reference Range Interpretation Comments TOTAL CELLS COUNTED (test code = #CELLS >100 TCC) SEGMENTED NEUTROPHILS (test code = % 40-75 SEG) LYMPHOCYTE (test code = LYMPH) % 12.6-43.5 MORPHOLOGY COMMENT (test code = MOC) ON SCAN NORMAL RBCS PLATELET ESTIMATE (test code = ON SCAN ADEQUATE PLTEST) CBC W/MANUAL [id number] 00:32:00 Test Item Value Reference Range Interpretation Comments WHITE BLOOD CELL 366.2 K/mm3 4.1-12.1 HH ON 06/23/20 AT (test code = WBC) 0031, B.LA BShayRIB CALLED TO JAZ NAGEL. The report was [...] (test code = MDIFF) INDICATED DIFF/SCN WBC [id number] 00:32:00 Test Item Value Reference Range Interpretation Comments TOTAL CELLS COUNTED (test code = #CELLS >100 TCC) SEGMENTED NEUTROPHILS (test code = % 40-75 SEG) LYMPHOCYTE (test code = LYMPH) % 12.6-43.5 MORPHOLOGY COMMENT (test code = MOC) ON SCAN NORMAL RBCS PLATELET ESTIMATE (test code = ON SCAN ADEQUATE PLTEST) [id number] 16:52:00 Test Item Value Reference Range Interpretation Comments RBC (test code = RBC) 2.80 4.70-6.10 [facility]XbbkbpsSYGBRUHTPQ6210-30-16 16:52:00 Test Item Value Reference Range Interpretation Comments Hgb (test code = Hgb) 8.2 14.0-18.0 [facility] HospitalFdocasbIMFIISLRVO9652-13-12 16:52:00 Test Item Value Reference Range Interpretation Comments Hct (test code = Hct) 26.5 42.0-54.0 [facility] HospitalMdaxgrbNDZWNNRDCO6904-97-57 16:52:00 Test Item Value Reference Range Interpretation Comments MCV (test code = MCV) 94.8 80.0-94.0 [facility] HospitalUdohojpDIYLZYYFBY3653-42-47 16:52:00 Test Item Value Reference Range Interpretation Comments MCH (test code = MCH) 29.2 pg 27.0-31.0 [facility] HospitalVtlnbxsHXWPPPZVHG9010-04-33 16:52:00 Test Item Value Reference Range Interpretation Comments MCHC (test code = MCHC) 30.8 32.0-36.0 [facility] HospitalOginwdiNVWUILLSIK6802-77-56 16:52:00 Test Item Value Reference Range Interpretation Comments RDW (test code = RDW) 15.6 11.5-14.5 [facility] HospitalTspvwygVEHCWLTRIW2822-37-03 16:52:00 Test Item Value Reference Range Interpretation Comments Platelet (test code = Platelet) 162 133-450 [facility] HospitalGdykdkhRQIPBCSTGK5210-86-94 16:52:00 Test Item Value Reference Range Interpretation Comments MPV (test code = MPV) 11.6 7.4-10.4 [facility] HospitalIcglxrnTNCQMFYTTC4909-62-10 16:52:00 Test Item Value Reference Range Interpretation Comments Neutrophils # (test code = Neutrophils 221.6 1.5-8.1 #) [facility] HospitalWhpffyoOQDPRHTGAW7156-58-97 16:52:00 Test Item Value Reference Range Interpretation Comments Lymphocytes # (test code = Lymphocytes 10.1 1.0-5.5 #) [facility] HospitalZhscektRAWKDJDGKZ7233-25-30 16:52:00 Test Item Value Reference Range Interpretation Comments Monocytes # (test code 33.6 See_Comment [Aut omated message] The = Monocytes #) system which generated this result tra nsmitted reference range : <=0.8. The reference r sarah was not used to int erpret this result as normal/abnormal . [facility] HospitalKbelguiSICNZBZAIY7309-90-53 16:52:00 Test Item Value Reference Range Interpretation Comments Eosinophils # (test code 13.4 See_Comment [A utomated message] The = Eosinophils #) system whic h generated this result tra nsmitted reference range : <=0.5. The reference r sarah was not used to int erpret this result as normal/abnormal . [facility] HospitalDjivovtSIPIUSNYLH9232-29-54 16:52:00 Test Item Value Reference Range Interpretation Comments Basophils # (test code 6.7 See_Comment [Aut omated message] The = Basophils #) system which generated this result tra nsmitted reference range : <=0.2. The reference r sarah was not used to int erpret this result as normal/abnormal . [facility] HospitalMxeywxmZXFPWCYOIV1556-46-92 16:52:00 Test Item Value Reference Range Interpretation Comments Segs (test code = Segs) 52.0 45.0-75.0 [facility] HospitalWzemwoxLVFNEZYWNJ2468-84-78 16:52:00 Test Item Value Reference Range Interpretation Comments Bands (test code = 14.0 See_Comment [Automat ed message] The Bands) system which ge nerated this result transmit katie reference range : <=11.0. The reference r sarah was not used to interpr et this result as skylar l/abnormal. [facility] HospitalJiwdmitAXIFOYBHZS8540-29-92 16:52:00 Test Item Value Reference Range Interpretation Comments Lymphocytes (test code = Lymphocytes) 3.0 20.0-40.0 [facility] HospitalYjqdgxgDKDDIPRSGL5292-54-77 16:52:00 Test Item Value Reference Range Interpretation Comments Monocytes (test code = Monocytes) 10.0 2.0-12.0 [facility] HospitalAzhjlvfBZHNDSLNMY5512-83-87 16:52:00 Test Item Value Reference Range Interpretation Comments Eosinophils (test code = 4.0 See_Comment [A utomated message] The Eosinophils) system which ge nerated this result tra nsmitted reference range : <=4.0. The reference r sarah was not used to int erpret this result as normal/abnormal . [facility] HospitalZowxalbTOHTDDYAMO8838-80-25 16:52:00 Test Item Value Reference Range Interpretation Comments Basophils (test code = 2.0 See_Comment [Aut omated message] The Basophils) system which ge nerated this result tra nsmitted reference range : <=1.0. The reference r sarah was not used to int erpret this result as normal/abnormal . [facility] HospitalJmnstvrKSATXPVUWO6149-18-33 16:52:00 Test Item Value Reference Range Interpretation Comments Metamyelocytes (test code 7.0 See_Comment [ Automated message] = Metamyelocytes) The system which generated this result transmitted ref erence range: <=1.0. T he reference range was not used to int erpret this result as normal/abnormal . [facility] HospitalGfabxgoVWRQEXVJEU8415-40-33 16:52:00 Test Item Value Reference Range Interpretation Comments Myelocytes (test code = Myelocytes) 7.0 [facility] HospitalVovmuaaLAMYTFHIVC3662-80-44 16:52:00 Test Item Value Reference Range Interpretation Comments WBC (test code = WBC) 335.7 3.7-10.4 [facility] HospitalZremkakKYXPNLSUIU1245-83-84 16:52:00 Test Item Value Reference Range Interpretation Comments RBC (test code = RBC) 2.80 4.70-6.10 [facility] HospitalGvohrkuRAOSACUKJP7108-16-80 16:52:00 Test Item Value Reference Range Interpretation Comments Blasts (test code = Blasts) 1.0 [facility] HospitalRamrxeuJVAESFUQVZ7887-63-50 16:52:00 Test Item Value Reference Range Interpretation Comments Hgb (test code = Hgb) 8.2 14.0-18.0 [facility] HospitalFjmnvbnWTZIHITULD2391-06-35 16:52:00 Test Item Value Reference Range Interpretation Comments Hct (test code = Hct) 26.5 42.0-54.0 [facility] HospitalGjexrufZLJRKXCRWX8096-78-28 16:52:00 Test Item Value Reference Range Interpretation Comments MCV (test code = MCV) 94.8 80.0-94.0 [place] 276370-12-29 16:52:00 Test Item Value Reference Range Interpretation Comments MCH (test code = MCH) 29.2 pg 27.0-31.0 [facility] HospitalFupxnecAHWTYFTUQS1174-36-53 16:52:00 Test Item Value Reference Range Interpretation Comments MCHC (test code = MCHC) 30.8 32.0-36.0 [facility] HospitalPtgwktjGUOVRFHKOY4590-78-32 16:52:00 Test Item Value Reference Range Interpretation Comments RDW (test code = RDW) 15.6 11.5-14.5 [facility] HospitalRfupqszCSFMYPHNMG7758-11-56 16:52:00 Test Item Value Reference Range Interpretation Comments Platelet (test code = Platelet) 162 133-450 [facility] HospitalGjwsmyfQZWVIVVISM8319-77-31 16:52:00 Test Item Value Reference Range Interpretation Comments MPV (test code = MPV) 11.6 7.4-10.4 [facility] HospitalQazzajiHRFHXFWYVE2200-68-40 16:52:00 Test Item Value Reference Range Interpretation Comments Neutrophils # (test code = Neutrophils 221.6 1.5-8.1 #) [facility] HospitalMqtvmxxHDGRVVMZDU7681-22-27 16:52:00 Test Item Value Reference Range Interpretation Comments Lymphocytes # (test code = Lymphocytes 10.1 1.0-5.5 #) [facility] HospitalOfgaihwDJSROYYLAY5320-03-43 16:52:00 Test Item Value Reference Range Interpretation Comments Atypical Lymphs (test code = Atypical 0.0 Lymphs) [facility] HospitalElvrigpYTHLOGOPAH9588-07-53 16:52:00 Test Item Value Reference Range Interpretation Comments Monocytes # (test code = Monocytes #) 33.6 <=0.8 [facility] HospitalXcffgmgDDHBHIGZCZ6286-47-09 16:52:00 Test Item Value Reference Range Interpretation Comments Eosinophils # (test code = Eosinophils 13.4 <=0.5 #) [facility] HospitalTwdclgqUAKWTXAPZN0858-89-13 16:52:00 Test Item Value Reference Range Interpretation Comments Basophils # (test code = Basophils #) 6.7 <=0.2 [facility] HospitalWqvrjcyJQSEOZIYFQ2802-60-84 16:52:00 Test Item Value Reference Range Interpretation Comments Segs (test code = Segs) 52.0 45.0-75.0 [facility] HospitalQztvzghNQADNGAGPB5948-90-48 16:52:00 Test Item Value Reference Range Interpretation Comments Bands (test code = Bands) 14.0 <=11.0 [facility] HospitalAimqsosAXCGQJXLVQ2527-59-50 16:52:00 Test Item Value Reference Range Interpretation Comments Lymphocytes (test code = Lymphocytes) 3.0 20.0-40.0 [facility] HospitalJatanhwAEQDDQFKPB1422-53-67 16:52:00 Test Item Value Reference Range Interpretation Comments Monocytes (test code = Monocytes) 10.0 2.0-12.0 [facility] HospitalDritbakAHRVWLTVZG3351-06-37 16:52:00 Test Item Value Reference Range Interpretation Comments Eosinophils (test code = Eosinophils) 4.0 <=4.0 [facility] HospitalFuvofmyQUSOAFGYDH9986-67-92 16:52:00 Test Item Value Reference Range Interpretation Comments Basophils (test code = Basophils) 2.0 <=1.0 [facility] HospitalKqbdechXOQZZRFWWW9833-92-71 16:52:00 Test Item Value Reference Range Interpretation Comments Metamyelocytes (test code = 7.0 <=1.0 Metamyelocytes) [facility] HospitalOkvgumnIVWAEZOCKU5964-61-94 16:52:00 Test Item Value Reference Range Interpretation Comments RBC Morph (test code = Normal (05/22/20 10:52 RBC Morph) AM) [facility] HospitalEvmlfgsTFNHVOWWOV7477-51-50 16:52:00 Test Item Value Reference Range Interpretation Comments Myelocytes (test code = Myelocytes) 7.0 [facility] HospitalUjrpnduAJOSHWLBCS3121-71-27 16:52:00 Test Item Value Reference Range Interpretation Comments Blasts (test code = Blasts) 1.0 [facility] HospitalAtuqgckTZCRMPPCDT1877-72-25 16:52:00 Test Item Value Reference Range Interpretation Comments Atypical Lymphs (test code = Atypical 0.0 Lymphs) [facility] HospitalRzwlgspGHEWLXSJSM9529-81-51 16:52:00 Test Item Value Reference Range Interpretation Comments RBC Morph (test code = Normal (05/22/20 10:52 RBC Morph) AM) [facility] HospitalUpzcogvDFHIPOGXZW3108-91-92 16:52:00 Test Item Value Reference Range Interpretation Comments Plt Morph (test code = Normal (05/22/20 10:52 Plt Morph) AM) [facility] HospitalKlccxbhKYHOADZNGA5251-26-93 16:52:00 Test Item Value Reference Range Interpretation Comments Retic Auto (test code = Retic Auto) 2.4 0.5-1.5 [facility] HospitalDftvhtcXEFCUKYSEE9631-22-96 16:52:00 Test Item Value Reference Range Interpretation Comments Plt Morph (test code = Normal (05/22/20 10:52 Plt Morph) AM) [facility] HospitalAlpywxsUJBXUKABXT8290-86-58 16:52:00 Test Item Value Reference Range Interpretation Comments Retic Auto (test code = Retic Auto) 2.4 0.5-1.5 [facility]MbsaxufTTVRNAEMOH8165-68-05 16:52:00 Test Item Value Reference Range Interpretation Comments WBC (test code = WBC) 335.7 3.7-10.4 [facility] HospitalSqhhmxcMOPIDLQVYS3225-38-84 15:08:00 Test Item Value Reference Range Interpretation Comments Coronavirus (COVID-19) Not Detected ROBBIE (test code = (05/22/20 9:08 AM) Coronavirus (COVID-19) ROBBIE) [facility] HospitalWevhchlANSYWGAOGW6582-63-12 15:08:00 Test Item Value Reference Range Interpretation Comments Coronavirus (COVID-19) Not Detected ROBBIE (test code = (05/22/20 9:08 AM) Coronavirus (COVID-19) ROBBIE) [facility]
[2023-03-10 21:40] LABS: Absolute Lymphocytes (CBC) 1.2 K/uL (0.7-4.9); Hematocrit 31.9 % (39.6-49.0); Lymphocytes % 15.9 % (15.3-44.8); MCV 91.7 fL (80-100); MPV 10.4 fL (7.6-11.3); Platelets 105 thou/uL (152-406); RBC Red Blood Cell Count 3.48 M/uL (4.33-5.43)
[2023-03-10] MEDS ORDERED: NITROGLYCERIN 0.4 MG/TAB SL ONE (21:47)
--- NOTE | 2023-03-10 22:00 | RAD REPORT ---
EXAM DESCRIPTION: RADChest Single View03/10/2023 9:39 pm CLINICAL HISTORY: CHEST PAIN COMPARISON: Chest Pa And Lat (2 Views) dated 10/09/2022; Chest Pa And Lat (2 Views) dated 09/11/2022; Chest Single View dated 09/09/2022; Chest Single View dated 11/12/2021 TECHNIQUE: Portable AP view of the chest. FINDINGS: The lungs are clear. No pneumothorax or effusion. The cardiomediastinal contours are unre markable. IMPRESSION: No acute cardiopulmonary process.
[2023-03-10 22:05] LABS: Potassium 4.1 mEq/L (3.5-5.1); Troponin High Sensitivity 16.2 pg/mL (<58.9)
--- NOTE | 2023-03-10 23:10 | EDPHYS ---
Physician Documentation [facility] Name: Mac Hurtado Age: 67 yrs Sex: Male : 1955 Arrival Date: 03/10/2023 Time: 21:07 Bed 3 Private MD: ED Physician Wily Dyer HPI: 03/10 22:56 This 67 yrs old Black Male presents to ER via Ambulatory with complaints of Chest Pain. ec2 22:56 Patient arrives today due to concern for intermittent chest pain ongoing for several ec2 weeks, what specifically brought him in today is that he had noted hypertensive episodes. Patient reports no corresponding symptoms of hypertension and chest pain. Patient denies any shortness of breath. Patient reports no fevers or chills, no nausea or vomiting, no leg swelling. Patient reports otherwise he is at a baseline state of health. States that he takes ramipril, amlodipine, clonidine for his hypertension.. Historical: - Allergies: 21:17 No Known Allergies; ap3 - Home Meds: 21:18 clopidogrel 75 mg oral tablet 1 tab daily [Active]; ap3 - PMHx: 21:17 CHF; Diabetes - IDDM; Hypertension; Leukemia; ap3 21:18 stent placed in right leg; ap3 - PSHx: 21:17 Appendectomy; ap3 - Immunization history:: Client reports receiving the 2nd dose of the Covid vaccine. - Social history:: Smoking status: Patient denies any tobacco usage or history of. ROS: 22:56 Constitutional: elevated blood pressure ec2 Exam: 22:56 Constitutional: GEN: NAD Head: atraumatic Eyes: EOMI Ears: External ears are ec2 normal. CV: regular rate LUNGS: no respiratory distress ABD: non-distended SKIN: no evidence of rashes MSK: no evidence of trauma NEURO: moves all extremities equally Vital Signs: 21:15 BP 228 / 73; Pulse 57; Resp 18; Temp 98.6; Pulse Ox 100% ; Weight 74.84 kg; Pain 0/10; ap3 21:50 BP 193 / 67; Pulse 47; Resp 17; Pulse Ox 100% on R/A; rv 22:09 BP 186 / 74; Pulse 45; Resp 17; Pulse Ox 100% on R/A; rv 22:38 BP 193 / 64; Pulse 46; Resp 16; Pulse Ox 99% ; bp 23:29 BP 189 / 67; Pulse 43; Resp 16; Pulse Ox 100% ; bp 21:15 Pain Scale: Adult ap3 Amy Coma Score: 21:50 Eye Response: spontaneous(4). Motor Response: obeys commands(6). Verbal Response: rv oriented(5). Total: 15. MDM: 21:22 Patient medically screened. ec2 21:22 ED course: Patient arrives today due to concern for intermittent chest pain along with ec2 elevated blood pressures who is examination is remarkable for well-appearing nontoxic dividual who is otherwise in no acute distress, will obtain EKG, chest x-ray for further assessment of the patient's complaint as well as lab work. Currently consenting process such as hypertensive emergency, ACS, low suspicion for PE or dissection. Additionally considering palpitations and electrolyte disturbances. Patient is otherwise completely asymptomatic at the time of arrival.. 21:24 Data reviewed: vital signs. ED course: EKG independently reviewed and interpreted by ec2 me, shows normal sinus rhythm, rate of 54, no acute ST segment elevations, nonconcerning intervals.. 22:55 ED course: Patient is lab work remarkable for reassuring metabolic profile without ec2 significant renal abnormality, hyperglycemia noted with a glucose of 245, CBC is reassuring. Troponin is within normal ranges. Chest x-ray without any acute intrathoracic process identified. . 23:09 ED course: Updated the patient regarding the results, will discharge patient to home ec2 after shared decision making. Presentation consistent with hypertension without endorgan dysfunction. Return precautions given. Instructed to follow-up with PCP.. 03/10 21:23 Order name: Basic Metabolic Panel; Complete Time: 22:55 ec2 03/10 21:23 Order name: CBC with Diff; Complete Time: 22:55 ec2 03/10 21:23 Order name: Troponin HS; Complete Time: 22:55 ec2 03/10 21:23 Order name: XRAY Chest (1 view); Complete Time: 22:55 ec2 03/10 21:23 Order name: EKG; Complete Time: 21:24 ec2 03/10 21:23 Order name: Cardiac monitoring; Complete Time: 21:29 ec2 03/10 21:23 Order name: EKG - Nurse/Tech; Complete Time: 21:24 ec2 03/10 21:23 Order name: IV Saline Lock; Complete Time: 21:35 ec2 03/10 21:23 Order name: Labs collected and sent; Complete Time: 21:35 ec2 03/10 21:23 Order name: O2 Per Protocol; Complete Time: 21:29 ec2 03/10 21:23 Order name: O2 Sat Monitoring; Complete Time: 21:29 ec2 Administered Medications: 21:36 Drug: Nitroglycerin Sublingual 0.4 mg Sublingual once; every five minute if needed x3 rv Route: Sublingual; 21:52 Drug: Nitroglycerin Sublingual 0.4 mg Sublingual once; every five minute if needed x3 rv Route: Sublingual; 23:28 Follow up: Response: No adverse reaction bp 23:28 Not Given (Other Intervention Used): morphineor iv 4 mg IVP once over 4 mins bp Disposition Summary: 03/10/23 23:09 Discharge Ordered Notes: Location: Home ec2 Condition: Stable ec2 Diagnosis - Essential (primary) hypertension ec2 Discharge Instructions: - Discharge Summary Sheet ec2 - Nonspecific Chest Pain, Adult ec2 Forms: - Medication Reconciliation Form ec2 - Thank You Letter ec2 - Antibiotic Education ec2 - Prescription Opioid Use ec2 - Patient Portal Instructions ec2 - Leadership Thank You Letter ec2 Signatures: Dispatcher [employer] Wanda Obrien RN RN ap3 Khang Alvarez RN RN rv Wily Dyer MD MD ec2 Rick Shirley RN bp Corrections: (The following items were deleted from the chart) 22:59 21:22 ED course: Patient arrives today due to concern for intermittent chest pain along ec2 with elevated blood pressures who is examination is remarkable for well-appearing nontoxic dividual who is otherwise in no acute distress, will obtain EKG, chest x-ray for further assessment of the patient's complaint as well as lab work. Currently consenting process such as hypertensive emergency, ACS, low suspicion for PE or dissection. Initially considering palpitations and electrolyte disturbances.. ec2
--- NOTE | 2023-03-10 23:10 | ER ---
Nurse's Notes [facility] Name: Mac Hurtado Age: 67 yrs Sex: Male : 1955 Arrival Date: 03/10/2023 Time: 21:07 Bed 3 Private MD: Diagnosis: Essential (primary) hypertension Presentation: 03/10 21:15 Chief complaint: Patient states: he has been having high blood pressure since he woke ap3 up this morning. patient denies chest pain but reports light headedness. patient denies headache and vision changes. patient states that he took 2 0.1 Clonidine this afternoon at 1600 this afternoon. Coronavirus screen: At this time, the client does not indicate any symptoms associated with coronavirus-19. Ebola Screen: No symptoms or risks identified at this time. Initial Sepsis Screen: Does the patient meet any 2 criteria? No. Patient's initial sepsis screen is negative. Does the patient have a suspected source of infection? No. Patient's initial sepsis screen is negative. Risk Assessment: Do you want to hurt yourself or someone else? Patient reports no desire to harm self or others. Onset of symptoms was March 10, 2023. 21:15 Method Of Arrival: Ambulatory ap3 21:15 Acuity: ROBERTO 2 ap3 Triage Assessment: 21:17 General: Appears in no apparent distress. comfortable, Behavior is calm, cooperative, ap3 appropriate for age. Pain: Denies pain. Neuro: Level of Consciousness is awake, alert, obeys commands, Oriented to person, place, time, situation, Reports being light headed. Cardiovascular: Patient's skin is warm and dry. Respiratory: Airway is patent Respiratory effort is even, unlabored, Respiratory pattern is regular, symmetrical. Historical: - Allergies: 21:17 No Known Allergies; ap3 - Home Meds: 21:18 clopidogrel 75 mg oral tablet 1 tab daily [Active]; ap3 - PMHx: 21:17 CHF; Diabetes - IDDM; Hypertension; Leukemia; ap3 21:18 stent placed in right leg; ap3 - PSHx: 21:17 Appendectomy; ap3 - Immunization history:: Client reports receiving the 2nd dose of the Covid vaccine. - Social history:: Smoking status: Patient denies any tobacco usage or history of. Screenin:18 [facility] ED Fall Risk Assessment (Adult) History of falling in the last 3 months, ap3 including since admission No falls in past 3 months (0 pts). Abuse screen: Denies threats or abuse. Nutritional screening: No deficits noted. Tuberculosis screening: No symptoms or risk factors identified. Assessment: 21:19 General: SEE TRIAGE NOTE. bp 22:30 Reassessment: Patient appears in no apparent distress at this time. Patient is alert, bp oriented x 3, equal unlabored respirations, skin warm/dry/pink. 23:29 Reassessment: DC HOME AMBULATORY WITH FAMILY. Pain: Denies pain. bp Vital Signs: 21:15 BP 228 / 73; Pulse 57; Resp 18; Temp 98.6; Pulse Ox 100% ; Weight 74.84 kg; Pain 0/10; ap3 21:50 BP 193 / 67; Pulse 47; Resp 17; Pulse Ox 100% on R/A; rv 22:09 BP 186 / 74; Pulse 45; Resp 17; Pulse Ox 100% on R/A; rv 22:38 BP 193 / 64; Pulse 46; Resp 16; Pulse Ox 99% ; bp 23:29 BP 189 / 67; Pulse 43; Resp 16; Pulse Ox 100% ; bp 21:15 Pain Scale: Adult ap3 [place] Coma Score: 21:50 Eye Response: spontaneous(4). Motor Response: obeys commands(6). Verbal Response: rv oriented(5). Total: 15. ED Course: 21:12 Patient arrived in ED. kj1 21:17 Triage completed. ap3 21:18 Arm band placed on right wrist. ap3 21:19 Patient maintains SpO2 saturation greater than 95% on room air. ap3 21:22 Wily Dyer MD is Attending Physician. ec2 21:25 Khang Alvarez, LESIA is Primary Nurse. rv 21:35 Patient has correct armband on for positive identification. rv 21:35 Inserted saline lock: 20 gauge in left antecubital area, using aseptic technique. Blood rv collected. 21:41 XRAY Chest (1 view) In Process Unspecified. EDMS 23:29 Provided Education on: N/A. bp 23:29 No provider procedures requiring assistance completed. IV discontinued, intact, bp bleeding controlled, No redness/swelling at site. Pressure dressing applied. Administered Medications: 21:36 Drug: Nitroglycerin Sublingual 0.4 mg Sublingual once; every five minute if needed x3 rv Route: Sublingual; 21:52 Drug: Nitroglycerin Sublingual 0.4 mg Sublingual once; every five minute if needed x3 rv Route: Sublingual; 23:28 Follow up: Response: No adverse reaction bp 23:28 Not Given (Other Intervention Used): morphineor iv 4 mg IVP once over 4 mins bp Medication: 21:35 VIS not applicable for this client. rv Outcome: 23:09 Discharge ordered by . ec2 23:29 Discharged to home ambulatory, with family, bp 23:29 Condition: stable 23:29 Discharge instructions given to patient, Instructed on discharge instructions, follow up and referral plans. Demonstrated understanding of instructions, follow-up care, 23:31 Patient left the ED. bp Signatures: Dispatcher [employer] Rick Morley RN RN bp Wanda Avina RN RN ap3 Khang Alvarez RN RN rv Oliva Dennis1 Wily Dyer MD MD ec2 Corrections: (The following items were deleted from the chart) 22:38 21:19 Pain: ap3 bp
[2023-03-11 00:19] VITALS: TEMP 98.6
[2023-03-11 00:24] VITALS: BP 189/67; O2SAT 100
--- NOTE | 2023-03-11 12:24 | EKG ---
Test Date: 2023-03-10 Test Time: 21:21:45 Car Distributor: MEASUREMENT RESULTS: Intervals: Rate: 54 TN: 170 QRSD: 74 QT: 444 QTc: 421 Lloyd: P: 43 TN: 170 QRS: 69 T: 46 INTERPRETIVE STATEMENTS: Sinus bradycardia Anteroseptal infarct, age undetermined Abnormal ECG Compared to ECG 09/09/2022 12:43:23 Sinus rhythm no longer present Left posterior fascicular block no longer present Myocardial infarct finding still present Electronically Signed On 03-11-23 12:23:19 CDT by Patric Marroquin
== END 2023-03-10 23:31 | disposition home or self-care (01) ==
LOC: ER 21:07
DX: I10 Essential (primary) hypertension (principal); I50.9 Heart failure, unspecified; E11.9 Type 2 diabetes mellitus without complications; Z85.6 Personal history of leukemia
CPT/HCPCS: 36415; 71045; 80048; 84484; 85025; 93005; 99284

== ENCOUNTER 2023-06-20 00:45 | Inpatient (IN) | payer OTHER ==
[2023-06-20] MEDS ORDERED: HYDRALAZINE HCL 20 MG/ML VIAL ONE (01:16)
[2023-06-20 01:23] LABS: Absolute Lymphocytes (CBC) 1.4 K/uL (0.7-4.9); Lymphocytes % 18.5 % (15.3-44.8); MCV 91.1 fL (80-100); MPV 11.9 fL (7.6-11.3); Platelets 114 thou/uL (152-406); RBC Red Blood Cell Count 3.84 M/uL (4.33-5.43)
[2023-06-20 01:30] LABS: Protime INR 1.04
[2023-06-20 01:42] LABS: Albumin 3.1 g/dL (3.4-5.0); Bilirubin Direct 0.1 mg/dL (0-0.2); Bilirubin Indirect, Calculated 0.3 mg/dL (0.2-0.8); Bilirubin Total 0.4 mg/dL (0.2-1.0); Magnesium 2.6 mg/dL (1.6-2.4); Potassium 4.4 mEq/L (3.5-5.1); Protein, Total 6.7 g/dL (6.4-8.2); Troponin High Sensitivity 18.4 pg/mL (<58.9)
--- NOTE | 2023-06-20 02:32 | EDPHYS ---
Physician Documentation [facility] Name: Mac Hurtado Age: 67 yrs Sex: Male : 1955 Arrival Date: 06/20/2023 Time: 00:45 Bed 13 Private MD: ED Physician Petey Mann HPI: 06/20 01:15 This 67 yrs old Black Male presents to ER via Wheelchair with complaints of Chest Pain. cp 01:15 The patient or guardian reports chest pain that is located primarily in the substernal cp area. Onset: today, with similar but less painful episode yesterday. 01:15 The pain does not radiate. Associated signs and symptoms: Pertinent positives: cp headache, elevated blood pressure, Pertinent negatives: abdominal pain, cough, diaphoresis, shortness of breath. The chest pain is described as a heaviness. Duration: The patient or guardian reports a single episode, that is still ongoing, but improving. Historical: - Allergies: 01:03 No Known Allergies; jb4 - PMHx: 01:03 CHF; Diabetes - IDDM; Hypertension; stent placed in right leg; Leukemia; jb4 - PSHx: 01:03 Appendectomy; jb4 - Immunization history:: Adult Immunizations up to date. - Social history:: Smoking status: Patient denies any tobacco usage or history of. ROS: 01:20 Constitutional: Negative for body aches, chills, fever, poor PO intake, cp 01:20 Cardiovascular: Positive for chest pain, Negative for edema, palpitations, cp 01:20 Eyes: Negative for injury, pain, redness, and discharge, cp 01:20 Respiratory: Negative for cough, shortness of breath, wheezing, 01:20 Abdomen/GI: Negative for abdominal pain, nausea, vomiting, and diarrhea, 01:20 Back: Negative for pain at rest, pain with movement, 01:20 Neuro: Positive for headache, Negative for altered mental status, dizziness, syncope, weakness, 01:20 All other systems are negative, Exam: 01:10 ECG was reviewed by the Attending Physician. cp 01:25 Constitutional: The patient appears in no acute distress, alert, awake, cp non-diaphoretic, non-toxic, well developed, well nourished, uncomfortable, 01:25 Head/Face: Normocephalic, atraumatic. cp 01:25 Eyes: Periorbital structures: appear normal, Pupils: equal, round, and reactive to light and accomodation, Extraocular movements: intact throughout, Conjunctiva: normal, no exudate, no injection, Lids and lashes: appear normal, bilaterally, :25 ENT: External ear(s): are unremarkable, Nose: is normal, Mouth: Lips: moist, Oral mucosa: pink and intact, moist, Posterior pharynx: is normal, airway is patent, no erythema, no exudate, :25 Neck: ROM/movement: is normal, is supple, without pain, no range of motions limitations, : Chest/axilla: Inspection: normal, Palpation: is normal, no crepitus, no tenderness, : Cardiovascular: Rate: bradycardic, Rhythm: regular, Edema: is not appreciated, JVD: is not appreciated, :25 Respiratory: the patient does not display signs of respiratory distress, Respirations: normal, no use of accessory muscles, no retractions, labored breathing, is not present, Breath sounds: are clear throughout, no decreased breath sounds, no stridor, no wheezing, : Abdomen/GI: Inspection: abdomen appears normal, Palpation: abdomen is soft and non-tender, in all quadrants, : Back: pain, is absent, ROM is normal, :25 Neuro: Orientation: to person, place \T\ time. Mentation: is normal, Motor: moves all fours, strength is normal, Sensation: is normal, Vital Signs: 01:01 BP 236 / 107; Pulse 55; Resp 16; Temp 97.9(TE); Pulse Ox 97% on R/A; Weight 72.57 kg jb4 (R); Height 5 ft. 7 in. (R); Pain 7/10; 01:38 BP 146 / 74; Pulse 51; Resp 18; Pulse Ox 100% ; rv 02:00 BP 162 / 90; Pulse 51; Resp 20; Pulse Ox 99% on R/A; rv 02:30 BP 177 / 61; Pulse 50; Resp 20; Pulse Ox 99% on R/A; rv 03:00 BP 179 / 59; Pulse 65; Resp 20; Pulse Ox 99% on R/A; rv 03:30 BP 228 / 69; Pulse 65; Resp 15; Pulse Ox 99% on R/A; rv 04:00 BP 197 / 58; Pulse 47; Resp 17; Pulse Ox 98% on R/A; rv 05:59 BP 168 / 62; Pulse 49; Resp 18; Temp 98; Pulse Ox 99% on R/A; rv 01:01 Body Mass Index 25.06 (72.57 kg, 170.18 cm) jb4 01:01 Pain Scale: Adult jb4 MDM: 00:59 Patient medically screened. cp 02:00 Data reviewed: vital signs, nurses notes, lab test result(s), EKG, radiologic studies, cp plain films. 02:35 Consideration of Admission/Observation Escalation of care including cp admission/observation considered. Management of patient was discussed with the following: Hospitalist: DR Ibanez will admit after discussion. 02:35 Independent interpretation of the following test(s) in the Emergency Department EKG: cp See my EKG interpretation above. Care significantly affected by the following chronic conditions: Diabetes, Hypertension, Congestive Heart Failure. Counseling: I had a detailed discussion with the patient and/or guardian regarding the historical points, exam findings, and any diagnostic results supporting the discharge/admit diagnosis, the presence of at least one elevated blood pressure reading (>120/80) during this emergency department visit, lab results, radiology results, the need for further work-up and treatment in the hospital. Response to treatment: the patient's symptoms have mildly improved after treatment, and as a result, I will admit patient. 06/20 01:11 Order name: Basic Metabolic Panel; Complete Time: : cp 06/20 01:46 Interpretation: Normal except: CL 113; GLUC 198; BUN 28; CRE 1.45; GFR 52. cp 06/20 01:11 Order name: CBC with Diff; Complete Time: : cp 06/20 01:47 Interpretation: Normal except: RBC 3.84; HGB 12.2; HCT 35.0; PLT 114; MPV 11.9. cp 06/20 01:11 Order name: LFT's; Complete Time: :46 cp 06/20 01:11 Order name: Magnesium; Complete Time: : cp 06/20 01:11 Order name: NT PRO-BNP; Complete Time: cp 06/20 01:47 Interpretation: Abnormal: NT PRO-BNP 817. cp 06/20 01:11 Order name: PT-INR; Complete Time: 01:46 cp 06/20 01:11 Order name: Troponin HS; Complete Time: 01:46 cp 06/20 04:00 Order name: Urinalysis w/ reflexes EDMS 06/20 04:00 Order name: CBC with Automated Diff EDMS 06/20 04:00 Order name: CBC with Automated Diff EDMS 06/20 04:00 Order name: Comprehensive Metabolic Panel EDHI 06/20 04:00 Order name: Comprehensive Metabolic Panel EDHI 06/20 04:00 Order name: Magnesium EDMS 06/20 04:00 Order name: Magnesium EDMS 06/20 04:00 Order name: Troponin High Sensitivity EDHI 06/20 04:00 Order name: Troponin High Sensitivity EDHI 06/20 09:07 Order name: Glucose, Ancillary Testing EDHI 06/20 11:43 Order name: Glucose, Ancillary Testing EDHI 06/20 16:42 Order name: Glucose, Ancillary Testing EDHI 06/20 18:05 Order name: Troponin High Sensitivity EDHI 06/20 01:11 Order name: XRAY Chest (1 view) 06/20 01:11 Order name: EKG; Complete Time: 01:12 cp 06/20 01:11 Order name: Cardiac monitoring; Complete Time: 01:13 cp 06/20 01:11 Order name: EKG - Nurse/Tech; Complete Time: 01:13 cp 06/20 01:11 Order name: IV Saline Lock; Complete Time: 01:13 cp 06/20 01:11 Order name: Labs collected and sent; Complete Time: 01:13 cp 06/20 01:11 Order name: O2 Per Protocol; Complete Time: : cp 06/20 01:11 Order name: O2 Sat Monitoring; Complete Time: 01:13 cp EC:10 Rate is 54 beats/min. Rhythm is regular. [place] interval is normal. QRS interval is normal. cp QT interval is prolonged. T waves are Inverted in lead aVR. Interpreted by me. Reviewed by me. Administered Medications: : Drug: hydrALAZINE IVP 20 mg IVP once; For SBP > 140 mmHg. Hold if less than 120 mmHg. rv Route: IVP; Site: right forearm; 05:59 Follow up: Response: No adverse reaction rv Disposition Summary: 06/20/23 02:31 Hospitalization Ordered Notes: Provider: Luz Ibanez cp Condition: Stable cp Problem: new cp Symptoms: have improved cp Bed/Room Type: Standard cp Hospitalization Status: Inpatient Admission(06/20/23 04:18) cp Location: Telemetry/MedSurg (Inpatient)(06/20/23 18:25) as6 Room Assignment: 405(06/20/23 18:25) as6 Diagnosis - Chest pain, unspecified cp - Hypertensive heart and chronic kidney disease with heart failure and stage 1 cp through stage 4 chronic kidney disease, or unspecified chronic kidney disease Forms: - Medication Reconciliation Form cp - SBAR form cp - Leadership Thank You Letter cp Signatures: Dispatcher [employer] EDMS Petey Arndt PA PA cp Amador Servin RN RN jb4 Khang Alvarez RN RN rv Joselito Torrez RN RN as6 Bandar Kennedy ty Corrections: (The following items were deleted from the chart) 03:44 02:31 Telemetry/MedSurg (observation) cp ty 03:44 02:31 cp ty 04:18 02:31 Observation cp cp 04:23 03:44 Intensive Care Unit ty ty 04:23 03:44 ty ty 18:25 04:23 [facility] ER HOLD ty as6 18:25 04:23 ERHOLD- ty as6 06/21 18:53 06/20 01:20 Neuro: Negative for altered mental status, dizziness, headache, syncope, cp weakness, cp
--- NOTE | 2023-06-20 02:32 | ER ---
Nurse's Notes [facility] Name: Mac Hurtado Age: 67 yrs Sex: Male : 1955 Arrival Date: 06/20/2023 Time: 00:45 Bed 13 Private MD: Diagnosis: Chest pain, unspecified;Hypertensive heart and chronic kidney disease with heart failure and stage 1 through stage 4 chronic kidney disease, or unspecified chronic kidney disease Presentation: 06/20 01:01 Chief complaint: Patient states: I have been having chest pain off and on since jb4 yesterday. My blood pressure has been over 200 all night. I took 0.2mg of clonidine at 9pm and My clonidine patch just . (Patch removed in room by pt.). Coronavirus screen: At this time, the client does not indicate any symptoms associated with coronavirus-19. Ebola Screen: No symptoms or risks identified at this time. Initial Sepsis Screen: Does the patient meet any 2 criteria? No. Patient's initial sepsis screen is negative. Does the patient have a suspected source of infection? No. Patient's initial sepsis screen is negative. Risk Assessment: Do you want to hurt yourself or someone else? Patient reports no desire to harm self or others. Onset of symptoms was June 20, 2023. Transition of care: patient was not received from another setting of care. 01:01 Method Of Arrival: Wheelchair jb4 01:01 Acuity: ROBERTO 3 jb4 Historical: - Allergies: 01:03 No Known Allergies; jb4 - PMHx: 01:03 CHF; Diabetes - IDDM; Hypertension; stent placed in right leg; Leukemia; jb4 - PSHx: 01:03 Appendectomy; jb4 - Immunization history:: Adult Immunizations up to date. - Social history:: Smoking status: Patient denies any tobacco usage or history of. Screenin:08 [facility] ED Fall Risk Assessment (Adult) History of falling in the last 3 months, rv including since admission No falls in past 3 months (0 pts) Score/Fall Risk Level 0 - 2 = Low Risk Oriented to surroundings, Maintained a safe environment, Educated pt \T\ family on fall prevention, incl call for assistance when getting out of bed, Assessed \T\ reinforced patient's understanding of fall precautions. Abuse screen: Denies threats or abuse. Denies injuries from another. Nutritional screening: No deficits noted. Tuberculosis screening: No symptoms or risk factors identified. Assessment: 01:08 General: Appears comfortable, Behavior is calm, cooperative. Pain: Complains of pain in rv mid-sternal area Pain does not radiate. Pain began 1 day ago. Neuro: Level of Consciousness is awake, alert, obeys commands, Oriented to person, place, time, situation. Cardiovascular: Capillary refill < 3 seconds Patient's skin is warm and dry. Rhythm is sinus bradycardia. Respiratory: Airway is patent Respiratory effort is even, unlabored. GI: No signs and/or symptoms were reported involving the gastrointestinal system. : No signs and/or symptoms were reported regarding the genitourinary system. Vital Signs: 01:01 BP 236 / 107; Pulse 55; Resp 16; Temp 97.9(TE); Pulse Ox 97% on R/A; Weight 72.57 kg jb4 (R); Height 5 ft. 7 in. (R); Pain 7/10; 01:38 BP 146 / 74; Pulse 51; Resp 18; Pulse Ox 100% ; rv 02:00 BP 162 / 90; Pulse 51; Resp 20; Pulse Ox 99% on R/A; rv 02:30 BP 177 / 61; Pulse 50; Resp 20; Pulse Ox 99% on R/A; rv 03:00 BP 179 / 59; Pulse 65; Resp 20; Pulse Ox 99% on R/A; rv 03:30 BP 228 / 69; Pulse 65; Resp 15; Pulse Ox 99% on R/A; rv 04:00 BP 197 / 58; Pulse 47; Resp 17; Pulse Ox 98% on R/A; rv 05:59 BP 168 / 62; Pulse 49; Resp 18; Temp 98; Pulse Ox 99% on R/A; rv 01:01 Body Mass Index 25.06 (72.57 kg, 170.18 cm) jb4 01:01 Pain Scale: Adult jb4 ED Course: 00:49 Patient arrived in ED. ag3 00:55 Petey Arndt PA is PHCP. cp 00:55 Petey Mann MD is Attending Physician. cp 01:03 Triage completed. jb4 01:03 Arm band placed on right wrist. EKG completed in triage. Results shown to . jb4 01:08 Khang Alvarez, RN is Primary Nurse. rv 01:08 Patient has correct armband on for positive identification. Client placed on continuous rv cardiac and pulse oximetry monitoring. NIBP monitoring applied. media monitor on. 01:08 No provider procedures requiring assistance completed. Inserted saline lock: 20 gauge rv in right forearm, using aseptic technique. Blood collected. 01:08 Patient maintains SpO2 saturation greater than 95% on room air. rv 02:31 Luz Ibanez MD is Hospitalizing Provider. cp 03:31 XRAY Chest (1 view) In Process Unspecified. EDMS 05:59 Patient admitted, IV remains in place. rv Administered Medications: 01:22 Drug: hydrALAZINE IVP 20 mg IVP once; For SBP > 140 mmHg. Hold if less than 120 mmHg. rv Route: IVP; Site: right forearm; 05:59 Follow up: Response: No adverse reaction rv Medication: 01:08 VIS not applicable for this client. rv Outcome: 02:31 Decision to Hospitalize by Provider. cp 05:59 Admitted to ER Hold. Please see [facility] for further documentation. rv 05:59 Condition: good 05:59 Instructed on the need for admit, 19:52 Patient left the ED. lg3 Signatures: Dispatcher [employer] EDMS Petey Arndt PA PA cp Bryson, James, RN RN jb4 Khang Alvarez, RN RN rv Eileen Flowers 3 Stephy Whaley, LESIA RN lg3
--- NOTE | 2023-06-20 04:55 | P.HP ---
Certification for Inpatient With expected LOS: >2 Midnights Practitioner: I am a practitioner with admitting privileges, knowledge of patient current condition, hospital course, and medical plan of care. Services: Services provided to patient in accordance with Admission requirements found in Title 42 Section 412.3 of the Code of Federal Regulations Patient History Date of Service: 06/20/23 Reason for admission: Chest pain History of Present Illness: 67-year-old male with a history of hypertension, chronic diastolic CHF, leukemia on Bosutinib and diabetes mellitus presented to the ED with persistence left- sided chest pain that started last night along with uncontrolled blood pressure. 5 days ago he was diagnosed with branch retinal artery occlusion. Chest pain was nonexertional, troponin and nonradiating. He usually takes clonidine 0.1 mg 3 times daily and had the patch. Patient reported yesterday afternoon his blood pressure was above 217 so he took an extra dose of 0.1 mg clonidine without improvement in his blood pressure. During the evening he started having another episode of left-sided chest pain along with blood pressure still in the 200s he also took another extra dose of clonidine. However given the persistent chest pain and uncontrolled blood pressure, he presented to the ED. On arrival to the ED he had a blood pressure of 237/107, he was given 20 mg of IV hydralazine, blood pressure dropped to 146 but shortly went back up to 228. His workup did not reveal any acute findings on EKG and troponin. Abnormal lab findings include H&H 12/35, platelets 114, BNP 817 and BUN/Cr 28/1.45 which is about his baseline. Given symptoms of chest pain and signs of target organ damage retinal artery occlusion, will admit to ICU. Allergies No Known Allergies Allergy (Verified 12/16/21 08:33) Home Medications: Amlodipine [Norvasc*] 5 mg PO BID 10/16/21 Bosutinib [Bosulif] 500 mg PO DAILY 10/16/21 Carvedilol [Coreg] 12.5 mg PO BID 10/16/21 Insulin Glargine,Hum.rec.anlog [Basaglar Kwikpen U-100] 100 ml SQ DAILY 10/16/21 Ramipril [Altace] 5 mg PO BID 10/16/21 cloNIDine HCL [Clonidine HCl] 0.1 mg PO TID 10/16/21 - Past Medical/Surgical History Diabetic: Yes -: HTN -: CHF -: Leukemia -: appy - Social History Alcohol use: No CD- Drugs: No Caffeine use: No Review of Systems 10-point ROS is otherwise unremarkable Physical Examination - Vital Signs Temperature: 97.9 F Blood Pressure: 228/69 Pulse: 55 Respirations: 60 Pulse Ox (%): 97 - Physical Exam General: Alert, In no apparent distress, Oriented x3 HEENT: Atraumatic, Normocephalic, Mucous membr. moist/pink Neck: JVD not distended, No Thyromegaly Respiratory: Clear to auscultation bilaterally, Normal air movement Cardiovascular: No edema, Normal pulses, Normal S1 S2 Gastrointestinal: Normal bowel sounds Musculoskeletal: No swelling, No erythema, No tenderness Integumentary: No rashes Neurological: Normal speech, Normal strength at 5/5 x4 extr, Sensation intact - Studies Laboratory Data (last 24 hrs) 06/20/23 06/20/23 06/20/23 01:10 01:10 01:10 WBC 7.50 Hgb 12.2 L Hct 35.0 L Plt Count 114 L PT 11.4 INR 1.04 Sodium 141 Potassium 4.4 BUN 28 H Creatinine 1.45 H Glucose 198 H Magnesium 2.6 H Total Bilirubin 0.4 AST 7 L ALT 21 Alkaline Phosphatase 77 Assessment and Plan - Plan Hypertensive emergency Chronic kidney disease stage III Chronic diastolic heart failure Leukemia on chemotherapy Diabetes mellitus Plan Admit to ICU Start nicardipine drip, will map goal of no less than 25% Resume oral BP meds as tolerated Sliding scale insulin - Advance Directives Does patient have a Living Will: No Does patient have a Durable POA for Healthcare: No
[2023-06-20] MEDS ORDERED: GLUCAGON 1 MG/VIAL IM PRN (04:57)
[2023-06-20] MEDS ORDERED: D50W 25 GM/50 ML SYRINGE IV PRN (04:57)
[2023-06-20] MEDS: Nicardipine/NS 25 MG/250 ML KIT IV ONE (05:10)
[2023-06-20] MEDS ORDERED: D10W 125 ML IV PRN (05:13)
[2023-06-20] MEDS: INSULIN REGULAR (HUMAN) 100 UNIT/ML SQ SCH (07:30)
[2023-06-20] MEDS: Nicardipine in Saline, Iso-Osm 20 MG/200 ML IV.SOLN. IV SCH (08:05)
[2023-06-20] MEDS ORDERED: INSULIN REGULAR (HUMAN) 100 UNIT/ML ONE ×2 (09:02→16:33)
[2023-06-20 12:04] LABS: Specific Gravity 1.015 (1.005-1.030); Urine Bacteria None Seen /HPF (<20); Urine Bilirubin NEGATIVE (Negative); Urine Blood Negative (Negative); Urine Clarity Clear (Clear); Urine Color Light-Yellow (Yellow); Urine Glucose 1+ (Negative); Urine Protein 3+ (Negative); Urine RBC <5 /HPF (None Seen); Urine Urobilinogen Normal (Normal)
[2023-06-20] MEDS: PNEUMOCOCCAL VACCINE 0.5 ML IMVAC ONE (13:00)
[2023-06-20] MEDS ORDERED: NICARDIPINE HCL 25 MG/10 ML IV ONE (13:28)
[2023-06-20] MEDS ORDERED: NA CHLORIDE 0.9% 250 ML ONE (13:28)
[2023-06-20] MEDS: cloNIDine HCL 0.1 MG TAB PO ONE (16:59)
[2023-06-20] MEDS: HYDRALAZINE HCL 20 MG/ML VIAL IV ONE (17:25)
[2023-06-20] MEDS ORDERED: SACUBITRIL/VALSARTAN 24/26 MG TAB PO ONE (17:26)
[2023-06-20] MEDS ORDERED: AMLODIPINE 5 MG TAB PO SCH (21:00)
[2023-06-20] MEDS ORDERED: ramipriL 5 MG CAP PO SCH (21:00)
[2023-06-20] MEDS: HYDRALAZINE HCL 25 MG TABLET PO SCH (21:11)
[2023-06-20] MEDS: cloNIDine HCL 0.1 MG TAB PO SCH (21:11)
[2023-06-20] MEDS: CLONIDINE 0.2 MG/PATCH TD SCH (21:12)
--- NOTE | 2023-06-20 21:38 | RAD REPORT ---
EXAM DESCRIPTION: RAD - Chest Single View - 06/20/2023 3:29 am CLINICAL HISTORY: The patient is 67 years old and is Male; CHEST PAIN TECHNIQUE: Frontal view of the chest. COMPARISON: No relevant prior studies available. FINDINGS: Lungs: Prominent interstitial markings. No consolidation. Pleural space: Unremarkable. No pneumothorax. Heart: Unremarkable. Mediastinum: Unremarkable. Normal mediastinal contour. Bones/joints: No acute findings. IMPRESSION: Prominent interstitial markings. No consolidation. 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 The interpreting radiologist is fully responsible for the content of the report.
[2023-06-20] MEDS: ONDANSETRON 4 MG/2 ML VIAL IV PRN (22:09)
[2023-06-20] MEDS: ramipriL 5 MG CAP PO SCH (23:34)
[2023-06-21 06:52] LABS: Absolute Lymphocytes (CBC) 1.1 K/uL (0.7-4.9); Hematocrit 31.5 % (39.6-49.0); MCV 91.7 fL (80-100); MPV 11.6 fL (7.6-11.3); Platelets 107 thou/uL (152-406); RBC Red Blood Cell Count 3.44 M/uL (4.33-5.43)
[2023-06-21 07:04] LABS: Albumin 2.8 g/dL (3.4-5.0); Bilirubin Total 0.4 mg/dL (0.2-1.0); Magnesium 2.6 mg/dL (1.6-2.4); Potassium 4.3 mEq/L (3.5-5.1); Troponin High Sensitivity 37.3 pg/mL (<58.9)
--- NOTE | 2023-06-21 07:17 | RAD REPORT ---
EXAM DESCRIPTION: US - CP - 06/21/2023 6:31 am CLINICAL HISTORY: atherosclerosis; branch retinal artery occlusion COMPARISON: No comparisons TECHNIQUE: Real-time sonographic evaluation of both carotid systems was performed. Doppler interroga tion was performed with waveform tracing bilaterally. CAROTID STENOSIS REFERENCE USING NASCET CRITERIA: Mild - <50% stenosis. Moderate - 50-69% stenosis. Severe - 70-94% stenosis. Near occlusion - 95-99% stenosis. Occluded - 100% stenosis. FINDINGS: The common carotid arteries and internal carotid arteries show normal low resistance wavef orms. Soft and hard plaque present the right carotid bulb. Peak systolic and end diastolic velocity values and the ICA/CCA ratios are in the non-hemodynamically significant range. Elevated peak systolic velocities are present within the external carotid arteries. The peak systolic velocity is 258 cm/s on the right and 220 cm/s on the left. This likely reflects moderate stenoses. Antegrade flow seen in both vertebral arteries. IMPRESSION: No flow limiting stenosis involving either common carotid or internal carotid artery. Mi xed hard and soft plaque present at the right carotid bulb. Moderate (greater than 50%) stenoses at the proximal EXTERNAL carotid arteries.
[2023-06-21] MEDS: FUROSEMIDE 40 MG TABLET PO SCH (07:51)
[2023-06-21] MEDS: AMLODIPINE 10 MG TAB PO SCH (07:52)
[2023-06-21] MEDS: ATORVASTATIN 20 MG TAB PO SCH (07:53)
[2023-06-21] MEDS: CLOPIDOGREL 75 MG TABLET PO SCH (07:53)
[2023-06-21] MEDS: BOSUTINIB 400 MG PO SCH (08:00)
[2023-06-21] MEDS: HYDRALAZINE HCL 20 MG/ML VIAL IV PRN (13:54)
[2023-06-21] MEDS: HYDRALAZINE HCL 25 MG TABLET PO SCH (15:25)
[2023-06-21] MEDS: ISOSORBIDE DINIT 20 MG TAB PO ONE (16:17)
[2023-06-21] MEDS: SPIRONOLACTONE 25 MG TABLET PO SCH (20:20)
[2023-06-21] MEDS: ISOSORBIDE DINIT 20 MG TAB PO SCH (20:21)
--- NOTE | 2023-06-21 21:41 | RAD REPORT ---
EXAM DESCRIPTION: US - Renal Ultrasound-Complete - 06/21/2023 9:23 pm CLINICAL HISTORY: LANDEN COMPARISON: Abdomen Pelvis Wo Contrast dated 10/18/2021 FINDINGS: Both kidneys are normal in size, shape and echotexture. The right kidney measures 9.1 cm. No hydronephrosis, focal mass or perinephric fluid. The left kidney measures 9.4 cm. No hydronephrosis, focal mass or perinephric fluid. The urinary bladder is incompletely distended without gross abnormality seen. IMPRESSION: Unremarkable renal sonogram. No hydronephrosis.
--- NOTE | 2023-06-22 06:52 | P.PN ---
Date of Service: 06/21/23 Subjective Patient is doing better. Patient did have a lot of questions about his blood pressure. We are working up for secondary causes of hypertension. He did request nephrology consultation with Dr. Olivia. 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 Workup for secondary causes of hypertension; renin, aldosterone, cortisol, metanephrines are pending 2. Slowly wean off of clonidine over the next 28 days 3. Continue with diuretics 4. Echocardiogram pending 5. Nephrology consultation per patient request during hospitalization 6. Will continue with clonidine patch and we will try to wean him off of oral clonidine, add BiDil(hydralazine/notro), continue with ramipril and amlodipine, added Aldactone as well. Transfer care to Dr. Montes in morning - Advance Directives Does patient have a Living Will: No Does patient have a Durable POA for Healthcare: No
[2023-06-22] MEDS: BOSUTINIB 400 MG PO SCH (08:18)
[2023-06-22 09:53] LABS: Creatinine, Serum 1.54 mg/dL (0.55-1.3)
[2023-06-22] MEDS: HYDRALAZINE HCL 25 MG TABLET PO SCH (14:45)
[2023-06-22 15:22] LABS: UR PROTEIN 206.2 mg/dL (<11.9); Urine Protein/Creatinine Ratio 2.4 ratio (<0.15)
--- NOTE | 2023-06-23 00:15 | CON ---
Date of Consultation: 06/22/2023 Chief Complaint: Abnormal kidney function test. The patient is admitted for chest pain. History Of Present Illness: The patient is a 67-year-old man with history of hypertension, chronic diastolic congestive heart failure, leukemia, on Bosutinib and has history of diabetes mellitus. The patient presented to the hospital because of left-sided chest pain and he had chest pain prior to this admission and was found to have severe uncontrolled hypertension. The patient was found to have retinal artery occlusion 5 days ago when he was diagnosed by computer engineer. Chest pain, on arrival to the hospital, was nonradiating and did not correlate with exertion and troponin was checked to rule out acute NC. Blood pressure was severely elevated and was up to 237/107. Patient received IV hydralazine for hypertensive emergency. Today, patient denies chest pain or palpitation. Lab work in the emergency room showed BNP of 817 and BUN to creatinine ratio 28:1.45. The patient has chronic kidney disease advancing to stage 3 and he is taking multiple blood pressure medication including ramipril, clonidine, carvedilol, and amlodipine. Despite all of the medication, blood pressure has not been well controlled. Past Medical History: Hypertension, congestive heart failure, diastolic, chronic leukemia, diabetes mellitus. Social History: Denies tobacco, alcohol, or illicit drugs. ROS : GEN no fever, no chills EYES no vision changes ENMT : no sore throat CV chest pain as described above , no syncpe GI No nausea, no vomiting no hematuria , no dysuria All other system reviewed, all are negative Physical Examination: General: Patient is awake, alert, follows commands. Eyes: Anicteric sclerae. EOMI. Ears, Nose, Mouth and Throat: Oral mucosa moist. No pallor. Neck: Supple. No bruits. Lungs: Diminished breath sounds at bases. Heart: S1, S2. No pericardial or friction rub. Abdomen: Soft, benign, nontender. Extremities: No edema. Laboratory Data: TT 11.4. INR 1.04. WBC 7.5, hemoglobin 12.2, hematocrit 35.0, platelet count 114. Sodium 141, potassium 4.4, BUN 28, creatinine 1.45, magnesium 2.6, total bilirubin is 0.4, AST 7, ALT 21. Impression And Plan: 1. Patient has multiple medical probles in including chronic diastolic congestive heart failure. Leukemia, on chemotherapy. 2.Diabetes mellitus. He was found to have proteinuria of moderate degree. The patient will have workup to rule out monoclonal gammopathy of unknown significant. Most likely, patient has diabetic nephropathy. Patient may need renal biopsy to evaluate for an etiology and to rule out nephritis. 2. Hypertension. Check Doppler of the renal artery to rule out renal artery stenoses. 3. Patient was admitted primarily to ICU and was started on nicardipine drip. Currently, nicardipine drip is completed. The patient is on oral medication. Adjust medication accordingly. 4. Diabetes mellitus. Continue insulin sliding scale. EB/MODL Voice ID: [id number] Report ID: [id number] BALDOMERO
[2023-06-23 04:47] VITALS: BMI 24.9
--- NOTE | 2023-06-23 09:13 | ECHO ---
HEIGHT: 5 ft 7 in WEIGHT: 159 lb 0 oz DATE OF STUDY: 06/22/[address]: Kay Ortiz MD 2-DIMENSIONAL: YES M.MODE: YES DOPPLER: YES COLOR FLOW: YES TDS: PORTABLE: YES DEFINITY: BUBBLE STUDY: DIAGNOSIS: HYPERTENSIVE EMERGENCY CARDIAC HISTORY: CATHERIZATION: NO SURGERY: NO PROSTHETIC VALVE: NO PACEMAKER: NO MEASUREMENTS (cm) DIASTOLIC (NORMALS) SYSTOLIC (NORMALS) IVSd 1.4 (0.6-1.2) LA Diam 4.0 (1.9-4.0) LVEF 78% LVIDd 4.3 (3.5-5.7) LVIDs 2.3 (2.0-3.5) %FS 47% LVPWd 1.5 (0.6-1.2) Ao Diam 2.8 (2.0-3.7) 2 DIMENSIONAL ASSESSMENT: RIGHT ATRIUM: NORMAL LEFT ATRIUM: ENLARGED RIGHT VENTRICLE: NORMAL LEFT VENTRICLE: LEFT VENTRICULAR HYPERTROPHY TRICUSPID VALVE: MILD TRICUSPID REGURGITATION MITRAL VALVE: MILD MITRAL REGURGITATION PULMONIC VALVE: NORMAL AORTIC VALVE: NORMAL PERICARDIAL EFFUSION: NONE AORTIC ROOT: NORMAL LEFT VENTRICULAR WALL MOTION: NORMAL DOPPLER/COLOR FLOW: SEE BELOW COMMENTS: 1. NORMAL LEFT VENTRICULAR EJECTION FRACTION 60-65% WITH NORMAL WALL MOTION 2. MODERATE DIASTOLIC DYSFUNCTION 3. LEFT ATRIAL ENLARGEMENT 4. MODERATE CONCENTRIC LEFT VENTRICULAR HYPERTROPHY 5. MILD TRICUSPID REGURGITATION, MITRAL REGURGITATION 6. RIGHT VENTRICULAR SYSTOLIC PRESSURE OF 45-50 mmHg TECHNOLOGIST: SUHAIL LYLES
--- NOTE | 2023-06-23 11:22 | RAD REPORT ---
EXAM DESCRIPTION: US - Abdomen Pelvis Scan US - 06/23/2023 5:35 am CLINICAL HISTORY: ckd , uncontrolled hypertension COMPARISON: No comparisons TECHNIQUE: Sonographic grayscale and color flow images of the kidneys were obtained. Spectral flow Doppler and color duplex imaging of the renal arteries was also obtained. FINDINGS: The bilateral kidneys are normal in size, the right measuring 10 cm in length and the left measuring 9.2 cm. Aortic velocity: 83 cm/second Right proximal renal artery: 77 cm/second Right mid renal artery: 146 cm/second Right distal renal artery: 84 cm/second Right renal arcuate artery resistive index: 0.8 Right renal artery / aorta ratio: 1.8 Left proximal renal artery: 116 cm/second Left mid renal artery: 100 cm/second Left distal renal artery: 71 cm/second Left renal arcuate artery resistive index: 0.8 Left renal artery/aorta ratio: 1.4 Normal waveforms demonstrated within the bilateral renal arteries. IMPRESSION: No evidence of hemodynamically significant stenosis within the bilateral renal arteries.
[2023-06-23] MEDS: HYDRALAZINE HCL 25 MG TABLET PO SCH (13:31)
--- NOTE | 2023-06-23 17:00 | PN ---
Date of Progress Note: 06/23/2023 The patient was admitted with acute kidney injury secondary to cardiorenal. The patient had moderate diastolic dysfunction. Physical Examination: Vital Signs: Blood pressure 168/82, pulse of 72. Chest: Faint rales bilateral. Heart: S1, S2 regular. Abdomen: Soft, nontender. Extremities: No edema. Neuro: Alert. No focality. Laboratory Data: Hemoglobin 10.9. Sodium 142, potassium 4.3, bicarb 23, BUN 34, creatinine 1.5. Calcium 8.3, magnesium 2.6. Current Medications: Include: 1. Amlodipine. 2. Atorvastatin. 3. Clonidine 0.1 t.i.d. 4. Hydralazine 75 t.i.d. 5. Ramipril 10 b.i.d. 6. Entresto. 7. Spironolactone. 8. Lasix. Assessment And Plan: 1. Acute kidney injury on chronic kidney disease. Small size kidney 9.1/9.4. No hydronephrosis. Proteinuric close to nephrotic 2.4. The patient looked to me normal volume currently. I am going to continue current diuresis for the patient. We will monitor the patient. 2. Hypertension, controlled, optimal. With the presence of acute kidney injury, I would rather back up on the ERIN inhibitor for the time being given instability of the kidney function and we will follow up. We will utilize blood pressure for more diuresis on the patient. Increase hydralazine to 100 mg for better blood pressure control. 3. Congestive heart failure, diastolic dysfunction, with exacerbation. Continue diuresis as above. I am going to go ahead and repeat the chest x-ray for better evaluation of the fluid status for the patient and we will follow up. 4. Anemia of chronic kidney disease with the presence of acute kidney injury. I am going to go ahead and follow up serum protein electrophoresis and we will follow up the patient. Time spent examining the patient [id number], reviewing data, lab and radiology, placing order, discussing the case with the patient, discussing the case with the steam and power supervisor including hospitalist and nursing staff more than 35 minutes. KAYLA Voice ID: [id number] Report ID: [id number] BALDOMERO
[2023-06-23] MEDS: carvediloL 3.125 MG TAB PO SCH (18:04)
--- NOTE | 2023-06-23 18:06 | PN ---
Date of Progress Note: 06/22/2023 The patient's blood pressure is still an issue. He will be seen by Cardiology and Nephrology, contin ue to adjust the doses accordingly. HR/MODL Voice ID: [id number] Report ID: [id number]
--- NOTE | 2023-06-23 18:12 | PN ---
Date of Progress Note: 06/23/2023 The patient's blood pressure has dropped somewhat. The Apresoline was increased by Nephrology ____ possibility of an MRA without dye for the renal stenosis, although his Dopplers have been negati ve. We will increase his activity, monitor his blood pressure with the possibility of him being disc harged on new dosages in the next 24-48 hours. HR/MODL Voice ID: [id number] Report ID: [id number]
[2023-06-23] MEDS: FUROSEMIDE 40 MG TABLET PO SCH (20:58)
[2023-06-24] MEDS: CLONIDINE 0.3 MG/PATCH TD SCH (10:00)
[2023-06-24 11:36] LABS: Albumin 3.2 g/dL (3.4-5.0); Phosphorus 2.5 mg/dL (2.5-4.9); Potassium 4.3 mEq/L (3.5-5.1)
--- NOTE | 2023-06-24 11:48 | PN ---
Date of Progress Note: 06/24/2023 Subjective: The patient was admitted with urgent hypertension, acute kidney injury. The patient's obstructive uropathy has been ruled out. Vascular ultrasound for the kidney did not show any sign of renal artery stenosis, but it is not the gold standard. The patient's blood pressure has been elevated. Physical Examination: Vital Signs: When I saw the patient, blood pressure 202/95, pulse of 73. Chest: Clear to auscultation. Heart: S1, S2 regular. Abdomen: Soft, nontender. Extremity: No edema. Neuro: Alert. No focality. Laboratory Data: Hemoglobin 10.9. Sodium pending. Last creatinine 1.5, GFR of 49. No hyperkalemia. PC ratio 2.4. Current Medications: The patient on, includes amlodipine 10, carvedilol 3.125, clonidine 0.2, hydralazine 100 t.i.d., isosorbide, spironolactone, Zofran. Assessment And Plan: 1. Acute kidney injury on chronic kidney disease, normal size kidney. Kidney function improving. I am going to hold IV fluid. We will continue to monitor. 2. Hypertension with urgent hypertension with suspicious of renal artery stenosis. I am going to continue to hold ERIN inhibitor or ARB. Increase carvedilol to 12.5. Increase the clonidine to 0.3 and add minoxidil, discuss with radiology. Plan, if kidney function continued to be stable above 40, we will go ahead and arrange for MRA with gadolinium. 3. Congestive heart failure, diastolic dysfunction. Continue spironolactone for the time being. 4. Anemia of chronic kidney disease with acute kidney injury to rule out light chain disease. Serum protein electrophoresis still pending. We will follow up. Time spent examining the patient [id number], reviewing data, lab and radiology, placing order, discussing the case with the patient, discussing the case with the count team member including hospitalist and nursing staff more than 35 minutes. KAYLA Voice ID: [id number] Report ID: [id number] BALDOMERO
[2023-06-24] MEDS: NA CHLORIDE 0.9% 1,000 ML IV SCH (11:52)
[2023-06-24] MEDS: carvediloL 12.5 MG TAB PO SCH (17:01)
[2023-06-24] MEDS: minoxidiL 2.5 MG TAB PO SCH (20:40)
[2023-06-25 05:48] LABS: Albumin 2.6 g/dL (3.4-5.0); Phosphorus 3.1 mg/dL (2.5-4.9); Potassium 4.2 mEq/L (3.5-5.1)
[2023-06-25] MEDS: HYDRALAZINE HCL 25 MG TABLET PO SCH (12:14)
[2023-06-25] MEDS: FUROSEMIDE 40 MG/4 ML VIAL IV ONE (12:14)
--- NOTE | 2023-06-25 12:38 | RAD REPORT ---
EXAM DESCRIPTION: RAD - Chest Single View - 06/25/2023 12:04 pm CLINICAL HISTORY: COPD COMPARISON: Chest Single View dated 06/20/2023; Chest Single View dated 03/10/2023; Chest Pa And Lat (2 Views) dated 10/09/2022; Chest Pa And Lat (2 Views) dated 09/11/2022 FINDINGS: Lines: None. Lungs: Diffuse prominence of the pulmonary interstitium. No consolidative airspace disease. Pleural: Possible small left pleural effusion. Cardiac: Cardiomegaly. Mediastinum: Within normal limits. Bones: No acute fractures. Other: None IMPRESSION: Mild interstitial edema suspected.
--- NOTE | 2023-06-25 12:57 | PN ---
Date of Progress Note: 06/25/2023 Subjective: Patient was admitted with acute kidney injury and urgent hypertension. The patient's workup for secondary hypertension still pending. Yesterday, we started the patient on gentle hydration given the worsening in kidney function. The patient today complaining from shortness of breath. Blood pressure is better controlled. Objective: Vital Signs: When I saw the patient, blood pressure 180/94, pulse of 71. Chest: Wheezing, bilateral. Heart: S1, S2. Systolic murmur. Abdomen: Soft, nontender. Extremity: No edema. Neurologic: Alert. No focality. Laboratory Data: Hemoglobin 10.9, sodium 140, potassium 4.2, bicarb 22, BUN 45, creatinine 2.2, GFR of 31, calcium 8.1, phosphorus 3.1, albumin 2.6. Current Medications: The patient on, includes: 1. Amlodipine 10 mg. 2. Atorvastatin. 3. Carvedilol 12.5. 4. Clonidine 0.3. 5. Hydralazine 100 t.i.d. 6. Entresto has been discontinued. 7. Isosorbide 20 b.i.d. Assessment And Plan: 1. Acute kidney injury, possible secondary to overdiuresis/urgent hypertension. We just started the patient on minoxidil. I am going to go ahead and increase hydralazine. Keep holding any ERIN inhibitor or ARB. Discontinue IV fluid. We will get chest x-ray for better evaluation of his fluid status. I will give the patient a single dose of Lasix today and we will follow up the patient. 2. Hypertension with urgent hypertension. The patient will need MRA for the renal artery for further evaluation. Hormonal workup still pending. Adjust blood pressure medication as above. 3. Congestive heart failure with exacerbation as above. Resume Lasix. Discontinue IV fluid. 4. Anemia with the presence of acute kidney injury to rule out light chain disease. Serum protein electrophoresis pending. We will follow up. 5. Hyponatremia, dilutional. Resume Lasix. Time spent examining the patient [id number] reviewing that the lab and the radiology placing orders or discussing the case with the patient discussing the case with the clinical team manager including hospitalist and nursing staff more than 35 minutes KAYLA Voice ID: [id number] Report ID: [id number] MTDD
--- NOTE | 2023-06-25 13:50 | EKG ---
Test Date: 2023-06-20 Test Time: 01:01:04 Immigration Coordinator: RV MEASUREMENT RESULTS: Intervals: Rate: 54 AL: 162 QRSD: 92 QT: 502 QTc: 476 [place]: P: 53 AL: 162 QRS: 80 T: 19 INTERPRETIVE STATEMENTS: Sinus bradycardia with marked sinus arrhythmia Possible Left atrial enlargement Possible Anterior infarct, age undetermined Abnormal ECG Compared to ECG 03/10/2023 21:21:45 No significant changes Electronically Signed On 06-25-23 13:29:18 PARKER by Patric Marroquin
--- NOTE | 2023-06-25 14:00 | PN ---
Date of Progress Note: 06/24/2023 The patient states he feels about the same. His blood pressure has still been somewhat difficult to control. Various combinations have been utilized while he is in the hospital. His creatinine was al so elevated. Therefore, hydration was attempted as well with changing of the Lasix doses as appropri ate. He has had a similar picture in the past where his creatinine goes up after significant diuresi s with Lasix, and once he is stabilized, has been able to decrease his dose. However, at this time i t seems a little more pronounced as far as the increase in creatinine and the amount of Lasix require d. HR/MODL Voice ID: [id number] Report ID: [id number]
--- NOTE | 2023-06-25 14:00 | PN ---
Date of Progress Note: 06/25/2023 The patient states he feels considerably better now. He was given another Lasix dose. IV fluids wer e discontinued. Repeat chest x-ray, and if appropriate, will do the MRA of his renal arteries. Blood pressure is still somewhat fluctuant, but better than it has been. HR/MODL Voice ID: [id number] Report ID: [id number]
[2023-06-25 15:38] LABS: Albumin, (SPE) 3.2 g/dL (3.8-4.8); Alpha-1-Globulins 0.3 g/dL (0.2-0.3); Alpha-2-Globulins 0.8 g/dL (0.5-0.9); Gamma Globulins 0.6 g/dL (0.8-1.7); INTERPRETATION Consistent with
[2023-06-26 04:07] LABS: Albumin 2.5 g/dL (3.4-5.0); Phosphorus 3.5 mg/dL (2.5-4.9); Potassium 4.2 mEq/L (3.5-5.1)
[2023-06-26] MEDS: INSULIN REGULAR (HUMAN) 100 UNIT/ML SQ SCH (13:38)
--- NOTE | 2023-06-26 14:52 | P.PN ---
Subjective Date of Service: 06/26/23 Chief Complaint: Chest pain Subjective: Other (No complaints of headache. No urinary complaints.) Physical Examination - Vital Signs Temperature: 98.3 F Blood Pressure: 147/54 Pulse: 72 Respirations: 18 Pulse Ox (%): 92 - Physical Exam General: In no apparent distress HEENT: Atraumatic, Normocephalic Neck: Supple Respiratory: Other (symmetric chest expansion) Cardiovascular: No rubs, No murmurs Gastrointestinal: Soft and benign Musculoskeletal: No clubbing Integumentary: No warmth Neurological: Normal tone Urinary: Other (no bladder distention) External genitalia: Deferred Rectal: Deferred Assessment And Plan - Plan # LANDEN 2/2 accelerated Htn & hyperglycemia-induced osmotic diuresis BP control Glycemic control Valley po fluid intake at least 2L/day D5W gtt prn (& increase insulin coverage) if po fluid intake is poor. Avoid Na- containing IVF. 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 Start Doxazosin po bid Resume mary 50 mg po daily Resume Lasix 40 mg IV bid Decrease Hydralazine to 100 mg po tid Cont carvedilol 12.5 mg po bid Cont Amlodipine 10 mg po dailly Cont Clodininde po + patch Dc Minoxidil as we are unable to add ACEI or ARB at this time to prevent minoxidil-induced RAAS activation Add ACEI or ARB when GFR is consistently > 25 ml/min Valley po fluid intake as above Strict low Na diet < 2g/d Ordered additional workup for secondary causes of Htn: ABG to assess for underlying metabolic alkalosis; random urine K + Cl; TSH; iPTH # Low serum bicarb F/u ABG # Congestive heart failure with exacerbation Lasix as above # Anemia Monitor CBC
[2023-06-26] MEDS: DOXAZOSIN 2 MG TAB PO STA (15:40)
[2023-06-26] MEDS: SPIRONOLACTONE 25 MG TABLET PO SCH (15:40)
--- NOTE | 2023-06-26 16:53 | PN ---
Date of Progress Note: 06/26/2023 The patient states he feels somewhat better today. His blood pressure has been stabilized. However, his blood sugars going up considerably. We will increase his sliding scale to moderate. His creatinine down to 3.01. Awaiting decision on his renal artery testing depending on whether that can be done here or outpatient. Possibly could be discharged in a.m. on his new blood pressure danial men. HR/MODL Voice ID: [id number] Report ID: [id number]
[2023-06-26] MEDS: FUROSEMIDE 40 MG/4 ML VIAL IV SCH (17:08)
[2023-06-26] MEDS: DOXAZOSIN 2 MG TAB PO SCH (19:54)
[2023-06-26] MEDS: HYDRALAZINE HCL 25 MG TABLET PO SCH (19:55)
[2023-06-27 06:52] LABS: Albumin 2.6 g/dL (3.4-5.0); Potassium 4.5 mEq/L (3.5-5.1)
[2023-06-27] MEDS: DOXAZOSIN 4 MG TAB PO SCH (09:18)
[2023-06-27 10:15] LABS: Blood O2 Saturation 97.5 % (92-98.5)
--- NOTE | 2023-06-27 14:15 | PN ---
Patient is still having problems controlling his insulin. I have increased his to moderat e. Seen by Nephrology who felt that he should remain in the hospital for next few days for a renal b iopsy rather than the MRI. Still some difficulty with his blood pressure and chemistries, specially his creatinine with the use of Lasix. We will continue to follow and monitor. HR/MODL Voice ID: [id number] Report ID: [id number]
[2023-06-27 23:02] LABS: 24 HR VOLUME 1150 mL/24 h; Epinephrine Level 4 mcg/24 h (2-24); Urine 24HR Volume Metan 1150 mL
[2023-06-28 05:43] LABS: RBC Red Blood Cell Count 2.51 M/uL (4.33-5.43)
[2023-06-28] MEDS ORDERED: BISACODYL 10 MG RECTAL SUPP PR PRN (06:08)
[2023-06-28 06:26] LABS: Albumin 2.5 g/dL (3.4-5.0); Ferritin 149.2 ng/mL (26-388); Phosphorus 4.2 mg/dL (2.5-4.9); Potassium 4.3 mEq/L (3.5-5.1); Thyroid Stimulating Hormone 2.14 uIU/mL (0.358-3.740)
[2023-06-28] MEDS: DOCUSATE NA 100 MG CAP PO PRN (06:27)
--- NOTE | 2023-06-28 11:32 | RAD REPORT ---
EXAM DESCRIPTION: Velma Single View06/28/2023 11:14 am CLINICAL HISTORY: Chest pain COMPARISON: June 25, 2023 FINDINGS: Mild bilateral interstitial lung opacities. Heart is mildly enlarged IMPRESSION: Mild interstitial pulmonary edema without significant from prior exam
--- NOTE | 2023-06-28 13:39 | PN ---
Date of Progress Note: 06/28/2023 Subjective: The patient was admitted to the hospital with acute kidney injury, possible secondary to congestive heart failure. The patient workup showed possible light chain disease with nephrotic range of proteinuria. The patient has history of leukemia. Lasix has been discontinued. Kidney function continued to decline. The patient complaining of shortness of breath. Physical Examination: Vital Signs: When I saw the patient, blood pressure 140/57, pulse of 54, afebrile. Chest: Clear to auscultation. Heart: S1, S2 regular. Abdomen: Soft, nontender. Extremities: No edema. Neurologic: Alert. No focality. Labs: Hemoglobin 10.9. Sodium 136, potassium 4.3, bicarb 21, BUN 87, creatinine 3.4, GFR down to 18. Iron saturation 21, ferritin 149. Albumin 2.5. Corrected calcium is 9.7. Serum protein electrophoresis was positive. Serology still pending. Immunofixation was negative. Current Medications: The patient on include: 1. Amlodipine. 2. Atorvastatin 40. 3. Carvedilol 12.5 b.i.d. 4. Clonidine 0.3. 5. Cardura 4 mg b.i.d. 6. Hydralazine 100 t.i.d. 7. Isosorbide 20 b.i.d. 8. Lasix. 9. Docusate. 10. Bisacodyl. Assessment And Plan: 1. Acute kidney injury with nephrotic range proteinuria. Our differential diagnosis is to rule out light chain disease. 2. Secondary to toxic ATN secondary to Lasix and bosutinib superimposed with ARB use. I am going to hold all above medication and we will monitor the patient closely. 3. We will follow up the patient. 4. Hold Plavix, last dose was yesterday, June 27. The patient will be okay to get kidney biopsy by Thursday and we will follow up. 5. Hyponatremia secondary to renal failure, congestive heart failure, stable. No need for treatment currently. 6. Iron deficiency anemia. We will follow up. 7. Leukemia. Hold buinstain for the time being. Will follow up with Dr. Trevino. 8. Diabetes. As by primary. 9. CHF, had exacerbation, currently normal volume, with the presence of acute kidney injury hold Entresto, hold Lasix, hold Aldactone. We will follow up. KAYLA Voice ID: [id number] Report ID: [id number] BALDOMERO
--- NOTE | 2023-06-28 14:48 | PN ---
Date of Progress Note: 06/28/2023 The patient's blood pressure is much better. However, his creatinine is increased and the same probl em once we start with the diuresis with the Lasix, seems to be a connection, and therefore was stoppe d as well as spironolactone. Other possibility of chemo drugs and this will be discussed with Dr. Fabio castrejon, being held in the meantime. Biopsying the kidney slated for the end of this week. If his blood pressure is stable, possibly may let go home, temporary basis. However, with his creatinine being un stable, his blood pressure being a little difficult to control, and his sugar being much better perhaps he will need to stay here through the week. We will make that decision in the next day or two. HR/MODL Voice ID: [id number] Report ID: [id number]
[2023-06-29 04:02] LABS: Rheumatoid Factor NEG (NEG)
[2023-06-29 07:32] LABS: Albumin 2.6 g/dL (3.4-5.0); Phosphorus 4.1 mg/dL (2.5-4.9); Potassium 4.4 mEq/L (3.5-5.1)
--- NOTE | 2023-06-29 07:58 | PN ---
Date of Progress Note: 06/27/2023 Subjective: The patient was admitted with acute kidney injury cardiorenal. The patient's workup showed serum protein electrophoresis. The patient is known to have hypertension and congestive heart failure with diabetes. The patient has also PAD status post . Kidney function continued to decline. Physical Examination: Vital Signs: Blood pressure 147/54, pulse of 72, afebrile. Chest: Clear to auscultation. Heart: S1, S2. Systolic murmur. Abdomen: Soft, nontender. Extremities: No edema. Neurologic: No focality. Laboratory Data: Hemoglobin 10.9, sodium 135, potassium 4.5, bicarb 20, BUN 77, creatinine 3.3, GFR of 20, calcium 8.6, phosphorus 4, albumin 2.6. 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 PTH is still pending. Hormonal workup for secondary hypertension still pending. Current Medications: The patient on, include: 1. Plavix. 2. Amlodipine 10 mg. 3. Carvedilol. 4. Clonidine 0.3. 5. Cardura 4 b.i.d. 6. Hydralazine 100 t.i.d. 7. Isosorbide. 8. Spironolactone. Assessment And Plan: Acute kidney injury. Our differential diagnosis: 1. Cardiorenal with the present off normal kidney size and significant proteinuria with positive serum protein electrophoresis. I will follow up UPEP. I had long discussion with the patient, the need for kidney biopsy. The patient on agreement. We will go ahead and discontinue Plavix for the time being and we will plan for the biopsy next week. 2. I am going to go ahead and send for immune fixation. We will follow up the patient closely. We will hold spironolactone for the time being. 3. Hypertension with urgent hypertension, currently blood pressure acceptable. Hold spironolactone, hold ERIN inhibitor or ARB. Continue current regimen. 4. Proteinuria, close to nephrotic range proteinuria given the history of acute kidney injury and leukemia we will follow up. Plan for kidney biopsy Could not add any ERIN inhibitor or ARB given good current worsening kidney function 5. Congestive heart failure with exacerbation. Currently, the patient on the normal volume. We will follow up. 6. Anemia of chronic kidney disease with positive serum protein electrophoresis. I do not see the need for HILDA. We will follow up IPAP and kidney biopsy. Time spent examining the patient [id number] reviewing that the lab and the radiology placing orders or discussing the case with the patient discussing the case with the long line teamster including hospitalist and nursing staff more than 35 minutes KAYLA Voice ID: [id number] Report ID: [id number] BALDOMERO
--- NOTE | 2023-06-29 23:57 | PN ---
Date of Progress Note: 06/29/2023 Chief Complaint: Acute on chronic kidney injury, cardiorenal syndrome. Subjective: The patient denies chest pain, palpitation. The patient has known history of hypertensi on congestive heart failure. Renal function has declined and BUN is 77, creatinine was 3. 3. Serum protein electrophoresis was positive for hypogammaglobulinemia, and there is a questionable light chain as well. Review of Systems: Denies chest pain, palpitation. Physical Examination: Lungs: Clear to auscultation bilaterally. Heart: S1, S2. Abdomen: Soft, benign, nontender. Extremities: No edema. Impression And Plan: 1.Hypertension. Blood pressure uncontrolled. The patient was taking spironolactone and currently o n hold due to risk of hyperkalemia. Advance blood pressure medication for adequate control. Plan to check renal artery Doppler if it was not done yet. 2.Congestive heart failure exacerbation. The patient is euvolemic. Continue low-sodium diet. Diur etic as needed. Monitor renal function/electrolytes closely. 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 The patient will need renal biopsy. ISAIAS/JOHNY Voice ID: [id number] Report ID: [id number]
[2023-06-30 06:21] LABS: Albumin 2.5 g/dL (3.4-5.0); Phosphorus 3.6 mg/dL (2.5-4.9); Potassium 4.5 mEq/L (3.5-5.1)
[2023-06-30] MEDS: INSULIN REGULAR (HUMAN) 100 UNIT/ML SQ SCH (12:33)
--- NOTE | 2023-06-30 13:09 | PN ---
Date of Progress Note: 06/29/2023 The patient has had good days as far as his blood pressure and feeling well. The results of his crea tinine have improved as well. Probably a combination of holding the Lasix, addition of an d holding his leukemic drug. If he continues this way, possibly could be discharged in the a.m. and return for his biopsy. HR/MODL Voice ID: [id number] Report ID: [id number]
--- NOTE | 2023-06-30 13:09 | PN ---
Date of Progress Note: 06/30/2023 The patient is not feeling as well today. He states he is becoming dyspneic again. We will repeat c hest x-ray, suspect mild failure once again. We will discuss further with Dr. Parker. HR/MODL Voice ID: [id number] Report ID: [id number]
--- NOTE | 2023-06-30 13:55 | RAD REPORT ---
EXAM DESCRIPTION: RAD - Chest Pa And Lat (2 Views) - 06/30/2023 1:48 pm CLINICAL HISTORY: sob Chest pain. COMPARISON: Chest Single View dated 06/28/2023; Chest Single View dated 06/25/2023; Chest Single View da katie 06/20/2023; Chest Single View dated 03/10/2023 FINDINGS: Mild pulmonary edema is seen. It appears mildly improved since 06/28/2023. Small left and moderate right pleural effusion. The heart is mildly enlarged. IMPRESSION: Mild improvement in CHF pattern suspected since comparative study. Small left and moderate right pleural effusion persist.
[2023-06-30] MEDS: FUROSEMIDE 40 MG/4 ML VIAL IV ONE (14:11)
[2023-06-30] MEDS: HYDRALAZINE HCL 25 MG TABLET PO SCH (14:11)
--- NOTE | 2023-06-30 18:33 | PN ---
Date of Progress Note: 06/30/2023 Subjective: The patient was admitted to the hospital with CHF exacerbation. The patient was started on diuresis. The patient had acute kidney injury. We back up on the diuresis. The patient workup showed nephrotic range of proteinuria. We held the diuresis and held his leukemia medication. Kidney function started improving, but today the patient complaining of some shortness of breath. Physical Examination: Vital Signs: Blood pressure 172/60, pulse of 60, afebrile. Chest: Crackles more prominent on the left base. Heart: S1, S2 systolic murmur. Abdomen: Soft, nontender. Extremities: Trace edema. Neurologic: Alert. No focality. Laboratory Data: Sodium 136, potassium 4.5 bicarb 22, BUN 87, creatinine 2.6, GFR 26, calcium 8.1, phosphorus 3.6, albumin 2.5, hemoglobin 10.9. Current Medications: The patient on include: 1. Amlodipine 10 mg. 2. Atorvastatin. 3. Carvedilol 12.5 mg. 4. Clonidine 0.3 mg. 5. Cardura 4 mg. 6. Hydralazine 100 t.i.d. 7. Isosorbide 20 b.i.d. 8. Bisacodyl. Assessment And Plan: 1. Acute kidney injury with nephrotic range of proteinuria with positive serum protein electrophoresis. The patient's serology is still pending. The patient planned for kidney biopsy on Thursday. We will follow up. Looked to me patient is slightly on the wet side. I am following the chest x-ray today. I will give single dose of Lasix and we will follow up the patient closely. 2. Hypertension with urgent hypertension workup for secondary hypertension still pending. The patient may need vascular workup, waiting to improve in the kidney function, so we can do MRA with gadolinium, otherwise need to be done as outpatient. We are trying to avoid any iodine given the fluctuation in the kidney function. 3. We will follow up hormonal workup. 4. I am going to go ahead and increase his hydralazine to every 6 hours and give the patient a single dose of Lasix today and we will follow up the patient. 5. Congestive heart failure with exacerbation. We will try to optimize the patient's fluid status with diuresis. 6. Hyponatremia, dilutional. Continue patient's diuresis. Time spent examining the patient [id number] reviewing that the lab and the radiology placing orders or discussing the case with the patient discussing the case with the merchandising team lead including hospitalist and nursing staff more than 35 minutes KAYLA Voice ID: [id number] Report ID: [id number] MTDEmili
[2023-07-01 05:56] LABS: Albumin 2.7 g/dL (3.4-5.0); Phosphorus 3.3 mg/dL (2.5-4.9); Potassium 4.5 mEq/L (3.5-5.1)
--- NOTE | 2023-07-01 13:06 | PN ---
Date of Progress Note: 07/01/2023 Subjective: The patient is doing well. Yesterday, we gave the patient Lasix. Chest x-ray showed congestion with suspect right-sided pleural effusion. The patient is feeling much better. Physical Examination: Vital Signs: Blood pressure 150/60, pulse of 67. Chest: Decreased entry at right base. Heart: S1, S2. Systolic murmur. Abdomen: Soft, nontender. Extremities: Trace edema. Neurologic: Alert. No focality. Laboratory Data: Hemoglobin 10.9. Sodium 137, potassium 4.5, bicarb 22, BUN 77, creatinine 2, calcium 8.5, phosphorus 3.3. Current Medications: The patient on, includes: 1. Amlodipine 10 mg. 2. Atorvastatin. 3. Carvedilol 12.5. 4. Clonidine 0.3. 5. Hydralazine 100 t.i.d. 6. Isosorbide 20 b.i.d. Assessment And Plan: 1. Acute kidney injury with nephrotic range proteinuria, possible renal artery stenosis/paraneoplastic/secondary to still on the wet side. I am going to resume Lasix 40 mg daily and we will continue to monitor the patient. The patient planned for kidney biopsy Thursday and we will follow up. 2. Hypertension, much better control. We will resume the Lasix. I am going to increase the carvedilol to 25 mg as I mentioned the patient planned for MRA. We will follow up. 3. We will follow up. His hormonal workup still pending. The primary workup for secondary hypertension including hormonal labs came negative and hyperaldo came negative. We will monitor. Waiting for kidney function to improve with a plan for MRA for the renal artery 4. Hyponatremia, dilutional. Continue diuresis. We will follow up. 5. Congestive heart failure with exacerbation. Resume Lasix. Plan for renal artery MRA and we will follow up. Time spent examining the patient [id number] reviewing that the lab and the radiology placing orders or discussing the case with the patient discussing the case with the steam shovel operating engineer including hospitalist and nursing staff more than 35 minutes KAYLA Voice ID: [id number] Report ID: [id number] BALDOMERO
[2023-07-01 13:48] LABS: Beta Globulin 24 HR Urine 13 %; Gamma Globulin, 24hr Urine 7 %; Interpretation: REPORT; Protein/Crea Ratio in g 2437 mg/g creat (<100); Protein/Crea Ratio in mg 2.437 (<0.100); Urine Alpha-2-Globulins, 24 Hr 6 %; Urine PEP Abn Protein Band1 REPORT; Urine Total Volume 24 Hours 1150 mL
[2023-07-01] MEDS: carvediloL 25 MG TAB PO SCH (17:39)
--- NOTE | 2023-07-01 17:45 | PN ---
Date of Progress Note: 07/01/2023 The patient states he feels a whole lot better today, obviously the same pattern. Of note, the x-ray did not show worsening of the CHF clinically, was so given diuresis and he feels a lot better. This will have to be balanced and his creatinine as well, awaiting biopsy scheduled for Thursday . HR/MODL Voice ID: [id number] Report ID: [id number]
[2023-07-02 05:32] LABS: Albumin 2.7 g/dL (3.4-5.0); Potassium 4.7 mEq/L (3.5-5.1)
[2023-07-02] MEDS: FUROSEMIDE 40 MG/4 ML VIAL IV SCH (09:06)
[2023-07-02 12:33] LABS: Protime INR 1.07
--- NOTE | 2023-07-02 16:09 | PN ---
Date of Progress Note: 07/02/2023 Subjective: The patient was admitted to the hospital with acute kidney injury secondary to cardiorenal. The patient had urgent hypertension. We diuresed the patient. The patient's kidney function got worse. We discontinued diuresis and discontinued his leukemia treatment of bosutinib. The patient's kidney function continued to improve. The blood pressure is better controlled. We resumed diuresis day before yesterday. Patient is feeling better. Physical Examination: Vital Signs: Blood pressure 134/64, pulse of 74, afebrile. Chest: Clear to auscultation. Heart: S1, S2. Regular. Abdomen: Soft, nontender. Extremities: No edema. Neuro: Alert. No focality. Laboratory Data: Hemoglobin 10.4. Sodium 138, potassium 4.7, bicarb 22, BUN 65, creatinine 1.9, calcium 8. GFR of 37. Phosphorus 3. Albumin 2.7. Current Medications: The patient is on include amlodipine, atorvastatin, carvedilol 25 b.i.d., clonidine 0.3 t.i.d., hydralazine 100 every 6 hours, isosorbide, Lasix 40 daily, bisacodyl. Assessment And Plan: 1. Acute kidney injury with nephrotic range of proteinuria, questionable secondary to acute tubular necrosis secondary to bosutinib superimposed with ARB, Entresto, and spironolactone on the recovery. Normal volume. I am going to continue current dose of Lasix. Patient planned for kidney biopsy tomorrow. Given the nephrotic range of proteinuria and the positive serum protein electrophoresis, I am going to go ahead and proceed with MRA. 2. Hypertension with urgent hypertension, currently controlled, possible exacerbation secondary to his leukemia medication, possible bosutinib. We will keep holding bosutinib. We will discuss with Dr. Trevino for substitute. 3. Congestive heart failure with exacerbation. We will continue diuresis. 4. Nephrotic range of proteinuria. Workup so far negative. We will plan for biopsy. Time spent examining the patient [id number] reviewing that the lab and the radiology placing orders or discussing the case with the patient discussing the case with the steam box operator including hospitalist and nursing ICU staff more than 35-minute SUNSHINE/JOHNY Voice ID: [id number] Report ID: [id number] BALDOMERO
--- NOTE | 2023-07-02 17:34 | RAD REPORT ---
EXAM DESCRIPTION: MRI - MRA Abdomen W/Wo Cont - 07/02/2023 3:54 pm CLINICAL HISTORY: Renal artery stenosis COMPARISON: Renal ultrasound May 2023 TECHNIQUE: Magnetic resonance angiogram of the renal arteries performed. . 40 cc MultiHance was admi nistered intravenously. 3D MIPS reconstruction performed. The referring physician improved the admini stration of contrast FINDINGS: Moderate short-segment stenosis proximal left renal artery estimated approximately 55%. Right renal artery are unremarkable One main renal artery supplies each kidney. The aorta, celiac and SMA are unremarkable IMPRESSION: Short-segment stenosis estimated approximately 55% proximal left renal artery
--- NOTE | 2023-07-02 18:02 | PN ---
Date of Progress Note: 07/02/2023 Subjective: The patient is feeling also much better than he has in the past few days. His creatinin e is improved. His function is improved. He is to schedule for renal biopsy in the a.m. Depending on results of this, obviously further evaluation and monitoring will be necessary. In any event, he is basically diabetic nephropathy. Has to monitor his Lasix dose and frequency as opposed to his CHF and creatinine close to time. HR/MODL Voice ID: [id number] Report ID: [id number]
[2023-07-03] MEDS: ISOSORBIDE DINIT 20 MG TAB PO SCH (09:00)
[2023-07-03] MEDS: FENTANYL CITR 100 MCG/2 ML ONE (10:00)
[2023-07-03] MEDS: NALOXONE HCL 2 MG/2 ML VIAL ONE (10:00)
[2023-07-03] MEDS: MIDAZOLAM HCL 2 MG/2 ML INJ ONE (10:00)
[2023-07-03] MEDS: NA CHLORIDE 0.9% 1,000 ML ONE (10:10)
[2023-07-03] MEDS: HYDRALAZINE HCL 20 MG/ML VIAL ONE (11:04)
--- NOTE | 2023-07-03 12:19 | RAD REPORT ---
EXAM DESCRIPTION: CT - Abdomen Wo Contrast - 07/03/2023 12:04 pm CLINICAL HISTORY: bahman COMPARISON: MRA Abdomen W/Wo Cont dated 07/02/2023; Abdomen Pelvis Scan US dated 06/23/2023; Renal Ultr asound-Complete dated 06/21/2023 TECHNIQUE: The patient presented for CT-guided biopsy of the [place] kidneys for deteriorating renal functions. Informed consent was obtained following discussion of the risks and benefits with the patient. Time-o ut procedure was performed. The patient was placed prone on the CT table and the left lower back area was prepped and draped in t he usual sterile fashion. Thin cut axial CT imaging of the abdomen was performed without IV contrast. Limited CT fluoroscopy imaging was also performed. The patient's blood pressure was persistently elevated since the start of the time-out procedure. Two separate doses of 10 milligram hydralazine were administered intravenously, however the patient's sy stolic blood pressure was persistently elevated above 160 mmHg. Intravenous clonidine was not availab le for administration. Intravenous sedation was also administered. Following administration of the se cond IV hydralazine dose, and given the failure of attempts to lower the patient's blood pressure, I decided to abort the procedure given the elevated risk of bleeding. All CT scans are performed using dose optimization technique as appropriate and may include automated exposure control or mA/KV adjustment according to patient size. Conscious Sedation: 1 milligram Versed , 100 mcg fentanyl. Total sedation time: 15 minutes. Patient was continuously monitored by nursing staff. FINDINGS: Bilateral small to moderate layering pleural effusions, slightly larger on the right. The liver, spleen, and pancreas show no suspicious findings. Spurious excretion of contrast within th e gallbladder Symmetric renal contour, without suspicious parenchymal findings within limits of noncontrast techniq ue. No evidence of radiopaque calculi or hydroureteronephrosis. No dilated bowel loops or bowel wall thickening. No free air, free fluid or inflammatory stranding. N o evidence of a hernia, mass or bulky lymphadenopathy. No suspicious bony findings. IMPRESSION: The exam was performed as initial imaging for CT-guided renal biopsy that was aborted gi nicole the patient's persistently elevated blood pressure. There are bilateral small to moderate layering pleural effusions larger on the right. No other suspic ious abnormality seen within the abdomen.
--- NOTE | 2023-07-04 02:06 | PN ---
Date of Progress Note: 07/03/2023 Chief Complaint: Acute on chronic kidney. Subjective: The patient has multiple medical problems. He was found to have acute kidney injury sec ondary to cardiorenal syndrome. Renal function has declined, and over last 48 hours, serum creatinin e level is improving. Patient has nonoliguric urine output. He received diuretics for cardiorenal s yndrome. Diuretics subsequently were discontinued. The patient has history of leukemia and underwen t recently treatment with bosutinib. Renal function has improved over last few days. Review of Systems: Denies chest pain, palpitation. Physical Examination: Lungs: Clear to auscultation bilaterally. Heart: S1, S2. Abdomen: Soft, benign. Extremities: No edema. Impression And Plan: 1.Acute kidney injury secondary to cardiorenal syndrome. There is underlying chronic kidney disease with nephrotic range proteinuria. Patient has cardiorenal syndrome and developed acute tubular necr osis secondary to bosutinib superimposed with effect of angiotensin receptor josé and Crestor and spironolactone. Currently, he is normovolemic. He will continue maintenance Lasix dose for volume c ontrol and congestive heart failure control. Plan is to proceed with renal biopsy. The patient has nephrotic range proteinuria and positive serum protein electrophoresis suggestive of monoclonal gammo tianna of unknown significance. 2.Hypertension with hypertensive urgency. Currently, blood pressure is in better control. Continue current medication. 3.Congestive heart failure with diastolic dysfunction and exacerbation. Continue maintenance diuret ic. 4.Nephrotic range proteinuria. The plan is to proceed with renal biopsy for further diagnostic eval uation. ISAIAS/MODL Voice ID: [id number] Report ID: [id number]
[2023-07-04 07:10] LABS: Potassium 4.5 mEq/L (3.5-5.1)
[2023-07-04 11:21] VITALS: BP 164/67; TEMP 98.6
[2023-07-04 15:02] VITALS: O2SAT 95
== END 2023-07-04 12:58 | disposition home or self-care (01) | DRG 682 ==
LOC: ER 00:45 → ERHOLD 04:18 → 4TH 19:34
PROVIDERS: ADMIT Internal Medicine; ATTEND Family Medicine
PROC: 0TB13ZX Excision of Left Kidney, Percutaneous Approach, Diagnostic (ICD-10-PCS; principal; 2023-06-21)
PROC: 0TB03ZX Excision of Right Kidney, Percutaneous Approach, Diagnostic (ICD-10-PCS; 2023-06-21)
DX: N17.0 Acute kidney failure with tubular necrosis (principal); I50.33 Acute on chronic diastolic (congestive) heart failure; I13.0 Hypertensive heart and chronic kidney disease with heart failure and stage 1 through stage 4 chronic kidney disease, or unspecified chronic kidney disease; C95.90 Leukemia, unspecified not having achieved remission; I16.1 Hypertensive emergency; E87.1 Hypo-osmolality and hyponatremia; E87.3 Alkalosis; N18.30 Chronic kidney disease, stage 3 unspecified; E11.22 Type 2 diabetes mellitus with diabetic chronic kidney disease; E11.65 Type 2 diabetes mellitus with hyperglycemia; D63.1 Anemia in chronic kidney disease; G20.C Parkinsonism, unspecified; F02.80 Dementia in other diseases classified elsewhere, unspecified severity, without behavioral disturbance, psychotic disturbance, mood disturbance, and anxiety; T50.1X5A Adverse effect of loop [high-ceiling] diuretics, initial encounter; Z53.8 Procedure and treatment not carried out for other reasons; Z79.4 Long term (current) use of insulin; Z90.49 Acquired absence of other specified parts of digestive tract; Z79.899 Other long term (current) drug therapy
CPT/HCPCS: 36415; 36600; 71045; 71046; 74150; 76770; 80048; 80053; 80069; 80076; 81001; 82088; 82384; 82435; 82533; 82570; 82575; 82607; 82728; 82805; 82947; 83540; 83735; 83835; 83880; 83970; 84132; 84156; 84165; 84166; 84244; 84443; 84466; 84484; 84550; 85025; 85044; 85610; 85730; 86021; 86038; 86160; 86225; 86334; 86430; 86803; 93005; 93306; 93880; 93975; 96374; 97116; 97161; 99285; C8902; J0360; J1815; J1940; J2250; J2310; J2405; J3010; J7030; J7050

== ENCOUNTER 2023-08-17 08:27 | Day surgery (SDC) | payer OTHER ==
[2023-08-17 09:21] LABS: PT Prothrombin Time 11.7 SECONDS (9.5-12.5); PTT, Activated Partial Thromb 39.3 SECONDS (24.3-36.9); Protime INR 1.07
[2023-08-17 09:35] LABS: Anion Gap 5.9 mEq/L (5.0-15.0); Potassium 3.9 mEq/L (3.5-5.1)
[2023-08-17] MEDS ORDERED: FLUMAZENIL 0.1 MG/ML (5 mL VIAL) IV ONE (09:51)
[2023-08-17] MEDS ORDERED: MIDAZOLAM HCL 2 MG/2 ML INJ ONE (09:51)
[2023-08-17] MEDS ORDERED: NALOXONE HCL 2 MG/2 ML VIAL ONE (09:52)
[2023-08-17] MEDS ORDERED: FENTANYL CITR 100 MCG/2 ML ONE (09:52)
[2023-08-17] MEDS ORDERED: NA CHLORIDE 0.9% 500 ML ONE (09:53)
[2023-08-17] MEDS ORDERED: ATROPINE SULF 1 MG/10 ML SYR IV ONE (10:01)
--- NOTE | 2023-08-17 11:16 | RAD REPORT ---
EXAM DESCRIPTION: CT - Renal Biopsy CT - 08/17/2023 11:01 am CLINICAL HISTORY: RENAL DISEASE Flank pain COMPARISON: No comparisons FINDINGS: Preoperative diagnosis: Renal disease Post operative diagnosis: Same Conscious Sedation: 45 minutes of IV conscious sedation was utilized with IV fentanyl and midazolam.. Patient was continuously monitored by nursing staff. Contrast used: NONE Estimated blood loss: less than 5 mL Specimens: 2 x 18 gauge core specimens The patient was placed prone on the table and the left posterior flank area was prepped and draped in the usual sterile fashion. 1% lidocaine was infiltrated into the subcutaneous tissues for local anes thesia. Under computed tomographic guidance, a 17 gauge introducer was advanced into the lesion. Subs equently, a 18 gauge, 15 cm long, 20 mm throw core biopsy gun was advanced into the lesion and 2 core s were obtained. Postprocedure imaging demonstrated no complications. Samples were given to pathology for analysis. Th e patient tolerated the procedure without immediate complication and transferred to the recovery room in stable condition. IMPRESSION: Technically successful nonfocal left renal biopsy. 45 minutes of IV conscious sedation was utilized. All CT scans are performed using dose optimization technique as appropriate and may include automated exposure control or mA/KV adjustment according to patient size.
[2023-08-17 13:07] VITALS: O2SAT 100; BMI 25.8
[2023-08-17 13:45] VITALS: BP 152/50; TEMP 97
== END 2023-08-17 13:25 | disposition home or self-care (01) ==
LOC: DS 08:27
PROVIDERS: ATTEND Internal Medicine
DX: N18.32 Chronic kidney disease, stage 3b (principal); N26.9 Renal sclerosis, unspecified
CPT/HCPCS: 80048; 36415; 85610; 82947 ×2; 88300; 85730; 50200; J2250; J3010; J7040; J0461; J2310

== ENCOUNTER 2024-04-20 14:26 | Inpatient (IN) | payer OTHER ==
--- NOTE | 2024-04-20 15:17 | RAD REPORT ---
EXAMINATION: CT ABDOMEN AND PELVIS WITHOUT CONTRAST CLINICAL INDICATION: Abd pain;Nausea / vomiting TECHNIQUE: CT abdomen and pelvis was performed, without IV contrast, as per department protocol. Axia l, sagittal and coronal reconstructions were obtained. One or more of the following dose reduction techniques were used: Automated exposure control, adjustment of the mA and kV according to the patien t size, and iterative reconstruction. Unless otherwise specified, incidental findings do not require dedicated imaging follow-up. COMPARISON: 10/18/2021 FINDINGS: The lack of intravenous contrast limits the sensitivity of this exam for evaluation of solid visceral organs, vascular structures, and retroperitoneum. LOWER CHEST: The visualized lung bases are clear. Small hiatal hernia. Mild pericardial thickening or fluid anteriorly LIVER:Normal in size and contour. No focal lesion. Small gallstones are present. SPLEEN: Normal size. No focal lesion. PANCREAS: No mass, ductal dilation, or patience-pancreatic fluid. ADRENALS: Normal; no mass. KIDNEYS AND URETERS: Normal size and contour. No hydronephrosis. URINARY BLADDER: Normal contour. GASTROINTESTINAL TRACT: No evidence of bowel obstruction, significant free fluid, free air or abscess . There is diffuse distention of the entire visualized colon seen filled with solid and liquid stool. APPENDIX: Appendix surgically absent. LYMPH NODES: No lymphadenopathy. MUSCULOSKELETAL: No acute or suspicious osseous abnormality. ADDITIONAL FINDINGS: None. IMPRESSION: Significantly distended colon filled with both solid and liquid stool. Cholelithiasis.
[2024-04-20] MEDS ORDERED: MORPHINE 4 MG/ML SYR ONE ×2 (15:24→19:55)
[2024-04-20 15:28] LABS: Absolute Basophils 0.1 K/uL (0-0.5); Absolute Lymphocytes (CBC) 3.4 K/uL (0.7-4.9); Absolute Neutrophil 24.3 K/uL (1.8-8.0); Basophils % 0.3 % (0-1.3); Eosinophils % 0.2 % (0-4.4); Hematocrit 46.9 % (39.6-49.0); Hemoglobin 15.4 g/dL (13.6-17.9); Lymphocytes % 11.9 % (15.3-44.8); MCHC 32.8 g/dL (32.0-36.0); MCV 97.6 fL (80-100); MPV 11.6 fL (7.6-11.3); Monocytes % 3.5 % (3.3-12.3); Neutrophils % 84.1 % (41.7-73.7); Nucleated Red Blood Cells % 0.2 % (0-0); Platelets 181 thou/uL (152-406); RBC Red Blood Cell Count 4.81 M/uL (4.33-5.43); Red Cell Distribution Width 14.7 % (12.1-15.2)
[2024-04-20 15:44] LABS: Albumin 4.3 g/dL (3.4-5.0); Anion Gap 19.6 mEq/L (5.0-15.0); Bilirubin Total 0.8 mg/dL (0.2-1.0); Globulin 4.1 g/dL (2.3-3.5); Potassium 3.6 mEq/L (3.5-5.1); Protein, Total 8.4 g/dL (6.4-8.2)
--- NOTE | 2024-04-20 16:15 | EDPHYS ---
Physician Documentation [facility] Name: Mac Hurtado Age: 68 yrs Sex: Male : 1955 Arrival Date: 04/20/2024 Time: 14:26 Bed 4 Private MD: ED Physician Kel Olson HPI: 04/20 14:59 This 68 yrs old Black Male presents to ER via EMS with complaints of Abdominal Pain. rn 14:59 The patient presents with abdominal pain that is diffuse. Onset: The symptoms/episode rn began/occurred today. The symptoms do not radiate. Associated signs and symptoms: Pertinent positives: nausea and vomiting, diarrhea, Pertinent negatives: blood in stools, fever. Modifying factors: The symptoms are alleviated by nothing, the symptoms are aggravated by touching the area. Severity of pain: At its worst the pain was moderate in the emergency department the pain has improved. The patient has experienced a previous episode. The patient has not recently seen a physician. Historical: - Allergies: 14:41 No Known Allergies; ll1 - PMHx: 14:41 CHF; Diabetes - IDDM; Hypertension; Leukemia; stent placed in right leg; ll1 - PSHx: 14:41 Appendectomy; ll1 - Immunization history:: Adult Immunizations up to date. - Infectious Disease History:: Denies. - Social history:: Smoking status: Patient denies any tobacco usage or history of. - Family history:: not pertinent. - Hospitalizations: : No recent hospitalization is reported. ROS: 14:59 Constitutional: Negative for fever, chills, and weight loss, Cardiovascular: Negative rn for chest pain, palpitations, and edema, Respiratory: Negative for shortness of breath, cough, wheezing, and pleuritic chest pain, Abdomen/GI: Positive for abdominal pain with vomiting and diarrhea MS/Extremity: Negative for injury and deformity, Skin: Negative for injury, rash, and discoloration, Neuro: Negative for headache, weakness, numbness, tingling, and seizure, Exam: 14:59 Constitutional: This is a well developed, well nourished patient who is awake, alert, rn and in no acute distress. Head/Face: Normocephalic, atraumatic. Cardiovascular: tachycardic, regular. No pulse deficits. Respiratory: No increased work of breathing, no retractions or nasal flaring. Abdomen/GI: Soft, mid abdominal tenderness without rebound or peritoneal signs MS/ Extremity: Pulses equal, no cyanosis. Neuro: Awake and alert, GCS 15 17:47 ECG was reviewed by the Attending Physician. rn Vital Signs: 14:40 BP 115 / 68; Pulse 103; Resp 17; Temp 97.2; Pulse Ox 100% ; Weight 72.57 kg; Height 5 ll1 ft. 7 in. ; Pain 10/10; 19:46 BP 149 / 67; Pulse 77; Resp 16; Pulse Ox 96% on R/A; al5 14:40 Body Mass Index 25.06 (72.57 kg, 170.18 cm) ll1 14:40 Pain Scale: Adult ll1 MDM: 14:42 Medical Screening Exam initiated rn 16:12 Differential diagnosis: appendicitis, bowel obstruction, diverticulitis, non-specific rn abd pain. Data reviewed: vital signs, nurses notes, lab test result(s), radiologic studies, CT scan, and as a result, I will admit patient. Consideration of Admission/Observation Patient was admitted/placed on observation. Escalation of care including admission/observation considered. Counseling: I had a detailed discussion with the patient and/or guardian regarding the historical points, exam findings, and any diagnostic results supporting the discharge/admit diagnosis, lab results, radiology results, the need for further work-up and treatment in the hospital. ED course: CT shows distended colon with liquid stool, WBC 28,000. Send blood culture and lactate. Antibiotics to be given after blood cultures obtained. Will admit for further care given possibility of colitis and worsening renal function.. 04/20 14:50 Order name: CBC with Diff; Complete Time: 16:07 rn 04/20 14:50 Order name: CMP; Complete Time: 16: rn 04/20 14:50 Order name: Lipase; Complete Time: 16: rn 04/20 14:50 Order name: Urinalysis w/ reflexes rn 04/20 14:50 Order name: Flu; Complete Time: 16:07 rn 04/20 16:09 Order name: Blood Culture Adult (2) rn 04/20 16:09 Order name: Lactate w/ 2H reflex if indic. rn 04/20 16:09 Order name: Protime (+inr) rn 04/20 16:09 Order name: Ptt, Activated rn 04/20 18:57 Order name: Magnesium [facility] 04/20 18:57 Order name: CBC with Automated Diff [facility] 04/20 18:57 Order name: CBC with Automated Diff [facility] 04/20 18:57 Order name: Comprehensive Metabolic Panel [facility] 04/20 18:57 Order name: Comprehensive Metabolic Panel [facility] 04/20 20:41 Order name: Ghost Lactate-NO COLLECT Timer [facility] 04/20 14:50 Order name: CT Abd/Pelvis - Without Contrast; Complete Time: 15:27 rn 04/20 16:09 Order name: EKG; Complete Time: 16:10 rn 04/20 14:50 Order name: IV Saline Lock; Complete Time: 15:07 rn 04/20 14:50 Order name: Labs collected and sent; Complete Time: 15:21 rn 04/20 16:09 Order name: Accucheck; Complete Time: 16:20 04/20 16:09 Order name: Cardiac monitoring; Complete Time: 17:42 rn 04/20 16:09 Order name: EKG - Nurse/Tech; Complete Time: 17:42 rn 04/20 16:09 Order name: IV Saline Lock - Large Bore; Complete Time: 17:56 rn 04/20 16:09 Order name: O2 Per Protocol; Complete Time: 16:20 rn 04/20 16:09 Order name: O2 Sat Monitoring; Complete Time: 16:20 04/20 16:09 Order name: Vital Signs; Complete Time: 16:20 rn EC:47 Rate is 99 beats/min. Rhythm is regular. QRS [place] is Normal. MS interval is normal. No rn Q waves. T waves are Normal. No ST changes noted. Clinical impression: NSR w/ Non-specific ST/T Changes. Interpreted by me. Reviewed by me. Administered Medications: 15:33 Drug: morphine IVP or IV 4 mg IVP once over 4 mins Route: IVP; Infused Over: 4 mins; kc6 Site: left antecubital; 16:32 Follow up: Response: No adverse reaction; Pain is decreased kc6 16:32 Not Given (Other Intervention Used; pt givn zofran by EMS): ondansetron 4 mg IVP once; kc6 over 2 minutes 20:03 Drug: Piperacillin-Tazobactam IVPB 3.375 grams IVPB once over 60 mins; (mix in NS 100 al5 mL) Route: IVPB; Infused Over: 60 mins; Site: left antecubital; 20:20 Follow up: Response: No adverse reaction; IV Status: Infusion continued upon admission al5 20:03 Drug: morphine IVP or IV 4 mg IVP once over 4 mins Route: IVP; Infused Over: 4 mins; al5 Site: left antecubital; 20:20 Follow up: Response: No adverse reaction; Pain is decreased al5 Disposition Summary: 04/20/24 16:14 Hospitalization Ordered Notes: Hospitalization Status: Inpatient Admission rn Provider: Kay Ortiz rn Location: Telemetry/MedSurg (Inpatient) rn Condition: Stable rn Problem: new rn Symptoms: are unchanged rn Bed/Room Type: Standard rn Room Assignment: 207(04/20/24 19:18) rv1 Diagnosis - Infectious gastroenteritis and colitis, unspecified rn - Acute kidney failure, unspecified rn Forms: - Medication Reconciliation Form rn - SBAR form rn - Leadership Thank You Letter rn Signatures: Dispatcher [employer] EDWY Kel Olson MD MD rn Lewis, Lynsay RN RN ll1 Rosemary Danielson RN RN kc6 Junie Arnold rv1 Wanda Tirado RN RN al5 Corrections: (The following items were deleted from the chart) 14:50 14:50 Abdomen Pelvis Wo Con+CT.RAD.BRZ ordered. EDWY EDMS 19:18 16:14 rn rv1
--- NOTE | 2024-04-20 16:15 | ER ---
Nurse's Notes [facility] Name: Mac Hurtado Age: 68 yrs Sex: Male : 1955 Arrival Date: 04/20/2024 Time: 14:26 Bed 4 Private MD: Diagnosis: Infectious gastroenteritis and colitis, unspecified;Acute kidney failure, unspecified Presentation: 04/20 14:40 Chief complaint: Patient states: Abdominal pain and nausea started today. Zofran 4 MG ll1 IV given en route 250 ml bolus LR. Coronavirus screen: Client denies travel out of the [place] in the last 14 days. At this time, the client does not indicate any symptoms associated with coronavirus-19. Ebola Screen: Patient denies travel to an Ebola-affected area in the 21 days before illness onset. Initial Sepsis Screen: Does the patient meet any 2 criteria? No. Patient's initial sepsis screen is negative. Does the patient have a suspected source of infection? No. Patient's initial sepsis screen is negative. Risk Assessment: Do you want to hurt yourself or someone else? Patient reports no desire to harm self or others. Onset of symptoms was April 20, 2024. 14:40 Method Of Arrival: EMS: [facility] ll1 14:40 Acuity: ROBERTO 3 ll1 Triage Assessment: 14:42 General: Appears uncomfortable, ill, Behavior is cooperative, appropriate for age, ll1 listless. Pain: Complains of pain in abdomen Pain currently is 10 out of 10 on a pain scale. Quality of pain is described as aching, crampy. GI: Reports lower abdominal pain, upper abdominal pain, nausea. Historical: - Allergies: 14:41 No Known Allergies; ll1 - PMHx: 14:41 CHF; Diabetes - IDDM; Hypertension; Leukemia; stent placed in right leg; ll1 - PSHx: 14:41 Appendectomy; ll1 - Immunization history:: Adult Immunizations up to date. - Infectious Disease History:: Denies. - Social history:: Smoking status: Patient denies any tobacco usage or history of. - Family history:: not pertinent. - Hospitalizations: : No recent hospitalization is reported. Screenin:21 [facility] ED Fall Risk Assessment (Adult) History of falling in the last 3 months, kc6 including since admission No falls in past 3 months (0 pts) Confusion or Disorientation No (0 pts) Intoxicated or Sedated No (0 pts) Impaired Gait No (0 pts) Mobility Assist Device Used No (0 pt) Altered Elimination No (0 pt) Score/Fall Risk Level 0 - 2 = Low Risk Oriented to surroundings, Maintained a safe environment. Abuse screen: Denies threats or abuse. Denies injuries from another. Nutritional screening: No deficits noted. Tuberculosis screening: No symptoms or risk factors identified. Assessment: 15:22 General: Appears in no apparent distress. uncomfortable, well groomed, well developed, kc6 Behavior is calm, cooperative, appropriate for age, quiet. Pain: Complains of pain in abdomen. Neuro: Level of Consciousness is awake, alert, obeys commands, Oriented to person, place, time, situation, Appropriate for age. Cardiovascular: Capillary refill < 3 seconds. Respiratory: Airway is patent Trachea midline Respiratory effort is even, unlabored, Respiratory pattern is regular, symmetrical. GI: Abdomen is flat, non-distended, Bowel sounds present X 4 quads. Abd is soft X 4 quads Abdomen is tender to palpation X 4 quads. Reports lower abdominal pain, upper abdominal pain, nausea, vomiting, Patient currently denies diarrhea. : No signs and/or symptoms were reported regarding the genitourinary system. EENT: No signs and/or symptoms were reported regarding the EENT system. Derm: Skin is intact, is healthy with good turgor, Skin is clammy, Skin is normal, Skin temperature is cool. Musculoskeletal: No signs and/or symptoms reported regarding the musculoskeletal system. Circulation, motion, and sensation intact. Capillary refill < 3 seconds, Range of motion: intact in all extremities. 16:22 Reassessment: Patient appears in no apparent distress at this time. No changes from kc6 previously documented assessment. Patient and/or family updated on plan of care and expected duration. Pain level reassessed. Patient is alert, oriented x 3, equal unlabored respirations, skin warm/dry/pink. 16:33 Reassessment: pt transferred by stretcher from ER 12 to ER 4. kc6 19:47 General: Appears in no apparent distress. uncomfortable, Behavior is calm, cooperative. al5 Pain: Complains of pain in abdomen. Neuro: Level of Consciousness is awake, alert, obeys commands, Oriented to person, place, time, situation. Cardiovascular: Capillary refill < 3 seconds Patient's skin is warm and dry. Respiratory: Airway is patent Respiratory effort is even, unlabored, Respiratory pattern is regular, symmetrical. GI: Abdomen is flat, non-distended, Reports lower abdominal pain, upper abdominal pain, diarrhea, nausea, vomiting. : No signs and/or symptoms were reported regarding the genitourinary system. EENT: No signs and/or symptoms were reported regarding the EENT system. Derm: Skin is intact, is healthy with good turgor, Skin is pink, warm \T\ dry. normal. Musculoskeletal: No signs and/or symptoms reported regarding the musculoskeletal system. Vital Signs: 14:40 BP 115 / 68; Pulse 103; Resp 17; Temp 97.2; Pulse Ox 100% ; Weight 72.57 kg; Height 5 ll1 ft. 7 in. ; Pain 10/10; 19:46 BP 149 / 67; Pulse 77; Resp 16; Pulse Ox 96% on R/A; al5 14:40 Body Mass Index 25.06 (72.57 kg, 170.18 cm) ll1 14:40 Pain Scale: Adult ll1 ED Course: 14:40 Patient arrived in ED. ll1 14:41 Triage completed. ll1 14:42 Kel Olson MD is Attending Physician. rn 14:42 Maintain EMS IV. Dressing intact. Good blood return noted. Site clean \T\ dry. Gauge \T\ ll 1 site: 20 G L AC. 14:42 Arm band placed on Patient placed in an exam room, on a stretcher. ll1 15:06 Rosemary Danielson RN is Primary Nurse. kc6 15:11 CT Abd/Pelvis - Without Contrast In Process Unspecified. EDMS 15:21 Patient requests pain medication. kc6 15:21 Patient maintains SpO2 saturation greater than 95% on room air. kc6 15:21 Patient has correct armband on for positive identification. Bed in low position. Call kc6 light in reach. Side rails up X2. Adult w/ patient. Pulse ox on. NIBP on. Door closed. Noise minimized. Lights dimmed. Warm blanket given. Pillow given. 16:14 Kay Ortiz MD is Hospitalizing Provider. rn 16:33 Report given to LESIA King \T\ LESIA Justice. kc6 19:46 No provider procedures requiring assistance completed. Patient admitted, IV remains in al5 place. 19:47 Provided Education on: need for admission. al5 Administered Medications: 15:33 Drug: morphine IVP or IV 4 mg IVP once over 4 mins Route: IVP; Infused Over: 4 mins; kc6 Site: left antecubital; 16:32 Follow up: Response: No adverse reaction; Pain is decreased kc6 16:32 Not Given (Other Intervention Used; pt eneida shea by EMS): ondansetron 4 mg IVP once; kc6 over 2 minutes 20:03 Drug: Piperacillin-Tazobactam IVPB 3.375 grams IVPB once over 60 mins; (mix in NS 100 al5 mL) Route: IVPB; Infused Over: 60 mins; Site: left antecubital; 20:20 Follow up: Response: No adverse reaction; IV Status: Infusion continued upon admission al5 20:03 Drug: morphine IVP or IV 4 mg IVP once over 4 mins Route: IVP; Infused Over: 4 mins; al5 Site: left antecubital; 20:20 Follow up: Response: No adverse reaction; Pain is decreased al5 Medication: 19:47 VIS not applicable for this client. al5 Outcome: 16:14 Decision to Hospitalize by Provider. rn 21:27 Admitted to Med/surg accompanied by tech, via stretcher, with chart, ha1 21:27 Condition: stable 21:27 Instructed on the need for admit, Demonstrated understanding of instructions, 21:27 Patient left the ED. ha1 Signatures: Dispatcher [employer] EDMS eKl Olson MD MD rn Lewis, Lynsay, RN RN 1 Jeniffer Gilliam RN RN ha1 Rosemary Danielson RN RN kc6 Wanda Tirado RN RN al5 Corrections: (The following items were deleted from the chart) 15:10 14:40 Chief complaint: Patient states: Abdominal pain and nausea started today ll1 ll1
[2024-04-20 17:51] LABS: PTT, Activated Partial Thromb 25.8 SECONDS (24.3-36.9); Protime INR 0.98
[2024-04-20] MEDS ORDERED: ACETAMINOPHEN 500 MG TAB PO PRN (18:52)
--- NOTE | 2024-04-20 18:56 | P.HP ---
Certification for Inpatient Patient admitted to: Inpatient With expected LOS: >2 Midnights Patient will require the following post-hospital care: None Practitioner: I am a practitioner with admitting privileges, knowledge of patient current condition, hospital course, and medical plan of care. Services: Services provided to patient in accordance with Admission requirements found in Title 42 Section 412.3 of the Code of Federal Regulations Patient History Date of Service: 04/20/24 Reason for admission: Dehydration History of Present Illness: Pt is a 68yo who presents to the hospital with intractable nausea vomiting diarrhea. Patient been ill for the last couple of days. Diarrhea on multiple episodes times a day. Patient came to the ER for further evaluation. In the ER patient was given IV fluids and pain medication. Patient states he is still not feeling much better. Patient be admitted to general medical for and will give aggressive IV hydration. Allergies carvedilol Adverse Reaction (Verified 04/20/24 22:41) Shortness of breath Home Medications: Amlodipine [Norvasc*] 5 mg PO BID 10/16/21 Bosutinib [Bosulif] 400 mg PO DAILY 10/16/21 Insulin Glargine,Hum.rec.anlog [Basaglar Kwikpen U-100] 75 units SQ DAILY 10/16/21 Ramipril [Altace] 10 mg PO BID 10/16/21 Clopidogrel Bisulfate [Plavix] 75 mg PO DAILY 06/20/23 Simvastatin 40 mg PO DAILY 06/20/23 Allopurinol 1 tab PO DAILY 08/17/23 Isosorbide Mononitrate [Isosorbide Mononitrate ER] 1 tab PO DAILY 08/17/23 Furosemide [Lasix] 40 mg PO DAILY 60 Days #60 tab 10/26/23 Ensure Enlive 237 ml PO BID #60 can 04/23/24 Hydralazine HCl 25 mg PO TID #90 tab 04/23/24 cloNIDine HCL [Clonidine HCl] 0.1 mg PO TID #90 tab 04/23/24 metroNIDAZOLE [Flagyl] 500 mg PO Q8H #20 tab 04/23/24 - Past Medical/Surgical History Diabetic: Yes -: HTN -: CHF -: Leukemia -: DMII -: appendectomy -: Kidney Bx -: Stent - Family History Father Family History: Reviewed- Non-Contributory - Social History Smoking Status: Former smoker Alcohol use: No CD- Drugs: No Caffeine use: No Review of Systems 10-point ROS is otherwise unremarkable Physical Examination - Vital Signs Temperature: 98 F Blood Pressure: 140/80 Pulse: 80 Respirations: 18 Pulse Ox (%): 95 - Physical Exam General: Alert, In no apparent distress, Oriented x3 HEENT: Atraumatic, PERRLA, Mucous membr. moist/pink, EOMI, Sclerae nonicteric Neck: Supple, 2+ carotid pulse no bruit, No LAD, Without JVD or thyroid abnormality Respiratory: Clear to auscultation bilaterally, Normal air movement Cardiovascular: Regular rate/rhythm, Normal S1 S2 Gastrointestinal: Soft and benign, Non-distended, No rebound, No guarding, Tenderness Musculoskeletal: No clubbing, No swelling, No tenderness Integumentary: No rashes Neurological: Sensation intact, Cranial nerves 3-12 intact, Normal affect, Abnormal gait, Abnormal speech, Abnormal strength Lymphatics: No axilla or inguinal lymphadenopathy - Studies Laboratory Data (last 24 hrs) 04/20/24 04/20/24 04/20/24 17:40 15:19 15:19 WBC 28.80 H Hgb 15.4 Hct 46.9 Plt Count 181 PT 11.0 INR 0.98 APTT 25.8 Sodium 138 Potassium 3.6 BUN 51 H Creatinine 2.81 H Glucose 390 H Total Bilirubin 0.8 AST 26 ALT 23 Alkaline Phosphatase 97 Lipase 52 Microbiology Data (last 24 hrs): 04/20/24 15:19 Nasopharnyx Influenza Type A Antigen Screen - Final 04/20/24 15:19 Nasopharnyx Influenza Type B Antigen Screen - Final Assessment & Plan - Problems (Diagnosis) (1) Infectious gastroenteritis Status: Acute (2) Abdominal pain Status: Acute (3) CKD (chronic kidney disease) Status: Acute (4) Congestive heart failure Status: Acute Qualifiers: Heart failure chronicity: acute on chronic (5) DM2 (diabetes mellitus, type 2) Status: Acute Qualifiers: Diabetes mellitus ocean transportation intermediary insulin use: with ocean transportation intermediary use Diabetes m ellitus complication status: with hyperglycemia Qualified Code(s): E11.65 - Type 2 diabetes mellitus with hyperglycemia; Z79.4 - alf (current) use of insulin (6) HTN (hypertension) Status: Acute (7) History of leukemia Status: Acute - Plan -IV antibiotics -IV fluids -GI consultation -CBC, CMP, lipase, stool cultures -diet as tolerated -Repeat abdominal film -Antiemetics Discharge Plan: Home Plan to discharge in: Greater than 2 days - Advance Directives Does patient have a Living Will: No Does patient have a Durable POA for Healthcare: No - Code Status/Comfort Care Code Status Assessed: Yes Code Status: Full Code Critical Care: No Time Spent Managing PTS Care (In Minutes): 45
[2024-04-20] MEDS ORDERED: PIPERACIL/TAZO 3.375 GM VIAL IV ONE (19:39)
[2024-04-20] MEDS ORDERED: NA CHLORIDE 0.9% 100 ML ONE (19:39)
[2024-04-20] MEDS: NA CHLORIDE 0.9% 500 ML IV ONE (20:30)
[2024-04-20 22:15] VITALS: BMI 23.5
[2024-04-20 22:16] VITALS: O2SAT 96
[2024-04-20] MEDS: METHYLPREDNISOLONE 40 MG INJ IV SCH (22:26)
[2024-04-20] MEDS: NA CHLORIDE 0.9% 1,000 ML IV SCH (22:26)
[2024-04-20] MEDS: METRONIDAZOLE 500mg IVPB 500 MG/100 ML BAG IV SCH (22:26)
[2024-04-20] MEDS: ONDANSETRON 4 MG/2 ML VIAL IV PRN (22:34)
[2024-04-20] MEDS: MORPHINE 2 MG/ML SYR IV PRN (22:34)
[2024-04-21] MEDS ORDERED: METHYLPREDNISOLONE 40 MG INJ IV SCH
[2024-04-21 03:27] LABS: Specific Gravity 1.019 (1.005-1.030); Sqamous Epithelial <5 /HPF (None Seen); Urine Bacteria <20 /HPF (<20); Urine Bilirubin NEGATIVE (Negative); Urine Blood Negative (Negative); Urine Clarity Extremely Turbid (Clear); Urine Color Dark-Yellow (Yellow); Urine Culture Reflex Order NOT NEEDED; Urine Glucose 1+ (Negative); Urine Ketones NEGATIVE (Negative); Urine Microscopic Reflex YN ORDER UMIC; Urine Mucus Slight /HPF (None Seen); Urine Nitrite NEGATIVE (Negative); Urine Protein TRACE (Negative); Urine RBC None Seen /HPF (None Seen); Urine Urobilinogen 2+ (Normal); Urine WBC <5 /HPF (<5)
[2024-04-21 07:26] LABS: Lymphocytes % 1.5 % (15.3-44.8); MPV 11.9 fL (7.6-11.3)
[2024-04-21 07:29] LABS: Absolute Lymphocytes (CBC) 0.6 K/uL (0.7-4.9); Absolute Monocytes 1.1 K/uL (0.1-1.3); Absolute Neutrophil 37.2 K/uL (1.8-8.0); Basophils % 0.1 % (0-1.3); Hematocrit 36.9 % (39.6-49.0); Hemoglobin 11.8 g/dL (13.6-17.9); MCH 32.1 pg (27.0-35.0); MCHC 32.1 g/dL (32.0-36.0); MCV 99.9 fL (80-100); Monocytes % 2.8 % (3.3-12.3); Neutrophils % 95.6 % (41.7-73.7); Platelets 121 thou/uL (152-406); RBC Red Blood Cell Count 3.69 M/uL (4.33-5.43)
[2024-04-21] MEDS: FLU (Fluarix Triv) TS24-25(6MOS UP)/PF 45 MCG/0.5 ML Syringe IM ONE (07:30)
[2024-04-21 07:47] LABS: Albumin 2.9 g/dL (3.4-5.0); Albumin/Globulin Ratio 0.9 (1.1-1.8); Anion Gap 12.7 mEq/L (5.0-15.0); Bilirubin Total 0.6 mg/dL (0.2-1.0); Globulin 3.4 g/dL (2.3-3.5); Protein, Total 6.3 g/dL (6.4-8.2)
--- NOTE | 2024-04-21 07:49 | P.DS ---
Admission Date: 04/20/24 Discharge Date: 04/23/24 Reason for Admission: Dehydration Brief History of Present Illness: 68yo who presents to the hospital with intractable nausea vomiting diarrhea. Patient been ill for the last couple of days. Diarrhea on multiple episodes times a day. Patient came to the ER for further evaluation. In the ER patient was given IV fluids and pain medication. Patient states he is still not feeling much better. Patient be admitted to [facility] for and will give aggressive IV hydration. - Physical Exam General: Alert, In no apparent distress, Oriented x3 HEENT: Atraumatic, PERRLA, Mucous membr. moist/pink, EOMI, Sclerae nonicteric Neck: Supple, 2+ carotid pulse no bruit, No LAD, Without JVD or thyroid abnormality Respiratory: Clear to auscultation bilaterally, Normal air movement Cardiovascular: Regular rate/rhythm, Normal S1 S2, No murmurs Gastrointestinal: Normal bowel sounds, Soft and benign, Non-distended, mild generalized tenderness Musculoskeletal: No clubbing, No swelling, No tenderness Integumentary: No rashes Neurological: Normal gait, Normal speech, Normal strength at 5/5 x4 extr, Normal tone, Sensation intact, Cranial nerves 3-12 intact, Hospital Course: 68yo with a prior medical history of hypertension, leukemia, CHF, as well as diabetes and peripheral arterial disease who presents to the hospital with intractable nausea vomiting diarrhea. Patient been ill for the last couple of days. Diarrhea on multiple episodes times a day. Patient came to the ER for further evaluation. In the ER patient was given IV fluids and pain medication. Patient states he is still not feeling much better. Patient be admitted to [facility] for and will give aggressive IV hydration. improved, stable to discharge on po antitiotics. Assessment History of leukemia leukemia Sepsis with lactic acidosis, with tachycardia, improved, DC on PO antibiotics Leukocytosis likely secondary to Kkcd-Hezuyn-yocllujx Infectious gastroenteritis and colitis, unspecified-treated with IV Zosyn, IV fluids, sdc home on flagyl Acute kidney failure, unspecified treated with IV fluid- impoved, FU neph after DC Thrombocytopenia Essential hypertension CT of the abdomen pelvis IMPRESSION: Significantly distended colon filled with both solid and liquid stool.Cholelithiasis. Continue home medicines as previously prescribed GOAL: Clear understanding of disease process INSTRUCTIONS: Physician Discharge Instructions: -Follow up with neph after DC -FU with GI after DC -Follow-up with PCP in 1 to 2 weeks -Please call Dr. Ortiz at [phone] if any questions regarding hospital stay -Please call nursing station at [phone] if any nursing or medication questions -Return to the emergency room if symptoms worsen Diet: ADA, low sodium Activity: Fall precautions <Aurora Ascencio - Last Filed: 04/25/24 00:13> Admission Date: 04/20/24 Discharge Date: 04/23/24 - Problems (1) Infectious gastroenteritis Status: Acute (2) Abdominal pain Status: Acute (3) CKD (chronic kidney disease) Status: Acute (4) Congestive heart failure Status: Acute Qualifiers: Heart failure chronicity: acute on chronic (5) DM2 (diabetes mellitus, type 2) Status: Acute Qualifiers: Diabetes mellitus correction insulin use: with correction use Diabetes mellitus complication status: with hyperglycemia Qualified Code(s): E11.65 - Type 2 diabetes mellitus with hyperglycemia; Z79.4 - assisted (current) use of insulin (6) HTN (hypertension) Status: Acute (7) History of leukemia Status: Acute Hospital Course: Patient was seen and examined. Events of the last 24 hours have been noted. Spoke with with JAKE regarding patient's clinical picture after evaluating and examining the patient independently. I performed a substantial part of the MDM during this patient's care today. I personally made or approved the documented management plan and acknowledge its risk of complications. I agree with the findings and documentation provided in the JAKE's notes. <Kay Ortiz - Last Filed: 05/08/24 16:42> Disposition: ROUTINE DISCHARGE Discharge Condition: GOOD Vital Signs/Physical Exam: Temp Pulse Resp BP Pulse Ox 99.7 F 73 18 154/67 H 96 04/21/24 04:00 04/21/24 04:00 04/21/24 04:00 04/21/24 04:00 04/21/24 04:00 Laboratory Data at Discharge: WBC 38.90 thou/uL (4.3-10.9) H 04/21/24 07:16 Hgb 11.8 g/dL (13.6-17.9) L D 04/21/24 07:16 Hct 36.9 % (39.6-49.0) L 04/21/24 07:16 Plt Count 121 thou/uL (152-406) L D 04/21/24 07:16 PT 11.0 SECONDS (9.4-12.5) 04/20/24 17:40 INR 0.98 04/20/24 17:40 APTT 25.8 SECONDS (24.3-36.9) 04/20/24 17:40 Sodium 138 mEq/L (136-145) 04/20/24 15:19 Potassium 3.6 mEq/L (3.5-5.1) 04/20/24 15:19 BUN 51 mg/dL (7-18) H 04/20/24 15:19 Creatinine 2.81 mg/dL (0.70-1.30) H 04/20/24 15:19 Glucose 390 mg/dL (74-106) H 04/20/24 15:19 Magnesium 2.5 mg/dL (1.6-2.4) H 04/20/24 21:57 Total Bilirubin 0.8 mg/dL (0.2-1.0) 04/20/24 15:19 AST 26 U/L (15-37) 04/20/24 15:19 ALT 23 U/L (16-61) 04/20/24 15:19 Alkaline Phosphatase 97 U/L (45-117) 04/20/24 15:19 Lipase 52 U/L (13-75) 04/20/24 15:19 <Aurora Ascencio - Last Filed: 04/25/24 00:13> Vital Signs/Physical Exam: Temp Pulse Resp BP Pulse Ox 98 F 80 18 140/80 95 05/08/24 16:40 05/08/24 16:40 05/08/24 16:40 05/08/24 16:40 05/08/24 16:40 Laboratory Data at Discharge: WBC 14.30 thou/uL (4.3-10.9) H 04/23/24 05:50 Hgb 9.3 g/dL (13.6-17.9) L D 04/23/24 05:50 Hct 27.6 % (39.6-49.0) L 04/23/24 05:50 Plt Count 86 thou/uL (152-406) L 04/23/24 05:50 PT 11.0 SECONDS (9.4-12.5) 04/20/24 17:40 INR 0.98 04/20/24 17:40 APTT 25.8 SECONDS (24.3-36.9) 04/20/24 17:40 Sodium 144 mEq/L (136-145) 04/23/24 05:50 Potassium 4.1 mEq/L (3.5-5.1) 04/23/24 05:50 BUN 44 mg/dL (7-18) H 04/23/24 05:50 Creatinine 1.31 mg/dL (0.70-1.30) H 04/23/24 05:50 Glucose 183 mg/dL (74-106) H 04/23/24 05:50 Uric Acid 6.3 mg/dL (3.5-7.2) 04/22/24 04:03 Phosphorus 2.1 mg/dL (2.5-4.9) L 04/23/24 05:50 Magnesium 2.5 mg/dL (1.6-2.4) H 04/20/24 21:57 Total Bilirubin 0.6 mg/dL (0.2-1.0) 04/21/24 07:16 AST 21 U/L (15-37) 04/21/24 07:16 ALT 19 U/L (16-61) 04/21/24 07:16 Alkaline Phosphatase 61 U/L (45-117) D 04/21/24 07:16 Lipase 52 U/L (13-75) 04/20/24 15:19 <Kay Ortiz - Last Filed: 05/08/24 16:42> Time spent managing pt's care (in minutes): 45 <Aurora Ascencio - Last Filed: 04/25/24 00:13> <Kay Ortiz - Last Filed: 05/08/24 16:42> Home Medications: Amlodipine [Norvasc*] 5 mg PO BID 10/16/21 Bosutinib [Bosulif] 400 mg PO DAILY 10/16/21 Insulin Glargine,Hum.rec.anlog [Basaglar Kwikpen U-100] 75 units SQ DAILY 10/16/21 Ramipril [Altace] 10 mg PO BID 10/16/21 Clopidogrel Bisulfate [Plavix] 75 mg PO DAILY 06/20/23 Simvastatin 40 mg PO DAILY 06/20/23 Allopurinol 1 tab PO DAILY 08/17/23 Isosorbide Mononitrate [Isosorbide Mononitrate ER] 1 tab PO DAILY 08/17/23 Furosemide [Lasix] 40 mg PO DAILY 60 Days #60 tab 10/26/23 Ensure Enlive 237 ml PO BID #60 can 04/23/24 Hydralazine HCl 25 mg PO TID #90 tab 04/23/24 cloNIDine HCL [Clonidine HCl] 0.1 mg PO TID #90 tab 04/23/24 metroNIDAZOLE [Flagyl] 500 mg PO Q8H #20 tab 04/23/24 New Medications: cloNIDine HCL [Clonidine HCl] 0.1 mg PO TID #90 tab Ensure Enlive 237 ml PO BID #60 can metroNIDAZOLE [Flagyl] 500 mg PO Q8H #20 tab Hydralazine HCl 25 mg PO TID #90 tab Physician Discharge Instructions: PROBLEM: Gastroenteritis GOAL: Clear understanding of disease process INSTRUCTIONS: -DC IV and DC home -Follow-up with PCP in 1 to 2 weeks -Follow-up with GI in 1 to 2 weeks -Please call Dr. Ortiz at [phone] if any questions regarding hospital stay -Please call nursing station at [phone] if any nursing or medication questions -Return to the emergency room if symptoms worsen Diet: Regular Activity: Fall precautions Follow up with a Necktie Operator [employer] of your choice: GRADY ADAIR MD [address] [place] [address] FRACISCO SANTOS MD [address] [facility] [place] [address] Followup: Steve Montes MD [Primary Care Provider] - Fracisco Santos MD [ASSOCIATE-ACTIVE - CAN ADMIT] - Marissa Parker MD [ACTIVE - CAN ADMIT] -
[2024-04-21 07:52] LABS: Potassium 6.7 mEq/L (3.5-5.1)
--- NOTE | 2024-04-21 07:53 | P.PN ---
Subjective Date of Service: 04/21/24 Chief Complaint: Dehydration Nausea improved with IV antiemetics, admitted with infectious/, nausea vomiting diarrhea, stool specimen sent <Aurora Ascencio - Last Filed: 04/21/24 17:28> Date of Service: 04/21/24 <Kay Ortiz - Last Filed: 05/08/24 16:40> Review of Systems 10-point ROS is otherwise unremarkable General: As per HPI <Aurora Ascencio - Last Filed: 04/21/24 17:28> Physical Examination - Vital Signs Temperature: 99.7 F Blood Pressure: 154/67 Pulse: 73 Respirations: 18 Pulse Ox (%): 96 - Physical Exam General: Alert, In no apparent distress, Oriented x3 HEENT: Atraumatic, Normocephalic Neck: Supple, 2+ carotid pulse no bruit Respiratory: Clear to auscultation bilaterally, Normal air movement Cardiovascular: No edema, Normal pulses, Regular rate/rhythm Capillary refill: >2 Seconds Gastrointestinal: Normal bowel sounds, Other (Abdominal distention) Musculoskeletal: No clubbing, No swelling Integumentary: No breakdown, No significant lesion Neurological: Normal speech, Normal strength at 5/5 x4 extr, Sensation intact - Studies Laboratory Data (last 24 hrs) 04/20/24 04/20/24 04/20/24 17:40 15:19 15:19 WBC 28.80 H Hgb 15.4 Hct 46.9 Plt Count 181 PT 11.0 INR 0.98 APTT 25.8 Sodium 138 Potassium 3.6 BUN 51 H Creatinine 2.81 H Glucose 390 H Total Bilirubin 0.8 AST 26 ALT 23 Alkaline Phosphatase 97 Lipase 52 Microbiology Data (last 24 hrs): 04/20/24 15:19 Nasopharnyx Influenza Type A Antigen Screen - Final 04/20/24 15:19 Nasopharnyx Influenza Type B Antigen Screen - Final <Aurora Ascencio - Last Filed: 04/21/24 17:28> Assessment And Plan - Current Problems (Diagnosis) (1) Hypertensive urgency Status: Acute (2) Infectious gastroenteritis Status: Acute (3) SIRS due to non-infectious process without acute organ dysfunction Status: Acute (4) Lactic acidosis Status: Acute (5) History of leukemia Status: Acute (6) Thrombocytopenia Status: Acute (7) DM2 (diabetes mellitus, type 2) Status: Acute Qualifiers: Diabetes mellitus predatory animal exterminator insulin use: with predatory animal exterminator use Diabetes mellitus complication status: with hyperglycemia Qualified Code(s): E11.65 - Type 2 diabetes mellitus with hyperglycemia; Z79.4 - penitentiary (current) use of insulin (8) Acute kidney injury Status: Acute (9) CKD (chronic kidney disease) Status: Acute (10) HTN (hypertension) Status: Acute - Plan Admit to MedSurg IV fluids, IV antibiotics, as needed antiemetics, as needed analgesics Nephrology consult for acute kidney injury, Stool sample sent, flu AB negative, pending blood culture Trend lactic, WBCs, Accu-Cheks, ACHS, sliding scale insulin As needed antihypertensives, Full code DVT SCDs Diet clear liquid, advance as tolerated Disposition Home independent prior Discharge Plan: Home - Code Status/Comfort Care Code Status: Full Code Critical Care: No Time Spent Managing PTS Care (In Minutes): 35 <Aurora Ascencio - Last Filed: 04/21/24 17:28> - Current Problems (Diagnosis) (1) Infectious gastroenteritis Status: Acute (2) Abdominal pain Status: Acute (3) CKD (chronic kidney disease) Status: Acute (4) Congestive heart failure Status: Acute Qualifiers: Heart failure chronicity: acute on chronic (5) DM2 (diabetes mellitus, type 2) Status: Acute Qualifiers: Diabetes mellitus predatory animal exterminator insulin use: with predatory animal exterminator use Diabetes mellitus complication status: with hyperglycemia Qualified Code(s): E11.65 - Type 2 diabetes mellitus with hyperglycemia; Z79.4 - penitentiary (current) use of insulin (6) HTN (hypertension) Status: Acute (7) History of leukemia Status: Acute <Kay Ortiz - Last Filed: 05/08/24 16:40> Date of Service: 04/21/24 Patient was seen and examined. Events of the last 24 hours have been noted. Spoke with with JAKE regarding patient's clinical picture after evaluating and examining the patient independently. I performed a substantial part of the MDM during this patient's care today. I personally made or approved the documented management plan and acknowledge its risk of complications. I agree with the findings and documentation provided in the JAKE's notes. <Kay Ortiz - Last Filed: 05/08/24 16:40>
[2024-04-21] MEDS: CIPROFLOXACIN 400mg IV 400 MG/200 ML BAG IV SCH (09:29)
[2024-04-21] MEDS: INSULIN LISPRO 100 UNIT/1 ML SQ ONE (09:29)
[2024-04-21 09:32] LABS: Anion Gap 11.2 mEq/L (5.0-15.0)
[2024-04-21 09:33] LABS: Potassium 6.2 mEq/L (3.5-5.1)
[2024-04-21] MEDS: ENSURE ENLIVE 237 ML CAN PO SCH (09:33)
[2024-04-21 09:41] LABS: Band Neutrophils 4 % (0-1); Blood Morphology Comment NOT SEEN (NOT SEEN); Differential Total Cells Count 100; Lymphocytes 3 % (15-42); Monocytes 2 % (0-10); Platelet Estimate DECR; Segmented Neutrophils 91 % (40-80)
[2024-04-21] MEDS: SOD POLYSTYREN SUL 15 GM/60 ML UCUP PO ONE (11:03)
[2024-04-21] MEDS: SODIUM BICARB 50 MEQ/50ML VIAL IV ONE (11:17)
[2024-04-21 11:25] LABS: Anion Gap 13.2 mEq/L (5.0-15.0); Potassium 5.2 mEq/L (3.5-5.1)
[2024-04-21] MEDS: INSULIN GLARGINE 100 UNIT/ML SQ ONE (11:57)
[2024-04-21] MEDS: INSULIN LISPRO 100 UNIT/1 ML SQ SCH (11:58)
[2024-04-21] MEDS: NA CHLORIDE 0.9% 500 ML IV ONE (11:58)
[2024-04-21] MEDS: VANCOMYCIN HCL 125 MG CAPSULE PO SCH (11:58)
[2024-04-21] MEDS: NA CHLORIDE 0.9% 1,000 ML IV SCH (12:23)
[2024-04-21 12:46] LABS: UR SODIUM < 15 mmol/L (27-287)
[2024-04-21 12:48] LABS: UR PROTEIN 14.5 mg/dL (<11.9); Urine Protein/Creatinine Ratio 0.24 ratio (<0.15)
--- NOTE | 2024-04-21 12:55 | CON ---
Date of Consultation: 04/21/2024 Reason For Consultation: Elevated BUN and creatinine, hypertension, hyperkalemia. History Of Present Illness: This is a pleasant 68-year-old gentleman with significant past medical history of hypertension, hyperlipidemia, chronic kidney disease secondary to diabetic nephropathy confirmed with kidney biopsy back in July 2023 with acute kidney injury secondary to leukemia medication bosutinib. Follow up in the office. The patient had recurrent admission to the hospital with acute kidney injury, hypertension, and over volume. At that time, workup for renal artery stenosis was ruled out. As I mentioned, kidney biopsy showed diabetic nephropathy class 3 and his workup for the hyperkalemia was not secondary to any RTA. It was secondary to leukemia medication. The patient came to the hospital complaining from nausea and vomiting, diarrhea for the last few days. Primary workup upon the admission, the patient was found to have leukocytosis with WBC of 38 and hyperkalemia 6.2 with elevation in BUN and creatinine. For that reason, we have been consulted. The patient taking denied taking any nonsteroidal. The patient not on any ERIN inhibitor or ARB according to the patient, even though on the home medication showing that the patient on ramipril. The patient is not on any Entresto. During the hospitalization, the patient was started on IV hydration. Kidney function plateaued and potassium trending down. Past Medical History: Includes: 1. Diabetes complicated with neuropathy and nephropathy. 2. Chronic kidney disease stage 3B. Baseline creatinine 1.6 with GFR of 40 secondary to diabetes nephropathy confirmed with biopsy back in July 2023. 3. Leukemia. Follow up with Dr. Blas. 4. Hypertension. 5. congestive heart failure, recurrent admission with over volume secondary to his cancer medication bosutinib. Allergies: NO KNOWN DRUGS ALLERGY. Home Medications: Include: 1. Amlodipine. 2. Bosutinib. 3. Insulin. 4. Ramipril. 5. Clonidine. 6. Simvastatin. 7. Allopurinol. 8. Isosorbide. 9. Lasix. Past Surgical History: Includes: 1. Kidney biopsy. 2. PAD with stenting. 3. Appendectomy. Social History: Denied smoking. Denied drinking. Denied drugs abuse. Review of Systems: Head and Neck: No red eye. No ear pain. GI: Has nausea, vomiting, and diarrhea. : No polyuria, no dysuria, no hematuria. Bath Design Sales Consultant: Not applicable. Respiratory: No shortness of breath. Cardiovascular: No chest pain. Endocrine: No polydipsia. Skin: No rash. Neuro: Has neuropathy. Musculoskeletal: Generalized fatigue. Physical Examination: Vital Signs: When I saw the patient, blood pressure 154/67, pulse of 73, afebrile. Chest: Clear to auscultation. Heart: S1, S2. Systolic murmur. Abdomen: Soft, nontender. Extremities: No edema. Neuro: Alert, no focality. Laboratory Data: Yesterday, sodium 134, potassium 6.2, bicarb 23, BUN 66, creatinine 2.6, glucose 473, GFR 25, calcium of 9. Today, sodium 136, potassium 5.2, bicarb 22, BUN 68, creatinine 2.7, GFR 25, calcium 9.2. Urinalysis negative for infection. Assessment And Plan: Acute kidney injury secondary to prerenal secondary to dehydration secondary to GI loss superimposed with diuresis, complicated with hyperkalemia. 1. I am going to go ahead and bolus the patient with another liter of normal saline. We will have more tighter control on his diabetes and we will follow up. 2. Hyperkalemia secondary to renal failure and ERIN inhibitor. I agree with holding ERIN inhibitor. We will start aggressive hydration and we will follow up the patient. 3. Start the patient on Florinef. 4. I am going to repeat the urine electrolyte to evaluate for any RTA. 5. Hypertension, not controlled. With the presence of acute kidney injury, discontinue ramipril. Discontinue Lasix and we will follow up. 6. Gastroenteritis. Continue antibiotic as by primary. Time spent examining the patient [id number] reviewing data lab and radiology placing orders or discussing the case with the patient discussing the case with the logistics team lead including hospitalist and nursing staff more than 75-minute KAYLA Voice ID: [id number] Report ID: [id number] BALDOMERO
[2024-04-21] MEDS ORDERED: METOPROLOL TARTRATE 5 MG/5 ML INJ IV PRN (17:25)
[2024-04-21] MEDS: METOPROLOL TARTRATE 5 MG/5 ML INJ IV STA (17:29)
[2024-04-21] MEDS: HYDRALAZINE HCL 20 MG/ML VIAL IV PRN (18:59)
[2024-04-21] MEDS: ramipriL 5 MG CAP PO SCH (20:05)
[2024-04-21] MEDS: AMLODIPINE 5 MG TAB PO SCH (20:08)
[2024-04-21] MEDS: cloNIDine HCL 0.1 MG TAB PO SCH (22:45)
[2024-04-21] MEDS: HYDRALAZINE HCL 25 MG TABLET PO PRN (22:46)
[2024-04-21 23:13] LABS: C.diff Antigen/Toxin Ag neg : Tox neg (NEG : NEG); CDIFF INTERNAL NEG CONTROL White Background (WHITE BKGD); STOOL CONSISTENCY Liquid/Semi-Solid
[2024-04-22 04:28] LABS: Absolute Lymphocytes (CBC) 0.5 K/uL (0.7-4.9); Absolute Monocytes 0.7 K/uL (0.1-1.3); Absolute Neutrophil 22.7 K/uL (1.8-8.0); Hematocrit 30.4 % (39.6-49.0); Hemoglobin 10.4 g/dL (13.6-17.9); Lymphocytes % 2.2 % (15.3-44.8); MCH 33.1 pg (27.0-35.0); MCHC 34.3 g/dL (32.0-36.0); MCV 96.5 fL (80-100); MPV 10.5 fL (7.6-11.3); Monocytes % 2.7 % (3.3-12.3); Neutrophils % 95.1 % (41.7-73.7); Platelets 95 thou/uL (152-406); RBC Red Blood Cell Count 3.15 M/uL (4.33-5.43); Red Cell Distribution Width 14.5 % (12.1-15.2)
[2024-04-22 04:44] LABS: Anion Gap 8.7 mEq/L (5.0-15.0); Phosphorus 2.6 mg/dL (2.5-4.9); Potassium 4.7 mEq/L (3.5-5.1); Uric Acid 6.3 mg/dL (3.5-7.2)
--- NOTE | 2024-04-22 06:39 | P.PN ---
Date of Service: 04/23/24 Subjective Chief Complaint: Dehydration Review of Systems 10-point ROS is otherwise unremarkable General: As per HPI Physical Examination - Vital Signs reviewed - Physical Exam General: Alert, In no apparent distress, Oriented x3 HEENT: Atraumatic, Normocephalic Neck: Supple, 2+ carotid pulse no bruit Respiratory: Clear to auscultation bilaterally, Normal air movement Cardiovascular: No edema, Normal pulses, Regular rate/rhythm Capillary refill: >2 Seconds Gastrointestinal: Normal bowel sounds, Other (Abdominal distention) Musculoskeletal: No clubbing, No swelling Integumentary: No breakdown, No significant lesion Neurological: Normal speech, Normal strength at 5/5 x4 extr, Sensation intact Assessment And Plan - Current Problems (Diagnosis) (1) Hypertensive urgency Current Visit: Yes Status: Acute (2) Infectious gastroenteritis rectal bleeding Current Visit: Yes Status: Acute Current Visit: Yes Status: Acute (3) SIRS due to non-infectious process without acute organ dysfunction Current Visit: Yes Status: Acute (4) Lactic acidosis Current Visit: Yes Status: Acute (5) History of leukemia Current Visit: Yes Status: Acute (6) Thrombocytopenia Current Visit: Yes Status: Acute (7) DM2 (diabetes mellitus, type 2) Current Visit: No Status: Acute Qualifiers: Diabetes mellitus mixer foam rubber insulin use: with mixer foam rubber use Diabetes mellitus complication status: with hyperglycemia Qualified Code(s): E11.65 - Type 2 diabetes mellitus with hyperglycemia; Z79.4 - lung splitter (current) use of insulin (8) Acute kidney injury Current Visit: Yes Status: Acute (9) CKD (chronic kidney disease) Current Visit: Yes Status: Acute (10) HTN (hypertension) Current Visit: No Status: Acute - Plan Admit to [facility] IV fluids, IV antibiotics, as needed antiemetics, as needed analgesics Nephrology consult for acute kidney injury, Stool sample sent, flu AB negative, pending blood culture started on PO Vanc, on IV Cipro, Flagyl Trend lactic, WBCs, Accu-Cheks, ACHS, sliding scale insulin As needed antihypertensives, SS consult DC planning Full code DVT SCDs Diet clear liquid, advance as tolerated Disposition Home independent prior Discharge Plan: Home - Code Status/Comfort Care Code Status: Full Code Critical Care: No Time Spent Managing PTS Care (In Minutes): 35
[2024-04-22] MEDS: ATORVASTATIN 20 MG TAB PO SCH (08:15)
[2024-04-22] MEDS: FUROSEMIDE 40 MG TABLET PO SCH (08:15)
[2024-04-22] MEDS: INSULIN GLARGINE 100 UNIT/ML SQ SCH (08:15)
[2024-04-22] MEDS: ISOSORBIDE MONO SR 30 MG TAB PO SCH (08:15)
[2024-04-22] MEDS ORDERED: CLOPIDOGREL 75 MG TABLET PO SCH (09:00)
--- NOTE | 2024-04-22 09:48 | EKG ---
Test Date: 2024-04-20 Test Time: 17:31:15 Metallurgical Lab Technician: LINNETTE MEASUREMENT RESULTS: Intervals: Rate: 99 NC: 136 QRSD: 78 QT: 396 QTc: 508 [place]: P: 59 NC: 136 QRS: -36 T: 71 INTERPRETIVE STATEMENTS: Normal sinus rhythm with sinus arrhythmia Left axis deviation Low voltage QRS Inferior infarct, age undetermined Cannot rule out Anterior infarct, age undetermined Prolonged QT Abnormal ECG Compared to ECG 06/20/2023 01:01:04 Left-axis deviation now present Low QRS voltage now present Prolonged QT interval now present Sinus bradycardia no longer present Myocardial infarct finding still present Electronically Signed On 04-22-24 09:47:11 AUGER SUPERVISOR by Patric Marroquin
[2024-04-22] MEDS: LACTOBACILLUS/ACIDOPHILUS TAB PO SCH (13:51)
[2024-04-22] MEDS: NA CHLORIDE 0.9% 1,000 ML IV SCH (13:57)
--- NOTE | 2024-04-22 14:38 | PN ---
patient is started on liquid diet. As stated, he has a small bowel movement today. His c reatinine is improving. I will discontinue Lasix and reduce IV fluids. Objective: Vital Signs: Temperature 98.7, pulse rate 68, blood pressure 120/57. General: Awake and alert. Not in distress. Neck: Supple. No elevated JVD. Heart: Regular rate and rhythm. Normal S1, S2. Chest: Clear to auscultation bilaterally. No rales or wheezes. Abdomen: Soft and nontender. Extremities: No edema. Laboratory Data: White count 24,000, hemoglobin of 10. Sodium 142, potassium 4.7, BUN 59, creatinin e 1.6. Assessment And Plan: This patient is a 68-year-old man with past medical history of diabetic, chroni c kidney disease, who was admitted for abdominal pain with vomiting and diarrhea, white count 35,000, elevated hemoglobin and hyperkalemia. Acute kidney injury, chronic kidney disease. Creatinine, anali r baseline. We will reduce IV fluid will hold right now as patient has gastroenteritis an d receiving IV fluids. We will reduce IV fluids and patient can resume Lasix as an outpatient ____ gastroenteritis. The patient is tolerating liquid diet. At this time, his white count is impro ving. Continue IV fluids. SEVEN/JOHNY Voice ID: [id number] Report ID: [id number]
--- NOTE | 2024-04-22 17:30 | P.PN ---
Date of Service: 04/22/24 Subjective Chief Complaint: Dehydration No acute distress noted, blood sugars improved on insulin, Review of Systems 10-point ROS is otherwise unremarkable General: As per HPI Physical Examination - Vital Signs reviewed - Physical Exam General: Alert, oriented times HEENT: Atraumatic, Normocephalic Neck: Supple, 2+ carotid pulse no bruit Respiratory: Clear to auscultation bilaterally, Normal air movement Cardiovascular: No edema, Normal pulses, Regular rate/rhythm Capillary refill: >2 Seconds Gastrointestinal: Normal bowel sounds, Other (Abdominal distention) Musculoskeletal: No clubbing, No swelling Integumentary: No breakdown, No significant lesion Neurological: Normal speech, Normal strength at 5/5 x4 extr, Sensation intact Assessment And Plan - Current Problems (Diagnosis) (1) Hypertensive urgency Current Visit: Yes Status: Acute (2) Infectious gastroenteritis rectal bleeding Current Visit: Yes Status: Acute Current Visit: Yes Status: Acute (3) SIRS due to non-infectious process without acute organ dysfunction Current Visit: Yes Status: Acute (4) Lactic acidosis Current Visit: Yes Status: Acute (5) History of leukemia Current Visit: Yes Status: Acute (6) Thrombocytopenia Current Visit: Yes Status: Acute (7) DM2 (diabetes mellitus, type 2) Current Visit: No Status: Acute Qualifiers: Diabetes mellitus senior living insulin use: with senior living use Diabetes mellitus complication status: with hyperglycemia Qualified Code(s): E11.65 - Type 2 diabetes mellitus with hyperglycemia; Z79.4 - termite treater helper (current) use of insulin (8) Acute kidney injury Current Visit: Yes Status: Acute (9) CKD (chronic kidney disease) Current Visit: Yes Status: Acute (10) HTN (hypertension) Current Visit: No Status: Acute - Plan Admit to [facility] Nephrology consulted Trend kidney function, kidney function improving, hyperkalemia resolved IV fluids, IV antibiotics, as needed antiemetics, as needed analgesics Nephrology consult for acute kidney injury, Stool sample sent, flu AB negative, pending blood culture started on PO Vanc, on IV Cipro, Flagyl Trend lactic, WBCs, Accu-Cheks, ACHS, sliding scale insulin As needed antihypertensives, Full code DVT SCDs Diet clear liquid, advance as tolerated Disposition Home independent prior Discharge Plan: Home - Code Status/Comfort Care Code Status: Full Code Critical Care: No Time Spent Managing PTS Care (In Minutes): 25 <Aurora Ascencio - Last Filed: 04/23/24 08:10> Patient was seen and examined. Events of the last 24 hours have been noted. Spoke with with JAKE regarding patient's clinical picture after evaluating and examining the patient independently. I performed a substantial part of the MDM during this patient's care today. I personally made or approved the documented management plan and acknowledge its risk of complications. I agree with the findings and documentation provided in the JAKE's notes. <Kay Ortiz - Last Filed: 05/08/24 16:41>
[2024-04-22] MEDS: cloNIDine HCL 0.1 MG TAB ONE (20:21)
[2024-04-22] MEDS: cloNIDine HCL 0.1 MG TAB PO SCH (20:27)
[2024-04-23 06:30] LABS: Absolute Lymphocytes (CBC) 0.9 K/uL (0.7-4.9); Absolute Monocytes 1.2 K/uL (0.1-1.3); Absolute Neutrophil 12.2 K/uL (1.8-8.0); Basophils % 0.2 % (0-1.3); Eosinophils % 0.2 % (0-4.4); Hematocrit 27.6 % (39.6-49.0); Hemoglobin 9.3 g/dL (13.6-17.9); Lymphocytes % 6.5 % (15.3-44.8); MCH 32.9 pg (27.0-35.0); MCHC 33.7 g/dL (32.0-36.0); MCV 97.5 fL (80-100); MPV 11.6 fL (7.6-11.3); Monocytes % 8.2 % (3.3-12.3); Neutrophils % 84.9 % (41.7-73.7); Platelets 86 thou/uL (152-406); RBC Red Blood Cell Count 2.83 M/uL (4.33-5.43); Red Cell Distribution Width 14.5 % (12.1-15.2)
[2024-04-23 06:44] LABS: Albumin 2.5 g/dL (3.4-5.0); Anion Gap 7.1 mEq/L (5.0-15.0); Phosphorus 2.1 mg/dL (2.5-4.9); Potassium 4.1 mEq/L (3.5-5.1)
--- NOTE | 2024-04-23 09:12 | P.PN ---
Subjective Date of Service: 04/23/24 Chief Complaint: Dehydration Subjective diarrhea much improved cr down to 1.4 cleared for discharge from nephrology point of view Physcial exam General: Awake and alert. Not in distress. Neck: Supple. No elevated JVD. Heart: Regular rate and rhythm. Normal S1, S2. Chest: Clear to auscultation bilaterally. No rales or wheezes. Abdomen: Soft and nontender. Extremities: No edema. Assessment And Plan: This patient is a 68-year-old man with past medical history of diabetic, chronic kidney disease, who was admitted for abdominal pain with vomiting and diarrhea, white count 35,000, elevated hemoglobin and hyperkalemia. #Acute kidney injury, chronic kidney disease. resolved due to dehydration cr at baseline #gastroentritis tolerating diet cont Abx #leuckocytosis due to gastroenteritis and leukemia WBC down to 15K #HTn BP improving Dc IVF Physical Examination - Vital Signs Temperature: 97.6 F Blood Pressure: 170/75 Pulse: 48 Respirations: 16 Pulse Ox (%): 99
[2024-05-08 16:40] VITALS: BP 140/80; TEMP 98
== END 2024-04-23 17:03 | disposition home or self-care (01) | DRG 871 ==
LOC: ER 14:26 → 2ND 18:52
PROVIDERS: ADMIT Hospitalist; ATTEND Hospitalist
DX: A41.4 Sepsis due to anaerobes (principal); I50.33 Acute on chronic diastolic (congestive) heart failure; C95.90 Leukemia, unspecified not having achieved remission; E87.21 Acute metabolic acidosis; I13.0 Hypertensive heart and chronic kidney disease with heart failure and stage 1 through stage 4 chronic kidney disease, or unspecified chronic kidney disease; N17.9 Acute kidney failure, unspecified; A09 Infectious gastroenteritis and colitis, unspecified; R65.20 Severe sepsis without septic shock; D69.6 Thrombocytopenia, unspecified; E11.40 Type 2 diabetes mellitus with diabetic neuropathy, unspecified; N18.32 Chronic kidney disease, stage 3b; I16.0 Hypertensive urgency; E86.0 Dehydration; E11.22 Type 2 diabetes mellitus with diabetic chronic kidney disease; E11.65 Type 2 diabetes mellitus with hyperglycemia; E87.5 Hyperkalemia; Z79.4 Long term (current) use of insulin
CPT/HCPCS: 36415; 74176; 80048; 80053; 80069; 81001; 82435; 82570; 82947; 83525; 83605; 83690; 83735; 84132; 84156; 84300; 84550; 85025; 85610; 85730; 87040; 87205; 87324; 87804; 89055; 93005; 96365; 96375; 99285; J0360; J0744; J2270; J2405; J2543; J2919; J7030; J7040

== ENCOUNTER 2024-06-04 10:59 | Inpatient (IN) | payer OTHER ==
[2024-06-04 12:23] LABS: Absolute Lymphocytes (CBC) 0.9 K/uL (0.7-4.9); Absolute Monocytes 1.1 K/uL (0.1-1.3); Absolute Neutrophil 12.7 K/uL (1.8-8.0); Basophils % 0.1 % (0-1.3); Eosinophils % 0.2 % (0-4.4); Hematocrit 31.1 % (39.6-49.0); Hemoglobin 10.6 g/dL (13.6-17.9); Lymphocytes % 6.2 % (15.3-44.8); MCH 32.7 pg (27.0-35.0); MCHC 34.2 g/dL (32.0-36.0); MCV 95.8 fL (80-100); MPV 11.5 fL (7.6-11.3); Monocytes % 7.3 % (3.3-12.3); Neutrophils % 86.2 % (41.7-73.7); Platelets 145 thou/uL (152-406); RBC Red Blood Cell Count 3.25 M/uL (4.33-5.43); Red Cell Distribution Width 14.7 % (12.1-15.2)
[2024-06-04 12:24] LABS: PT Prothrombin Time 11.4 SECONDS (9.4-12.5); Protime INR 1.02
[2024-06-04 12:39] LABS: SARS-CoV-2 Antigen CONTROL BLUE LINE VIS/BG OK; SARS-CoV-2 Antigen Rapid Res Negative (Negative)
[2024-06-04 12:40] LABS: Albumin 3.5 g/dL (3.4-5.0); Albumin/Globulin Ratio 0.9 (1.1-1.8); Bilirubin Direct 0.2 mg/dL (0-0.2); Bilirubin Indirect, Calculated 0.4 mg/dL (0.2-0.8); Bilirubin Total 0.6 mg/dL (0.2-1.0); Globulin 4.1 g/dL (2.3-3.5); Magnesium 2.9 mg/dL (1.6-2.4); Protein, Total 7.6 g/dL (6.4-8.2); Troponin High Sensitivity 20.9 pg/mL (<58.9)
[2024-06-04 12:45] LABS: Anisocytosis 1+; Blood Morphology Comment NOTED (NOT SEEN); Macrocytosis 1+; Microcytosis 1+; Platelet Estimate ADEQ; Toxic Granulation 1+; White Blood Cell Scan OK (OK)
--- NOTE | 2024-06-04 13:16 | RAD REPORT ---
EXAMINATION: ONE VIEW CHEST XR CLINICAL INDICATION: Male, 68 years old.,DYSPNEA TECHNIQUE: Frontal chest projection is submitted. Examination is limited by patient positioning and t echnique. COMPARISON: 06/30/2023 FINDINGS: Central interstitial prominence, suggesting central venous congestion. Right basilar patchy airspace opacity with suggestion of small to moderate effusion. Pneumonia should be considered. No pneumothorax or left-sided effusion. The heart is normal in size. Mediastinal contours are unremarkab le. IMPRESSION: As above.
--- NOTE | 2024-06-04 14:16 | RAD REPORT ---
EXAMINATION: CT Thorax Wo Con CLINICAL INDICATION: Male, 68 years old. [facility] MAIN leukemia and hypoxic;Dyspnea Bed Name: 8 Y TECHNIQUE: Axial CT scan of the chest without intravenous contrast. Multiplanar reformats were genera katie and reviewed. One or more of the following dose reduction techniques were used: Automated exposure control, adjustment of the mA and/or kV according patient size, and/or iterative reconstruct ion. Unless otherwise specified, incidental findings do not require dedicated imaging follow-up. COMPARISON: Chest radiograph of earlier the same day. CT chest 11/12/2021 FINDINGS: LOWER NECK: Visualized thyroid gland and soft tissues are normal. LUNGS: Right more than left dependent basal segmental to subsegmental airspace opacification. No evid ence of airspace or interstitial process. No worrisome nodules. PLEURA: Moderate right and small left pleural effusion with underlying segmental to subsegmental airs pace opacification, may reflect atelectasis.. No pneumothorax. . MEDIASTINUM AND LYMPH NODES: Mild cardiomegaly. Mild pericardial effusion No mediastinal mass or flui d collection. Normal size mediastinal, hilar, and axillary lymph nodes. OSSEOUS STRUCTURES AND CHEST WALL: Intact. UPPER ABDOMEN: No significant abnormalities. IMPRESSION: Bilateral pleural effusions larger on the right. Dependent up to segmental lobar opacities more so on the right lower lobe, may reflect atelectasis although superimposed pneumonia would be difficult to exclude. Small pericardial effusion. Mild cardiomegaly. Overall, the findings are fairly similar to chest CT findings of 11/12/2021, May reflect a degree of u nderlying pulmonary edema.
--- NOTE | 2024-06-04 15:15 | EDPHYS ---
Physician Documentation [facility] Name: Mac Hurtado Age: 68 yrs Sex: Male : 1955 Arrival Date: 06/04/2024 Time: 10:59 Bed 8 Private MD: ED Physician Salud Robison HPI: 06/04 12:20 This 68 yrs old Black Male presents to ER via Wheelchair with complaints of Shortness sp3 Of Breath. 12:20 68-year-old male with a history of diabetes, hypertension, CML presents to the ED with sp3 chief complaint shortness of breath and hypoxia at home at 87% measured with home oximeter. He denies chest pain, fever, cough, back pain, abdominal pain, nausea, vomit, diarrhea, bleeding, rash, syncope, near syncope, or any other signs or symptoms on ROS at this time. No prior history of PE noted. Patient is on active chemo.. Historical: - Allergies: 11:08 carvedilol; ll1 - PMHx: 11:08 CHF; Diabetes - IDDM; Hypertension; Leukemia; stent placed in right leg; ll1 - PSHx: 11:08 Appendectomy; ll1 - Immunization history:: Adult Immunizations up to date. - Infectious Disease History:: Denies. - Social history:: Smoking status: Patient denies any tobacco usage or history of. ROS: 12:20 Constitutional: Negative for fever, chills, and weight loss, Eyes: Negative for injury, sp3 pain, redness, and discharge, Neck: Negative for injury, pain, and swelling, Cardiovascular: Negative for chest pain, palpitations, and edema, Abdomen/GI: Negative for abdominal pain, nausea, vomiting, diarrhea, and constipation, Back: Negative for injury and pain, MS/Extremity: Negative for injury and deformity, Skin: Negative for injury, rash, and discoloration, Neuro: Negative for headache, weakness, numbness, tingling, and seizure, Psych: Negative for depression, anxiety, suicide ideation, homicidal ideation, and hallucinations, Allergy/Immunology: Negative for hives, rash, and allergies, Endocrine: Negative for neck swelling, polydipsia, polyuria, polyphagia, and marked weight changes, Hematologic/Lymphatic: Negative for swollen nodes, abnormal bleeding, and unusual bruising, 12:20 All other systems are negative, Exam: 12:21 Constitutional: This is a well developed, well nourished patient who is awake, alert, sp3 and in no acute distress. Head/Face: Normocephalic, atraumatic. Eyes: Pupils equal round and reactive to light, extra-ocular motions intact. Lids and lashes normal. Conjunctiva and sclera are non-icteric and not injected. Cornea within normal limits. Periorbital areas with no swelling, redness, or edema. Neck: Trachea midline, no thyromegaly or masses palpated, and no cervical lymphadenopathy. Supple, full range of motion without nuchal rigidity, or vertebral point tenderness. No Meningismus. Chest/axilla: Normal chest wall appearance and motion. Nontender with no deformity. No lesions are appreciated. Cardiovascular: Regular rate and rhythm with a normal S1 and S2. No gallops, murmurs, or rubs. Normal PMI, no JVD. No pulse deficits. Abdomen/GI: Soft, non-tender, with normal bowel sounds. No distension or tympany. No guarding or rebound. No evidence of tenderness throughout. Back: No spinal tenderness. No costovertebral tenderness. Full range of motion. Skin: Warm, dry with normal turgor. Normal color with no rashes, no lesions, and no evidence of cellulitis. MS/ Extremity: Pulses equal, no cyanosis. Neurovascular intact. Full, normal range of motion. Neuro: Awake and alert, GCS 15, oriented to person, place, time, and situation. Cranial nerves II-XII grossly intact. Motor strength 5/5 in all extremities. Sensory grossly intact. Cerebellar exam normal. Normal gait. Psych: Awake, alert, with orientation to person, place and time. Behavior, mood, and affect are within normal limits. 12:21 Respiratory: Currently 93% on room air with clear breath sounds and no difficulty breathing, accessory muscle use or retractions. Patient in no acute distress speaking in full sentences., 13:57 ECG was reviewed by the Attending Physician. EKG demonstrates normal sinus rhythm at 66 sp3 bpm with normal intervals, normal QRS, poor R wave progression and nonspecific diffuse ST/T wave changes without evidence of acute ischemia. QTc noted 475. Vital Signs: 11:09 BP 170 / 59; Pulse 68; Resp 18; Temp 98.3(TE); Pulse Ox 92% on R/A; Weight 71.21 kg; ll1 Height 5 ft. 7 in. ; Pain 2/10; 11:32 Resp 18; Pulse Ox 95% on R/A; ll1 11:35 BP 168 / 55; Pulse 56; Resp 18; Pulse Ox 95% ; db 13:45 BP 191 / 67; Pulse 66; Resp 16; Pulse Ox 95% ; db 15:30 BP 191 / 65; Pulse 65; Resp 18; Temp 98.3; Pulse Ox 94% on R/A; db 16:00 BP 190 / 66; Pulse 76; Resp 18; Pulse Ox 94% ; db 11:09 Body Mass Index 24.59 (71.21 kg, 170.18 cm) ll1 11:09 Pain Scale: Adult ll1 MDM: 11:40 Medical Screening Exam initiated sp3 12:21 Data reviewed: vital signs, nurses notes, old medical records, lab test result(s), EKG, sp3 radiologic studies. ED course: 68-year-old male with CML and shortness of breath. Differential diagnosis includes CHF, ACS, PE, pneumonia, electrolyte abnormality, among others. Workup will include CT chest, EKG, labs and general supportive care. Disposition pending workup and patient course.. 15:13 ED course: Patient will be admitted to internal medicine. Given history of CML patient sp3 has high risk of infection. CT demonstrates increased pulmonary edema coupled with possible underlying infiltrate. Leukocytosis in the setting of CML noted. Cefepime and linezolid also initiated.. 06/04 11:51 Order name: Basic Metabolic Panel; Complete Time: 12:56 3 06/04 11:51 Order name: CBC with Diff; Complete Time: 12:56 sp3 06/04 11:51 Order name: LFT's; Complete Time: 12:56 3 06/04 11:51 Order name: Magnesium; Complete Time: 12:56 3 06/04 11:51 Order name: NT PRO-BNP; Complete Time: 12:56 3 06/04 11:51 Order name: PT-INR; Complete Time: 12:56 3 06/04 11:51 Order name: Troponin HS; Complete Time: 12:56 3 06/04 11:51 Order name: SARS RAPID; Complete Time: 12:56 3 01/11 11:51 Order name: Flu; Complete Time: 12:56 sp3 06/04 12:46 Order name: CBC Smear Scan; Complete Time: 12:56 EDMS 06/04 15:14 Order name: Blood Culture Adult (2) sp3 06/04 11:51 Order name: XRAY Chest (1 view); Complete Time: 14:21 sp3 06/04 13:15 Order name: Thorax Wo Con; Complete Time: 14:21 EDMS 06/04 15:40 Order name: CONS Physician Consult EDKY 06/04 11:51 Order name: Cardiac monitoring; Complete Time: 13:37 sp3 06/04 11:51 Order name: EKG - Nurse/Tech; Complete Time: 13:37 sp3 06/04 11:51 Order name: IV Saline Lock; Complete Time: 13:37 sp3 06/04 11:51 Order name: Labs collected and sent; Complete Time: 13:37 sp3 06/04 11:51 Order name: O2 Per Protocol; Complete Time: 13:37 sp3 06/04 11:51 Order name: O2 Sat Monitoring; Complete Time: 13:37 sp3 Administered Medications: 16:24 Drug: Cefepime IVPB 1 grams IVPB at 200 ml/hr once over 30 mins; (mix in NS 100 mL) db Route: IVPB; Rate: 200 ml/hr; Infused Over: 30 mins; Site: right antecubital; 17:06 Follow up: Response: No adverse reaction; IV Status: Completed infusion; IV Intake: db 100ml 16:28 Drug: Linezolid IV 600 mg IV at calculated rate once over 60 mins Route: IV; Rate: db calculated rate; Infused Over: 60 mins; Site: left antecubital; 17:06 Follow up: Response: No adverse reaction; IV Status: Infusion continued upon admission db Disposition Summary: 06/04/24 15:15 Hospitalization Ordered Notes: Hospitalization Status: Inpatient Admission sp3 Provider: Kay Ortiz3 [facility] sp3 Condition: Stable sp3 Problem: an acute exacerbation sp3 Symptoms: have worsened sp3 Bed/Room Type: Standard sp3 Room Assignment: 208(06/04/24 16:00) sp Diagnosis - Pneumonia, pulmonary edema, hypoxia, shortness of breath in the setting of CML sp3 Forms: - Medication Reconciliation Form sp3 - SBAR form sp3 - Leadership Thank You Letter sp3 Signatures: Dispatcher [employer] EDMS Citlalli Kemp sp Kamille Gramajo, RN RN ll1 Salud Robison MD MD sp3 Myra Nix, LESIA RN db Corrections: (The following items were deleted from the chart) 11:52 11:52 BASIC METABOLIC PANEL+C.LAB.BRZ ordered. EDMS EDMS 11:52 11:52 CBC+H.LAB.BRZ ordered. EDMS EDMS 11:52 11:52 HEPATIC FUNCTION+C.LAB.BRZ ordered. EDMS EDMS 11:52 11:52 MAGNESIUM+C.LAB.BRZ ordered. EDMS EDMS 11:52 11:52 PROBNP+C.LAB.BRZ ordered. EDMS EDMS 11:52 11:52 PROTIME (+INR)+COAG.LAB.BRZ ordered. EDMS EDMS 11:52 11:52 Troponin High Sensitivity+C.LAB.BRZ ordered. EDMS EDMS 11:52 11:52 SARS-COV-2 Antigen Rapid+I.LAB.BRZ ordered. EDMS EDMS 11:52 11:52 Influenza Screen (A \T\ B)+BA.LAB.BRZ ordered. EDMS EDMS 11:52 11:52 Chest Single View+RAD.RAD.BRZ ordered. EDMS EDMS 13:15 12:17 Chest For PE Angio+CT.RAD.BRZ ordered. EDMS EDMS 15:14 15:14 BLOOD CULTURE*+BA.LAB.BRZ ordered. EDMS EDMS 16:00 15:15 sp3 sp
--- NOTE | 2024-06-04 15:15 | ER ---
Nurse's Notes [facility] Name: Mac Hurtado Age: 68 yrs Sex: Male : 1955 Arrival Date: 06/04/2024 Time: 10:59 Bed 8 Private MD: Diagnosis: Pneumonia, pulmonary edema, hypoxia, shortness of breath in the setting of CML Presentation: 06/04 11:09 Chief complaint: Patient states: SOB started today. States it was fluid on his lungs ll1 last time. No fever. Coronavirus screen: Client denies travel out of the [place] in the last 14 days. difficulty breathing, shortness of breath, Client presents with at least one sign or symptom that may indicate coronavirus-19. Standard/surgical mask placed on the client. Ebola Screen: Patient denies travel to an Ebola-affected area in the 21 days before illness onset. Initial Sepsis Screen: Does the patient meet any 2 criteria? No. Patient's initial sepsis screen is negative. Does the patient have a suspected source of infection? No. Patient's initial sepsis screen is negative. Risk Assessment: Do you want to hurt yourself or someone else? Patient reports no desire to harm self or others. Onset of symptoms was June 04, 2024. 11:09 Method Of Arrival: Wheelchair ll1 11:09 Acuity: ROBERTO 3 ll1 Triage Assessment: 11:09 General: Appears uncomfortable, Behavior is calm, cooperative, appropriate for age. ll1 General: Denies fever. Pain: Complains of pain in head Pain currently is 3 out of 10 on a pain scale. Quality of pain is described as aching. Neuro: Reports headache. Respiratory: Reports shortness of breath on exertion Onset: The symptoms/episode began/occurred yesterday, the patient has mild shortness of breath. Historical: - Allergies: 11:08 carvedilol; ll1 - PMHx: 11:08 CHF; Diabetes - IDDM; Hypertension; Leukemia; stent placed in right leg; ll1 - PSHx: 11:08 Appendectomy; ll1 - Immunization history:: Adult Immunizations up to date. - Infectious Disease History:: Denies. - Social history:: Smoking status: Patient denies any tobacco usage or history of. Screenin:[address] [facility] ED Fall Risk Assessment (Adult) History of falling in the last 3 months, db including since admission No falls in past 3 months (0 pts) Confusion or Disorientation No (0 pts) Intoxicated or Sedated No (0 pts) Impaired Gait No (0 pts) Mobility Assist Device Used No (0 pt) Altered Elimination No (0 pt) Score/Fall Risk Level 0 - 2 = Low Risk Oriented to surroundings, Maintained a safe environment. Abuse screen: Denies threats or abuse. Denies injuries from another. Nutritional screening: No deficits noted. Tuberculosis screening: No symptoms or risk factors identified. Assessment: 13:46 Reassessment: Patient appears in no apparent distress at this time. Patient and/or db family updated on plan of care and expected duration. Pain level reassessed. Patient is alert, oriented x 3, equal unlabored respirations, skin warm/dry/pink. General: Appears in no apparent distress. comfortable, Behavior is calm, cooperative. Neuro: Level of Consciousness is awake, alert, obeys commands, Oriented to person, place, time, situation. Cardiovascular: Rhythm is sinus rhythm. Respiratory: Airway is patent Respiratory effort is even, unlabored, Breath sounds are clear. 15:15 Reassessment: Patient appears in no apparent distress at this time. Patient and/or db family updated on plan of care and expected duration. Pain level reassessed. Patient is alert, oriented x 3, equal unlabored respirations, skin warm/dry/pink. 16:00 Reassessment: Patient appears in no apparent distress at this time. Patient and/or db family updated on plan of care and expected duration. Pain level reassessed. Patient is alert, oriented x 3, equal unlabored respirations, skin warm/dry/pink. 17:04 Reassessment: Patient appears in no apparent distress at this time. Patient and/or db family updated on plan of care and expected duration. Pain level reassessed. Patient is alert, oriented x 3, equal unlabored respirations, skin warm/dry/pink. Patient states feeling better. Vital Signs: 11:09 BP 170 / 59; Pulse 68; Resp 18; Temp 98.3(TE); Pulse Ox 92% on R/A; Weight 71.21 kg; ll1 Height 5 ft. 7 in. ; Pain 2/10; 11:32 Resp 18; Pulse Ox 95% on R/A; ll1 11:35 BP 168 / 55; Pulse 56; Resp 18; Pulse Ox 95% ; db 13:45 BP 191 / 67; Pulse 66; Resp 16; Pulse Ox 95% ; db 15:30 BP 191 / 65; Pulse 65; Resp 18; Temp 98.3; Pulse Ox 94% on R/A; db 16:00 BP 190 / 66; Pulse 76; Resp 18; Pulse Ox 94% ; db 11:09 Body Mass Index 24.59 (71.21 kg, 170.18 cm) ll1 11:09 Pain Scale: Adult ll1 ED Course: 11:01 Patient arrived in ED. mr 11:10 Triage completed. ll1 11:10 Arm band placed on. ll1 11:26 Patient placed in an exam room, on a stretcher. ll1 11:40 Salud Robison MD is Attending Physician. sp3 12:57 XRAY Chest (1 view) In Process Unspecified. EDMS 13:21 Thorax Wo Con In Process Unspecified. EDMS 13:37 Warm blanket given. Verbal reassurance given. am7 13:37 Inserted saline lock: 20 gauge in left antecubital area, using aseptic technique. Blood am7 collected. Flushed with 10 mL NS. 13:38 EKG done, by ED staff, reviewed by Salud Robison MD. am7 13:43 Myra Nix RN is Primary Nurse. db 15:14 Kay Ortiz MD is Hospitalizing Provider. sp3 16:16 No provider procedures requiring assistance completed. Patient admitted, IV remains in db place. 17:04 Patient has correct armband on for positive identification. Bed in low position. Call db light in reach. Side rails up X 1. Provided Education on: ADMISSION. Client placed on continuous cardiac and pulse oximetry monitoring. NIBP monitoring applied. horse groomer on. Pulse ox on. NIBP on. Administered Medications: 16:24 Drug: Cefepime IVPB 1 grams IVPB at 200 ml/hr once over 30 mins; (mix in NS 100 mL) db Route: IVPB; Rate: 200 ml/hr; Infused Over: 30 mins; Site: right antecubital; 17:06 Follow up: Response: No adverse reaction; IV Status: Completed infusion; IV Intake: db 100ml 16:28 Drug: Linezolid IV 600 mg IV at calculated rate once over 60 mins Route: IV; Rate: db calculated rate; Infused Over: 60 mins; Site: left antecubital; 17:06 Follow up: Response: No adverse reaction; IV Status: Infusion continued upon admission db Medication: 17:04 VIS not applicable for this client. db Intake: 17:06 IV: 100ml; Total: 100ml. db Outcome: 15:15 Decision to Hospitalize by Provider. sp3 17:04 Admitted to Med/surg accompanied by tech, room 208, Report called to hu WILLS NOTIFIED OF FAX AND PATIENT IS ON HIS WAY UP 17:04 Condition: stable 17:04 Instructed on the need for admit, 17:07 Patient left the ED. db Signatures: Dispatcher [employer] EDTheresa Marquez, Reg Dante mr Kamille Gramajo, RN RN ll1 Salud Robison MD MD sp3 Myra Nix RN RN db Flores Pena am7
[2024-06-04] MEDS: cloNIDine HCL 0.1 MG TAB PO STA (15:29)
[2024-06-04] MEDS: HYDRALAZINE HCL 20 MG/ML VIAL IV STA (15:29)
[2024-06-04] MEDS ORDERED: NA CHLORIDE 0.9% 100 ML ONE (16:05)
[2024-06-04] MEDS ORDERED: CEFEPIME 1 GM/VIAL ONE (16:06)
[2024-06-04] MEDS: LINEZOLID 600 MG IVPB 600 MG/300 ML BAG IV ONE (16:13)
[2024-06-04] MEDS ORDERED: cloNIDine HCL 0.1 MG TAB ONE (16:52)
[2024-06-04] MEDS ORDERED: HYDRALAZINE HCL 20 MG/ML VIAL ONE (16:52)
[2024-06-04] MEDS: PIPER TAZO 2.25 GM in NA CHLORIDE 0.9% 50 ML IV SCH (18:20)
[2024-06-04] MEDS: HYDRALAZINE HCL 20 MG/ML VIAL IV ONE (18:20)
[2024-06-04] MEDS ORDERED: ONDANSETRON 4 MG/2 ML VIAL IV PRN (20:11)
--- NOTE | 2024-06-04 20:15 | P.HP ---
Certification for Inpatient Patient admitted to: Inpatient With expected LOS: >2 Midnights Patient will require the following post-hospital care: None Practitioner: I am a practitioner with admitting privileges, knowledge of patient current condition, hospital course, and medical plan of care. Services: Services provided to patient in accordance with Admission requirements found in Title 42 Section 412.3 of the Code of Federal Regulations Patient History Date of Service: 06/04/24 Reason for admission: shortness of breath History of Present Illness: patient is a 68-year-old gentleman well known to me from multiple admissions in the past comes in with shortness of breath. Patient with uncontrolled hypertension. Patient also with history of CML. Patient was started on antihypertensives and diuresed. Patient is also anemic and will go ahead and monitor H&H as patient may need transfusion. Patient also with chronic kidney disease and will get Nephrology consultation. Patient will get an echocardiogram to further evaluate cardiac status. Patient is on numerous BP medications in these need to be better adjusted so when patient goes home will be able room manages blood pressure closely. Allergies carvedilol Adverse Reaction (Verified 04/20/24 22:41) Shortness of breath Home Medications: Amlodipine [Norvasc*] 5 mg PO BID 10/16/21 Bosutinib [Bosulif] 400 mg PO DAILY 10/16/21 Insulin Glargine,Hum.rec.anlog [Basaglar Kwikpen U-100] 75 units SQ DAILY 10/16/21 Ramipril [Altace] 10 mg PO BID 10/16/21 Allopurinol 1 tab PO DAILY 08/17/23 Isosorbide Mononitrate [Isosorbide Mononitrate ER] 1 tab PO DAILY 08/17/23 Furosemide [Lasix] 40 mg PO DAILY 60 Days #60 tab 10/26/23 Ensure Enlive 237 ml PO BID #60 can 04/23/24 cloNIDine HCL [Clonidine HCl] 0.1 mg PO TID #90 tab 04/23/24 Hydralazine HCl 75 mg PO TID 06/04/24 - Past Medical/Surgical History Has patient received pneumonia vaccine in the past: No Diabetic: Yes -: HTN -: CHF -: Leukemia -: DMII -: CKD -: appendectomy -: Kidney Bx -: Stent - Family History Father Family History: Reviewed- Non-Contributory - Social History Smoking Status: Never smoker Alcohol use: No CD- Drugs: No Caffeine use: No Place of Residence: Home Review of Systems 10-point ROS is otherwise unremarkable Physical Examination - Vital Signs Temperature: 98.1 F Blood Pressure: 198/72 Pulse: 74 Respirations: 18 Pulse Ox (%): 95 - Physical Exam General: Alert, In no apparent distress, Oriented x3 HEENT: Atraumatic, PERRLA, Mucous membr. moist/pink, EOMI, Sclerae nonicteric Neck: Supple, 2+ carotid pulse no bruit, No LAD, Without JVD or thyroid abnormality Respiratory: Crackles/rales Cardiovascular: Regular rate/rhythm, Normal S1 S2, No murmurs Gastrointestinal: Normal bowel sounds, Soft and benign, Non-distended, No tenderness Musculoskeletal: No tenderness Integumentary: No rashes Neurological: Normal gait, Normal speech, Normal strength at 5/5 x4 extr, Normal tone, Normal affect Lymphatics: No axilla or inguinal lymphadenopathy - Studies Laboratory Data (last 24 hrs) 06/04/24 06/04/24 06/04/24 12:08 12:08 12:08 WBC 14.70 H Hgb 10.6 L Hct 31.1 L Plt Count 145 L PT 11.4 INR 1.02 Sodium 144 Potassium 4.0 BUN 35 H Creatinine 1.95 H Glucose 66 L Magnesium 2.9 H Total Bilirubin 0.6 AST 17 ALT 40 Alkaline Phosphatase 112 Microbiology Data (last 24 hrs): 06/04/24 12:14 Nasopharnyx Influenza Type A Antigen Screen - Final 06/04/24 12:14 Nasopharnyx Influenza Type B Antigen Screen - Final Assessment & Plan - Problems (Diagnosis) (1) Malignant hypertension Current Visit: Yes Status: Acute (2) Acute heart failure with preserved ejection fraction Current Visit: Yes Status: Acute (3) Acute hypoxic respiratory failure Current Visit: Yes Status: Acute (4) CML (chronic myelocytic leukemia) Current Visit: Yes Status: Acute (5) Pulmonary hypertension Current Visit: Yes Status: Acute (6) Abdominal pain Current Visit: No Status: Acute - Plan 1. Echocardiogram 2. Strict blood pressure control 3. We will start patient on a Beta josé 4. Cardiology consultation 5. Aggressive diuresis 6. Strict I's and O's 7. strict blood pressure control 8. Daily weights 9. Education regarding diet and treatment of congestive heart failure Discharge Plan: Home Plan to discharge in: Greater than 2 days - Advance Directives Does patient have a Living Will: Yes Does patient have a Durable POA for Healthcare: Yes - Code Status/Comfort Care Code Status Assessed: Yes Code Status: Full Code Critical Care: No Time Spent Managing PTS Care (In Minutes): 50
[2024-06-04] MEDS: HYDRALAZINE HCL 25 MG TABLET PO SCH (21:08)
[2024-06-04] MEDS: AMLODIPINE 5 MG TAB PO SCH (21:08)
[2024-06-04] MEDS: ENSURE ENLIVE 237 ML CAN PO SCH (21:09)
[2024-06-04 21:36] LABS: Specific Gravity 1.014 (1.005-1.030); Sqamous Epithelial <5 /HPF (None Seen); Urine Bacteria <20 /HPF (<20); Urine Bilirubin NEGATIVE (Negative); Urine Blood Negative (Negative); Urine Clarity Clear (Clear); Urine Color Light-Yellow (Yellow); Urine Culture Reflex Order NOT NEEDED; Urine Glucose NEGATIVE (Negative); Urine Ketones NEGATIVE (Negative); Urine Microscopic Reflex YN ORDER UMIC; Urine Nitrite NEGATIVE (Negative); Urine Protein 2+ (Negative); Urine RBC <5 /HPF (None Seen); Urine Urobilinogen Normal (Normal); Urine WBC <5 /HPF (<5); Urine pH 5.5 (5.0-7.0)
[2024-06-04] MEDS: cloNIDine HCL 0.1 MG TAB PO SCH (22:27)
[2024-06-05] MEDS: HYDRALAZINE HCL 20 MG/ML VIAL IV PRN (01:23)
[2024-06-05] MEDS: LABETALOL 20 MG/4ML SYRINGE IV ONE (04:37)
[2024-06-05 04:56] LABS: Absolute Eosinophils 0.1 K/uL (0-0.5); Absolute Lymphocytes (CBC) 0.6 K/uL (0.7-4.9); Absolute Monocytes 0.8 K/uL (0.1-1.3); Absolute Neutrophil 13.3 K/uL (1.8-8.0); Basophils % 0.2 % (0-1.3); Eosinophils % 0.4 % (0-4.4); Hematocrit 30.3 % (39.6-49.0); Hemoglobin 10.1 g/dL (13.6-17.9); Lymphocytes % 4.3 % (15.3-44.8); MCH 32.2 pg (27.0-35.0); MCHC 33.4 g/dL (32.0-36.0); MCV 96.5 fL (80-100); MPV 11.3 fL (7.6-11.3); Monocytes % 5.5 % (3.3-12.3); Neutrophils % 89.6 % (41.7-73.7); Platelets 138 thou/uL (152-406); RBC Red Blood Cell Count 3.13 M/uL (4.33-5.43); Red Cell Distribution Width 15.1 % (12.1-15.2)
[2024-06-05 05:36] LABS: Albumin/Globulin Ratio 0.8 (1.1-1.8); Anion Gap 9.9 mEq/L (5.0-15.0); Bilirubin Total 0.9 mg/dL (0.2-1.0); Globulin 3.9 g/dL (2.3-3.5); Potassium 3.9 mEq/L (3.5-5.1); Protein, Total 6.9 g/dL (6.4-8.2); Troponin High Sensitivity 28.4 pg/mL (<58.9)
--- NOTE | 2024-06-05 08:26 | P.PN ---
Subjective Date of Service: 06/05/24 admitted with shortness of breath, with pneumonia/pulmonary edema/pulmonary hypertension, 90% on 2 L <Aurora Ascencio - Last Filed: 06/05/24 18:54> Date of Service: 06/05/24 <Kay Ortiz - Last Filed: 06/07/24 10:45> Review of Systems 10-point ROS is otherwise unremarkable <Aurora Ascencio - Last Filed: 06/05/24 18:54> Physical Examination - Vital Signs Temperature: 98.7 F Blood Pressure: 180/60 Pulse: 71 Respirations: 18 Pulse Ox (%): 90 - Physical Exam General: Alert, In no apparent distress, Oriented x3 HEENT: Atraumatic, Normocephalic Neck: Supple, 2+ carotid pulse no bruit Respiratory: Normal air movement, Diminished Cardiovascular: Regular rate/rhythm, Normal S1 S2 Capillary refill: <2 Seconds Gastrointestinal: Normal bowel sounds, Soft and benign Musculoskeletal: No clubbing, No swelling Integumentary: No breakdown, No significant lesion Neurological: Normal speech, Normal strength at 5/5 x4 extr, Normal tone - Studies Laboratory Data (last 24 hrs) 06/04/24 06/04/24 06/04/24 12:08 12:08 12:08 WBC 14.70 H Hgb 10.6 L Hct 31.1 L Plt Count 145 L PT 11.4 INR 1.02 Sodium 144 Potassium 4.0 BUN 35 H Creatinine 1.95 H Glucose 66 L Magnesium 2.9 H Total Bilirubin 0.6 AST 17 ALT 40 Alkaline Phosphatase 112 Microbiology Data (last 24 hrs): 06/04/24 12:14 Nasopharnyx Influenza Type A Antigen Screen - Final 06/04/24 12:14 Nasopharnyx Influenza Type B Antigen Screen - Final <Aurora Ascencio - Last Filed: 06/05/24 18:54> Assessment And Plan - Current Problems (Diagnosis) (1) Hypertensive urgency Current Visit: No Status: Acute (2) Acute hypoxic respiratory failure Current Visit: Yes Status: Acute (3) Pulmonary edema Current Visit: Yes Status: Acute (4) Acute heart failure with preserved ejection fraction Current Visit: Yes Status: Acute (5) Acute kidney injury Current Visit: No Status: Acute (6) Pulmonary hypertension Current Visit: Yes Status: Acute (7) CML (chronic myelocytic leukemia) Current Visit: Yes Status: Acute - Plan Admit to [facility] O2 2 L keep sats greater than 92% Nephrology consult for LANDEN IV Zosyn, nebs, as needed antihypertensives, gentle diuretics, resume home meds Accu-Chek ACHS, sliding scale insulin Daily weight, I&O Chest x-ray Central interstitial prominence, suggesting central venous congestion. Right basilar patchy airspace opacity with suggestion of small to moderate effusion. Pneumonia should be considered. No pneumothorax or left-sided effusion. The heart is normal in size. Mediastinal contours are unremarkable. CT chest, bilateral pleural effusion small pericardial effusion CXR IMPRESSION: Central interstitial prominence, suggesting central venous congestion. Right basilar patchy airspace opacity with suggestion of small to moderate effusion. Pneumonia should be considered. No pneumothorax or left-sided effusion. The heart is normal in size. Mediastinal contours are unremarkable. Echo 10/26/23 1. NORMAL LEFT VENTRICULAR SYSTOLIC FUNCTION, EJECTION FRACTION 60-65%, NORMAL WALL MOTION 2. MILD CONCENTRIC LEFT VENTRICULAR HYPERTROPHY 3. GRADE I DIASTOLIC DYSFUNCTION 4. MODERATE PULMONARY HYPERTENSION (RIGHT VENTRICULAR SYSTOLIC PRESSURE 45-50 mmHg) Full code DVT SCDs Diet cardiac Disposition Home prior to admission Discharge Plan: Home - Code Status/Comfort Care Code Status: Full Code Critical Care: No Time Spent Managing PTS Care (In Minutes): 35 <Aurora Ascencio - Last Filed: 06/05/24 18:54> - Current Problems (Diagnosis) (1) Malignant hypertension Current Visit: Yes Status: Acute (2) Acute heart failure with preserved ejection fraction Current Visit: Yes Status: Acute (3) Acute hypoxic respiratory failure Current Visit: Yes Status: Acute (4) CML (chronic myelocytic leukemia) Current Visit: Yes Status: Acute (5) Pulmonary hypertension Current Visit: Yes Status: Acute (6) Abdominal pain Current Visit: No Status: Acute <Kay Ortiz - Last Filed: 06/07/24 10:45> Date of Service: 06/05/24 Patient was seen and examined. Events of the last 24 hours have been noted. Spoke with with JAKE regarding patient's clinical picture after evaluating and examining the patient independently. I performed a substantial part of the MDM during this patient's care today. I personally made or approved the documented management plan and acknowledge its risk of complications. I agree with the findings and documentation provided in the JAKE's notes. <Kay Ortiz - Last Filed: 06/07/24 10:45>
[2024-06-05] MEDS: FUROSEMIDE 40 MG/4 ML VIAL IV ONE ×2 (08:34→13:02)
[2024-06-05] MEDS: BOSUTINIB 400 MG PO SCH (09:00)
[2024-06-05] MEDS: ISOSORBIDE MONO SR 30 MG TAB PO SCH (09:51)
[2024-06-05] MEDS: allopurinoL 300 MG TAB PO SCH (09:51)
[2024-06-05] MEDS: FUROSEMIDE 40 MG TABLET PO SCH (09:52)
[2024-06-05] MEDS ORDERED: INFLUENZA VACCINE (for 6+ mo) 0.5 ML DOSE IMVAC ONE (10:00)
[2024-06-05] MEDS ORDERED: PNEUMOCOCCAL VACCINE 0.5 ML IMVAC ONE (10:00)
[2024-06-05] MEDS: CLONIDINE HCL 0.3 MG TAB PO ONE (13:57)
[2024-06-05] MEDS: NITROGLYCERIN 1 GM PKT TD ONE (17:47)
[2024-06-05] MEDS: ACETAMINOPHEN 500 MG TAB PO PRN (20:03)
--- NOTE | 2024-06-05 20:40 | CON ---
Date of Consultation: 06/05/2024 Chief Complaint: Acute on chronic kidney injury associated with pulmonary edema, hypoxemic respirato ry failure, shortness of breath in the setting of CML. History Of Present Illness: The patient was found to have pneumonia. He is admitted to the hospital and he is started on treatment for pneumonia. Patient has history of diastolic congestive heart tiffany lure, diabetes mellitus, leukemia, peripheral vascular disease, and stent placed to right leg. He davis s history of chronic kidney disease, stage 4. Renal function has declined and patient has accelerate d hypertension. He is on IV hydralazine for hypertensive urgency. Review of Systems: Constitutional: The patient denies syncope. He complains of generalized weakness, shortness of sammi th, cough. Eyes: Denies new vision changes. Ears, Nose, Mouth, and Throat: Denies sore throat, earache. Respiratory: Has shortness of breath with activity and denies PND or orthopnea. Denies wheezing. GI: Denies nausea, vomiting. Denies dysuria, hematuria. All other systems reviewed and all are negative. Past Medical History: Hypertension; congestive heart failure; diastolic dysfunction; leukemia; diabe vilma mellitus with renal manifestation; chronic kidney, stage 3; appendectomy; renal biopsy; periphera l vascular disease, stent. Social History: Never smoker. No alcohol. Physical Examination: Vital Signs: Blood pressure is 198/72, heart rate 74, temperature 98.1, respiratory rate 18. General: Not in acute distress. Eyes: Anicteric sclerae. EOMI. Ears, Nose, Mouth and Throat: Oral mucosa moist. No pallor. Neck: Supple. No bruits. Lungs: Diminished breath sounds at bases. Few rhonchi. Crackles bilaterally at bases. Heart: S1, S2. No pericardial friction. Abdomen: Soft, benign, nontender. No rebound, no guarding. Extremities: Slight edema. Neurologic: Moving extremities. Cranial nerves intact. Laboratory Data: WBC 14.7, hemoglobin 10.6, hematocrit 31.1, platelet count 145,000. Sodium 144, po tassium 4.0, BUN 35, creatinine 1.95, glucose 66. Magnesium 2.9. AP 112, AST 17, ALT 40. Blood cul tures pending. Influenza A and B antigen screen are pending. Impression And Plan: Chronic kidney disease due to diabetes mellitus, hypertension, acute kidney inj ury secondary to cardiorenal syndrome. The patient presented to . Continue Lasix. Plan i s to advance blood pressure medication and check renal ultrasound with Doppler. Renal artery Doppler will be done to rule out renal artery stenosis. Chest x-ray was done without contrast and plan is t o elevated white count. The patient has history of CLL. The patient was found to have mi ld cardiomegaly and mild . Continue hydralazine for congestive heart failure along with La six. Monitor fluid balance and diuretic according to volume status and congestive heart f ailure management. ISAIAS/SUMANTHL Voice ID: [id number] Report ID: [id number]
[2024-06-05] MEDS: DOXAZOSIN 2 MG TAB PO SCH (21:04)
[2024-06-05] MEDS: INSULIN REGULAR (HUMAN) 100 UNIT/ML SQ SCH (22:04)
[2024-06-06] MEDS: HYDRALAZINE HCL 25 MG TABLET PO SCH (05:00)
[2024-06-06] MEDS: INSULIN GLARGINE HUM REC ANLOG 100 UNIT/ML SQ SCH (09:43)
[2024-06-06] MEDS: INS SQ SCH (09:43)
--- NOTE | 2024-06-06 10:02 | RAD REPORT ---
EXAMINATION: US RENAL CLINICAL INDICATION: Acute renal insufficiency. Chronic renal disease. TECHNIQUE: Real-time ultrasonography of the kidneys performed. COMPARISON: May 2023. FINDINGS: Right kidney measures 10 cm with an increased echotexture Left kidney measures 10 cm with an increased echotexture.. No hydronephrosis No gross abnormality bladder.. Prostate gland is enlarged. Cholelithiasis is present IMPRESSION: Increased renal echotexture consistent with parenchymal disease. No hydronephrosis
[2024-06-06 10:33] LABS: Absolute Basophils 0.1 K/uL (0-0.5); Absolute Eosinophils 0.1 K/uL (0-0.5); Absolute Lymphocytes (CBC) 0.6 K/uL (0.7-4.9); Absolute Monocytes 0.6 K/uL (0.1-1.3); Absolute Neutrophil 14.8 K/uL (1.8-8.0); Basophils % 0.5 % (0-1.3); Eosinophils % 0.6 % (0-4.4); Hematocrit 27.8 % (39.6-49.0); Hemoglobin 9.4 g/dL (13.6-17.9); Lymphocytes % 3.7 % (15.3-44.8); MCH 32.8 pg (27.0-35.0); MCHC 33.8 g/dL (32.0-36.0); MCV 97.1 fL (80-100); Monocytes % 3.9 % (3.3-12.3); Neutrophils % 91.3 % (41.7-73.7); Platelets 130 thou/uL (152-406); RBC Red Blood Cell Count 2.86 M/uL (4.33-5.43); Red Cell Distribution Width 15.2 % (12.1-15.2)
[2024-06-06] MEDS: HYDRALAZINE HCL 20 MG/ML VIAL IV PRN (10:34)
[2024-06-06 10:56] LABS: Albumin 2.6 g/dL (3.4-5.0); Albumin/Globulin Ratio 0.7 (1.1-1.8); Anion Gap 10.1 mEq/L (5.0-15.0); Bilirubin Total 0.9 mg/dL (0.2-1.0); Globulin 3.9 g/dL (2.3-3.5); Potassium 4.1 mEq/L (3.5-5.1); Protein, Total 6.5 g/dL (6.4-8.2); Thyroid Stimulating Hormone 2.11 uIU/mL (0.358-3.740)
[2024-06-06] MEDS: NIFEDIPINE XL 60 MG TABLET PO SCH (11:21)
[2024-06-06] MEDS: HYDRALAZINE HCL 20 MG/ML VIAL IV ONE (13:15)
--- NOTE | 2024-06-06 18:45 | P.PN ---
Date of Service: 06/06/24 Subjective Date of Service: 06/06/24 admitted with shortness of breath, with pneumonia/pulmonary edema/pulmonary hypertension, 90% on 2 L Review of Systems 10-point ROS is otherwise unremarkable increased work of breathing wants clarification of tx plan with oncology Physical Examination - Vital Signs reviewed, hypermetabolic - ordered ECHO - Physical Exam General: Alert, In no apparent distress, Oriented x3 HEENT: Atraumatic, Normocephalic Neck: Supple, 2+ carotid pulse no bruit Respiratory: Normal air movement, Diminished Cardiovascular: Regular rate/rhythm, Normal S1 S2 Capillary refill: <2 Seconds Gastrointestinal: Normal bowel sounds, Soft and benign Musculoskeletal: No clubbing, No swelling Integumentary: No breakdown, No significant lesion Neurological: Normal speech, Normal strength at 5/5 x4 extr, Normal tone Assessment And Plan - Current Problems (Diagnosis) (1) Hypertensive urgency Current Visit: No Status: Acute (2) Acute hypoxic respiratory failure Current Visit: Yes Status: Acute (3) Pulmonary edema Current Visit: Yes Status: Acute (4) Acute heart failure with preserved ejection fraction Current Visit: Yes Status: Acute (5) Acute kidney injury Current Visit: No Status: Acute (6) Pulmonary hypertension Current Visit: Yes Status: Acute (7) CML (chronic myelocytic leukemia) Current Visit: Yes Status: Acute - Plan Admit to MedSurg O2 2 L keep sats greater than 92% Nephrology consult for LANDEN IV Zosyn, nebs, as needed antihypertensives, gentle diuretics, resume home meds (holding chemo until discussion with Dr. Nelson) Accu-Chek ACHS, sliding scale insulin Daily weight, I&O Chest x-ray Central interstitial prominence, suggesting central venous congestion. Right basilar patchy airspace opacity with suggestion of small to moderate effusion. Pneumonia should be con sidered. No pneumothorax or left-sided effusion. The heart is normal in size. Mediastinal contours are unremarkable. CT chest, bilateral pleural effusion small pericardial effusion CXR IMPRESSION: Central interstitial prominence, suggesting central venous congestion. Right basilar patchy airspace opacity with suggestion of small to moderate effusion. Pneumonia should be considered. No pneumothorax or left-sided effusion. The heart is normal in size. Mediastinal contours are unremarkable. Echo 10/26/23 1. NORMAL LEFT VENTRICULAR SYSTOLIC FUNCTION, EJECTION FRACTION 60-65%, NORMAL WALL MOTION 2. MILD CONCENTRIC LEFT VENTRICULAR HYPERTROPHY 3. GRADE I DIASTOLIC DYSFUNCTION 4. MODERATE PULMONARY HYPERTENSION (RIGHT VENTRICULAR SYSTOLIC PRESSURE 45-50 mmHg) Severe hypertension multiple medications to bring to acceptable level. Low thresh-hold to move to ICU for drip Pt continues to have increased work of breathing Full code DVT SCDs Diet cardiac Disposition Home prior to admission Discharge Plan: Home - Code Status/Comfort Care Code Status: Full Code Critical Care: No <Alicia Irving - Last Filed: 06/06/24 18:46> Patient was seen and examined. Events of the last 24 hours have been noted. Spoke with with JAKE regarding patient's clinical picture after evaluating and examining the patient independently. I performed a substantial part of the MDM during this patient's care today. I personally made or approved the documented management plan and acknowledge its risk of complications. I agree with the findings and documentation provided in the JAKE's notes. <Kay Ortiz - Last Filed: 06/07/24 10:46>
--- NOTE | 2024-06-06 23:23 | PN ---
Date of Progress Note: 06/06/2024 Chief Complaint: Acute on chronic kidney injury associated with pulmonary edema, hypoxemic respirato ry failure, shortness of breath in the setting of CML and chronic kidney disease, cardiorenal syndrom e, acute on chronic kidney injury. Subjective: The patient was found to have pneumonia and pulmonary edema. Diuretic was increased. T he patient is feeling better. The patient has multiple medical problems, including history of diasto lic congestive heart failure, diabetes mellitus, leukemia, peripheral vascular disease, stent placed to right leg, history of chronic kidney disease stage 4. The patient came to the hospital because of shortness of breath at rest. Renal function has declined and the patient presented with accelerated hypertension. He was treated with IV hydralazine for hypertensive urgency. Review of Systems: Denies chest pain, palpitation. Physical Examination: Lungs: Diminished breath sounds at bases. Heart: S1, S2. Abdomen: Soft, benign. Extremities: No edema. Laboratory Data: Hemoglobin 10.6, hematocrit 31.1. Sodium 144, potassium 4.0, BUN 35, creatinine 1. 95. Magnesium 2.9. Impression And Plan: Chronic kidney disease due to diabetes mellitus, hypertension. The patient has acute kidney injury secondary to cardiorenal syndrome. The patient will continue Lasix for congesti ve heart failure to control fluid overload and treat pulmonary edema. Renal ultrasound was ordered w ith Doppler to rule out renal artery stenosis. The patient has unstable hypertension and blood press ure medications were increased. A chest x-ray was done and showed pulmonary edema. Continue hydralazine for congestive heart failure along with Lasix. Anemia due to chronic kidney disease. Hemoglobin level is satisfactory. Monitor hemoglobin and wagner tocrit. Hypertensive heart and kidney disease. Cardiology workup conducted by Primary team. Pneumonia. Antibiotics per Primary team. EB/MODL Voice ID: [id number] Report ID: [id number]
--- NOTE | 2024-06-07 07:04 | ECHO ---
HEIGHT: 5ft 7in WEIGHT: 150lb oz DATE OF STUDY: 06/06/[address]: Alicia Irving REAL ESTATE OFFICER-BC 2-DIMENSIONAL: YES M.MODE: YES DOPPLER: YES COLOR FLOW: YES TDS: NO PORTABLE: YES DEFINITY: NO BUBBLE STUDY: NO DIAGNOSIS: HYPERTENSION CARDIAC HISTORY: CATHERIZATION: NO SURGERY: NO PROSTHETIC VALVE: NO PACEMAKER: NO MEASUREMENTS (cm) DIASTOLIC (NORMALS) SYSTOLIC (NORMALS) IVSd 1.2 (0.6-1.2) LA Diam 3.6 (1.9-4.0) LVEF 65% LVIDd 5.0 (3.5-5.7) LVIDs 3.2 (2.0-3.5) %FS 36% LVPWd 1.3 (0.6-1.2) Ao Diam 3.2 (2.0-3.7) 2 DIMENSIONAL ASSESSMENT: RIGHT ATRIUM: NORMAL LEFT ATRIUM: NORMAL RIGHT VENTRICLE: NORMAL LEFT VENTRICLE: NORMAL TRICUSPID VALVE: TRACE OF TRICUSPID REGURGITATION MITRAL VALVE: NORMAL PULMONIC VALVE: NORMAL AORTIC VALVE: NORMAL PERICARDIAL EFFUSION: SMALL CIRCUMFRENTIAL EFFUSION AORTIC ROOT: NORMAL LEFT VENTRICULAR WALL MOTION: NORMAL. DOPPLER/COLOR FLOW: NORMAL. COMMENTS: 1. NORMAL LEFT VENTRICULAR SYSTOLIC FUNCTION, EJECTION FRACTION 60-65%, NORMAL DIASTOLIC FUNCTION. 2. NORMAL DIASTOLIC FUNCTION. 3. SMALL CIRCUMFRENTIAL PERICARDIAL EFFUSION, NO TAMPONADE. 4. DILATED INFERIOR VENA CAVA, ELEVATED FILLING PRESSURE (RIGHT ATRIUM PRESSURE GREATER THAN 20mmHg). TECHNOLOGIST: [*]
--- NOTE | 2024-06-07 11:14 | PN ---
Date of Progress Note: 06/07/2024 Subjective: The patient was admitted to the hospital with hypertension, over volume, atypical pneumo jannet with acute kidney injury. The patient treated for pneumonia and over volume. Blood pressure med ication has been adjusted yesterday. The patient found pneumonia on the right lower lobe on the CT. Physical Examination: Vital Signs: Blood pressure 167/64, pulse of 87. Chest: Crackles on the right base. No wheezing. Heart: S1, S2. Systolic murmur. Abdomen: Soft, nontender. Extremities: No edema. Neurologic: Alert. No focality. Laboratory Data: Hemoglobin 9.4. Sodium 142, potassium 4.1, bicarb 21, BUN 33, creatinine 1.7, GFR 42 improving, calcium 8.5, albumin 2.6, corrected calcium is 9.7. Current Medications: The patient is on include Zosyn 2.25 every 8 hours, clonidine 0.1 t.i.d., Cardu ra 1 mg b.i.d., hydralazine 75 every 6 hours, isosorbide, nifedipine, Tylenol, Lasix 40, bosutinib, i nsulin. Assessment And Plan: 1.Acute kidney injury secondary to cardiorenal, still on the over volume side. I am going to go ahe ad and increase Lasix to b.i.d. and we will follow up with the patient. 2.Hypertension, not controlled. We will increase Lasix. We will utilize blood pressure for more di uresis. I am going to go ahead and increase hydralazine to 100 mg and we will follow up the response for the patient. 3.Over volume, possible secondary to cardiorenal, questionable secondary to his chemotherapy. The p atient is on bosutinib, which is known to cause hypertension and over volume and fluid retention. We will discuss with Oncology for alternative. We will increase Lasix for the time being and we will f ollow up. 4.Anemia of chronic kidney disease/leukemia. We will follow up with primary. SUNSHINE/JOHNY Voice ID: [id number] Report ID: [id number]
[2024-06-07] MEDS: HYDRALAZINE HCL 25 MG TABLET PO SCH (13:47)
[2024-06-07 15:39] LABS: Absolute Eosinophils 0.1 K/uL (0-0.5); Absolute Lymphocytes (CBC) 0.7 K/uL (0.7-4.9); Absolute Monocytes 0.5 K/uL (0.1-1.3); Absolute Neutrophil 10.4 K/uL (1.8-8.0); Basophils % 0.4 % (0-1.3); Eosinophils % 1.1 % (0-4.4); Hematocrit 25.4 % (39.6-49.0); Hemoglobin 8.2 g/dL (13.6-17.9); Lymphocytes % 5.7 % (15.3-44.8); MCH 31.7 pg (27.0-35.0); MCHC 32.4 g/dL (32.0-36.0); MCV 97.7 fL (80-100); MPV 10.6 fL (7.6-11.3); Monocytes % 4.4 % (3.3-12.3); Neutrophils % 88.4 % (41.7-73.7); Nucleated Red Blood Cells % 0.1 % (0-0); Platelets 145 thou/uL (152-406); Red Cell Distribution Width 15.1 % (12.1-15.2)
--- NOTE | 2024-06-07 15:52 | P.PN ---
Date of Service: 06/07/24 Subjective Date of Service: 06/07/24 admitted with shortness of breath, with pneumonia/pulmonary edema/pulmonary hypertension, 90% on 2 L Pt reports less shortness of breath each day, still has O2 requirement Review of Systems 10-point ROS is otherwise unremarkable increased work of breathing wants clarification of tx plan with oncology, ECHO yest (06/06/24 showed 1. NORMAL LEFT VENTRICULAR SYSTOLIC FUNCTION, EJECTION FRACTION 60-65%, NORMAL DIASTOLIC FUNCTION. 2. NORMAL DIASTOLIC FUNCTION. 3. SMALL CIRCUMFRENTIAL PERICARDIAL EFFUSION, NO TAMPONADE. 4. DILATED INFERIOR VENA CAVA, ELEVATED FILLING PRESSURE (RIGHT ATRIUM PRESSURE GREATER THAN 20mmHg)." Physical Examination - Vital Signs reviewed, hyperdynamic - ordered ECHO as noted above - Physical Exam General: Alert, In no apparent distress, Oriented x3 HEENT: Atraumatic, Normocephalic Neck: Supple, 2+ carotid pulse no bruit Respiratory: Normal air movement, Diminished Cardiovascular: Regular rate/rhythm, Normal S1 S2, bounding with murmur Capillary refill: <2 Seconds Gastrointestinal: Normal bowel sounds, Soft and benign Musculoskeletal: No clubbing, No swelling Integumentary: No breakdown, No significant lesion Neurological: Normal speech, Normal strength at 5/5 x4 extr, Normal tone Assessment And Plan - Current Problems (Diagnosis) (1) Hypertensive urgency Current Visit: No Status: Acute (2) Acute hypoxic respiratory failure Current Visit: Yes Status: Acute (3) Pulmonary edema Current Visit: Yes Status: Acute (4) Acute heart failure with preserved ejection fraction Current Visit: Yes Status: Acute (5) Acute kidney injury Current Visit: No Status: Acute (6) Pulmonary hypertension Current Visit: Yes Status: Acute (7) CML (chronic myelocytic leukemia) Current Visit: Yes Status: Acute - Plan Admit to MedSurg O2 2 L keep sats greater than 92% Nephrology consult for LANDEN IV Zosyn, nebs, as needed antihypertensives, gentle diuretics, resume home meds (holding chemo until discussion with Dr. Nelson) Accu-Chek ACHS, sliding scale insulin Daily weight, I&O Chest x-ray Central interstitial prominence, suggesting central venous congestion. Right basilar patchy airspace opacity with suggestion of small to moderate effusion. Pneumonia should be considered. No pneumothorax or left-sided effusion. The heart is normal in size. Mediastinal contours are unremarkable. CT chest, bilateral pleural effusion small pericardial effusion CXR IMPRESSION: Central interstitial prominence, suggesting central venous congestion. Right basilar patchy airspace opacity with suggestion of small to moderate effusion. Pneumonia should be considered. No pneumothorax or left-sided effusion. The heart is normal in size. Mediastinal contours are unremarkable. Echo 10/26/23 1. NORMAL LEFT VENTRICULAR SYSTOLIC FUNCTION, EJECTION FRACTION 60-65%, NORMAL WALL MOTION 2. MILD CONCENTRIC LEFT VENTRICULAR HYPERTROPHY 3. GRADE I DIASTOLIC DYSFUNCTION 4. MODERATE PULMONARY HYPERTENSION (RIGHT VENTRICULAR SYSTOLIC PRESSURE 45-50 mmHg) ECHO 06/06/24 1. NORMAL LEFT VENTRICULAR SYSTOLIC FUNCTION, EJECTION FRACTION 60-65%, NORMAL DIASTOLIC FUNCTION. 2. NORMAL DIASTOLIC FUNCTION. 3. SMALL CIRCUMFRENTIAL PERICARDIAL EFFUSION, NO TAMPONADE. 4. DILATED INFERIOR VENA CAVA, ELEVATED FILLING PRESSURE (RIGHT ATRIUM PRESSURE GREATER THAN 20mmHg). Severe hypertension multiple medications to bring to acceptable level. Low thresh-hold to move to ICU for drip, nephrology following and increasing lasix Pt continues to have increased work of breathing Consult Dr. Maki Full code DVT SCDs Diet cardiac Disposition Home prior to admission Discharge Plan: Home - Code Status/Comfort Care Code Status: Full Code Critical Care: No
[2024-06-07 15:55] LABS: Albumin 2.5 g/dL (3.4-5.0); Albumin/Globulin Ratio 0.7 (1.1-1.8); Anion Gap 7.3 mEq/L (5.0-15.0); Bilirubin Total 0.4 mg/dL (0.2-1.0); Globulin 3.7 g/dL (2.3-3.5); Magnesium 2.7 mg/dL (1.6-2.4); Phosphorus 3.3 mg/dL (2.5-4.9); Potassium 4.3 mEq/L (3.5-5.1); Protein, Total 6.2 g/dL (6.4-8.2)
[2024-06-07] MEDS: FUROSEMIDE 40 MG/4 ML VIAL IV SCH (16:23)
[2024-06-07 19:14] LABS: Platelet Estimate DECR; White Blood Cell Scan OK (OK)
[2024-06-07 19:15] LABS: Blood Morphology Comment NOT SEEN (NOT SEEN)
[2024-06-08 05:44] LABS: Albumin 2.6 g/dL (3.4-5.0); Anion Gap 7.4 mEq/L (5.0-15.0); Magnesium 2.6 mg/dL (1.6-2.4); Phosphorus 3.4 mg/dL (2.5-4.9); Potassium 4.4 mEq/L (3.5-5.1); Thyroid Stimulating Hormone 2.67 uIU/mL (0.358-3.740)
[2024-06-08] MEDS ORDERED: SODIUM CHLORIDE 0.9% 10ML INJ IV PRN (05:46)
--- NOTE | 2024-06-08 08:27 | P.PN ---
Date of Service: 06/08/24 Subjective Date of Service: 06/07/24 continues on O2 via N/C Pt reports less shortness of breath each day Review of Systems 10-point ROS is otherwise unremarkable increased work of breathing wants clarification of tx plan with oncology, ECHO yest (06/06/24 showed 1. NORM AL LEFT VENTRICULAR SYSTOLIC FUNCTION, EJECTION FRACTION 60-65%, NORMAL DIASTOLIC FUNCTION. 2. NORMAL DIASTOLIC FUNCTION. 3. SMALL CIRCUMFRENTIAL PERICARDIAL EFFUSION, NO TAMPONADE. 4. DILATED INFERIOR VENA CAVA, ELEVATED FILLING PRESSURE (RIGHT ATRIUM PRESSURE GREATER THAN 20mmHg)." Physical Examination - Vital Signs reviewed, hyperdynamic - ordered ECHO as noted above - Physical Exam General: Alert, In no apparent distress, Oriented x3 HEENT: Atraumatic, Normocephalic Neck: Supple, 2+ carotid pulse no bruit Respiratory: Normal air movement, Diminished Cardiovascular: Regular rate/rhythm, Normal S1 S2, bounding with murmur Capillary refill: <2 Seconds Gastrointestinal: Normal bowel sounds, Soft and benign Musculoskeletal: No clubbing, No swelling Integumentary: No breakdown, No significant lesion Neurological: Normal speech, Normal strength at 5/5 x4 extr, Normal tone Assessment And Plan - Current Problems (Diagnosis) (1) Hypertensive urgency Current Visit: No Status: Acute (2) Acute hypoxic respiratory failure Current Visit: Yes Status: Acute (3) Pulmonary edema Current Visit: Yes Status: Acute (4) Acute heart failure with preserved ejection fraction Current Visit: Yes Status: Acute (5) Acute kidney injury Current Visit: No Status: Acute (6) Pulmonary hypertension Current Visit: Yes Status: Acute (7) CML (chronic myelocytic leukemia) Current Visit: Yes Status: Acute [facility] keep sats greater than 92% Nephrology consult for LANDEN - Dr. Parker evaluated IV Zosyn, nebs, as needed antihypertensives, gentle diuretics, resume home meds (holding chemo until discussion with Dr. Nelson) Accu-Chek ACHS, sliding scale insulin Daily weight, I&O Chest x-ray Central interstitial prominence, suggesting central venous congestion. Right basilar patchy airspace opacity with suggestion of small to moderate effusion. Pneumonia should be considered. No pneumothorax or left-sided effusion. The heart is normal in size. Mediastinal contours are unremarkable. CT chest, bilateral pleural effusion small pericardial effusion CXR IMPRESSION: Central interstitial prominence, suggesting central venous congestion. Right basilar patchy airspace opacity with suggestion of small to moderate effusion. Pneumonia should be considered. No pneumothorax or left-sided effusion. The heart is normal in size. Mediastinal contours are unremarkable. Echo 10/26/23 1. NORMAL LEFT VENTRICULAR SYSTOLIC FUNCTION, EJECTION FRACTION 60-65%, NORMAL WALL MOTION 2. MILD CONCENTRIC LEFT VENTRICULAR HYPERTROPHY 3. GRADE I DIASTOLIC DYSFUNCTION 4. MODERATE PULMONARY HYPERTENSION (RIGHT VENTRICULAR SYSTOLIC PRESSURE 45-50 mmHg) ECHO 06/06/24 1. NORMAL LEFT VENTRICULAR SYSTOLIC FUNCTION, EJECTION FRACTION 60-65%, NORMAL DIASTOLIC FUNCTION. 2. NORMAL DIASTOLIC FUNCTION. 3. SMALL CIRCUMFRENTIAL PERICARDIAL EFFUSION, NO TAMPONADE. 4. DILATED INFERIOR VENA CAVA, ELEVATED FILLING PRESSURE (RIGHT ATRIUM PRESSURE GREATER THAN 20mmHg). Severe hypertension multiple medications to bring to acceptable level. Low thresh-hold to move to ICU for drip, nephrology following and increasing lasix Pt noted to have less increased work of breathing Blood pressure within better control 148/65 (06/08/24) Continues with bounding pulses, murmur, Dr. Maki will see pt today (06/08/24) currently rec'ing lasix 40mg IV BID Anemia of chronic disease/CML may be exacerbated by LANDEN trending 10/6 to 8.2 (06/07/24) platelets stable LANDEN creatinine improving from 1.95 to 1.7 GFR 37 to 43 mild hypermagnesemia 2.9 to 2.6 CML will need to coordinate with Dr. Nelson post evaluation per Nephro/Cardio Full code DVT SCDs - added heparin sq 06/08/24 Diet cardiac Disposition Home prior to admission Discharge Plan: Home - Code Status/Comfort Care Code Status: Full Code Critical Care: No
[2024-06-08] MEDS: PANTOPRAZOLE 40 MG INJ IVP SCH (09:00)
[2024-06-08] MEDS: HEPARIN 5000 UNIT/ML 1 ML VIAL SQ SCH (09:01)
--- NOTE | 2024-06-08 09:10 | RAD REPORT ---
EXAMINATION: ONE VIEW CHEST XR CLINICAL INDICATION: Male, 68 years old. Dyspnea,comparison from 06/04 TECHNIQUE: Frontal chest projection is submitted. Examination is limited by patient positioning and t echnique. COMPARISON: 06/04/2024 FINDINGS: Stable central interstitial prominence. Right basilar pleural-parenchymal opacity is stable. No pneu mothorax or left-sided effusion. The heart is normal in size. Mediastinal contours are unremarkable. IMPRESSION: Stable findings, may suggest central congestion or pulmonary edema. Superimposed pneumonia cannot be excluded.
--- NOTE | 2024-06-08 11:34 | P.CNS ---
Date of Consult: 06/08/24 Chief Complaint: shortness of breath History of Present Illness: Patient with PMH of CML on therapy with hematology, chronic diastolic heart failure, presented with worsening SOB, denies chest pain, no palpitations, no dizzy spells, no syncope. Allergies carvedilol Adverse Reaction (Verified 04/20/24 22:41) Shortness of breath Home medications list reviewed: Yes Home Medications: Amlodipine [Norvasc*] 5 mg PO BID 10/16/21 Bosutinib [Bosulif] 400 mg PO DAILY 10/16/21 Insulin Glargine,Hum.rec.anlog [Basaglar Kwikpen U-100] 75 units SQ DAILY 10/16/21 Ramipril [Altace] 10 mg PO BID 10/16/21 Allopurinol 1 tab PO DAILY 08/17/23 Isosorbide Mononitrate [Isosorbide Mononitrate ER] 1 tab PO DAILY 08/17/23 Furosemide [Lasix] 40 mg PO DAILY 60 Days #60 tab 10/26/23 Ensure Enlive 237 ml PO BID #60 can 04/23/24 cloNIDine HCL [Clonidine HCl] 0.1 mg PO TID #90 tab 04/23/24 Hydralazine HCl 75 mg PO TID 06/04/24 - Past Medical/Surgical History Diabetic: Yes -: HTN -: CHF -: Leukemia -: DMII -: CKD -: appendectomy -: Kidney Bx -: Stent - Family History Father Family History: Reviewed- Non-Contributory - Social History Smoking Status: Unknown if ever smoked Alcohol use: No CD- Drugs: No Caffeine use: No Place of Residence: Home Review of Systems 10-point ROS is otherwise unremarkable Physical Examination Temp Pulse Resp BP Pulse Ox 98.0 F 84 18 183/69 H 95 06/08/24 08:00 06/08/24 08:00 06/08/24 08:00 06/08/24 08:00 06/08/24 08:00 General: Alert, In no apparent distress HEENT: Atraumatic, PERRLA, Mucous membr. moist/pink, EOMI, Sclerae nonicteric Neck: Supple, 2+ carotid pulse no bruit, No LAD, Without JVD or thyroid abnormality Respiratory: Clear to auscultation bilaterally, Normal air movement Cardiovascular: Regular rate/rhythm, Normal S1 S2 Gastrointestinal: Normal bowel sounds, No tenderness Musculoskeletal: No tenderness Integumentary: No rashes Neurological: Normal gait, Normal speech, Normal tone, Normal affect Lymphatics: No axilla or inguinal lymphadenopathy - Problems (1) Acute heart failure with preserved ejection fraction Current Visit: Yes Status: Acute Plan: patient breathing is better with IV diuresis continue Lasix and continue to monitor input and output and electrolytes. (2) Hypertensive urgency Current Visit: No Status: Acute Plan: continue current medications and monitor. (3) Pericardial effusion Current Visit: Yes Status: Acute Plan: small in size, no tamponade, will need to repeat echo as outpatient in 4 weeks.
--- NOTE | 2024-06-08 11:53 | PN ---
Date of Progress Note: 06/08/2024 Subjective: The patient was admitted to the hospital with over volume, hypertension. With acute kid kathy injury secondary to cardiorenal, the patient was diuresed. Kidney function started back to his b aseline. Physical Examination: Vital Signs: When I saw the patient, blood pressure 183/69, pulse of 84, afebrile. The patient had good urine output of 1750. The patient negative of 350. Chest: Clear to auscultation. Heart: S1, S2. Systolic murmur. Abdomen: Soft, nontender. Extremities: No edema. Neurologic: Alert. No focality. Laboratory Data: Hemoglobin 8.2. Sodium 143, potassium 4.4, bicarb 25, BUN 44, creatinine 1.7, calc ium 9. Current Medications: The patient is on include: 1.Clonidine. 2.Cardura 1 mg b.i.d. 3.Hydralazine 100 t.i.d. 4.Isosorbide. 5.Nifedipine. Assessment And Plan: 1.Acute kidney injury secondary to cardiorenal, recover back to baseline. I am going to continue cu rrent diuresis. We will consider switching to p.o. upon discharge. I had discussion with Hematology regarding the immunotherapy of bosutinib and the cause of over volume and recurrent urgent hypertens ion. Oncology plan to switch to a new medication. We will follow up. 2.Hypertension. I am going to go ahead and increase clonidine to 0.2 t.i.d. and we will follow up t he response. 3.Anemia of chronic kidney disease/CML. Follow up with Oncology. 4.Congestive heart failure with exacerbation, possible secondary to immunotherapy as above discussion. We will continue diuresis. 5.CML as by Oncology. SUNSHINE/JOHNY Voice ID: [id number] Report ID: [id number]
[2024-06-08] MEDS: cloNIDine HCL 0.1 MG TAB PO SCH (14:55)
[2024-06-09 05:23] LABS: Albumin 2.7 g/dL (3.4-5.0); Anion Gap 7.3 mEq/L (5.0-15.0); Magnesium 2.7 mg/dL (1.6-2.4); Phosphorus 3.5 mg/dL (2.5-4.9); Potassium 4.3 mEq/L (3.5-5.1)
--- NOTE | 2024-06-09 09:56 | P.PN ---
Subjective Date of Service: 06/09/24 Chief Complaint: shortness of breath Subjective: No new changes, No C/O voiced, Tolerating diet, Ambulating, Improving Review of Systems 10-point ROS is otherwise unremarkable Physical Examination - Vital Signs Temperature: 98.4 F Blood Pressure: 176/65 Pulse: 88 Respirations: 22 Pulse Ox (%): 93 - Physical Exam General: Alert, In no apparent distress HEENT: Atraumatic, PERRLA, EOMI Neck: Supple, JVD not distended Respiratory: Clear to auscultation bilaterally, Normal air movement Cardiovascular: Regular rate/rhythm, Normal S1 S2 Gastrointestinal: Normal bowel sounds, No tenderness Musculoskeletal: No tenderness Integumentary: No rashes Neurological: Normal speech, Normal tone, Normal affect Lymphatics: No axilla or inguinal lymphadenopathy - Studies Medications List Reviewed: Yes Assessment And Plan - Current Problems (Diagnosis) (1) Acute heart failure with preserved ejection fraction Current Visit: Yes Status: Acute Plan: patient breathing is better with IV diuresis continue Lasix and continue to monitor input and output and electrolytes. (2) Hypertensive urgency Current Visit: No Status: Acute Plan: continue current medications and monitor. (3) Pericardial effusion Current Visit: Yes Status: Acute Plan: small in size, no tamponade, will need to repeat echo as outpatient in 4 weeks.
--- NOTE | 2024-06-09 12:15 | EKG ---
Test Date: 2024-06-04 Test Time: 13:34:00 Pond Supervisor: AM MEASUREMENT RESULTS: Intervals: Rate: 66 TN: 136 QRSD: 90 QT: 454 QTc: 475 Turner: P: 62 TN: 136 QRS: 81 T: 73 INTERPRETIVE STATEMENTS: Normal sinus rhythm Possible Left atrial enlargement Possible Anterior infarct, age undetermined Abnormal ECG Compared to ECG 04/20/2024 17:31:15 Sinus arrhythmia no longer present Left-axis deviation no longer present Prolonged QT interval no longer present Myocardial infarct finding still present Electronically Signed On 06-09-24 12:11:11 [employer]BER SOFTWARE ENGINEER by eVnu Maki
[2024-06-09] MEDS: FUROSEMIDE 40 MG/4 ML VIAL IV ONE (13:48)
[2024-06-09] MEDS: FUROSEMIDE 40 MG/4 ML VIAL IV SCH (17:35)
--- NOTE | 2024-06-09 18:20 | P.PN ---
Date of Service: 06/09/24 Subjective Date of Service: 06/09/24 continues on O2 via N/C - will try home oxygen eval Pt reports less shortness of breath each day Review of Systems 10-point ROS is otherwise unremarkable increased work of breathing wants clarification of tx plan with oncology, ECHO yest (06/06/24 showed 1. NORMAL LEFT VENTRICULAR SYSTOLIC FUNCTION, EJECTION FRACTION 60-65%, NORMAL DIASTOLIC FUNCTION. 2. NORMAL DIASTOLIC FUNCTION. 3. SMALL CIRCUMFRENTIAL PERICARDIAL EFFUSION, NO TAMPONADE. 4. DILATED INFERIOR VENA CAVA, ELEVATED FILLING PRESSURE (RIGHT ATRIUM PRESSURE GREATER THAN 20mmHg)." Physical Examination - Vital Signs reviewed, hyperdynamic - ordered ECHO as noted above - Physical Exam General: Alert, In no apparent distress, Oriented x3 HEENT: Atraumatic, Normocephalic Neck: Supple, 2+ carotid pulse no bruit Respiratory: Normal air movement, Diminished Cardiovascular: Regular rate/rhythm, Normal S1 S2, bounding with murmur Capillary refill: <2 Seconds Gastrointestinal: Normal bowel sounds, Soft and benign Musculoskeletal: No clubbing, No swelling Integumentary: No breakdown, No significant lesion Neurological: Normal speech, Normal strength at 5/5 x4 extr, Normal tone Assessment And Plan - Current Problems (Diagnosis) (1) Hypertensive urgency Current Visit: No Status: Acute (2) Acute hypoxic respiratory failure Current Visit: Yes Status: Acute (3) Pulmonary edema Current Visit: Yes Status: Acute (4) Acute heart failure with preserved ejection fraction Current Visit: Yes Status: Acute (5) Acute kidney injury Current Visit: No Status: Acute (6) Pulmonary hypertension Current Visit: Yes Status: Acute (7) CML (chronic myelocytic leukemia) Current Visit: Yes Status: Acute - Plan Admit to MedSurg O2 2 L keep sats greater than 92% Nephrology consult for LANDEN - Dr. Parker evaluated IV Zosyn, nebs, as needed antihypertensives, gentle diuretics, resume home meds (holding chemo until discussion with Dr. Nelson) Accu-Chek ACHS, sliding scale insulin Daily weight, I&O Chest x-ray Central interstitial prominence, suggesting central venous congestion. Right basilar patchy airspace opacity with suggestion of small to moderate effusion. Pneumonia should be considered. No pneumothorax or left-sided effusion. The heart is normal in size. Mediastinal contours are unremarkable. CT chest, bilateral pleural effusion small pericardial effusion CXR IMPRESSION: Central interstitial prominence, suggesting central venous congestion. Right basilar patchy airspace opacity with suggestion of small to moderate effusion. Pneumonia should be considered. No pneumothorax or left-sided effusion. The heart is normal in size. Mediastinal contours are unremarkable. Echo 10/26/23 1. NORMAL LEFT VENTRICULAR SYSTOLIC FUNCTION, EJECTION FRACTION 60-65%, NORMAL WALL MOTION 2. MILD CONCENTRIC LEFT VENTRICULAR HYPERTROPHY 3. GRADE I DIASTOLIC DYSFUNCTION 4. MODERATE PULMONARY HYPERTENSION (RIGHT VENTRICULAR SYSTOLIC PRESSURE 45-50 mmHg) ECHO 06/06/24 1. NORMAL LEFT VENTRICULAR SYSTOLIC FUNCTION, EJECTION FRACTION 60-65%, NORMAL DIASTOLIC FUNCTION. 2. NORMAL DIASTOLIC FUNCTION. 3. SMALL CIRCUMFRENTIAL PERICARDIAL EFFUSION, NO TAMPONADE. 4. DILATED INFERIOR VENA CAVA, ELEVATED FILLING PRESSURE (RIGHT ATRIUM PRESSURE GREATER THAN 20mmHg). Severe hypertension multiple medications to bring to acceptable level. Low thresh-hold to move to ICU for drip, nephrology following and increasing lasix Pt noted to have less increased work of breathing Blood pressure within better control Continues with bounding pulses, murmur, Dr. Maki evaluated and recommends repeat ECHO in 4 weeks currently rec'ing lasix 40mg IV BID, will switch to po tomorrow (06/10/24) Anemia of chronic disease/CML may be exacerbated by LANDEN trending 10/6 to 8.2 (06/07/24) platelets stable LANDEN creatinine improving from 1.95 to 1.7 to 1.56 GFR 37 to 43 to 57 mild hypermagnesemia 2.9 to 2.6 to 2.7 CML will need to coordinate with Dr. Nelson post evaluation per Nephro/Cardio - Reached out to Dr. Nelson re: discharge planning qualified for home O2, delivered concentrator awaiting home O2 Full code DVT SCDs - added heparin sq 06/08/24 Diet cardiac Disposition Home 24 hours Discharge Plan: Home - Code Status/Comfort Care Code Status: Full Code Critical Care: No
[2024-06-10 01:04] VITALS: O2SAT 96
[2024-06-10 04:58] LABS: Albumin 2.5 g/dL (3.4-5.0); Anion Gap 11.2 mEq/L (5.0-15.0); Magnesium 2.5 mg/dL (1.6-2.4); Phosphorus 3.8 mg/dL (2.5-4.9); Potassium 5.2 mEq/L (3.5-5.1)
[2024-06-10 05:25] VITALS: BMI 23.6
[2024-06-10] MEDS: SOD POLYSTYREN SUL 15 GM/60 ML UCUP PO ONE (07:03)
--- NOTE | 2024-06-10 12:28 | P.DS ---
Admission Date: 06/05/24 Discharge Date: 06/10/24 Disposition: ROUTINE DISCHARGE Discharge Condition: GOOD Reason for Admission: shortness of breath Consultations: Dr. Elena Maki Brief History of Present Illness: This patient is a 68-year-old gentleman well known to me from multiple admissions in the past comes in with shortness of breath. Patient with uncontrolled hypertension. Patient also with history of CML. Patient was started on antihypertensives and diuresed. Patient is also anemic and will go ahead and monitor H&H as patient may need transfusion. Patient also with chronic kidney disease and will get Nephrology consultation. Patient will get an echocardiogram to further evaluate cardiac status. Patient is on numerous BP medications in these need to be better adjusted so when patient goes home will be able room manages blood pressure closely. Hospital Course: Mr. Hurtado was admitted for an acute kidney injury with exacerbation of chronic kidney disease, hypertensive urgency, anemia of chronic disease/CML, CHF exacerbation with preserved ejection fraction, and hypoxemia. He was seen by Dr. Maki, Cardiology. His repeat echo had a EF of 65% but a small pericardial effusion was noted. He will need a repeat echo in 4 weeks. He was also seen by his account auditor, Dr. Parker, his LANDEN has recovered to baseline. There is some question his chemotherapeutic agent, Bosinib, is the cause of overload and recurrent hypertensive urgency. They will discuss and see it change is required. Dr. Nelson aware. Mr. Hurtado continues to require supplemental O2. Concentrator delivered to bedside and now O2 has been delivered to his home. Patient is stable for discharge and outpatient follow up. Vital Signs/Physical Exam: Temp Pulse Resp BP Pulse Ox 97.9 F 70 16 167/62 H 95 06/10/24 08:00 06/10/24 08:00 06/10/24 08:00 06/10/24 08:00 06/10/24 08:00 General: Alert, In no apparent distress, Oriented x3 HEENT: Atraumatic, Normocephalic Neck: Supple, 2+ carotid pulse no bruit Respiratory: Clear to auscultation bilaterally, Normal air movement, Other (Continued O2 requirement) Cardiovascular: Normal pulses, Regular rate/rhythm (bounding), Systolic murmur Capillary refill: <2 Seconds Gastrointestinal: Soft and benign Musculoskeletal: No clubbing, No swelling Integumentary: No rashes, No breakdown Neurological: Normal speech, Normal tone, Normal affect Lymphatics: No axilla or inguinal lymphadenopathy External genitalia: Deferred Rectal: Deferred Laboratory Data at Discharge: WBC 11.70 thou/uL (4.3-10.9) H 06/07/24 15:10 Hgb 8.2 g/dL (13.6-17.9) L 06/07/24 15:10 Hct 25.4 % (39.6-49.0) L 06/07/24 15:10 Plt Count 145 thou/uL (152-406) L 06/07/24 15:10 PT 11.4 SECONDS (9.4-12.5) 06/04/24 12:08 INR 1.02 06/04/24 12:08 Sodium 140 mEq/L (136-145) 06/10/24 04:33 Potassium 5.2 mEq/L (3.5-5.1) H D 06/10/24 04:33 BUN 47 mg/dL (7-18) H 06/10/24 04:33 Creatinine 1.88 mg/dL (0.70-1.30) H 06/10/24 04:33 Glucose 179 mg/dL (74-106) H 06/10/24 04:33 Phosphorus 3.8 mg/dL (2.5-4.9) 06/10/24 04:33 Magnesium 2.5 mg/dL (1.6-2.4) H 06/10/24 04:33 Total Bilirubin 0.4 mg/dL (0.2-1.0) 06/07/24 15:10 AST 13 U/L (15-37) L 06/07/24 15:10 ALT 25 U/L (16-61) 06/07/24 15:10 Alkaline Phosphatase 78 U/L (45-117) 06/07/24 15:10 Home Medications: Amlodipine [Norvasc*] 5 mg PO BID 10/16/21 Bosutinib [Bosulif] 400 mg PO DAILY 10/16/21 Insulin Glargine,Hum.rec.anlog [Basaglar Kwikpen U-100] 75 units SQ DAILY 10/16/21 Ramipril [Altace] 10 mg PO BID 10/16/21 Allopurinol 1 tab PO DAILY 08/17/23 Isosorbide Mononitrate [Isosorbide Mononitrate ER] 1 tab PO DAILY 08/17/23 Furosemide [Lasix] 40 mg PO DAILY 60 Days #60 tab 10/26/23 Ensure Enlive 237 ml PO BID #60 can 04/23/24 Hydralazine HCl 75 mg PO TID 06/04/24 Doxazosin [Cardura*] 1 mg PO BID #60 tab 06/10/24 Nifedipine Xl [Procardia XL*] 60 mg PO DAILY #60 tab 06/10/24 cloNIDine HCL [Catapres*] 0.2 mg PO TID #120 tab 06/10/24 New Medications: Doxazosin [Cardura*] 1 mg PO BID #60 tab cloNIDine HCL [Catapres*] 0.2 mg PO TID #120 tab Nifedipine Xl [Procardia XL*] 60 mg PO DAILY #60 tab Physician Discharge Instructions: Mr. Hurtado was admitted for an acute kidney injury with exacerbation of chronic kidney disease, hypertensive urgency, anemia of chronic disease/CML, CHF exacerbation with preserved ejection fraction, and hypoxemia. He was seen by Dr. Maki, Cardiology. His repeat echo had a EF of 65% but a small pericardial effusion was noted. He will need a repeat echo in 4 weeks. He was also seen by his account auditor, Dr. Parker, his LANDEN has recovered to baseline. There is some question his chemotherapeutic agent, Bosinib, is the cause of overload and recurrent hypertensive urgency. They will discuss and see it change is required. Dr. Nelson aware. Mr. Hurtado continues to require supplemental O2. Concentrator delivered to bedside and now O2 has been delivered to his home. Patient is stable for discharge and outpatient follow up. Diet: AHA Activity: Ad daniel Followup: Marissa Parker MD [ACTIVE - CAN ADMIT] - Venu Maki MD [ACTIVE - CAN ADMIT] - Silvina Nelson MD [ACTIVE - CAN ADMIT] - Steve Montes MD [Primary Care Provider] - 1-2 Weeks
[2024-06-10 16:56] VITALS: BP 161/67; TEMP 98
[2024-06-10] MEDS: INFLUENZA VACCINE (for 6+ mo) 0.5 ML DOSE IMVAC ONE (17:25)
[2024-06-10] MEDS ORDERED: FLU (Fluarix Triv) TS24-25(6MOS UP)/PF 45 MCG/0.5 ML Syringe IM ONE (17:34)
[2024-06-10] MEDS: PNEUMOCOCCAL VACCINE 0.5 ML IMVAC ONE (17:46)
--- NOTE | 2024-06-10 23:35 | PN ---
Subjective: No overnight events. Creatinine remains stable. The patient can be discharged from Nep hrology point of view. The patient advised to continue his home dose of Lasix and take extra Lasix a s needed for shortness of breath or weight gain more than 5 pounds. Objective: Vital Signs: Temperature 98, pulse rate 73, blood pressure 157/62. General: Awake, alert, oriented x3. Not in distress. Neck: Supple. No elevated JVD. Heart: Regular rate and rhythm. Normal S1, S2. Chest: Clear to auscultation bilaterally. No rales or wheezes. Abdomen: Soft and nontender. Extremities: No edema. Laboratory Data: White count 7.7, hemoglobin 8.2. Sodium 140, potassium 4.2, creatinine 1.8. Assessment And Plan: 1.Chronic kidney disease. Creatinine currently stable. Continue current dose of Lasix. Renal dose medication. 2.Hypertension. Blood pressure is better controlled now. Continue current medication. The patient discussed with the oncologist about the risks versus benefits of continuing his current immunotherap y. 3.Congestive heart failure. Continue current dose of Lasix. I and O. Low-salt diet. 4.Chronic myeloid leukemia. To follow up with his oncologist as an outpatient. MARIA Voice ID: [id number] Report ID: [id number]
== END 2024-06-10 18:04 | disposition home or self-care (01) | DRG 193 ==
LOC: ER 10:59 → ERHOLD 15:31 → 2ND 16:50 → OBSVTOIN 06-05 17:40
PROVIDERS: ADMIT Hospitalist; ATTEND Internal Medicine
DX: J18.9 Pneumonia, unspecified organism (principal); I50.33 Acute on chronic diastolic (congestive) heart failure; J96.01 Acute respiratory failure with hypoxia; C92.10 Chronic myeloid leukemia, BCR/ABL-positive, not having achieved remission; I13.0 Hypertensive heart and chronic kidney disease with heart failure and stage 1 through stage 4 chronic kidney disease, or unspecified chronic kidney disease; N18.4 Chronic kidney disease, stage 4 (severe); N17.9 Acute kidney failure, unspecified; I31.39 Other pericardial effusion (noninflammatory); E11.22 Type 2 diabetes mellitus with diabetic chronic kidney disease; Z79.4 Long term (current) use of insulin; I27.20 Pulmonary hypertension, unspecified; I16.0 Hypertensive urgency; I73.9 Peripheral vascular disease, unspecified; D63.1 Anemia in chronic kidney disease
CPT/HCPCS: 36415; 71045; 71250; 76770; 80048; 80053; 80069; 80076; 81001; 82947; 83735; 83880; 84100; 84443; 84484; 85025; 85610; 87040; 87804; 87811; 90471; 90732; 93005; 93306; 99285; G0378; J0360; J0692; J1644; J1940; J2020; J2470; J2543